=== PATIENT | male | born 1955 | race Caucasian/White ===

== ENCOUNTER 2023-09-28 22:35 | Inpatient (IN) | payer MEDICARE, OTHER, SELFPAY ==
--- NOTE | ~2023-09-28 | CT_ITS ---
EXAMINATION: CT CHEST, ABDOMEN AND PELVIS WITHOUT CONTRAST CLINICAL INFORMATION: Shortness of breath, source of infection, sepsis COMPARISON: None TECHNIQUE: Multidetector volumetric imaging was performed from the thoracic inlet through the pubic symphysis. Sagittal and coronal reformatted images were obtained on the technologist's workstation. Axial MIP volume rendering provided. This CT examination was performed using dose optimization techniques as appropriate, variously including the following: *Automated exposure control *Adjustment of mA and/or kV according to patient size (this includes techniques or standardized protocols for targeted exams where dose is matched to indication/reason for exam; i.e. extremities or head) *Use of iterative reconstruction technique DLP: 1959 mGy-cm FINDINGS: CHEST: Lungs: Limited detailed evaluation in some regions due to respiratory motion artifact. Streaky and subpleural opacities towards the lung bases are favored to represent atelectasis. Mediastinum: Visualized thyroid gland is grossly unremarkable. Borderline enlarged right paratracheal lymph node is nonspecific. Borderline cardiomegaly with small pericardial effusion. Scattered calcification along the aorta. Gaseous distention of much of the esophagus noted. Coronary Artery Calcification: Mild Pleura: There is suggestion of trace pleural effusions. No pneumothorax. Chest Wall/Axilla: Unremarkable. ABDOMEN/PELVIS: Liver, Gallbladder, Biliary Tree: The liver is normal in size, shape, and attenuation. No focal hepatic lesion or biliary ductal dilatation is identified on this noncontrast exam. The gallbladder is unremarkable with no evidence of radiopaque gallstones, gallbladder wall thickening, or pericholecystic inflammatory changes. Pancreas: Mild fatty atrophy. Spleen: Unremarkable. Adrenal Glands: Unremarkable. Kidneys and Ureters: There is mild right hydronephrosis with no obstructing calculus seen. There is asymmetrically prominent right perinephric and retroperitoneal stranding. Bilateral renal cysts noted; no follow-up recommended. No left hydronephrosis. Bladder: Decompressed with Galvan catheter in place. Gastrointestinal Tract: There is prominent, predominantly gaseous distention of the stomach. No evidence of bowel obstruction or significant wall thickening. Colonic diverticulosis is noted. The appendix is unremarkable. Small amount of free fluid in the pelvis. No free air is seen. Abdominal Wall: Fat-containing left inguinal hernia. Lymphovascular Structures: Lymph nodes: Normal. Vascular: Scattered atherosclerotic calcifications. Pelvic Viscera: Unremarkable. OSSEOUS STRUCTURES: Degenerative changes are noted in the spine. CT/CT abdomen pelvis wo IV con IMPRESSION: 1. Mild right hydronephrosis with no obstructing calculus seen. There is asymmetrically prominent right perinephric and retroperitoneal stranding. In the proper clinical setting, this could represent sequelae of a recently passed stone versus pyelonephritis. 2. Small pericardial effusion. 3. Suggestion of trace pleural effusions. 4. Prominent, predominantly gaseous distention of the stomach. No evidence of bowel obstruction. Gaseous distention of the esophagus could be due to reflux or dysmotility. 5. Borderline enlarged right paratracheal lymph node, nonspecific and of uncertain clinical significance. 6. Small amount of free fluid in the pelvis.
--- NOTE | ~2023-09-28 | CT_ITS ---
EXAMINATION: CT ABDOMEN AND PELVIS WITHOUT CONTRAST CLINICAL INFORMATION: Bacteremia and multiple pressures COMPARISON: CT scan earlier today at 12:53 AM TECHNIQUE: Multidetector volumetric imaging was performed from the superior aspect of the liver through the pubic symphysis. Sagittal and coronal reformatted images were obtained on the technologist's workstation. This CT examination was performed using dose optimization techniques as appropriate, variously including the following: *Automated exposure control *Adjustment of mA and/or kV according to patient size (this includes techniques or standardized protocols for targeted exams where dose is matched to indication/reason for exam; i.e. extremities or head) *Use of iterative reconstruction technique DLP: 1683 mGy-cm FINDINGS: LUNG BASES: Bilateral small pleural effusions and lower lobe atelectasis has increased when compared to the study from just under 12 hours ago. There is a persistent small pericardial effusion. Bilateral symmetric gynecomastia. LIVER, GALLBLADDER, AND BILIARY TREE: The liver is normal in size, shape, and attenuation. No focal hepatic lesion or biliary ductal dilatation is present. The gallbladder wall appears slightly more edematous than noted earlier today. No gallstones are seen. Is unremarkable with no evidence of radiopaque gallstones, gallbladder wall thickening, or obvious pericholecystic inflammatory changes. PANCREAS: Unremarkable. SPLEEN: Unremarkable. ADRENAL GLANDS: Unremarkable. KIDNEYS AND URETERS: The kidneys are normal in size, shape, and attenuation. Tiny amount of air is present in the upper pole cortex (4:313-318) on the right. There is right-sided hydronephrosis with dilation of the ureter down to the level of the ureterovesical junction. No obstructing calculus or mass is seen. No left-sided hydronephrosis, hydroureter, or calculi seen. There is bilateral nonspecific perinephric stranding. There are bilateral benign Bosniak class one cysts which need no additional imaging or follow-up. BLADDER: Galvan catheter is present in the bladder which is decompressed. The Galvan balloon may be in the prostatic urethra. GASTROINTESTINAL TRACT: The small and large bowel are unremarkable. The appendix is normal. ABDOMINAL WALL: Left inguinal hernia seen containing only fat. LYMPH NODES: No retroperitoneal lymphadenopathy. VASCULAR: Calcific atherosclerotic changes are present in the aorta and iliofemoral vessels. There is no evidence of an abdominal aortic aneurysm. PELVIC VISCERA: Prostate poorly visualized. OSSEOUS STRUCTURES: Degenerative changes are seen in the spine. CT/CT abdomen pelvis wo IV con IMPRESSION: 1. There is right-sided hydronephrosis with dilation of the ureter down to the level of the ureterovesical junction. No obstructing calculus or mass is seen. 2. Tiny amount of air is present in the upper pole cortex of the right kidney. This could be due to emphysematous pyelonephritis. Please correlate with clinical picture and urinalysis and culture. A small amount of air is also present in the bladder which can be normal with the patient with a Galvan in place. 3. Other incidental findings as described above. Fleischner guidelines were followed.
--- NOTE | ~2023-09-28 | XR_ITS ---
EXAMINATION: XR CHEST CLINICAL INFORMATION: Triple-lumen catheter placement COMPARISON: CT from the same day TECHNIQUE: Frontal view of the chest was obtained. FINDINGS: Right IJ central line tip lies in the region of the lower right atrium, approximately 6 cm below the cavoatrial junction. The lungs are hypoinflated. Streaky bibasilar opacities favor atelectasis. No evidence of pneumothorax or significant pleural effusion. The cardiomediastinal silhouette is stable. No acute osseous findings are seen. XR/XR chest 1V IMPRESSION: Right IJ central line tip in the region of the lower right atrium, approximately 6 cm below the cavoatrial junction. Low lung volumes with streaky bibasilar opacities favoring atelectasis.
--- NOTE | ~2023-09-28 | XR_ITS ---
EXAMINATION: XR CHEST CLINICAL INFORMATION: Dialysis catheter placement COMPARISON: 09/29/2023 TECHNIQUE: Frontal view of the chest was obtained. FINDINGS: Left IJ central line tip overlies the expected region of the left brachiocephalic vein, though arterial placement cannot be excluded, as the aortic arch also overlies this location. Right IJ central line tip lies in the region of the lower right atrium. Enteric tube courses below the diaphragm. Esophageal probe tip overlies the midesophagus. Endotracheal tube tip lies approximately 5.5 cm above the charlene. The lungs are hypoinflated. Overall increasing regions of bibasilar opacity. No appreciable pneumothorax. Small pleural effusions cannot be excluded. The cardiomediastinal silhouette is stable. No acute osseous findings are seen. XR/XR chest 1V IMPRESSION: 1. Left IJ central line tip overlies the expected region of the left brachiocephalic vein, however arterial placement cannot be excluded, as the aortic arch also overlies this location. Correlation with blood gas sampling would be helpful. If clinically warranted, more definitive location could be established with noncontrast CT. 2. Low lung volumes with increasing bibasilar opacities, favored to at least partially be due to atelectasis though superimposed consolidation cannot be excluded.
--- NOTE | ~2023-09-28 | MR_ITS ---
EXAMINATION: MR BRAIN WITHOUT CONTRAST CLINICAL INFORMATION: Persistent encephalopathy COMPARISON: None available. TECHNIQUE: MRI of the brain was obtained using routine sequences without contrast. FINDINGS: Motion artifact is present. No acute intracranial hemorrhage or infarct. Scattered and confluent periventricular and deep white matter T2/FLAIR hyperintensities, nonspecific however commonly seen with small vessel ischemic disease. No midline shift or hydrocephalus. No acute extra-axial fluid collections. The osseous structures are unremarkable. The pituitary gland, pineal gland and remaining midline structures are unremarkable. No orbital pathology. The paranasal sinuses are clear. Small bilateral mastoid effusions. MR/MR head/brain wo con IMPRESSION: Within the limitations of this study, -No acute intracranial abnormalities.
--- NOTE | ~2023-09-28 | US_ITS ---
EXAMINATION: US ABDOMEN LIMITED CLINICAL INFORMATION: Hyperbilirubinemia questionably thickened gallbladder on CT scan, the bulk cholecystitis.. COMPARISON: CT scan from 09/29/2023 TECHNIQUE: Real-time imaging of the right upper quadrant abdominal viscera. FINDINGS: PANCREAS: Unremarkable where seen. The pancreatic tail are obscured by bowel gas. LIVER:The liver is enlarged with the right lobe measured 19 cm. The liver contour is normal. Parenchymal echogenicity is increased due to hepatic steatosis . No focal hepatic lesion. There is no intrahepatic biliary duct dilatation seen. GALLBLADDER: Normal with thickening causes the gallbladder wall in the fundus, measured 0.5 cm. Gallbladder is physiologically distended without calculi seen. There is no pericholecystic fluid collection or cholelithiasis. COMMON BILE DUCT: Normal in caliber measuring 0.4 cm in diameter. RIGHT KIDNEY: Relation of right kidney is limited due to bowel gas distribution.. No hydronephrosis. No renal calculi or focal parenchymal lesions. The kidney measures 12.0 cm in maximum dimension. FREE FLUID: There is pocket of fluid in the right lower quadrant measured 4.5 cm.. US/US abdomen limited IMPRESSION: 1. Hepatic steatosis and hepatomegaly. 2. Thickening of the gallbladder wall in the fundus without calculi or pericholecystic fluid collection. 3. Fluid in the right lower quadrant.
--- NOTE | ~2023-09-28 | FL_ITS ---
EXAMINATION: XR FLUOROSCOPY WITH IMAGES CLINICAL INFORMATION: Right ureteral stone. COMPARISON: CT abdomen and pelvis 09/29/2023. TECHNIQUE: Fluoroscopy Supervised By: Dr. Elena. Fluoroscopy Time: 13.4 sec. Cumulative Dose: 7.51 mGy. DAP: Not documented. Images: 2. FINDINGS: Intraoperative fluoroscopy and spot films were performed during a procedure in the OR. Imaging demonstrates an internal indwelling right-sided double-J stent. Please correlate with Dr. Elena's report for complete details. FL/FL guidance in OR IMPRESSION: Intraoperative fluoroscopy and spot films were obtained. Please see Dr. Elena's report for complete details.
--- NOTE | ~2023-09-28 | XR_ITS ---
EXAMINATION: XR CHEST CLINICAL INFORMATION: ETT/TLC. COMPARISON: None available. TECHNIQUE: Frontal view of the chest was obtained. FINDINGS: The lungs are hypoexpanded but clear acute pneumonic process. Heart size and pulmonary vascularity is normal. Tip of endotracheal tube is 2.8 cm above the charlene. Enteric tube tip is below diaphragm the stomach. There is a right jugular central venous catheter its tip at the atriocaval junction. XR/XR chest 1V IMPRESSION: 1. No acute cardiopulmonary process seen. 2. Support lines and catheters are in satisfactory position.
--- NOTE | ~2023-09-28 | CT_ITS ---
EXAMINATION: NONCONTRAST HEAD CT NONCONTRAST CERVICAL SPINE CT INDICATION INFORMATION: Multiple falls COMPARISON: None TECHNIQUE: Separate noncontrast CT examinations of the head and cervical spine were performed. Coronal head CT images and coronal and sagittal cervical spine images were created at the technologist workstation. DLP: 1415 mGy-cm DOSE LOWERING TECHNIQUES: This CT examination was performed using dose optimization techniques as appropriate, variously including the following: - Automated exposure control - Adjustment of mA and/or kV according to patient size (this includes techniques or standardized protocols for targeted exams were dose is matched to indication/reason for exam; i.e. extremities or head) - Use of iterative reconstruction technique FINDINGS: Head: Suboptimal assessment in some regions due to motion artifact. There is no evidence of acute intracranial hemorrhage or territorial infarction. No abnormal mass-effect or midline shift is seen. Cazares to white matter differentiation is well preserved. No extra-axial fluid collections are identified. The ventricles are normal in size. There is mild periventricular white matter hypoattenuation consistent with chronic small vessel ischemic disease. The osseous structures and soft tissues are normal. Mild mucosal thickening of the maxillary sinuses. The mastoid air cells are well-aerated. Cervical spine: Fusion hardware is present at C5-C6 and C6-C7. There is anatomic alignment of the vertebral bodies and posterior elements. Vertebral body heights are maintained. Mild disc space narrowing at C3-C4. Mild multilevel endplate osteophytes. Mild multilevel facet arthropathy. No evidence of acute fracture. No prevertebral soft tissue swelling. Visualized portions of the lung apices are unremarkable. The thyroid gland is unremarkable. CT/CT cervical spine wo IV con IMPRESSION: HEAD: No acute intracranial findings. CERVICAL SPINE: No acute findings identified. Postoperative and degenerative changes as noted above.
--- NOTE | ~2023-09-28 | XR_ITS ---
EXAMINATION: XR CHEST CLINICAL INFORMATION: Hypoxia COMPARISON: 10/01/2023. . TECHNIQUE: Frontal view of the chest was obtained. Findings: left IJ central line, right IJ central line, enteric tube, esophageal probe, endotracheal tube are in stable position There is low lung volume bilaterally with atelectasis at the right lung base and small pleural effusion. There is patchy airspace disease at the left lung base. Cardiomediastinal silhouette is unremarkable. XR/XR chest 1V IMPRESSION: Lines and tubes are in stable position. Bibasilar atelectasis and small right pleural effusion. Patchy airspace disease at the left lung base
--- NOTE | ~2023-09-28 | XR_ITS ---
EXAMINATION: XR CHEST CLINICAL INFORMATION: Shortness of breath. Fever. COMPARISON: None available. TECHNIQUE: Frontal view of the chest was obtained. FINDINGS: Linear atelectasis is present at the right lung base. Mild elevation of the right hemidiaphragm. Lungs otherwise clear. No consolidation, pneumothorax, or pleural effusion. Cardiac and mediastinal contours are normal. ACDF hardware is evident in the lower cervical spine. Status post left distal clavicular resection. Degenerative disc disease midthoracic spine. XR/XR chest 1V IMPRESSION: Linear atelectasis in the right lung base. No acute pulmonary findings.
[2023-09-28 22:41] VITALS: BMI 33.9
--- NOTE | 2023-09-28 22:41 | ECG_ITS ---
Test Reason : SEPSIS Blood Pressure : / mmHG Vent. Rate : 083 BPM Atrial Rate : 083 BPM P-R Int : 152 ms QRS Dur : 086 ms QT Int : 354 ms P-R-T Axes : 054 024 054 degrees QTc Int : 415 ms Poor data quality Normal sinus rhythm Low voltage QRS Borderline ECG No previous ECGs available Referred By: Madison Salguero Electronically Signed By:Domingo Avitia
--- NOTE | 2023-09-28 22:43 | ED.GENADULT ---
HPI - General Adult General Chief complaint: Fever Stated complaint: sepsis alert Source: patient and EMS Mode of arrival: EMS Limitations: no limitations History of Present Illness ED Provider: Dr. Madison Salguero HPI narrative: Patient comes to the emergency room from home. Patient states that for the last 2 days, he has been having multiple episodes of vomiting, no diarrhea. Patient states that he has been feeling a bit short of breath. Per EMS, the patient called from home, patient seems a bit confused. On arrival, patient's blood pressure in the high 60s systolic. Patient was given 300 mL of fluid EN route to the hospital Related Data Allergies Allergy/AdvReac Type Severity Reaction Status Date / Time rabies vaccine, hero cell Allergy Severe SEVERE Verified 09/28/23 22:56 [RABIES VACCINE, HERO CELL] BLISTERS,RASH cephalexin [From KEFLEX] Allergy Intermediate VOMITING/DI Verified 09/28/23 22:56 ARRHEA Sulfa (Sulfonamide Allergy Unknown SEVERE Verified 09/28/23 22:56 Antibiotics) VOMITING [SULFA (SULFONAMIDE ANTIBIOTICS)] rabies vaccine Allergy Unknown Unknown Uncoded 09/28/23 22:56 sulfa Allergy Unknown Unknown Uncoded 09/28/23 22:56 Review of Systems Review of Systems: Constitutional : No Weight loss, No Fever, No Chills, No Night Sweats, No Fatigue, No Malaise ENT/Mouth : No Hearing loss, No Ear Pain, No Nasal Congestion, No Sinus Pain, No Hoarseness, No sore throat, No Rhinorrhea, No Swallowing Difficulty Eyes: No Eye Pain, No Swelling, No Redness, No Foreign Body, No Discharge, No Vision Changes Cardiovascular : No Chest Pain, complaining of shortness of breath, no edema Respiratory : No Cough, No Sputum, No Wheezing, No Smoke Exposure, complaining of Dyspnea Gastrointestinal : Complaining of nausea and vomiting, No Diarrhea, No Constipation, No abdominal Pain, No Hematochezia, No Melena Genitourinary : no irregular bleeding, No Dysuria, No Urinary Frequency, No Hematuria, No Urinary Incontinence, No Urgency, No Flank Pain, No Urinary Flow Changes, No Hesitancy Musculoskeletal : No joint pain, No Myalgias, No Joint Swelling Skin : No Skin Lesions, No rash Neuro : No Weakness, No Numbness, No Paresthesias, No Loss of Consciousness, No Dizziness, No Headache Psych : No Anxiety/Panic, No Depression, No SI/HI/AH/VH, No Social Issues, Heme/Lymph: No Bruising, No Bleeding,No Lymphadenopathy Endocrine : No Polyuria, No Polydipsia, No Temperature Intolerance [facility] Past Medical History Medical History (Updated 09/29/23 @ 01:06 by Madison Salguero MD) Migraine Prostate cancer Osteomyelitis Skin cancer HLD (hyperlipidemia) Diabetes Hypothyroid Surgical History (Updated 09/28/23 @ 22:59 by Madison Salguero MD) History of umbilical hernia repair Hx of prostatectomy History of spinal fusion Social History Social History Smoked in Last 30 Days: No Use of substances other than those prescribed or required for medical reasons: No Advance Directives: No Advance Directives Information Provided: Yes Do you have a plan to hurt others: No Plan Physical Exam ED Vital Signs: Vital Signs - 24 hr 09/28/23 23:09 09/28/23 23:31 09/29/23 00:06 Temperature 101.7 F H 101.3 F H Pulse Rate 107 H 105 H 90 Respiratory Rate 20 20 Blood Pressure 79/45 L 74/43 L 81/40 L Pulse Oximetry 97 96 Oxygen Delivery Method Nasal Cannula Nasal Cannula Oxygen Flow Rate 2 Fraction of Inspired Oxygen 26 09/29/23 00:08 09/29/23 00:11 09/29/23 00:11 Temperature 100.6 F H Pulse Rate 87 99 99 Respiratory Rate 14 16 Blood Pressure 81/40 L 78/50 L 91/60 Pulse Oximetry 95 95 Oxygen Delivery Method Nasal Cannula Nasal Cannula Oxygen Flow Rate 2 2 Fraction of Inspired Oxygen 25 25 09/29/23 00:16 09/29/23 00:58 09/29/23 01:19 Temperature 99.0 F 99.1 F Pulse Rate 109 H 106 H 113 H Respiratory Rate 20 20 18 Blood Pressure 97/54 L 91/50 L 94/56 L Pulse Oximetry 97 94 90 L Oxygen Delivery Method Nasal Cannula Nasal Cannula Nasal Cannula Oxygen Flow Rate Fraction of Inspired Oxygen 29 24 BMI result Body Mass Index 33.9 Const Other: Appearance: Alert. Oriented X3. But intermittently confused, seems weak Eyes: Pupils equal, round and reactive to light. ENT: Pharynx normal. Neck: Normal inspection. Neck supple. No lymph nodes noted. No crepitus CVS: Normal heart rate and rhythm. Pulses normal. Normal S1 and S2 Respiratory: No respiratory distress. Breath sounds normal. No Wheezing. No rales Abdomen: Soft and nontender. No rigidity. No distention. Skin: Skin warm and dry. Patient is a bit pale color. Normal skin turgor. Extremities: No lower extremity edema. No Lacerations. No Rash Neuro: No motor deficit. No sensory deficit. Moving all extremities. No slurred speech. CN 2 through 12 grossly intact Psych: calm, cooperative, normal affect Course Course Course Narrative: -for the most part, patient answering questions appropriately. Ill-appearing. -patient has fever, tachycardic, hypotensive. -patient was started on IV fluids and antibiotics, sepsis protocol started at 23:00 -all of patient's labs and imaging pending -patient had a vomit in his bland, questionably coffee-ground. Occult stool test pending -on arrival, point of care glucose: 500 -patient receiving IV fluids as mentioned above, and 10 units of insulin. Medications Administered Generic Name Dose Route Start Last Admin Trade Name Freq PRN Reason Stop Dose Admin Norepinephrine Bitartrate 8 mg in 250 mls @ 0 mls/hr 09/29/23 00:15 09/29/23 00:11 Levophed IV 0 mcg/kg/min .Q0M OCTAVIO 0.07 mls/hr Titration Protocol Per Protocol Discontinued Medications Generic Name Dose Route Start Last Admin Trade Name Freq PRN Reason Stop Dose Admin Acetaminophen 975 mg 09/29/23 00:11 09/29/23 00:13 Acetaminophen 325 Mg Tablet PO 09/29/23 00:12 975 mg ONCE ONE Administration Levofloxacin 500 mg in 100 mls @ 100 mls/hr 09/28/23 22:38 09/29/23 00:10 Levaquin IV 09/28/23 23:37 Infused ONCE ONE Infusion Sodium Chloride 3,498 mls @ 3,498 mls/hr 09/28/23 22:42 09/29/23 00:35 Ns 30 ml/kg infuse over 1 hr (3498 ml) 09/28/23 23:41 Infused IV Infusion .Q1H STA Insulin Human Regular 10 unit 09/28/23 22:55 09/28/23 23:02 Insulin Regular, Human 100 Unit/Ml 10 Ml Vial IVPUSH 09/28/23 22:56 10 unit ONCE ONE Administration Ondansetron HCl 4 mg 09/28/23 22:43 09/28/23 22:59 Ondansetron Hcl 4 Mg/2 Ml Vial IVPUSH 09/28/23 22:44 4 mg ONCE ONE Administration Medical Decision Making Medical Decision Making [facility] Narrative: -patient has a rectal temperature of 102.3 degrees. Patient is tachycardic, ill-appearing. Empirically, patient has been started on fluids and antibiotics -my interpretation of labs: Normal white blood cell count. We do not have any previous labs for comparison, patient's creatinine 3.61, unclear what baseline is. Patient has an open anion gap, glucose 560, negative troponin, BNP 245. Patient states that he has never been diagnosed with CHF. TSH greater than 100, T4 pending -my interpretation of chest x-ray, no obvious abnormality. Radiology report, no pulmonary findings -patient's CT scan of head neck chest abdomen and pelvis pending -despite 3.5 L of fluid, patient's blood pressure in the 70s, Levophed has been started. -patient's blood pressure remains in the low 70s, high 80s. However, at this time after the 3.5 L of normal saline, patient is completely awake, alert and oriented x3, patient states that he feels much better. Patient has visitors and interacting with them. Mentation is completely back to normal. 01:10 a.m. focused exam completed. -I spoke with our basket operator nurse practitioner. At this time, we will not insert a central line. Patient is responding rapidly and very well to a low dose of Levophed. Patient may not need pressors within the next 24 hours. Head and cervical spine CT within normal limits - Differential Diagnosis Differential Diagnoses: The differential diagnosis associated with the presentation includes Admission/Observation Consideration of admission/observation: Escalation of care including admission/observation considered Consult Healthcare Provider Management of the patient was discussed with: Calender Supervisor Lab Data [facility] Lab Attestation statement: I reviewed the patient's lab results. 09/28/23 22:47 09/28/23 22:48 Labs: Lab Results 09/28/23 09/28/23 09/28/23 Range/Units 22:39 22:47 22:48 WBC 6.2 (4.8-10.8) X10*3/uL RBC 3.57 L (4.60-5.80) X10*6/uL Hgb 11.1 L (14.0-18.0) g/dl Hct 32.7 L (42.0-52.0) % MCV 91.6 (80.0-98.0) fL MCH 31.1 (27.0-33.0) pg MCHC 33.9 (31.0-36.0) g/dl RDW 14.4 (11.0-16.0) % Plt Count 178 (160-400) X10*3/uL MPV 10.3 (9.4-12.4) fL Absolute Nucleated RBC 0.000 (0.0-0.012) X10*3/uL Nucleated RBC % (auto) 0.0 (0.0-0.2) /100WBC Neutrophils % (Manual) 80 H (45-73) % Band Neutrophils % 5 (3-5) % Lymphocytes % (Manual) 8 L (20-40) % Monocytes % (Manual) 3 (2-11) % Metamyelocytes % 4 % Abs Neuts (Manual) 5.3 (2.0-8.3) X10*3/uL Lymphocytes # (Manual) 0.5 L (1.2-4.9) X10*3/uL Monocytes # (Manual) 0.2 (0.1-1.2) X10*3/uL Metamyelocytes # 0.2 X10*3/uL Toxic Vacuolation PRESENT Dohle Bodies PRESENT Platelet Estimate NORMAL (NORMAL) Large Platelets PRESENT Plt Morphology Comment NOTE RBC Morphology NOTED Mario Cells 1+ (0-2) /OIF PT 13.1 (11.1-13.3) SEC INR 1.1 (0.9-1.1) VBG pH (7.32-7.43) VBG pCO2 mmHg VBG pO2 mmHg VBG HCO3 (22-26) mmol/L VBG O2 Saturation % VBG Base Excess mmol/L Sodium 133 L (135-145) mmol/L Potassium 4.4 (3.3-5.1) mmol/L Chloride 96 (96-108) mmol/L Carbon Dioxide 19 L (22-29) mmol/L Anion Gap 22 H (12-20) BUN 43 H (9-16) mg/dL Creatinine 3.61 H (0.5-1.4) mg/dL Estim Creat Clear Calc 25.8 Estimated GFR 17 POC Glucose 493 H* (60-115) mg/dL Random Glucose 560 H* (60-115) mg/dL Lactic Acid 8.8 H* (0.5-2.0) mmol/L Lactic Acid F/U @ 2Hr (0.5-2.0) mmol/L Calcium 9.0 (8.4-10.2) mg/dL Magnesium 1.6 (1.6-2.6) mg/dL Total Bilirubin 0.6 (0.0-1.0) mg/dL Direct Bilirubin 0.2 (0.0-0.5) mg/dL AST 63 H (5-37) U/L ALT 29 (0-40) U/L Alkaline Phosphatase 94 (39-117) U/L Ammonia (13-55) umol/L Troponin I High Sens 24.3 (<3.5-35.0) ng/L B-Natriuretic Peptide 245 H (<100) pg/mL Total Protein 6.4 L (6.5-8.0) g/dL Albumin 3.4 L (3.5-5.0) g/dL Lipase 13 (8-78) U/L Beta-Hydroxybutyrate 0.19 (0.02-0.27) mmol/L TSH > 100.00 H (0.32-4.0) uIU/mL Free T4 < 0.42 L (0.71-1.85) ng/dL Stool Occult Blood (NEGATIVE) COVID-19 (RENNY) (Negative) COVID-19 Clin Com Influenza Type A (SOSA) (Negative) Influenza Type B (SOSA) (Negative) Influenza A & B Note 09/28/23 09/28/23 09/28/23 Range/Units 23:08 23:09 23:11 WBC (4.8-10.8) X10*3/uL RBC (4.60-5.80) X10*6/uL Hgb (14.0-18.0) g/dl Hct (42.0-52.0) % MCV (80.0-98.0) fL MCH (27.0-33.0) pg MCHC (31.0-36.0) g/dl RDW (11.0-16.0) % Plt Count (160-400) X10*3/uL MPV (9.4-12.4) fL Absolute Nucleated RBC (0.0-0.012) X10*3/uL Nucleated RBC % (auto) (0.0-0.2) /100WBC Neutrophils % (Manual) (45-73) % Band Neutrophils % (3-5) % Lymphocytes % (Manual) (20-40) % Monocytes % (Manual) (2-11) % Metamyelocytes % % Abs Neuts (Manual) (2.0-8.3) X10*3/uL Lymphocytes # (Manual) (1.2-4.9) X10*3/uL Monocytes # (Manual) (0.1-1.2) X10*3/uL Metamyelocytes # X10*3/uL Toxic Vacuolation Dohle Bodies Platelet Estimate (NORMAL) Large Platelets Plt Morphology Comment RBC Morphology [place] Cells /OIF PT (11.1-13.3) SEC INR (0.9-1.1) VBG pH 7.54 H (7.32-7.43) VBG pCO2 16 mmHg VBG pO2 129 mmHg VBG HCO3 14 L (22-26) mmol/L VBG O2 Saturation 99.0 % VBG Base Excess -5.2 mmol/L Sodium (135-145) mmol/L Potassium (3.3-5.1) mmol/L Chloride (96-108) mmol/L Carbon Dioxide (22-29) mmol/L Anion Gap (12-20) BUN (9-16) mg/dL Creatinine (0.5-1.4) mg/dL Estim Creat Clear Calc Estimated GFR POC Glucose (60-115) mg/dL Random Glucose (60-115) mg/dL Lactic Acid (0.5-2.0) mmol/L Lactic Acid F/U @ 2Hr (0.5-2.0) mmol/L Calcium (8.4-10.2) mg/dL Magnesium (1.6-2.6) mg/dL Total Bilirubin (0.0-1.0) mg/dL Direct Bilirubin (0.0-0.5) mg/dL AST (5-37) U/L ALT (0-40) U/L Alkaline Phosphatase (39-117) U/L Ammonia 26 (13-55) umol/L Troponin I High Sens (<3.5-35.0) ng/L B-Natriuretic Peptide (<100) pg/mL Total Protein (6.5-8.0) g/dL Albumin (3.5-5.0) g/dL Lipase (8-78) U/L Beta-Hydroxybutyrate (0.02-0.27) mmol/L TSH (0.32-4.0) uIU/mL Free T4 (0.71-1.85) ng/dL Stool Occult Blood (NEGATIVE) COVID-19 (RENNY) Negative (Negative) COVID-19 Clin Com See Note Influenza Type A (SOSA) Negative (Negative) Influenza Type B (SOSA) Negative (Negative) Influenza A & B Note See Note 09/28/23 09/29/23 09/29/23 Range/Units 23:19 01:01 01:09 WBC (4.8-10.8) X10*3/uL RBC (4.60-5.80) X10*6/uL Hgb (14.0-18.0) g/dl Hct (42.0-52.0) % MCV (80.0-98.0) fL MCH (27.0-33.0) pg MCHC (31.0-36.0) g/dl RDW (11.0-16.0) % Plt Count (160-400) X10*3/uL MPV (9.4-12.4) fL Absolute Nucleated RBC (0.0-0.012) X10*3/uL Nucleated RBC % (auto) (0.0-0.2) /100WBC Neutrophils % (Manual) (45-73) % Band Neutrophils % (3-5) % Lymphocytes % (Manual) (20-40) % Monocytes % (Manual) (2-11) % Metamyelocytes % % Abs Neuts (Manual) (2.0-8.3) X10*3/uL Lymphocytes # (Manual) (1.2-4.9) X10*3/uL Monocytes # (Manual) (0.1-1.2) X10*3/uL Metamyelocytes # X10*3/uL Toxic Vacuolation Dohle Bodies Platelet Estimate (NORMAL) Large Platelets Plt Morphology Comment RBC Morphology [place] Cells /OIF PT (11.1-13.3) SEC INR (0.9-1.1) VBG pH (7.32-7.43) VBG pCO2 mmHg VBG pO2 mmHg VBG HCO3 (22-26) mmol/L VBG O2 Saturation % VBG Base Excess mmol/L Sodium (135-145) mmol/L Potassium (3.3-5.1) mmol/L Chloride (96-108) mmol/L Carbon Dioxide (22-29) mmol/L Anion Gap (12-20) BUN (9-16) mg/dL Creatinine (0.5-1.4) mg/dL Estim Creat Clear Calc Estimated GFR POC Glucose 311 H (60-115) mg/dL Random Glucose (60-115) mg/dL Lactic Acid (0.5-2.0) mmol/L Lactic Acid F/U @ 2Hr 9.0 H* (0.5-2.0) mmol/L Calcium (8.4-10.2) mg/dL Magnesium (1.6-2.6) mg/dL Total Bilirubin (0.0-1.0) mg/dL Direct Bilirubin (0.0-0.5) mg/dL AST (5-37) U/L ALT (0-40) U/L Alkaline Phosphatase (39-117) U/L Ammonia (13-55) umol/L Troponin I High Sens (<3.5-35.0) ng/L B-Natriuretic Peptide (<100) pg/mL Total Protein (6.5-8.0) g/dL Albumin (3.5-5.0) g/dL Lipase (8-78) U/L Beta-Hydroxybutyrate (0.02-0.27) mmol/L TSH (0.32-4.0) uIU/mL Free T4 (0.71-1.85) ng/dL Stool Occult Blood NEGATIVE (NEGATIVE) COVID-19 (RENNY) (Negative) COVID-19 Clin Com Influenza Type A (SOSA) (Negative) Influenza Type B (SOSA) (Negative) Influenza A & B Note Independent Interpretation I performed an independent interpretation of an: CT Scan (My interpretation of CT scan of the head: No intracranial bleed.) Radiology Impression Discussion of test interpretation with radiology: I have reviewed the radiologist's reading. Radiologist Impression: HEAD: No acute intracranial findings. CERVICAL SPINE: No acute findings identified. Postoperative and degenerative changes as noted above Critical Care Time Critical Care Time Critical Care Time: Yes Total Critical Care Time: 90 Attestation: I have personally provided critical care time. Time includes review of lab data, radiology results, discussion with consultants, and monitoring for potential decompensation. Intervention performed as documented. Discharge Plan Discharge Clinical Impression: Sepsis, Acute dehydration, LATASHA (acute kidney injury) Patient Disposition: Admitted As Inpatient Print Language: Albanian
[2023-09-28 22:54] VITALS: BMI 33.9
[2023-09-28 22:57] LABS: Hematocrit 32.7 % (42.0-52.0); Hemoglobin 11.1 g/dl (14.0-18.0); Mean Corpuscular HGB Conc 33.9 g/dl (31.0-36.0); Mean Corpuscular Hemoglobin 31.1 pg (27.0-33.0); Mean Corpuscular Volume 91.6 fL (80.0-98.0); Mean Platelet Volume 10.3 fL (9.4-12.4); Platelet Count 178 X10*3/uL (160-400); Red Blood Count 3.57 X10*6/uL (4.60-5.80); Red Cell Distribution Width 14.4 % (11.0-16.0); WBC ABN SCTR FOR CBC 1
[2023-09-28 22:58] LABS: White Blood Count 6.2 X10*3/uL (4.8-10.8)
[2023-09-28] MEDS: ondansetron HCL 4 MG/2 ML VIAL IVPUSH (22:59)
[2023-09-28] MEDS: Insulin Regular, Human 100 UNIT/ML 10 ML VIAL 10 UNIT IVPUSH (23:02)
[2023-09-28 23:04] LABS: Glucose, Whole Blood 493 mg/dL (60-115)
[2023-09-28 23:09] VITALS: BP 79/45; PULSE 107; RESP 20; TEMP 38.7; O2SAT 97
[2023-09-28 23:09] LABS: Lactic Acid 8.8 mmol/L (0.5-2.0)
[2023-09-28] MEDS: levoFLOXacin/D5W 500 MG/100 ML PIGGYBACK 100 MG IV (23:10)
[2023-09-28 23:14] LABS: INTERNATIONAL NORM RATIO 1.1 (0.9-1.1); Prothrombin Time 13.1 SEC (11.1-13.3)
[2023-09-28 23:17] LABS: Troponin-I High Sensitivity 24.3 ng/L (<3.5-35.0)
[2023-09-28 23:18] LABS: B Type Natriuretic Peptide 245 pg/mL (<100)
[2023-09-28 23:19] LABS: VBG Base Excess -5.2 mmol/L; VBG HCO3 14 mmol/L (22-26); VBG pCO2 16 mmHg; VBG pH 7.54 (7.32-7.43); VBG pO2 129 mmHg
[2023-09-28 23:22] LABS: OBS Int Ctl Valid YES; OBS1 NEGATIVE (NEGATIVE)
[2023-09-28 23:24] LABS: Alanine Aminotransferase 29 U/L (0-40); Albumin Level 3.4 g/dL (3.5-5.0); Alkaline Phosphatase 94 U/L (39-117); Anion Gap 22 (12-20); Aspartate Amino Transferase 63 U/L (5-37); Bilirubin Direct 0.2 mg/dL (0.0-0.5); Bilirubin Total 0.6 mg/dL (0.0-1.0); Blood Urea Nitrogen 43 mg/dL (9-16); Carbon Dioxide 19 mmol/L (22-29); Chloride 96 mmol/L (96-108); Creatinine Clr Calc Pharmacy 25.8; Estimated Glomerular Filt Rate 17; Glucose Random 560 mg/dL (60-115); Lipase 13 U/L (8-78); Magnesium 1.6 mg/dL (1.6-2.6); Potassium 4.4 mmol/L (3.3-5.1); Sodium 133 mmol/L (135-145); Total Protein 6.4 g/dL (6.5-8.0)
[2023-09-28 23:25] LABS: Venous Blood Gas Refer to POC result
[2023-09-28 23:26] LABS: Band Neutrophils Percent 5 % (3-5); Lymphocytes Absolute Manual 0.5 X10*3/uL (1.2-4.9); Lymphocytes Percent Manual 8 % (20-40); Metamyelocytes Absolute 0.2 X10*3/uL; Metamyelocytes Percent 4 %; Monocytes Absolute Manual 0.2 X10*3/uL (0.1-1.2); Monocytes Percent Manual 3 % (2-11); Neutrophils Absolute Manual 5.3 X10*3/uL (2.0-8.3); Neutrophils Percent Manual 80 % (45-73); Platelet Estimate NORMAL (NORMAL)
[2023-09-28 23:27] LABS: Burr Cells 1+ (0-2) /OIF; Large Platelet PRESENT; Platelet Morphology Comment NOTE; RBC Morphology NOTED
[2023-09-28 23:28] LABS: Dohle Bodies PRESENT; Toxic Vacuolation PRESENT
[2023-09-28 23:31] VITALS: BP 74/43; PULSE 105; RESP 20; TEMP 38.5; O2SAT 96
[2023-09-28 23:43] LABS: TSH reflex Free T4 > 100.00 uIU/mL (0.32-4.0)
[2023-09-28 23:47] LABS: COVID-19 Test Negative (Negative); IDNOW Serial# 08D9AD1C
[2023-09-28 23:47] LABS: IDNOW Serial# 152EDE1D; Influenza A Negative (Negative); Influenza B2 Negative (Negative)
[2023-09-29] VITALS (85 sets, daily range): BP systolic 64–178; BP diastolic 38–93; PULSE 82–157; RESP 13–30; TEMP 32.9–38.7; O2SAT 71–100; BMI 34.1
--- NOTE | 2023-09-29 | ECG_ITS ---
Test Reason : Rhythm change Blood Pressure : / mmHG Vent. Rate : 133 BPM Atrial Rate : 133 BPM P-R Int : 128 ms QRS Dur : 090 ms QT Int : 284 ms P-R-T Axes : 037 -01 013 degrees QTc Int : 422 ms Sinus tachycardia Low voltage QRS Borderline ECG When compared with ECG of 28-SEP-2023 22:51, Vent. rate has increased BY 50 BPM Referred By: Lance Montiel Electronically Signed By:Domingo Avitia
[2023-09-29] MEDS: Norepinephrine Bitartrate/D5W 8 MG/250 ML PLAST..BAG 10.93 MG IV (00:06)
--- NOTE | 2023-09-29 00:09 | PC.NURSE ---
Pt SBP not responding well to IVF, started on Levophed per MD orders.
[2023-09-29] MEDS: Acetaminophen 325 MG TABLET 975 MG PO ×2 (00:13→09:42)
[2023-09-29 00:15] LABS: Free T4 (Free Thyroxine) < 0.42 ng/dL (0.71-1.85)
[2023-09-29 00:18] LABS: Ammonia 26 umol/L (13-55)
[2023-09-29 00:28] LABS: Beta-Hydroxybutyrate 0.19 mmol/L (0.02-0.27)
[2023-09-29 00:54] LABS: Reflex Lactate? Lactic Acid Added
--- NOTE | 2023-09-29 00:59 | PC.NURSE ---
Pt brought to and from CT without incident. On reassessment, pt mentating significantly better than on arrival, skin PWD at this time correlating with increase in MAP and perfusion, fish placed per orders with 0 output - MD notified and present during CT with visualization of empty bladder and correct fish placement on scan. pending room availability in ICU.
[2023-09-29 01:15] LABS: Glucose, Whole Blood 311 mg/dL (60-115)
[2023-09-29] MEDS: Hydrocortisone Sod Succ/PF 100 MG VIAL IVPUSH (02:25)
[2023-09-29 02:34] LABS: Appearance Urine Turbid; Color Urine Dark Yellow; Glucose Urine UA 500 mg/dL (Negative); Leukocyte Esterase Urine Small (1+) (Negative); Nitrite Urine Negative (Negative); Specific Gravity - Urine 1.025 (1.005-1.025); UMIC TRIGGER UACC YES; Urine Blood Moderate (2+) (Negative); Urine Ketones Trace mg/dL (Negative); Urine Protein 100 (2+) mg/dL (Neg-Trace)
--- NOTE | 2023-09-29 02:35 | PC.NURSE ---
Rcvd verbal from MD Salguero to titrate Levophed to 0.50 from current rate given no response to last 3 titrations.
[2023-09-29] MEDS: Piperacillin Sodium/Tazobactam 3.375 GM in 0.9 % Sodium Chloride 50 ML IV (02:36)
--- NOTE | 2023-09-29 02:43 | PC.NURSE ---
Titrated Norepi down per verbal from MD Wood to adjust down if MAP > 80 by 0.10.
--- NOTE | 2023-09-29 03:11 | PC.NURSE ---
Report given to ICU via phone by this RN. Pt transported to ICU and transfered to ICU stretcher without incident.
[2023-09-29 03:13] LABS: Reflex Lactate? 2 Y
[2023-09-29 03:18] LABS: Bacteria Urine 3+ (None Seen); Hyaline Casts Urine >20 /LPF (0-2); Squamous Epithelial Cell Urine >20 /HPF (0-2); UACC Culture Trigger YES; WBC Urine >50 /HPF (0-5)
[2023-09-29 03:25] LABS: Glucose, Whole Blood 266 mg/dL (60-115)
--- NOTE | 2023-09-29 03:26 | P.HPCC_ITS ---
History of Present Illness Date of Service: 09/29/23 Attending physician on admission: Terrie Davis Chief Complaint: Distributive Shock Mr. Manning is a a 68-year-old male with history of HLD, DM 2, basal cell carcinoma, prostate cancer, cholelithiasis, osteomyelitis,? hypothyroidism, nephrolithiasis, cervical stenosis, obesity? who presented to the emergency room with complaint of nausea, vomiting and weakness x about 5 days. He was intermittently confused, febrile and hypotensive.? On arrival to the ER, his blood pressure was 79/45, heart rate 105, temp 101.7?. O2 sat 97% on 2LNC.? Laboratory data significant for sodium 133, CO2 19, anion gap 22, BUN 43, creatinine 3.61, glucose 493, lactic acid 8.8, BNP 245, beta-hydroxybutyrate 0.19, TSH > 100.00, T4 <0.42. Imaging Chest x-ray showed atelectasis right lung base, no acute findings. Chest CT: Trace pleural effusions suggested CT/CT abdomen pelvis wo IV con: ???1.? Mild right hydronephrosis with no obstructing calculus seen. There is asymmetrically prominent right perinephric and retroperitoneal stranding. In the proper clinical setting, this could represent sequelae of a recently passed stone versus pyelonephritis. ???2.? Small pericardial effusion. ???3.? Suggestion of trace pleural effusions. ???4.? Prominent, predominantly gaseous distention of the stomach. No evidence of bowel obstruction. Gaseous distention of the esophagus could be due to reflux or dysmotility. ???5.? Borderline enlarged right paratracheal lymph node, nonspecific and of uncertain clinical significance. ???6.? Small amount of free fluid in the pelvis. Head CT: No acute findings. Cervical Spine CT: No acute findings ED course: ? The patient was given 300 mL fluid?by EMS.? While in the ED, he was given Insulin 10 units, Zofran 4 mg, Acetaminophen 975 mg,? Hydrocortisone 100mg, Levaquin 500 mg, 3498 mL crystalloid per sepsis protocol, and was started on a Levophed drip. After receiving IVF, the pt was A&OX3 and reported having had a fall due to weakness a few days ago. He denied hitting his head or any LOC.? Review of Systems 2 Constitutional: Constitutional: Reports fatigue, Reports fever(s) and Reports weakness Cardiovascular: Cardiovascular: Reports no additional cardiovascular complaints and Denies dyspnea Respiratory: Respiratory: Denies dyspnea and Denies wheezing Gastrointestinal: Gastrointestinal: Reports nausea and Reports vomiting Genitourinary: Genitourinary: Denies dysuria Musculoskeletal: Musculoskeletal: Reports muscle weakness Neurologic: Reports weakness Endocrine: Endocrine: Reports fatigue Allergic/Immunologic: Allergic/Immunologic: Denies wheezing [facility] Past Medical History Medical History (Updated 09/29/23 @ 04:06 by Kaya Hamilton NP) Migraine Prostate cancer Osteomyelitis Skin cancer HLD (hyperlipidemia) Diabetes Hypothyroid Surgical History Surgical History (Updated 09/28/23 @ 22:59 by Madison Salguero MD) History of umbilical hernia repair Hx of prostatectomy History of spinal fusion Social History Social History Household Members: Spouse Housing: House Do you presently have visiting nurse or other home services: No Patient Tobacco Use Status: Former Tobacco user Smoked in Last 30 Days: No Use of substances other than those prescribed or required for medical reasons: No Advance Directives: No Advance Directives Information Provided: Yes Do you have a plan to hurt others: No Plan Eating poorly because of decreased appetite: Yes Nutrition Risks: Acute nausea or vomiting x1 week and Poor intake 0-25% >4 days Meds Allergies Allergy/AdvReac Type Severity Reaction Status Date / Time rabies vaccine, hero cell Allergy Severe SEVERE Verified 09/28/23 22:56 [RABIES VACCINE, HERO CELL] BLISTERS,RASH cephalexin [From KEFLEX] Allergy Intermediate VOMITING/DI Verified 09/28/23 22:56 ARRHEA Sulfa (Sulfonamide Allergy Unknown SEVERE Verified 09/28/23 22:56 Antibiotics) VOMITING [SULFA (SULFONAMIDE ANTIBIOTICS)] rabies vaccine Allergy Unknown Unknown Uncoded 09/28/23 22:56 sulfa Allergy Unknown Unknown Uncoded 09/28/23 22:56 Active Medications: Current Medications Enoxaparin Sodium (Enoxaparin Sodium 30 Mg/0.3 Ml Syringe) 30 mg SUBCUT Q24H OCTAVIO Hydrocortisone Sodium Succinate (Hydrocortisone Sod Succ/Pf 100 Mg Vial) 50 mg IVPUSH Q6H OCTAVIO Norepinephrine Bitartrate (Levophed) 8 mg in 250 mls @ 0 mls/hr IV .Q0M OCTAVIO; Protocol Last Titration: 09/29/23 02:42 Dose: 0.4 mcg/kg/min, 87.45 mls/hr Vancomycin HCl (Vancomycin/Ns) 2,000 mg in 500 mls @ 250 mls/hr IV ONCE ONE Stop: 09/29/23 04:25 Insulin Human Regular (Myxredlin) 100 unit in 100 mls @ 0 mls/hr IVCONT .Q0M OCTAVIO; Protocol Dextrose (D10) 250 mls @ 750 mls/hr IV Q30M PRN PRN Reason: BG <70 Lactated Ringer's (Lr) 1,000 mls @ 200 mls/hr IVCONT .Q5H OCTAVIO Lactated Ringer's (Lr) 1,000 mls @ 999 mls/hr IV .Q1H1M OCTAVIO Stop: 09/29/23 04:30 Vasopressin (Vasostrict) 20 unit in 100 mls @ 12 mls/hr IVCONT .Q8H20M OCTAVIO Ondansetron HCl (Ondansetron Hcl 4 Mg/2 Ml Vial) 4 mg IVPUSH Q8H PRN PRN Reason: Nausea and Vomiting Pharmacy Consult (Consult Rx Vancomycin Dosing) 1 each MISCELLANE DAILY PRN PRN Reason: Consult order Sodium Bicarbonate (Sodium Bicarbonate 8.4% 50 Meq/50 Ml Syringe) 50 meq IVPUSH ONCE ONE Stop: 09/29/23 03:19 Sodium Chloride (0.9 % Sodium Chloride Flush 3 Ml Syringe) 3 ml IVFLUSH QSHIFT [facility] Physical Exam 2 Vital Signs: Vital Signs: Last Vital Signs Temp 99.5 F 09/29/23 02:41 Pulse 117 H 09/29/23 02:42 Resp 15 09/29/23 02:41 BP 140/68 H 09/29/23 02:46 Pulse Ox 95 09/29/23 02:41 O2 Del Method Nasal Cannula 09/29/23 02:41 O2 Flow Rate 2 09/29/23 00:11 FiO2 24 09/29/23 00:58 BMI result Body Mass Index 33.9 Const: General: cooperative and comfortable; No acute distress Nutritional Appearance: obese Orientation/consciousness: patient oriented x3 HEENT: Head: Yes normocephalic and Yes atraumatic General nose exam: Normal external nose present (Nares patent, septum midline, sinuses nontender bilaterally.) Mouth: Normal oral and palatal mucosa present (No thrush, tongue in midline, mucosa moist.) Throat: Yes other (No erythema, no exudate.) Neck: Neck: Yes supple (no thyromegaly, trachea midline.) Carotids: normal carotid upstroke Resp: Effort & Inspection: normal respiratory effort and able to speak in complete sentences Auscultation: clear to auscultation bilaterally (normal work of breathing, no accessory muscle use) Cardio: Jugular venous distension: no JVD Rate: regular rate Rhythm: r egular rhythm Heart sounds: no gallops, no murmurs and no rubs Peripheral pulses: Peripheral pulses 2+ throughout GI: Inspection: Yes obesity Palpation (GI): Soft to palpation (nondistended.) and nontender Back/Spine/Pelvis: Back: back tenderness (chronic) Neuro: General: patient oriented x3 Cognition (Neuro): normal cognition Extrem: General: Yes full ROM, Yes capillary refill normal and Yes no clubbing, cyanosis or edema Psych: Mental Status: mental status grossly normal Speech and movement: N ormal speech and movement present Affect: normal affect Attitude: c ooperative Results Labs 09/28/23 22:47 09/28/23 22:48 Labs: Laboratory Results - last 24 hr 09/28/23 09/28/23 09/28/23 22:39 22:47 22:48 MCV 91.6 MCH 31.1 MCHC 33.9 RDW 14.4 Plt Count 178 MPV 10.3 Absolute Nucleated RBC 0.000 Nucleated RBC % (auto) 0.0 Neutrophils % (Manual) 80 H Band Neutrophils % 5 Lymphocytes % (Manual) 8 L Monocytes % (Manual) 3 Metamyelocytes % 4 Abs Neuts (Manual) 5.3 Lymphocytes # (Manual) 0.5 L Monocytes # (Manual) 0.2 Metamyelocytes # 0.2 Toxic Vacuolation PRESENT Dohle Bodies PRESENT Platelet Estimate NORMAL Large Platelets PRESENT Plt Morphology Comment NOTE RBC Morphology NOTED Mario Cells 1+ (0-2) PT 13.1 INR 1.1 VBG pH VBG pCO2 VBG pO2 VBG HCO3 VBG O2 Saturation VBG Base Excess Anion Gap 22 H Estim Creat Clear Calc 25.8 Estimated GFR 17 POC Glucose 493 H* Random Glucose 560 H* Lactic Acid 8.8 H* Lactic Acid F/U @ 2Hr Calcium 9.0 Magnesium 1.6 Total Bilirubin 0.6 Direct Bilirubin 0.2 AST 63 H ALT 29 Alkaline Phosphatase 94 Ammonia Troponin I High Sens 24.3 B-Natriuretic Peptide 245 H Total Protein 6.4 L Albumin 3.4 L Lipase 13 Beta-Hydroxybutyrate 0.19 TSH > 100.00 H Free T4 < 0.42 L Urine Color Urine Appearance Urine pH Ur Specific Dalton Urine Protein Urine Glucose (UA) Urine Ketones Urine Blood Urine Nitrite Ur Leukocyte Esterase Urine RBC Urine WBC Ur Squamous Epith Cells Urine Bacteria Hyaline Casts Stool Occult Blood COVID-19 (RENNY) COVID-19 Clin Com Influenza Type A (SOSA) Influenza Type B (SOSA) Influenza A & B Note 09/28/23 09/28/23 09/28/23 23:08 23:09 23:11 MCV MCH MCHC RDW Plt Count MPV Absolute Nucleated RBC Nucleated RBC % (auto) Neutrophils % (Manual) Band Neutrophils % Lymphocytes % (Manual) Monocytes % (Manual) Metamyelocytes % Abs Neuts (Manual) Lymphocytes # (Manual) Monocytes # (Manual) Metamyelocytes # Toxic Vacuolation Dohle Bodies Platelet Estimate Large Platelets Plt Morphology Comment RBC Morphology Mario Cells PT INR VBG pH 7.54 H VBG pCO2 16 VBG pO2 129 VBG HCO3 14 L VBG O2 Saturation 99.0 VBG Base Excess -5.2 Anion Gap Estim Creat Clear Calc Estimated GFR POC Glucose Random Glucose Lactic Acid Lactic Acid F/U @ 2Hr Calcium Magnesium Total Bilirubin Direct Bilirubin AST ALT Alkaline Phosphatase Ammonia 26 Troponin I High Sens B-Natriuretic Peptide Total Protein Albumin Lipase Beta-Hydroxybutyrate TSH Free T4 Urine Color Urine Appearance Urine pH Ur Specific Dalton Urine Protein Urine Glucose (UA) Urine Ketones Urine Blood Urine Nitrite Ur Leukocyte Esterase Urine RBC Urine WBC Ur Squamous Epith Cells Urine Bacteria Hyaline Casts Stool Occult Blood COVID-19 (RENNY) Negative COVID-19 Clin Com See Note Influenza Type A (SOSA) Negative Influenza Type B (SOSA) Negative Influenza A & B Note See Note 09/28/23 09/29/23 09/29/23 23:19 01:01 01:09 MCV MCH MCHC RDW Plt Count MPV Absolute Nucleated RBC Nucleated RBC % (auto) Neutrophils % (Manual) Band Neutrophils % Lymphocytes % (Manual) Monocytes % (Manual) Metamyelocytes % Abs Neuts (Manual) Lymphocytes # (Manual) Monocytes # (Manual) Metamyelocytes # Toxic Vacuolation Dohle Bodies Platelet Estimate Large Platelets Plt Morphology Comment RBC Morphology [place] Cells PT INR VBG pH VBG pCO2 VBG pO2 VBG HCO3 VBG O2 Saturation VBG Base Excess Anion Gap Estim Creat Clear Calc Estimated GFR POC Glucose 311 H Random Glucose Lactic Acid Lactic Acid F/U @ 2Hr 9.0 H* Calcium Magnesium Total Bilirubin Direct Bilirubin AST ALT Alkaline Phosphatase Ammonia Troponin I High Sens B-Natriuretic Peptide Total Protein Albumin Lipase Beta-Hydroxybutyrate TSH Free T4 Urine Color Urine Appearance Urine pH Ur Specific Dalton Urine Protein Urine Glucose (UA) Urine Ketones Urine Blood Urine Nitrite Ur Leukocyte Esterase Urine RBC Urine WBC Ur Squamous Epith Cells Urine Bacteria Hyaline Casts Stool Occult Blood NEGATIVE COVID-19 (RENNY) COVID-19 Clin Com Influenza Type A (SOSA) Influenza Type B (SOSA) Influenza A & B Note 09/29/23 09/29/23 02:21 03:21 MCV MCH MCHC RDW Plt Count MPV Absolute Nucleated RBC Nucleated RBC % (auto) Neutrophils % (Manual) Band Neutrophils % Lymphocytes % (Manual) Monocytes % (Manual) Metamyelocytes % Abs Neuts (Manual) Lymphocytes # (Manual) Monocytes # (Manual) Metamyelocytes # Toxic Vacuolation Dohle Bodies Platelet Estimate Large Platelets Plt Morphology Comment RBC Morphology [place] Cells PT INR VBG pH VBG pCO2 VBG pO2 VBG HCO3 VBG O2 Saturation VBG Base Excess Anion Gap Estim Creat Clear Calc Estimated GFR POC Glucose 266 H Random Glucose Lactic Acid Lactic Acid F/U @ 2Hr Calcium Magnesium Total Bilirubin Direct Bilirubin AST ALT Alkaline Phosphatase Ammonia Troponin I High Sens B-Natriuretic Peptide Total Protein Albumin Lipase Beta-Hydroxybutyrate TSH Free T4 Urine Color Dark Yellow Urine Appearance Turbid Urine pH 5.0 Ur Specific Dalton 1.025 Urine Protein 100 (2+) H Urine Glucose (UA) 500 H Urine Ketones Trace Urine Blood Moderate (2+) H Urine Nitrite Negative Ur Leukocyte Esterase Small (1+) H Urine RBC 3-5 H Urine WBC >50 H Ur Squamous Epith Cells >20 Urine Bacteria 3+ Hyaline Casts >20 Stool Occult Blood COVID-19 (RENNY) COVID-19 Clin Com Influenza Type A (SOSA) Influenza Type B (SOSA) Influenza A & B Note Imaging Radiologist's Impressions: Impressions Chest X-Ray 09/28/23 23:10 IMPRESSION: Linear atelectasis in the right lung base. No acute pulmonary findings. Cervical Spine CT 09/29/23 00:45 IMPRESSION: HEAD: No acute intracranial findings. CERVICAL SPINE: No acute findings identified. Postoperative and degenerative changes as noted above. Head CT 09/29/23 00:45 IMPRESSION: HEAD: No acute intracranial findings. CERVICAL SPINE: No acute findings identified. Postoperative and degenerative changes as noted above. Abdomen/Pelvis CT 09/29/23 00:50 IMPRESSION: 1. Mild right hydronephrosis with no obstructing calculus seen. There is asymmetrically prominent right perinephric and retroperitoneal stranding. In the proper clinical setting, this could represent sequelae of a recently passed stone versus pyelonephritis. 2. Small pericardial effusion. 3. Suggestion of trace pleural effusions. 4. Prominent, predominantly gaseous distention of the stomach. No evidence of bowel obstruction. Gaseous distention of the esophagus could be due to reflux or dysmotility. 5. Borderline enlarged right paratracheal lymph node, nonspecific and of uncertain clinical significance. 6. Small amount of free fluid in the pelvis. Chest CT 09/29/23 00:50 IMPRESSION: 1. Mild right hydronephrosis with no obstructing calculus seen. There is asymmetrically prominent right perinephric and retroperitoneal stranding. In the proper clinical setting, this could represent sequelae of a recently passed stone versus pyelonephritis. 2. Small pericardial effusion. 3. Suggestion of trace pleural effusions. 4. Prominent, predominantly gaseous distention of the stomach. No evidence of bowel obstruction. Gaseous distention of the esophagus could be due to reflux or dysmotility. 5. Borderline enlarged right paratracheal lymph node, nonspecific and of uncertain clinical significance. 6. Small amount of free fluid in the pelvis. Assessment and Plan (1) Hypothyroidism: Qualifiers: Hypothyroidism type: unspecified Qualified Code(s): E03.9 - Hypothyroidism, unspecified Status: Acute (2) LATASHA (acute kidney injury): Status: Acute (3) Acute dehydration: Status: Acute (4) Sepsis: Qualifiers: Sepsis acute organ dysfunction status: with acute organ dysfunction S epsis type: sepsis due to unspecified organism Severe sepsis acute organ dysfunction type: unspecified Severe sepsis shock status: unspecified Q ualified Code(s): A41.9 - Sepsis, unspecified organism; R65.20 - Severe sepsis without septic shock Status: Acute Plan 68-year-old male with history of HLD, dm 2, basal cell carcinoma, BPH, prostate cancer, cholelithiasis, osteomyelitis,? hypothyroidism, nephrolithiasis, cervical stenosis, obesity admitted for management of distributive shock requiring pressor support. Neuro: ?No acute issues. Cardiac: Distributive shock- patient febrile on admission, hypotensive, has significantly elevated lactic acid, LATASHA, but has a normal WBC.? Small pericardial effusion noted on CT. Volume resuscitated with approx 3.5L in ED. Continue Levophed. Lovenox. Elevated BNP without prior history of heart failure. Echo in AM.? Pulmonary:? no acute issues Renal:? Lactic acidosis. Acute kidney injury most likely related to hypoperfusion, non-oliguric. Mild right hydronephrosis noted on CT. Continue to check renal induces and urine output. Endo: Hyperglycemia. Underlying diabetes mellitus. Beta-hydroxybutyrate negative. Insulin gtt per protocol. Hypothyroidism; TSH >100, T4 <0.42. TSH a year ago was 80 per medical record. Cortisol in AM. GI: ?N/V.? Small amount free fluid in pelvis, gaseous distention of stomach and esophagus noted on CT. Keep NPO Zofran for nausea. ID: Evidence of sepsis/distributive shock. Volume resuscitated with 30 mL/kg crystalloids in ED. No leukocytosis.? No clear source identified on imaging. UA/culture ordered. Empiric antibiotics given: Levaquin 500 mg, Zosyn 3.375mg in ED. Will add vanco. Await cultures and additional test results. Heme/Onc: ? No acute issues Psych:? No acute issues. Miscellaneous: no acute issues Prophylaxis:? Lovenox, Pneumatic boots Diet:? NPO? Case discussed with attending Dr. Davis. Total time managing care of this patient today: 90 minutes.
[2023-09-29] MEDS: Lactated Ringers 1,000 ML 200 ML IVCONT (03:29)
[2023-09-29 03:39] LABS: Ethanol < 10 mg/dL
[2023-09-29 03:43] LABS: Acetaminophen LAB 4 mcg/mL (<30); Salicylate < 5.0 mg/dL (15-30)
[2023-09-29] MEDS: Insulin Regular/NS 100 UNIT/100 ML PLAST..BAG IVCONT (03:44)
[2023-09-29] MEDS: vancomycin/NS 2,000 MG/500 ML PLAST..BAG 250 MG IV (03:46)
[2023-09-29] MEDS: Sodium Bicarbonate 8.4% 50 MEQ/50 ML SYRINGE IVPUSH ×6 (03:49→23:29)
[2023-09-29] MEDS: Vasopressin 20 UNIT/100 ML INFUS..BTL 12 UNIT IVCONT ×3 (03:53→18:42)
[2023-09-29] MEDS: Lactated Ringers 1,000 ML 999 ML IV ×2 (04:00→07:36)
[2023-09-29 04:15] LABS: Glucose, Whole Blood 321 mg/dL (60-115)
[2023-09-29] MEDS: Norepinephrine Bitartrate/D5W 8 MG/250 ML PLAST..BAG 83.08 MG IV (04:48)
[2023-09-29 05:08] LABS: Glucose, Whole Blood 336 mg/dL (60-115)
--- NOTE | 2023-09-29 05:22 | W.PM.CCHP ---
Procedures Date of Service Date of Service: 09/29/23 Central Line Placement Right IJ: Central Line Comments: The right neck was widely prepped and draped in full sterile fashion.? Under US? guidance, the right IJ vein was cannulated on the 1st pass of the 18 g thin wall needle, with return of dark, nonpulsatile blood. ?The wire was threaded without incident.? The 20 cm x 7 [place] triple-lumen CVC was advanced into the vein up to the hub via the Seldinger technique without incident.? There was good blood return x3.? The catheter was sutured x2 and a Biopatch and dry sterile dressing were applied. The patient tolerated the procedure well with no complications. Consent for Procedure: Elective - informed consent obtained Time out performed: Yes Sterile Technique Used: Yes Patient placed on monitor/pulse ox: Yes MD prep: mask, gown and gloves Central line prep: Chlorhexidine scrub and sterile drapes applied Local anesthesia used: lidocaine 1% Amount of anesthesia used (ml): 3 Ultrasound used for placement: Yes Central line lumen inserted: triple Post procedure: sutured in place, good blood return, all ports aspirated, flushed, capped and sterile dressing applied Post procedure x-ray: tip of catheter in good position and no pneumothorax seen Patient tolerated procedure: well and no complications Complications: none
[2023-09-29 05:40] LABS: Cortisol Random 126.1 ug/dL
[2023-09-29 05:44] LABS: Hemoglobin 10.2 g/dl (14.0-18.0); Mean Corpuscular Hemoglobin 31.5 pg (27.0-33.0); Mean Corpuscular Volume 92.6 fL (80.0-98.0); Mean Platelet Volume 10.6 fL (9.4-12.4); Platelet Count 130 X10*3/uL (160-400); Red Blood Count 3.24 X10*6/uL (4.60-5.80); Red Cell Distribution Width 14.5 % (11.0-16.0)
[2023-09-29 05:46] LABS: WBC ABN SCTR FOR CBC 1
[2023-09-29 06:03] LABS: Albumin Level 2.3 g/dL (3.5-5.0); Anion Gap 16 (12-20); Blood Urea Nitrogen 35 mg/dL (9-16); Calcium 6.2 mg/dL (8.4-10.2); Carbon Dioxide 14 mmol/L (22-29); Chloride 112 mmol/L (96-108); Estimated Glomerular Filt Rate 25; Glucose Random 355 mg/dL (60-115); Magnesium 1.1 mg/dL (1.6-2.6); Phosphorus 2.7 mg/dL (2.7-4.5); Potassium 3.6 mmol/L (3.3-5.1); Sodium 138 mmol/L (135-145); ~Lactic Acid-LAB USE ONLY 5.4 mmol/L (0.5-2.0)
[2023-09-29 06:06] LABS: Band Neutrophils Percent 14 % (3-5); Lymphocytes Absolute Manual 0.6 X10*3/uL (1.2-4.9); Lymphocytes Percent Manual 7 % (20-40); Metamyelocytes Absolute 0.3 X10*3/uL; Metamyelocytes Percent 4 %; Monocytes Absolute Manual 0.3 X10*3/uL (0.1-1.2); Monocytes Percent Manual 4 % (2-11); Myelocytes Absolute 0.1 X10*/uL; Myelocytes Percent 1 %; Neutrophils Absolute Manual 6.7 X10*3/uL (2.0-8.3); Neutrophils Percent Manual 70 % (45-73)
[2023-09-29 06:07] LABS: Burr Cells 1+ (0-2) /OIF; Dohle Bodies PRESENT; Large Platelet PRESENT; Platelet Estimate NORMAL (NORMAL); Platelet Morphology Comment NOTED; RBC Morphology NOTED; Toxic Vacuolation PRESENT
[2023-09-29] MEDS: Magnesium Sulfate/H2O 2 GM/50 ML PIGGYBACK IV ×2 (06:13→20:14)
[2023-09-29] MEDS: Albumin Human 25 % 100 ML IV ×2 (06:14→07:45)
[2023-09-29] MEDS: Lidocaine 4 % Patch ADH..PATCH 2 PATCH TRANSDERMA (06:45)
[2023-09-29 07:12] LABS: Glucose, Whole Blood 359 mg/dL (60-115)
--- NOTE | 2023-09-29 07:20 | PC.NURSE ---
Pt admitted to ICU from ED at approx 0330. Upon initial assessment- pt A&Ox4, calm/cooperative, weakly BUENO. Tmax 100.4 via core bladder probe. NSR/ST on tele, HR up to 130-140s, SBP down to 70s, MAP < 65, levophed and vasopressin ordered and titrated per MAY. TLC to R IJ inserted at approx 0515, placement confirmed by pCXR. SEALER DRY CELL Alfonso aware of all critical labs. 1L LR IV bolus, magnesium 2g IV x1, albumin 25% 100mL IV x1, 1 amp bicarb, and insulin gtt ordered and started per MAY. 2L NC applied to maintain SpO2 > 92%, denies SOB/dyspnea. NPO but tolerating small amount of ice chips. Urinary catheter in place, UOP total 65 mL, SEALER DRY CELL aware. Pt c/o chronic neck/back pain, lidocaine patches applied early per request. Skin overall intact, able to reposition self in bed. Pt aware of plan of care. Bed locked in lowest position, bed alarm on, call cabrera in reach.
[2023-09-29 07:35] LABS: Venous Blood Gas Refer to POC result
[2023-09-29 07:35] LABS: VBG Base Excess -9.5 mmol/L; VBG HCO3 16 mmol/L (22-26); VBG pCO2 38 mmHg; VBG pH 7.24 (7.32-7.43); VBG pO2 37 mmHg
[2023-09-29] MEDS: 0.9 % Sodium Chloride Flush 3 ML SYRINGE IVFLUSH ×2 (07:41→15:19)
[2023-09-29] MEDS: Norepinephrine Bitartrate/D5W 8 MG/250 ML PLAST..BAG 91.82 MG IV (07:50)
[2023-09-29 07:56] LABS: Phosphorus 3.6 mg/dL (2.7-4.5)
[2023-09-29] MEDS: Calcium Chloride 1 GM/10 ML SYRINGE IVPUSH (07:56)
[2023-09-29 08:07] LABS: Glucose, Whole Blood 323 mg/dL (60-115)
[2023-09-29] MEDS: Heparin Sodium,Porcine 5,000 UNIT/ML VIAL 5000 UNIT SUBCUT ×2 (08:09→18:13)
[2023-09-29 09:04] LABS: Glucose, Whole Blood 347 mg/dL (60-115)
[2023-09-29] MEDS: ondansetron HCL 4 MG/2 ML VIAL IVPUSH (09:48)
[2023-09-29] MEDS: Piperacillin Sodium/Tazobactam 2.25 GM in 0.9 % Sodium Chloride 50 ML IV ×3 (09:50→21:18)
[2023-09-29] MEDS: Levothyroxine Sodium 100 MCG/5 ML VIAL IVPUSH (09:57)
[2023-09-29] MEDS: Hydrocortisone Sod Succ/PF 100 MG VIAL 50 MG IVPUSH ×3 (09:57→21:25)
[2023-09-29 10:05] LABS: Glucose, Whole Blood 336 mg/dL (60-115)
[2023-09-29] MEDS: Norepinephrine Bitartrate/D5W 8 MG/250 ML PLAST..BAG 109.31 MG IV (10:34)
[2023-09-29 11:05] LABS: Glucose, Whole Blood 301 mg/dL (60-115)
[2023-09-29 12:06] LABS: Glucose, Whole Blood 289 mg/dL (60-115)
[2023-09-29] MEDS: Metoclopramide HCl 10 MG/2 ML VIAL IVPUSH ×2 (12:21→18:40)
--- NOTE | 2023-09-29 12:37 | MHC.CM.PN ---
Pt sleeping upon CM arrival: call placed to spouse Shyann to inquire on pt's function at home: ITA left. CM to reapproach pt on 09/29 or await callback from spouse.
[2023-09-29] MEDS: Norepinephrine Bitartrate/D5W 8 MG/250 ML PLAST..BAG 122.43 MG IV (12:47)
[2023-09-29 13:04] LABS: Glucose, Whole Blood 269 mg/dL (60-115)
[2023-09-29 14:15] LABS: Glucose, Whole Blood 284 mg/dL (60-115)
[2023-09-29] MEDS: Insulin Regular/NS 100 UNIT/100 ML PLAST..BAG 12 UNIT IVCONT (14:39)
[2023-09-29] MEDS: Norepinephrine Bitartrate/NS 32 MG/250 ML PLAST..BAG 30.74 MG IVCONT (14:40)
[2023-09-29 15:06] LABS: Glucose, Whole Blood 218 mg/dL (60-115)
[2023-09-29] MEDS: Gabapentin 300 MG CAPSULE PO (15:14)
--- NOTE | 2023-09-29 15:28 | PHA.PROG ---
Admission Date/Time: September 29, 2023 02:35 Indication: Weight in k.1 kg Serum Creatinine - Last 168 Hours 09/28/23 09/29/23 22:48 05:35 Creatinine 3.61 H 2.59 H Estimated CrCl and GFR - Last 168 Hours 09/28/23 09/29/23 22:48 05:35 Estim Creat Clear Calc 25.8 36.0 Estimated GFR 17 25 Vancomycin Loading Dose: 2000 Current Vancomycin Dosing Regimen: 1000 Q 24H Vancomycin Monitoring using AUC goal of 400 - 600 range with trough as surrogate marker: 486 Date and Time for next Vancomycin Level to be drawn: 09/30/2023 @2100 Pharmacist Comments on Vancomycin Plan: Vancomycin dosing will take advantage of [employer] Than You as a clinical decision support tool that uses Bayesian modeling to calculate individual patient's pharmacokinetic parameters and forecast the patient's drug concentration time course with the target goal AUC 24 range of 400 - 600 mg/L/hr.
[2023-09-29 16:20] LABS: Glucose, Whole Blood 203 mg/dL (60-115)
[2023-09-29 17:09] LABS: Glucose, Whole Blood 180 mg/dL (60-115)
--- NOTE | 2023-09-29 17:18 | PHA.MEDREC ---
Addendum entered by Ayaka Vaca RPh 09/29/23 20:02: Per medical record from [facility], patient is known to be noncompliant with medications. Most recent claim history is for levothyroxine on 05/07/23. Provider made aware. Original Note: Pharmacy Consult ? Medication Reconciliation Pharmacy has completed the medication reconciliation. Went and spoke to patient a little while ago and was able to confirm most of his medications with patient. Patient was just confused on his insulin dosing's and states his should know. I called his and left a voice mail to call us back to confirm.
[2023-09-29 17:32] LABS: VBG Base Excess -7.8 mmol/L; VBG HCO3 19 mmol/L (22-26); VBG pCO2 42 mmHg; VBG pH 7.25 (7.32-7.43); VBG pO2 41 mmHg
[2023-09-29 17:58] LABS: Glucose, Whole Blood 170 mg/dL (60-115)
[2023-09-29 18:08] LABS: Venous Blood Gas Refer to POC result
[2023-09-29] MEDS: Levothyroxine Sodium 100 MCG/5 ML VIAL 200 MCG IVPUSH (18:13)
[2023-09-29 18:21] LABS: Anion Gap 22 (12-20); Blood Urea Nitrogen 47 mg/dL (9-16); Calcium 8.5 mg/dL (8.4-10.2); Carbon Dioxide 17 mmol/L (22-29); Chloride 101 mmol/L (96-108); Creatinine Clr Calc Pharmacy 22.9; Estimated Glomerular Filt Rate 15; Glucose Random 211 mg/dL (60-115); Potassium 4.4 mmol/L (3.3-5.1); Sodium 136 mmol/L (135-145)
[2023-09-29] MEDS: EPINEPHrine 5 MG in Dextrose 5 % 250 ML 71.67 MG IVCONT (19:10)
[2023-09-29 19:11] LABS: Glucose, Whole Blood 140 mg/dL (60-115)
[2023-09-29 19:22] LABS: Albumin Level 3.5 g/dL (3.5-5.0); Magnesium 1.8 mg/dL (1.6-2.6); Phosphorus 4.3 mg/dL (2.7-4.5)
[2023-09-29] MEDS: propofoL 200 MG/20 ML VIAL 100 MG IVPUSH (19:25)
[2023-09-29] MEDS: propofoL 1,000 MG/100 ML VIAL 21.08 MG IVCONT (19:30)
[2023-09-29] MEDS: Calcium Gluconate/NaCl,Iso-Osm 2 GM/100 ML PLAST..BAG IV ×2 (19:43→23:31)
[2023-09-29] MEDS: levoFLOXacin/D5W 750 MG/150 ML PIGGYBACK 100 MG IV (19:58)
--- NOTE | 2023-09-29 19:59 | W.PM.CCHP ---
Procedures Date of Service Date of Service: 09/29/23 Intubation Intubation Comments: Patient with acute respiratory distress, refractory to high flow, requiring emergent intubation for hypoxemia and worsening mental status. Patient intubated with 8 cuffed ET tube with visualization of vocal cords, without immediate complications. ET tube position verified with Chest XRAY. Consent for Procedure: Emergent-no informed consent obtained Time out performed: Yes Sedative: propofol Mg given: 100 Laryngoscope: fiber optic video scope ET tube size: 8 ET tube uncuffed: No Tube secured depth (cm): 26 Tube secured location: lips Tube placement confirmation: visualized tube passing through cords, equal breath sounds bilaterally, no breath sounds over epigastrium and confirmation by capnometry Patient tolerated procedure: well and no complications Intubation complications: none
[2023-09-29 20:02] LABS: Glucose, Whole Blood 160 mg/dL (60-115)
[2023-09-29] MEDS: Insulin Regular/NS 100 UNIT/100 ML PLAST..BAG 11 UNIT IVCONT (20:06)
[2023-09-29 20:12] LABS: VBG Base Excess -7.8 mmol/L; VBG HCO3 16 mmol/L (22-26); VBG pCO2 30 mmHg; VBG pH 7.34 (7.32-7.43); VBG pO2 139 mmHg
[2023-09-29 20:15] LABS: Venous Blood Gas Refer to POC result
[2023-09-29 20:21] LABS: Lactic Acid 6.9 mmol/L (0.5-2.0)
[2023-09-29 20:22] LABS: INTERNATIONAL NORM RATIO 1.5 (0.9-1.1); Prothrombin Time 17.8 SEC (11.1-13.3)
[2023-09-29] MEDS: Pantoprazole Sodium 80 MG in 0.9 % Sodium Chloride 80 ML 10 MG IV (20:22)
[2023-09-29 20:33] LABS: Hematocrit 29.4 % (42.0-52.0); Hemoglobin 10.2 g/dl (14.0-18.0); Mean Corpuscular HGB Conc 34.7 g/dl (31.0-36.0); Mean Corpuscular Hemoglobin 31.5 pg (27.0-33.0); Mean Corpuscular Volume 90.7 fL (80.0-98.0); Red Blood Count 3.24 X10*6/uL (4.60-5.80); Red Cell Distribution Width 14.9 % (11.0-16.0)
--- NOTE | 2023-09-29 20:34 | PM.EVENT ---
Documented by User: Lance Montiel NP 09/29/23 20:39 Event Note Date of Service: 09/29/23 Event Note: Patient with known septic shock, from Gram Negative Rods bacteremia, he is on high concentration levo, vasopressin, require emergent intubation due to worsening mental status and hypoxia. Started on Levophed in antibiotic coverage with Flagyl in addition to vancomycin Zosyn. Lactic continues to be high, no need for more fluid resuscitation. Blood gas is metabolic acidosis, with OG insertion that was about 700 mL of coffee-ground fluids output. We will obtain a repeat abdominal CT scan when patient is more stable. Attempted to update family, per patient request to call sister Lorene instead of his , as is hospitalized at [facility], left voicemail to call back. Time Spent With Patient Time: Total time managing care of this patient today ____ minutes. Documented by User: Blaise Nash MD 09/30/23 14:07 Event Note Date of Service: 09/30/23
[2023-09-29 20:35] LABS: Platelet Count 77 X10*3/uL (160-400); WBC ABN SCTR FOR CBC 1
[2023-09-29] MEDS: Norepinephrine Bitartrate/NS 32 MG/250 ML PLAST..BAG 49.4 MG IVCONT (20:42)
[2023-09-29 20:55] LABS: Band Neutrophils Percent 26 % (3-5); Lymphocytes Percent Manual 8 % (20-40); Metamyelocytes Percent 3 %; Monocytes Percent Manual 5 % (2-11); Neutrophils Percent Manual 58 % (45-73)
[2023-09-29 20:56] LABS: Toxic Vacuolation PRESENT
[2023-09-29 20:57] LABS: Burr Cells 3+ (>5) /OIF; RBC Morphology NOTED
[2023-09-29 20:58] LABS: Platelet Estimate DECREASED (NORMAL)
[2023-09-29 20:59] LABS: Lymphocytes Absolute Manual 1.4 X10*3/uL (1.2-4.9); Metamyelocytes Absolute 0.5 X10*3/uL; Monocytes Absolute Manual 0.9 X10*3/uL (0.1-1.2); Neutrophils Absolute Manual 14.4 X10*3/uL (2.0-8.3); Platelet Morphology Comment NORMAL; White Blood Count 17.1 X10*3/uL (4.8-10.8)
[2023-09-29 21:04] LABS: Glucose, Whole Blood 167 mg/dL (60-115)
[2023-09-29] MEDS: Chlorhexidine Gluc Oral Rinse 15 ML MOUTHWASH BUCCAL (21:25)
[2023-09-29 21:57] LABS: Glucose, Whole Blood 170 mg/dL (60-115)
[2023-09-29 22:01] LABS: Reflex Lactate? Lactic Acid Added
[2023-09-29 22:07] LABS: Venous Blood Gas Refer to POC result
[2023-09-29 22:10] LABS: VBG Base Excess -8.8 mmol/L; VBG HCO3 16 mmol/L (22-26); VBG pCO2 33 mmHg; VBG pO2 45 mmHg
[2023-09-29 22:38] LABS: Anion Gap 24 (12-20); Blood Urea Nitrogen 48 mg/dL (9-16); Calcium 8.4 mg/dL (8.4-10.2); Carbon Dioxide 16 mmol/L (22-29); Chloride 100 mmol/L (96-108); Creatinine Clr Calc Pharmacy 22.2; Estimated Glomerular Filt Rate 14; Glucose Random 227 mg/dL (60-115); Phosphorus 4.6 mg/dL (2.7-4.5); Sodium 136 mmol/L (135-145)
[2023-09-29 23:02] LABS: ~Lactic Acid-LAB USE ONLY 8.2 mmol/L (0.5-2.0)
[2023-09-29 23:06] LABS: Glucose, Whole Blood 172 mg/dL (60-115)
[2023-09-29] MEDS: propofoL 1,000 MG/100 ML VIAL 35.13 MG IVCONT (23:11)
[2023-09-29 23:19] LABS: VBG Base Excess -8.4 mmol/L; VBG HCO3 16 mmol/L (22-26); VBG pCO2 29 mmHg; VBG pH 7.33 (7.32-7.43); VBG pO2 52 mmHg
[2023-09-29 23:20] LABS: Venous Blood Gas Refer to POC result
[2023-09-29 23:36] LABS: B Type Natriuretic Peptide 2936 pg/mL (<100)
[2023-09-29] MEDS: vancomycin HCL 1,000 MG in 0.9 % Sodium Chloride 250 ML 270 MG IV (23:36)
[2023-09-29 23:38] LABS: Troponin-I High Sensitivity 462.8 ng/L (<3.5-35.0)
--- NOTE | 2023-09-29 23:49 | PC.NURSE ---
Assumed care 1900, pt A&Ox4, ST 150's requiring increasing amounts of levo, See EMAR levo maxed per LUMBER TALLIER, on Vaso and requiring to start epi drip per LUMBER TALLIER, HIgh FLow 50L and 60% sats 90, Decision to intubate discussed with by LUMBER TALLIER, pt given prop for sedation, intubated @ 1926 8.0 tube 26at the lip, positive color change, OG tube placed 650ML of coffee ground emesis back immediately. pt brought to Ct with RT, desating to 70's when laying flat on table, pt requiring bagging, able to finish CT and bring back to room. upon arrival pts HR dropped to 80s from 140s, color became pale, new order for EKG, Trop BNP, LUMBER TALLIER to bedside HR returned to 140s. scant amount of urine, LUMBER TALLIER aware, new order for lasix 20mg.
[2023-09-30] VITALS (65 sets, daily range): BP systolic 74–164; BP diastolic 47–92; PULSE 81–129; RESP 14–25; TEMP 32.9–39.3; O2SAT 89–97; BMI 35.8
--- NOTE | 2023-09-30 | ECG_ITS ---
Test Reason : dysnea Blood Pressure : / mmHG Vent. Rate : 081 BPM Atrial Rate : 081 BPM P-R Int : 158 ms QRS Dur : 098 ms QT Int : 358 ms P-R-T Axes : 028 -20 035 degrees QTc Int : 415 ms Normal sinus rhythm Low voltage QRS ST elevations lateral leads with reciprocal changes, ST elevations in precordial leads- suspect ischemia Abnormal ECG When compared with ECG of 30-SEP-2023 05:55, High lateral and anterior ST elevations present. Referred By: Blaise Nash Electronically Signed By:Domingo Avitia
--- NOTE | 2023-09-30 | ECG_ITS ---
Test Reason : elevated trop Blood Pressure : / mmHG Vent. Rate : 108 BPM Atrial Rate : 108 BPM P-R Int : 116 ms QRS Dur : 090 ms QT Int : 306 ms P-R-T Axes : 029 -03 016 degrees QTc Int : 410 ms Sinus tachycardia Low voltage QRS Borderline ECG When compared with ECG of 29-SEP-2023 22:55, No significant change was found Referred By: Lance Montiel Electronically Signed By:Domingo Avitia
[2023-09-30 00:01] LABS: Glucose, Whole Blood 149 mg/dL (60-115)
[2023-09-30] MEDS: Furosemide 20 MG/2 ML VIAL IVPUSH (00:01)
[2023-09-30] MEDS: 0.9 % Sodium Chloride Flush 3 ML SYRINGE IVFLUSH ×3 (00:02→15:22)
[2023-09-30] MEDS: Acetaminophen 1,000 MG/100 ML PIGGYBACK 400 MG IV (00:42)
[2023-09-30 00:44] LABS: Reflex Lactate? 2 Y
[2023-09-30 01:10] LABS: Glucose, Whole Blood 130 mg/dL (60-115)
[2023-09-30 01:11] LABS: Mean Corpuscular Volume 89.6 fL (80.0-98.0); PLT CLUMP 1
[2023-09-30 01:13] LABS: Hematocrit 28.4 % (42.0-52.0); Hemoglobin 10.2 g/dl (14.0-18.0); Mean Corpuscular HGB Conc 35.9 g/dl (31.0-36.0); Mean Corpuscular Hemoglobin 32.2 pg (27.0-33.0); Mean Platelet Volume 11.3 fL (9.4-12.4); NRBC Pct Auto 0.1 /100WBC (0.0-0.2); Red Blood Count 3.17 X10*6/uL (4.60-5.80); Red Cell Distribution Width 15.1 % (11.0-16.0)
[2023-09-30 01:20] LABS: ~Lactic Acid-LAB USE ONLY 6.1 mmol/L (0.5-2.0)
[2023-09-30 01:32] LABS: Platelet Count 51 X10*3/uL (160-400); WBC ABN SCTR FOR CBC 1; White Blood Count 16.7 X10*3/uL (4.8-10.8)
[2023-09-30 01:33] LABS: Troponin-I High Sensitivity 659.8 ng/L (<3.5-35.0)
[2023-09-30] MEDS: propofoL 1,000 MG/100 ML VIAL 35.13 MG IVCONT ×8 (01:34→19:15)
[2023-09-30] MEDS: Norepinephrine Bitartrate/NS 32 MG/250 ML PLAST..BAG 44.46 MG IVCONT (01:35)
[2023-09-30 01:37] LABS: Band Neutrophils Percent 18 % (3-5); Lymphocytes Absolute Manual 1.7 X10*3/uL (1.2-4.9); Lymphocytes Percent Manual 10 % (20-40); Metamyelocytes Absolute 0.3 X10*3/uL; Metamyelocytes Percent 2 %; Monocytes Absolute Manual 0.7 X10*3/uL (0.1-1.2); Monocytes Percent Manual 4 % (2-11); Neutrophils Percent Manual 66 % (45-73); RBC Morphology NOTED
[2023-09-30 01:39] LABS: Ovalocytes 1+ (5-14) /OIF
[2023-09-30] MEDS: Sodium Bicarbonate 8.4% 50 MEQ/50 ML SYRINGE IVPUSH ×2 (01:39→16:39)
[2023-09-30 01:40] LABS: Burr Cells 3+ (>5) /OIF; Dohle Bodies PRESENT; Large Platelet PRESENT; Platelet Estimate DECREASED (NORMAL); Platelet Morphology Comment NOTED; Tear Drop Cells 1+ (0-2) /OIF; Toxic Vacuolation PRESENT
[2023-09-30 01:43] LABS: Target Cells 1+ (5-14) /OIF
[2023-09-30 02:04] LABS: Glucose, Whole Blood 123 mg/dL (60-115)
[2023-09-30] MEDS: Vasopressin 20 UNIT/100 ML INFUS..BTL 12 UNIT IVCONT ×3 (02:49→17:39)
[2023-09-30 03:01] LABS: Glucose, Whole Blood 106 mg/dL (60-115)
[2023-09-30] MEDS: Hydrocortisone Sod Succ/PF 100 MG VIAL 50 MG IVPUSH ×4 (03:28→21:11)
[2023-09-30] MEDS: Piperacillin Sodium/Tazobactam 2.25 GM in 0.9 % Sodium Chloride 50 ML IV ×4 (03:33→21:08)
[2023-09-30 04:11] LABS: Glucose, Whole Blood 92 mg/dL (60-115)
[2023-09-30] MEDS: Pantoprazole Sodium 80 MG in 0.9 % Sodium Chloride 80 ML 10 MG IV (04:23)
[2023-09-30 05:04] LABS: Glucose, Whole Blood 110 mg/dL (60-115)
[2023-09-30] MEDS: Levothyroxine Sodium 100 MCG/5 ML VIAL 200 MCG IVPUSH ×2 (05:20→17:34)
[2023-09-30 05:26] LABS: Venous Blood Gas Refer to POC result
[2023-09-30 05:27] LABS: Mean Corpuscular Volume 89.2 fL (80.0-98.0); PLT CLUMP 1
[2023-09-30 05:29] LABS: Hematocrit 28.8 % (42.0-52.0); Hemoglobin 10.5 g/dl (14.0-18.0); Mean Corpuscular HGB Conc 36.5 g/dl (31.0-36.0); Mean Corpuscular Hemoglobin 32.5 pg (27.0-33.0); Mean Platelet Volume 11.1 fL (9.4-12.4); NRBC Pct Auto 0.3 /100WBC (0.0-0.2); Platelet Count 47 X10*3/uL (160-400); Red Blood Count 3.23 X10*6/uL (4.60-5.80); WBC ABN SCTR FOR CBC 1; White Blood Count 16.2 X10*3/uL (4.8-10.8)
[2023-09-30 05:32] LABS: VBG Base Excess -5.3 mmol/L; VBG HCO3 18 mmol/L (22-26); VBG pCO2 31 mmHg; VBG pH 7.38 (7.32-7.43); VBG pO2 57 mmHg
[2023-09-30 05:33] LABS: INTERNATIONAL NORM RATIO 1.6 (0.9-1.1)
[2023-09-30 05:48] LABS: Alanine Aminotransferase 53 U/L (0-40); Albumin Level 3.1 g/dL (3.5-5.0); Alkaline Phosphatase 100 U/L (39-117); Anion Gap 28 (12-20); Aspartate Amino Transferase 78 U/L (5-37); Bilirubin Total 1.5 mg/dL (0.0-1.0); Blood Urea Nitrogen 50 mg/dL (9-16); Calcium 9.1 mg/dL (8.4-10.2); Carbon Dioxide 16 mmol/L (22-29); Chloride 98 mmol/L (96-108); Creatinine Clr Calc Pharmacy 19.8; Estimated Glomerular Filt Rate 12; Glucose Random 170 mg/dL (60-115); Magnesium 1.8 mg/dL (1.6-2.6); Phosphorus 3.9 mg/dL (2.7-4.5); Potassium 5.5 mmol/L (3.3-5.1); Sodium 136 mmol/L (135-145); Total Protein 6.3 g/dL (6.5-8.0)
[2023-09-30 05:49] LABS: B Type Natriuretic Peptide 2713 pg/mL (<100)
[2023-09-30 05:51] LABS: Band Neutrophils Percent 21 % (3-5); Lactic Acid 7.2 mmol/L (0.5-2.0); Lymphocytes Absolute Manual 1.3 X10*3/uL (1.2-4.9); Lymphocytes Percent Manual 8 % (20-40); Metamyelocytes Absolute 0.6 X10*3/uL; Metamyelocytes Percent 4 %; Monocytes Percent Manual 6 % (2-11); Neutrophils Absolute Manual 13.3 X10*3/uL (2.0-8.3); Neutrophils Percent Manual 61 % (45-73); RBC Morphology NOTED
[2023-09-30 05:52] LABS: Burr Cells 3+ (>5) /OIF; Ovalocytes 1+ (5-14) /OIF; Tear Drop Cells 1+ (0-2) /OIF
[2023-09-30 05:54] LABS: Dohle Bodies PRESENT; Large Platelet PRESENT; Platelet Estimate DECREASED (NORMAL); Platelet Morphology Comment NOTED; Toxic Vacuolation PRESENT
[2023-09-30 06:06] LABS: Glucose, Whole Blood 116 mg/dL (60-115)
[2023-09-30 06:06] LABS: T4 Thyroxine < 3.0 ug/dL (4.5-12.0); Thyroid Stimulating Hormone > 100.00 uIU/mL (0.32-4.0)
--- NOTE | 2023-09-30 07:00 | CA_ITS ---
Transthoracic Echocardiogram Patient (Last, First, Middle): Theron Manning E Gender: Male Date of : 1955 Age: 68 Procedure Date: 09/30/2023 Procedure Type: Transthoracic Echocardiogram Location: ICU Height: 185.42 cm Weight: 117.03 kg BSA: 2.40 m2 Heart Rate: bpm BP: 144 / 76 mmHg Sports Manager: TO Referring MD: Kaya Hamilton NP Symptoms: elevated BNP Study Quality: Fair/Contrast Conclusions: - Normal left ventricular cavity size. There is mildly increased left ventricular wall thickness. The left ventricular systolic function is borderline reduced. The visually estimated ejection fraction is between 45-50%. There is borderline global hypokinesis. Diastolic function is normal for age. - Normal right ventricular cavity size and systolic function. - There is mild calcification of the aortic valve. - PASP = 42 mm Hg + right atrial pressure. - Prominent epicardial adipose tissue noted. There is a trivial pericardial effusion. Findings Procedure Information Contrast agent, definity, is being given per protocol without apparent complications. Left Ventricle Normal left ventricular cavity size. There is mildly increased left ventricular wall thickness. The left ventricular systolic function is borderline reduced. The visually estimated ejection fraction is between 45 50%. There is borderline global hypokinesis. Diastolic function is normal for age. Right Ventricle Normal right ventricular cavity size and systolic function. Atria The left atrium is normal in size. The right atrium is normal in size. Aortic Valve There is a normal trileaflet aortic valve. There is mild calcification of the aortic valve. There is no aortic valve stenosis. There is no aortic valve regurgitation. Mitral Valve The mitral valve appears normal. There is trace mitral valve regurgitation. There is no mitral valve stenosis. Pulmonic Valve Normal pulmonic valve structure and function. There is trace pulmonic valve regurgitation. Tricuspid Valve Normal tricuspid valve structure. There is mild tricuspid valve regurgitation. Indeterminate right atrial pressure. PASP = 42 mm Hg + right atrial pressure. Great Vessels All visible segments of the aorta are normal in size. The visualized portions of the pulmonary artery and branches are normal. Venous The inferior vena cava is dilated and does not collapse with inspiration. Pericardium/Pleural Prominent epicardial adipose tissue noted. There is a trivial pericardial effusion. Prior Study Comparison No prior study available for comparison. Measurements 2D Linear Measurements IVSd: 1.36 0.6-0.9/0.6-1.0 cm LVIDd: 4.24 3.9-5.3/4.2-5.9 cm LVIDd Index: 1.77 2.4-3.2/2.2-3.1 cm/m2 LVIDs: 3.11 2.0-3.6 cm LVPWd: 1.15 0.7-1.1 cm LA Diam: 3.40 2.7-3.8/3.0-4.0 cm LAIDs Index: 1.42 1.5-2.3 cm/m2 LV Mass: 240.57 67-162/88-224 g LV Mass Index: 100.24 43-95/49-115 g/m2 LVOT Diam: 2.40 3.0+(-)1.3 cm 2D Systolic Function EF 4C: 49.40 >55% EF 2C: 35.10 >55% EF BiP: 44.00 >55% Mitral Valve MV Pk E: 0.57 MV PK A: 0.45 MV Decel Time: 173.00 E/A: 1.30 E'Lateral: 6.85 E'Medial: 6.09 E/E' Med: 9.40 E/E' Lat: 8.30 PHT: 51.00 MVA PHT: 4.31 Decel [place]: 3.29 Aortic Valve AoV Pk Elton: 1.19 AoV Mn [place]: 0.80 AoV VTI: 0.20 AoV Pk Grad: 6.00 Aov Mn Grad: 3.00 KRYSTAL Cont.VTI: 3.11 LVOT LVOT Pk [place]: 0.83 LVOT Mn [place]ton: 0.53 LVOT VTI: 0.13 LVOT Pk Grad: 3.00 LVOT Mn Grad: 1.00 LVOT Diam: 2.40 LVOT Area: 4.52 Diastolic Function MV Pk E: 0.57 MV Pk A: 0.45 E/A: 1.30 E'Medial: 6.09 E/E' Med: 9.40 E' Laterial: 6.85 E/E' Lat: 8.30 Right Ventricle TAPSE (mm): 17.50 TVS' Elton: 12.20 Tricuspid Valve TR Pk Elton: 2.59 TR Pk Grad: 27.00 RA Press: 15.00 RVSP: 42.00 Great Vessels Aorta Sinus of Valsalva: 3.56 2.0-3.5 cm Ao Asc: 3.30 2.1-3.4 cm Updated in Other Vendor System with Status of Final Domingo Avitia MD electronically signed on 09/30/2023 1:36:26 PM with status of Final
[2023-09-30 07:28] LABS: Reflex Lactate? Lactic Acid Added
[2023-09-30] MEDS: Norepinephrine Bitartrate/NS 32 MG/250 ML PLAST..BAG 41.17 MG IVCONT (07:46)
[2023-09-30 08:03] LABS: Glucose, Whole Blood 125 mg/dL (60-115)
[2023-09-30] MEDS: Chlorhexidine Gluc Oral Rinse 15 ML MOUTHWASH BUCCAL ×3 (08:16→21:11)
[2023-09-30] MEDS: Gabapentin 300 MG CAPSULE PO ×2 (09:16→14:02)
[2023-09-30 10:09] LABS: Reflex Lactate? 2 Y
--- NOTE | 2023-09-30 10:36 | P.CDIM_ITS ---
PROVIDER RESPONSE TEXT: To clarify, the appropriate diagnosis supported by the clinical indicators: Acute QUERY TEXT: PHYSICIAN'S DOCUMENTATION REQUEST Date of Query: 09/30/2023 08:45 AM EDT Patient Name: Theron Manning Admit Date: 09/29/2023 Dear Blaise Nash MD, A review of the medical record indicates additional documentation may be needed. Please review below and update the documentation accordingly. Clinical Indicators: ICU H&P - Lactic acidosis LA: 2.9 8.8 H Clarify which of the following accurately represents the acuity of the Lactic acidosis: Acute Chronic Other (explain) Clinically unable to determine (explain) Thank you, Genoveva Adkins, CCS, CDIS Use of terms such as suspected, likely, concern for, or probable (associated with a specific diagnosi s that is being evaluated, monitored, or treated as if it exists) are acceptable and can be coded in the inpatient se tting, when documented at the time of discharge. Please use your independent medical judgment in providing your response. THIS QUERY IS PART OF THE PERMANENT MEDICAL RECORD
[2023-09-30 11:55] LABS: Glucose, Whole Blood 157 mg/dL (60-115)
--- NOTE | 2023-09-30 13:14 | MHC.CM.PN ---
Pt presently intubated in ICU: per discussion w/ICU care team, pt's spouse has been admitted at [facility] and cannot be reached. 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 CM to follow for clinical stability and finalization of d/c needs
[2023-09-30 13:25] LABS: Anion Gap 30 (12-20); Blood Urea Nitrogen 54 mg/dL (9-16); Calcium 8.6 mg/dL (8.4-10.2); Carbon Dioxide 14 mmol/L (22-29); Chloride 97 mmol/L (96-108); Creatinine Clr Calc Pharmacy 19.8; Estimated Glomerular Filt Rate 12; Glucose Random 250 mg/dL (60-115); Potassium 6.4 mmol/L (3.3-5.1); Sodium 135 mmol/L (135-145)
--- NOTE | 2023-09-30 13:31 | P.CDIM_ITS ---
PROVIDER RESPONSE TEXT: To clarify, the appropriate diagnosis supported by the clinical indicators: Encephalopathy: septic QUERY TEXT: PHYSICIAN'S DOCUMENTATION REQUEST Date of Query: 09/30/2023 11:48 AM EDT Patient Name: Theron Manning Admit Date: 09/29/2023 Dear Blaise Nash MD, A review of the medical record indicates additional documentation may be needed. Please review below and update the documentation accordingly. Clinical Indicators: ICU - Patient with acute respiratory distress, refractory to high flow, requiring emergent intubation for hypoxemia and worsening mental status. Sepsis with septic shock arrived in ED with nausea, vomiting and weakness. He was intermittently conf used, febrile and hypotensive. Based on the above, could you clarify if any of the following, is the most likely etiology of the con fusion/altered mental status? Encephalopathy Indicate type such as metabolic, toxic, septic, alcoholic, hypertensive, etc. Acute or subacute confusional state due to Specify known or suspected etiology Other (explain) Clinically unable to determine (explain) Thank you, Genoveva Adkins, CCS, CDIS Use of terms such as suspected, likely, concern for, or probable (associated with a specific diagnosi s that is being evaluated, monitored, or treated as if it exists) are acceptable and can be coded in the inpatient se tting, when documented at the time of discharge. Please use your independent medical judgment in providing your response. THIS QUERY IS PART OF THE PERMANENT MEDICAL RECORD
--- NOTE | 2023-09-30 14:08 | P.PNCC_ITS ---
Subjective Subjective Date of Service: 09/30/23 Interval History: 68-year-old gentleman with diabetes mellitus, prostate cancer hypothyroidism history nephrolithiasis admitted on 09/29/2023 with septic shock secondary to Gram-negative bacteremia with source requiring pressor support further complicated by acute kidney failure with anuria and pulmonary edema. Overnight 09/28-09/29 with worsening hypoxia refractory to high-flow nasal cannula support requiring intubation and ventilatory support. CT abdomen/pelvis repeating with no evidence of urinary obstruction, but noted hydronephrosis likely secondary to passing of prior nephrolithiasis. Critical Care Time (minutes): 60 Physical Exam 2 Vital Signs: Vital Signs: Last Vital Signs Temp 98.1 F 09/30/23 14:00 Pulse 84 09/30/23 14:00 Resp 15 09/30/23 14:00 BP 103/61 09/30/23 14:00 Pulse Ox 93 09/30/23 14:00 O2 Del Method Mechanical Ventil ation 09/30/23 14:00 O2 Flow Rate 11 09/29/23 19:20 FiO2 40 09/30/23 14:00 BMI result Body Mass Index 35.8 Const: General: no acute distress and other (Sedated on the vent) Eyes: Sclerae: sclerae normal EOM: EOMs intact bilaterally Neck: Neck: Yes no lymphadenopathy, Yes trachea midline and Yes supple Resp: Auscultation: crackles (Bilateral) Cardio: Rate: regular rate Rhythm: regular rhythm Heart sounds: no gallops, no murmurs and no rubs GI: Palpation (GI): Soft to palpation and Other GI palpation findings present ( Nontender) Auscultation: normal bowel sounds Extrem: General: No clubbing, No cyanosis and Yes edema (2+ bilateral) Objective Data Labs 09/30/23 05:19 09/30/23 12:24 Labs: Laboratory Results - last 24 hr 09/29/23 09/29/23 09/29/23 14:12 15:02 16:13 WBC RBC Hgb Hct MCV MCH MCHC RDW Plt Count MPV Immature Gran % (Auto) Neut % (Auto) Lymph % (Auto) [place] % (Auto) Eos % (Auto) Baso % (Auto) Lymph # (Auto) [place] # (Auto) Eos # (Auto) Baso # (Auto) Abs Immat Gran (auto) Absolute Neuts (auto) Absolute Nucleated RBC Nucleated RBC % (auto) Neutrophils % (Manual) Band Neutrophils % Lymphocytes % (Manual) Monocytes % (Manual) Metamyelocytes % Abs Neuts (Manual) Lymphocytes # (Manual) Monocytes # (Manual) Metamyelocytes # Toxic Vacuolation Dohle Bodies Platelet Estimate Large Platelets Plt Morphology Comment RBC Morphology Target Cells Tear Drop Cells Ovalocytes Cutler Cells PT INR VBG pH VBG pCO2 VBG pO2 VBG HCO3 VBG O2 Saturation VBG Base Excess Sodium Potassium Chloride Carbon Dioxide Anion Gap BUN Creatinine Estim Creat Clear Calc Estimated GFR POC Glucose 284 H 218 H 203 H Random Glucose Lactic Acid Lactic Acid F/U @ 2Hr Lactic Acid F/U @ 4Hr Calcium Phosphorus Magnesium Total Bilirubin AST ALT Alkaline Phosphatase Troponin I High Sens B-Natriuretic Peptide Total Protein Albumin TSH Thyroxine (T4) Blood Type Antibody Screen 09/29/23 09/29/23 09/29/23 17:06 17:18 17:22 WBC RBC Hgb Hct MCV MCH MCHC RDW Plt Count MPV Immature Gran % (Auto) Neut % (Auto) Lymph % (Auto) [place] % (Auto) Eos % (Auto) Baso % (Auto) Lymph # (Auto) [place] # (Auto) Eos # (Auto) Baso # (Auto) Abs Immat Gran (auto) Absolute Neuts (auto) Absolute Nucleated RBC Nucleated RBC % (auto) Neutrophils % (Manual) Band Neutrophils % Lymphocytes % (Manual) Monocytes % (Manual) Metamyelocytes % Abs Neuts (Manual) Lymphocytes # (Manual) Monocytes # (Manual) Metamyelocytes # Toxic Vacuolation Dohle Bodies Platelet Estimate Large Platelets Plt Morphology Comment RBC Morphology Target Cells Tear Drop Cells Ovalocytes Mario Cells PT INR VBG pH 7.25 L VBG pCO2 42 VBG pO2 41 VBG HCO3 19 L VBG O2 Saturation 64.0 VBG Base Excess -7.8 Sodium 136 Potassium 4.4 D Chloride 101 Carbon Dioxide 17 L Anion Gap 22 H BUN 47 H Creatinine 4.08 H* Estim Creat Clear Calc 22.9 Estimated GFR 15 POC Glucose 180 H Random Glucose 211 H Lactic Acid Lactic Acid F/U @ 2Hr Lactic Acid F/U @ 4Hr Calcium 8.5 D Phosphorus 4.3 Magnesium 1.8 Total Bilirubin AST ALT Alkaline Phosphatase Troponin I High Sens B-Natriuretic Peptide Total Protein Albumin 3.5 TSH Thyroxine (T4) Blood Type Antibody Screen 09/29/23 09/29/23 09/29/23 17:55 19:08 19:57 WBC 17.1 H RBC 3.24 L Hgb 10.2 L Hct 29.4 L MCV 90.7 MCH 31.5 MCHC 34.7 RDW 14.9 Plt Count 77 L D MPV 11.0 Immature Gran % (Auto) Cancelled Neut % (Auto) Cancelled Lymph % (Auto) Cancelled [place] % (Auto) Cancelled Eos % (Auto) Cancelled Baso % (Auto) Cancelled Lymph # (Auto) Cancelled [place] # (Auto) Cancelled Eos # (Auto) Cancelled Baso # (Auto) Cancelled Abs Immat Gran (auto) Cancelled Absolute Neuts (auto) Cancelled Absolute Nucleated RBC 0.000 Nucleated RBC % (auto) 0.0 Neutrophils % (Manual) 58 Band Neutrophils % 26 H Lymphocytes % (Manual) 8 L Monocytes % (Manual) 5 Metamyelocytes % 3 Abs Neuts (Manual) 14.4 H Lymphocytes # (Manual) 1.4 Monocytes # (Manual) 0.9 Metamyelocytes # 0.5 Toxic Vacuolation PRESENT Dohle Bodies Platelet Estimate DECREASED Large Platelets Plt Morphology Comment NORMAL RBC Morphology NOTED Target Cells Tear Drop Cells Ovalocytes Mario Cells 3+ (>5) PT 17.8 H D INR 1.5 H VBG pH VBG pCO2 VBG pO2 VBG HCO3 VBG O2 Saturation VBG Base Excess Sodium Potassium Chloride Carbon Dioxide Anion Gap BUN Creatinine Estim Creat Clear Calc Estimated GFR POC Glucose 170 H 140 H Random Glucose Lactic Acid 6.9 H* Lactic Acid F/U @ 2Hr Lactic Acid F/U @ 4Hr Calcium Phosphorus Magnesium Total Bilirubin AST ALT Alkaline Phosphatase Troponin I High Sens B-Natriuretic Peptide Total Protein Albumin TSH Thyroxine (T4) Blood Type A Negative Antibody Screen NEGATIVE 09/29/23 09/29/23 09/29/23 19:59 20:04 21:00 WBC RBC Hgb Hct MCV MCH MCHC RDW Plt Count MPV Immature Gran % (Auto) Neut % (Auto) Lymph % (Auto) [place] % (Auto) Eos % (Auto) Baso % (Auto) Lymph # (Auto) [place] # (Auto) Eos # (Auto) Baso # (Auto) Abs Immat Gran (auto) Absolute Neuts (auto) Absolute Nucleated RBC Nucleated RBC % (auto) Neutrophils % (Manual) Band Neutrophils % Lymphocytes % (Manual) Monocytes % (Manual) Metamyelocytes % Abs Neuts (Manual) Lymphocytes # (Manual) Monocytes # (Manual) Metamyelocytes # Toxic Vacuolation Dohle Bodies Platelet Estimate Large Platelets Plt Morphology Comment RBC Morphology Target Cells Tear Drop Cells Ovalocytes Mario Cells PT INR VBG pH 7.34 VBG pCO2 30 VBG pO2 139 VBG HCO3 16 L VBG O2 Saturation 99.0 VBG Base Excess -7.8 Sodium Potassium Chloride Carbon Dioxide Anion Gap BUN Creatinine Estim Creat Clear Calc Estimated GFR POC Glucose 160 H 167 H Random Glucose Lactic Acid Lactic Acid F/U @ 2Hr Lactic Acid F/U @ 4Hr Calcium Phosphorus Magnesium Total Bilirubin AST ALT Alkaline Phosphatase Troponin I High Sens B-Natriuretic Peptide Total Protein Albumin TSH Thyroxine (T4) Blood Type Antibody Screen 09/29/23 09/29/23 09/29/23 21:54 21:59 22:01 WBC RBC Hgb Hct MCV MCH MCHC RDW Plt Count MPV Immature Gran % (Auto) Neut % (Auto) Lymph % (Auto) [place] % (Auto) Eos % (Auto) Baso % (Auto) Lymph # (Auto) [place] # (Auto) Eos # (Auto) Baso # (Auto) Abs Immat Gran (auto) Absolute Neuts (auto) Absolute Nucleated RBC Nucleated RBC % (auto) Neutrophils % (Manual) Band Neutrophils % Lymphocytes % (Manual) Monocytes % (Manual) Metamyelocytes % Abs Neuts (Manual) Lymphocytes # (Manual) Monocytes # (Manual) Metamyelocytes # Toxic Vacuolation Dohle Bodies Platelet Estimate Large Platelets Plt Morphology Comment RBC Morphology Target Cells Tear Drop Cells Ovalocytes Cutler Cells PT INR VBG pH 7.30 L VBG pCO2 33 VBG pO2 45 VBG HCO3 16 L VBG O2 Saturation 72.0 VBG Base Excess -8.8 Sodium 136 Potassium 4.0 Chloride 100 Carbon Dioxide 16 L Anion Gap 24 H BUN 48 H Creatinine 4.20 H* Estim Creat Clear Calc 22.2 Estimated GFR 14 POC Glucose 170 H Random Glucose 227 H Lactic Acid Lactic Acid F/U @ 2Hr Lactic Acid F/U @ 4Hr Calcium 8.4 Phosphorus 4.6 H Magnesium 2.0 Total Bilirubin AST ALT Alkaline Phosphatase Troponin I High Sens B-Natriuretic Peptide Total Protein Albumin TSH Thyroxine (T4) Blood Type Antibody Screen 09/29/23 09/29/2324 22:41 23:02 23:08 WBC RBC Hgb Hct MCV MCH MCHC RDW Plt Count MPV Immature Gran % (Auto) Neut % (Auto) Lymph % (Auto) [place] % (Auto) Eos % (Auto) Baso % (Auto) Lymph # (Auto) [place] # (Auto) Eos # (Auto) Baso # (Auto) Abs Immat Gran (auto) Absolute Neuts (auto) Absolute Nucleated RBC Nucleated RBC % (auto) Neutrophils % (Manual) Band Neutrophils % Lymphocytes % (Manual) Monocytes % (Manual) Metamyelocytes % Abs Neuts (Manual) Lymphocytes # (Manual) Monocytes # (Manual) Metamyelocytes # Toxic Vacuolation Dohle Bodies Platelet Estimate Large Platelets Plt Morphology Comment RBC Morphology Target Cells Tear Drop Cells Ovalocytes Cutler Cells PT INR VBG pH VBG pCO2 VBG pO2 VBG HCO3 VBG O2 Saturation VBG Base Excess Sodium Potassium Chloride Carbon Dioxide Anion Gap BUN Creatinine Estim Creat Clear Calc Estimated GFR POC Glucose 172 H Random Glucose Lactic Acid Lactic Acid F/U @ 2Hr 8.2 H* Lactic Acid F/U @ 4Hr Calcium Phosphorus Magnesium Total Bilirubin AST ALT Alkaline Phosphatase Troponin I High Sens 462.8 H* D B-Natriuretic Peptide 2936 H Total Protein Albumin TSH Thyroxine (T4) Blood Type Antibody Screen 09/29/23 09/29/23 09/30/23 23:10 23:58 01:02 WBC 16.7 H RBC 3.17 L Hgb 10.2 L Hct 28.4 L MCV 89.6 MCH 32.2 MCHC 35.9 RDW 15.1 Plt Count 51 L D MPV 11.3 Immature Gran % (Auto) Cancelled Neut % (Auto) Cancelled Lymph % (Auto) Cancelled [place] % (Auto) Cancelled Eos % (Auto) Cancelled Baso % (Auto) Cancelled Lymph # (Auto) Cancelled [place] # (Auto) Cancelled Eos # (Auto) Cancelled Baso # (Auto) Cancelled Abs Immat Gran (auto) Cancelled Absolute Neuts (auto) Cancelled Absolute Nucleated RBC 0.020 H Nucleated RBC % (auto) 0.1 Neutrophils % (Manual) 66 Band Neutrophils % 18 H Lymphocytes % (Manual) 10 L Monocytes % (Manual) 4 Metamyelocytes % 2 Abs Neuts (Manual) 14.0 H Lymphocytes # (Manual) 1.7 Monocytes # (Manual) 0.7 Metamyelocytes # 0.3 Toxic Vacuolation PRESENT Dohle Bodies PRESENT Platelet Estimate DECREASED Large Platelets PRESENT Plt Morphology Comment NOTED RBC Morphology NOTED Target Cells 1+ (5-14) Tear Drop Cells 1+ (0-2) Ovalocytes 1+ (5-14) Mario Cells 3+ (>5) PT INR VBG pH 7.33 VBG pCO2 29 VBG pO2 52 VBG HCO3 16 L VBG O2 Saturation 82.0 VBG Base Excess -8.4 Sodium Potassium Chloride Carbon Dioxide Anion Gap BUN Creatinine Estim Creat Clear Calc Estimated GFR POC Glucose 149 H Random Glucose Lactic Acid Lactic Acid F/U @ 2Hr Lactic Acid F/U @ 4Hr 6.1 H* Calcium Phosphorus Magnesium Total Bilirubin AST ALT Alkaline Phosphatase Troponin I High Sens 659.8 H* B-Natriuretic Peptide Total Protein Albumin TSH Thyroxine (T4) Blood Type Antibody Screen 09/30/23 09/30/23 09/30/23 01:06 02:00 02:58 WBC RBC Hgb Hct MCV MCH MCHC RDW Plt Count MPV Immature Gran % (Auto) Neut % (Auto) Lymph % (Auto) [place] % (Auto) Eos % (Auto) Baso % (Auto) Lymph # (Auto) [place] # (Auto) Eos # (Auto) Baso # (Auto) Abs Immat Gran (auto) Absolute Neuts (auto) Absolute Nucleated RBC Nucleated RBC % (auto) Neutrophils % (Manual) Band Neutrophils % Lymphocytes % (Manual) Monocytes % (Manual) Metamyelocytes % Abs Neuts (Manual) Lymphocytes # (Manual) Monocytes # (Manual) Metamyelocytes # Toxic Vacuolation Dohle Bodies Platelet Estimate Large Platelets Plt Morphology Comment RBC Morphology Target Cells Tear Drop Cells Ovalocytes Mario Cells PT INR VBG pH VBG pCO2 VBG pO2 VBG HCO3 VBG O2 Saturation VBG Base Excess Sodium Potassium Chloride Carbon Dioxide Anion Gap BUN Creatinine Estim Creat Clear Calc Estimated GFR POC Glucose 130 H 123 H 106 Random Glucose Lactic Acid Lactic Acid F/U @ 2Hr Lactic Acid F/U @ 4Hr Calcium Phosphorus Magnesium Total Bilirubin AST ALT Alkaline Phosphatase Troponin I High Sens B-Natriuretic Peptide Total Protein Albumin TSH Thyroxine (T4) Blood Type Antibody Screen 09/30/23 09/30/23 09/30/23 04:07 05:01 05:19 WBC 16.2 H RBC 3.23 L Hgb 10.5 L Hct 28.8 L MCV 89.2 MCH 32.5 MCHC 36.5 H RDW 15.0 Plt Count 47 L MPV 11.1 Immature Gran % (Auto) Neut % (Auto) Lymph % (Auto) [place] % (Auto) Eos % (Auto) Baso % (Auto) Lymph # (Auto) [place] # (Auto) Eos # (Auto) Baso # (Auto) Abs Immat Gran (auto) Absolute Neuts (auto) Absolute Nucleated RBC 0.050 H Nucleated RBC % (auto) 0.3 H Neutrophils % (Manual) 61 Band Neutrophils % 21 H Lymphocytes % (Manual) 8 L Monocytes % (Manual) 6 Metamyelocytes % 4 Abs Neuts (Manual) 13.3 H Lymphocytes # (Manual) 1.3 Monocytes # (Manual) 1.0 Metamyelocytes # 0.6 Toxic Vacuolation PRESENT Dohle Bodies PRESENT Platelet Estimate DECREASED Large Platelets PRESENT Plt Morphology Comment NOTED RBC Morphology NOTED Target Cells Tear Drop Cells 1+ (0-2) Ovalocytes 1+ (5-14) Cutler Cells 3+ (>5) PT 19.0 H INR 1.6 H VBG pH VBG pCO2 VBG pO2 VBG HCO3 VBG O2 Saturation VBG Base Excess Sodium 136 Potassium 5.5 H D Chloride 98 Carbon Dioxide 16 L Anion Gap 28 H BUN 50 H Creatinine 4.84 H* Estim Creat Clear Calc 19.8 Estimated GFR 12 POC Glucose 92 110 Random Glucose 170 H Lactic Acid 7.2 H* Lactic Acid F/U @ 2Hr Lactic Acid F/U @ 4Hr Calcium 9.1 D Phosphorus 3.9 Magnesium 1.8 Total Bilirubin 1.5 H AST 78 H ALT 53 H Alkaline Phosphatase 100 Troponin I High Sens 3097.3 H* D B-Natriuretic Peptide 2713 H Total Protein 6.3 L Albumin 3.1 L TSH > 100.00 H Thyroxine (T4) < 3.0 L Blood Type Antibody Screen 09/30/23 09/30/23 09/30/23 05:23 06:03 07:59 WBC RBC Hgb Hct MCV MCH MCHC RDW Plt Count MPV Immature Gran % (Auto) Neut % (Auto) Lymph % (Auto) [place] % (Auto) Eos % (Auto) Baso % (Auto) Lymph # (Auto) [place] # (Auto) Eos # (Auto) Baso # (Auto) Abs Immat Gran (auto) Absolute Neuts (auto) Absolute Nucleated RBC Nucleated RBC % (auto) Neutrophils % (Manual) Band Neutrophils % Lymphocytes % (Manual) Monocytes % (Manual) Metamyelocytes % Abs Neuts (Manual) Lymphocytes # (Manual) Monocytes # (Manual) Metamyelocytes # Toxic Vacuolation Dohle Bodies Platelet Estimate Large Platelets Plt Morphology Comment RBC Morphology Target Cells Tear Drop Cells Ovalocytes Mario Cells PT INR VBG pH 7.38 VBG pCO2 31 VBG pO2 57 VBG HCO3 18 L VBG O2 Saturation 88.0 VBG Base Excess -5.3 Sodium Potassium Chloride Carbon Dioxide Anion Gap BUN Creatinine Estim Creat Clear Calc Estimated GFR POC Glucose 116 H 125 H Random Glucose Lactic Acid Lactic Acid F/U @ 2Hr Lactic Acid F/U @ 4Hr Calcium Phosphorus Magnesium Total Bilirubin AST ALT Alkaline Phosphatase Troponin I High Sens B-Natriuretic Peptide Total Protein Albumin TSH Thyroxine (T4) Blood Type Antibody Screen 09/30/23 09/30/23 09/30/23 08:09 10:16 11:52 WBC RBC Hgb Hct MCV MCH MCHC RDW Plt Count MPV Immature Gran % (Auto) Neut % (Auto) Lymph % (Auto) [place] % (Auto) Eos % (Auto) Baso % (Auto) Lymph # (Auto) [place] # (Auto) Eos # (Auto) Baso # (Auto) Abs Immat Gran (auto) Absolute Neuts (auto) Absolute Nucleated RBC Nucleated RBC % (auto) Neutrophils % (Manual) Band Neutrophils % Lymphocytes % (Manual) Monocytes % (Manual) Metamyelocytes % Abs Neuts (Manual) Lymphocytes # (Manual) Monocytes # (Manual) Metamyelocytes # Toxic Vacuolation Dohle Bodies Platelet Estimate Large Platelets Plt Morphology Comment RBC Morphology Target Cells Tear Drop Cells Ovalocytes Mario Cells PT INR VBG pH VBG pCO2 VBG pO2 VBG HCO3 VBG O2 Saturation VBG Base Excess Sodium Potassium Chloride Carbon Dioxide Anion Gap BUN Creatinine Estim Creat Clear Calc Estimated GFR POC Glucose 157 H Random Glucose Lactic Acid Lactic Acid F/U @ 2Hr 8.0 H* Lactic Acid F/U @ 4Hr 8.0 H* Calcium Phosphorus Magnesium Total Bilirubin AST ALT Alkaline Phosphatase Troponin I High Sens B-Natriuretic Peptide Total Protein Albumin TSH Thyroxine (T4) Blood Type Antibody Screen 09/30/23 12:24 WBC RBC Hgb Hct MCV MCH MCHC RDW Plt Count MPV Immature Gran % (Auto) Neut % (Auto) Lymph % (Auto) [place] % (Auto) Eos % (Auto) Baso % (Auto) Lymph # (Auto) [place] # (Auto) Eos # (Auto) Baso # (Auto) Abs Immat Gran (auto) Absolute Neuts (auto) Absolute Nucleated RBC Nucleated RBC % (auto) Neutrophils % (Manual) Band Neutrophils % Lymphocytes % (Manual) Monocytes % (Manual) Metamyelocytes % Abs Neuts (Manual) Lymphocytes # (Manual) Monocytes # (Manual) Metamyelocytes # Toxic Vacuolation Dohle Bodies Platelet Estimate Large Platelets Plt Morphology Comment RBC Morphology Target Cells Tear Drop Cells Ovalocytes Mario Cells PT INR VBG pH VBG pCO2 VBG pO2 VBG HCO3 VBG O2 Saturation VBG Base Excess Sodium 135 Potassium 6.4 H* Chloride 97 Carbon Dioxide 14 L Anion Gap 30 H BUN 54 H Creatinine 4.82 H* Estim Creat Clear Calc 19.8 Estimated GFR 12 POC Glucose Random Glucose 250 H Lactic Acid Lactic Acid F/U @ 2Hr Lactic Acid F/U @ 4Hr Calcium 8.6 Phosphorus Magnesium Total Bilirubin AST ALT Alkaline Phosphatase Troponin I High Sens B-Natriuretic Peptide Total Protein Albumin TSH Thyroxine (T4) Blood Type Antibody Screen Microbiology Microbiology Results: Microbiology 09/28/23 23:08 Blood - Venous Blood Culture - Preliminary Gram negative deborah 09/28/23 22:51 Blood - Venous Blood Culture - Preliminary Gram negative deborah 09/29/23 Unknown Urine clean catch - Clean Catch Midstream Urine Culture - Preliminary Gram negative deborah Progress Note: A&P Assessment and plan (1) Gram-negative bacteremia: Status: Acute (2) Hydronephrosis: Status: Acute (3) Septic shock: Status: Acute (4) Acute kidney failure: Status: Acute (5) Acute respiratory failure with hypoxia: Status: Acute (6) Diabetes: Status: Acute Plan Assessment: 68-year-old gentleman with underlying diabetes mellitus, nephrolithiasis, and prostate cancer admitted with septic shock secondary to gram-negative bacteremia with source further complicated by acute kidney failure with Anoro and acute hypoxic respiratory failure. Plan: Neuro: No acute issues. Cardiac: Septic shock, continue to titrate off pressor support as tolerated. Pulmonary edema. Pulmonary: Acute hypoxic respiratory failure secondary to pulmonary edema now requiring ventilatory support, continue to titrate off as tolerated. Renal: Acute kidney failure secondary to septic shock/ATN. Oliguric. Right- sided hydronephrosis. Urology service care appreciated. May require stenting. Continue to monitor renal indices and urine output. Hyperkalemia secondary to ATN. Endo: No acute issues. Underlying diabetes mellitus and hypothyroidism. GI: No acute issues. ID: Gram-negative bacteremia with source. Continue on Zosyn. Heme/Onc: Thrombocytopenia secondary to septic shock, continue to monitor. Psych: No acute issues. Miscellaneous: No acute issues. Prophylaxis: Pneumatic compression, ppi Diet: NPO Critical care time spent: 60 minutes Quality Stroke Does the patient have a stroke diagnosis?: No VTE Prior VTE?: No VTE Risk Level:: Medical - moderate - high VTE Device Contraindication: N/A - Device Ordered VTE Drug Contraindication: N/A - Med Ordered
[2023-09-30] MEDS: Pantoprazole Sodium 40 MG/10 ML VIAL IVPUSH (15:38)
[2023-09-30] MEDS: Norepinephrine Bitartrate/NS 32 MG/250 ML PLAST..BAG 26.35 MG IVCONT (15:39)
--- NOTE | 2023-09-30 16:11 | PM.UROCN ---
History of Present Illness Consult details Consult date: 09/30/23 Narrative: Theron is admitted to the ICU in septic shock. CTAP nodes right hydronephrosis with perinephric changes and ureteral inflammatory changes suggestive of pyelonephritis. Abnormal electrolytes with LATASHA. Discussed with ICU attending for intervention with right ureteral stent. Review of Systems Review of Systems: Per HPI Yes unobtainable due to endotracheal tube PMFSH Past Medical History Medical History Migraine Prostate cancer Osteomyelitis Skin cancer HLD (hyperlipidemia) Diabetes Hypothyroid Surgical History Surgical History History of umbilical hernia repair Hx of prostatectomy History of spinal fusion Social History Social History Household Members: Spouse Housing: House Do you presently have visiting nurse or other home services: No Patient Tobacco Use Status: Former Tobacco user Smoked in Last 30 Days: No Use of substances other than those prescribed or required for medical reasons: No Currently Displaying Signs/Symptoms of Drug Intoxication Withdrawal: No Advance Directives: No Advance Directives Information Provided: Yes Do you have a plan to hurt others: No Plan Eating poorly because of decreased appetite: Yes Nutrition Risks: Acute nausea or vomiting x1 week and Poor intake 0-25% >4 days Meds Allergies Allergy/AdvReac Type Severity Reaction Status Date / Time rabies vaccine, hero cell Allergy Severe SEVERE Verified 09/28/23 22:56 [RABIES VACCINE, HERO CELL] BLISTERS,RASH cephalexin [From KEFLEX] Allergy Intermediate VOMITING/DI Verified 09/28/23 22:56 ARRHEA Sulfa (Sulfonamide Allergy Unknown SEVERE Verified 09/28/23 22:56 Antibiotics) VOMITING [SULFA (SULFONAMIDE ANTIBIOTICS)] rabies vaccine Allergy Unknown Unknown Uncoded 09/28/23 22:56 sulfa Allergy Unknown Unknown Uncoded 09/28/23 22:56 Active Medications: Current Medications Acetaminophen (Acetaminophen 325 Mg Tablet) 975 mg PO Q6H PRN PRN Reason: Fever >100.4 Last Admin: 09/29/23 09:42 Dose: 975 mg Chlorhexidine Gluconate (Chlorhexidine Gluc Oral Rinse 15 Ml Mouthwash) 15 ml BUCCAL TID [facility] Last Admin: 09/30/23 14:02 Dose: 15 ml Heparin Sodium (Porcine) (Heparin Sodium,Porcine 5,000 Unit/Ml Vial) 5,000 unit SUBCUT Q12H [facility] Last Admin: 09/29/23 18:13 Dose: 5,000 unit Hydrocortisone Sodium Succinate (Hydrocortisone Sod Succ/Pf 100 Mg Vial) 50 mg IVPUSH Q6H [facility] Last Admin: 09/30/23 14:02 Dose: 50 mg Dextrose (D10) 250 mls @ 750 mls/hr IV Q30M PRN PRN Reason: BG <70 Vasopressin (Vasostrict) 20 unit in 100 mls @ 12 mls/hr IVCONT .Q8H20M [facility] Last Admin: 09/30/23 12:14 Dose: Not Given Insulin Human Regular (Myxredlin) 100 unit in 100 mls @ 0 mls/hr IVCONT .Q0M [facility]; Protocol Last Titration: 09/30/23 10:06 Dose: Infused Dextrose (D10) 250 mls @ 750 mls/hr IV Q15M PRN PRN Reason: per Hypoglycemia Standing Ord. Epinephrine 5 mg/ Dextrose 255 mls @ 0 mls/hr IVCONT .Q0M [facility]; Protocol Last Titration: 09/29/23 21:35 Dose: 0 mcg/kg/min, 0 mls/hr Norepinephrine Bitartrate (Levophed) 32 mg in 250 mls @ 0 mls/hr IVCONT .Q0M [facility]; Protocol Last Admin: 09/30/23 15:39 Dose: 0.48 mcg/kg/min, 26.35 mls/hr Propofol (Diprivan) 1,000 mg in 100 mls @ 0 mls/hr IVCONT .Q0M [facility]; Protocol Last Admin: 09/30/23 14:14 Dose: 50 mcg/kg/min, 35.13 mls/hr Piperacillin Sod/Tazobactam (Sod 2.25 gm/ Sodium Chloride) 50 mls @ 100 mls/hr IV Q6H [facility] Last Infusion: 09/30/23 14:59 Dose: Infused Levothyroxine Sodium (Levothyroxine Sodium 100 Mcg/5 Ml Vial) 200 mcg IVPUSH BID@0600,1800 [facility] Last Admin: 09/30/23 05:20 Dose: 200 mcg Lidocaine (Lidocaine 4 % Patch Adh..Patch) 2 patch TRANSDERMA DAILY [facility]; Protocol Last Admin: 09/30/23 08:45 Dose: Not Given Melatonin (Melatonin 3 Mg Tablet) 6 mg PO BEDTIME PRN PRN Reason: Insomnia Metoclopramide HCl (Metoclopramide Hcl 10 Mg/2 Ml Vial) 10 mg IVPUSH Q6H PRN PRN Reason: Nausea and Vomiting Last Admin: 09/29/23 18:40 Dose: 10 mg Ondansetron HCl (Ondansetron Hcl 4 Mg/2 Ml Vial) 4 mg IVPUSH Q8H PRN PRN Reason: Nausea and Vomiting Last Admin: 09/29/23 09:48 Dose: 4 mg Pantoprazole Sodium (Pantoprazole Sodium 40 Mg/10 Ml Vial) 40 mg IVPUSH BID@0630,1630 [facility] Last Admin: 09/30/23 15:38 Dose: 40 mg Sodium Chloride (0.9 % Sodium Chloride Flush 3 Ml Syringe) 3 ml IVFLUSH QSHIFT [facility] Last Admin: 09/30/23 15:22 Dose: 3 ml Home Medications ?Medication ?Instructions ?Recorded ?Confirmed ?Last Taken ?Type atorvastatin 20 mg tablet 20 mg PO DAILY 09/29/23 09/29/23 Unknown History cetirizine 10 mg tablet (Zyrtec) 10 mg PO DAILY 09/29/23 09/29/23 Unknown History diphenhydramine HCl 25 mg capsule 25 mg PO BEDTIME PRN Sleep 09/29/23 09/29/23 Unknown History (Benadryl) dulaglutide 0.75 mg/0.5 mL 0.75 mg subcut QWEEK 09/29/23 Unknown History subcutaneous pen injector (Trulicity) epinephrine 0.3 mg/0.3 mL 0.3 mg IM Q4H PRN Allergic Reaction 09/29/23 09/29/23 Unknown History injection, auto-injector (EpiPen 2-David) fenofibrate nanocrystallized 145 145 mg PO DAILY 09/29/23 09/29/23 Unknown History mg tablet fluticasone propionate 50 1 spray intranasal DAILY PRN 09/29/23 09/29/23 Unknown History mcg/actuation nasal allergies spray,suspension glimepiride 2 mg tablet 2 mg PO QID 09/29/23 09/29/23 Unknown History insulin detemir U-100 100 unit/mL 34 unit subcut DAILY 09/29/23 Unknown History (3 mL) subcutaneous pen (Levemir FlexTouch U-100 Insulin) levothyroxine 50 mcg tablet 50 mcg PO DAILY@0600 09/29/23 09/29/23 Unknown History metformin 1,000 mg tablet 1,000 mg PO BID 09/29/23 09/29/23 Unknown History wavobkko-ie-[id number] 300 mcg-K 60 1 tab PO DAILY 09/29/23 09/29/23 Unknown History mcg-lycop 600 mcg-lutein 300 mcg tablet (Centrum Silver Men) Physical Exam Vital Signs: Vital Signs: Last Vital Signs Temp 98.2 F 09/30/23 15:59 Pulse 81 09/30/23 15:59 Resp 24 H 09/30/23 15:59 BP 129/69 09/30/23 15:59 Pulse Ox 93 09/30/23 15:59 O2 Del Method Mechanical Ventil ation 09/30/23 15:59 O2 Flow Rate 11 09/29/23 19:20 FiO2 50 09/30/23 15:59 BMI result Body Mass Index 35.8 Const: General: other (Intubated) HEENT: Head: Yes normocephalic and Yes atraumatic Neck: Neck: Yes normal visual inspection Resp: Other: On respirator Cardio: Other: Patient is on IV pressors for hemodynamic control GI: Inspection: Yes normal to inspection Psych: Other: Unable to assess Results Labs 09/30/23 05:19 09/30/23 12:24 Labs: Abnormal lab results 09/29/23 09/29/23 09/29/23 Range/Units 16:13 17:06 17:18 WBC (4.8-10.8) X10*3/uL RBC (4.60-5.80) X10*6/uL Hgb (14.0-18.0) g/dl Hct (42.0-52.0) % MCHC (31.0-36.0) g/dl Plt Count (160-400) X10*3/uL Absolute Nucleated RBC (0.0-0.012) X10*3/uL Nucleated RBC % (auto) (0.0-0.2) /100WBC Band Neutrophils % (3-5) % Lymphocytes % (Manual) (20-40) % Abs Neuts (Manual) (2.0-8.3) X10*3/uL PT (11.1-13.3) SEC INR (0.9-1.1) VBG pH (7.32-7.43) VBG HCO3 (22-26) mmol/L Potassium (3.3-5.1) mmol/L Carbon Dioxide 17 L (22-29) mmol/L Anion Gap 22 H (12-20) BUN 47 H (9-16) mg/dL Creatinine 4.08 H* (0.5-1.4) mg/dL POC Glucose 203 H 180 H (60-115) mg/dL Random Glucose 211 H (60-115) mg/dL Lactic Acid (0.5-2.0) mmol/L Lactic Acid F/U @ 2Hr (0.5-2.0) mmol/L Lactic Acid F/U @ 4Hr (0.5-2.0) mmol/L Phosphorus (2.7-4.5) mg/dL Total Bilirubin (0.0-1.0) mg/dL AST (5-37) U/L ALT (0-40) U/L Troponin I High Sens (<3.5-35.0) ng/L B-Natriuretic Peptide (<100) pg/mL Total Protein (6.5-8.0) g/dL Albumin (3.5-5.0) g/dL TSH (0.32-4.0) uIU/mL Thyroxine (T4) (4.5-12.0) ug/dL 09/29/23 09/29/23 09/29/23 Range/Units 17:22 17:55 19:08 WBC (4.8-10.8) X10*3/uL RBC (4.60-5.80) X10*6/uL Hgb (14.0-18.0) g/dl Hct (42.0-52.0) % MCHC (31.0-36.0) g/dl Plt Count (160-400) X10*3/uL Absolute Nucleated RBC (0.0-0.012) X10*3/uL Nucleated RBC % (auto) (0.0-0.2) /100WBC Band Neutrophils % (3-5) % Lymphocytes % (Manual) (20-40) % Abs Neuts (Manual) (2.0-8.3) X10*3/uL PT (11.1-13.3) SEC INR (0.9-1.1) VBG pH 7.25 L (7.32-7.43) VBG HCO3 19 L (22-26) mmol/L Potassium (3.3-5.1) mmol/L Carbon Dioxide (22-29) mmol/L Anion Gap (12-20) BUN (9-16) mg/dL Creatinine (0.5-1.4) mg/dL POC Glucose 170 H 140 H (60-115) mg/dL Random Glucose (60-115) mg/dL Lactic Acid (0.5-2.0) mmol/L Lactic Acid F/U @ 2Hr (0.5-2.0) mmol/L Lactic Acid F/U @ 4Hr (0.5-2.0) mmol/L Phosphorus (2.7-4.5) mg/dL Total Bilirubin (0.0-1.0) mg/dL AST (5-37) U/L ALT (0-40) U/L Troponin I High Sens (<3.5-35.0) ng/L B-Natriuretic Peptide (<100) pg/mL Total Protein (6.5-8.0) g/dL Albumin (3.5-5.0) g/dL TSH (0.32-4.0) uIU/mL Thyroxine (T4) (4.5-12.0) ug/dL 09/29/23 09/29/23 09/29/23 Range/Units 19:57 19:59 20:04 WBC 17.1 H (4.8-10.8) X10*3/uL RBC 3.24 L (4.60-5.80) X10*6/uL Hgb 10.2 L (14.0-18.0) g/dl Hct 29.4 L (42.0-52.0) % MCHC (31.0-36.0) g/dl Plt Count 77 L D (160-400) X10*3/uL Absolute Nucleated RBC (0.0-0.012) X10*3/uL Nucleated RBC % (auto) (0.0-0.2) /100WBC Band Neutrophils % 26 H (3-5) % Lymphocytes % (Manual) 8 L (20-40) % Abs Neuts (Manual) 14.4 H (2.0-8.3) X10*3/uL PT 17.8 H D (11.1-13.3) SEC INR 1.5 H (0.9-1.1) VBG pH (7.32-7.43) VBG HCO3 16 L (22-26) mmol/L Potassium (3.3-5.1) mmol/L Carbon Dioxide (22-29) mmol/L Anion Gap (12-20) BUN (9-16) mg/dL Creatinine (0.5-1.4) mg/dL POC Glucose 160 H (60-115) mg/dL Random Glucose (60-115) mg/dL Lactic Acid 6.9 H* (0.5-2.0) mmol/L Lactic Acid F/U @ 2Hr (0.5-2.0) mmol/L Lactic Acid F/U @ 4Hr (0.5-2.0) mmol/L Phosphorus (2.7-4.5) mg/dL Total Bilirubin (0.0-1.0) mg/dL AST (5-37) U/L ALT (0-40) U/L Troponin I High Sens (<3.5-35.0) ng/L B-Natriuretic Peptide (<100) pg/mL Total Protein (6.5-8.0) g/dL Albumin (3.5-5.0) g/dL TSH (0.32-4.0) uIU/mL Thyroxine (T4) (4.5-12.0) ug/dL 09/29/23 09/29/23 09/29/23 Range/Units 21:00 21:54 21:59 WBC (4.8-10.8) X10*3/uL RBC (4.60-5.80) X10*6/uL Hgb (14.0-18.0) g/dl Hct (42.0-52.0) % MCHC (31.0-36.0) g/dl Plt Count (160-400) X10*3/uL Absolute Nucleated RBC (0.0-0.012) X10*3/uL Nucleated RBC % (auto) (0.0-0.2) /100WBC Band Neutrophils % (3-5) % Lymphocytes % (Manual) (20-40) % Abs Neuts (Manual) (2.0-8.3) X10*3/uL PT (11.1-13.3) SEC INR (0.9-1.1) VBG pH (7.32-7.43) VBG HCO3 (22-26) mmol/L Potassium (3.3-5.1) mmol/L Carbon Dioxide 16 L (22-29) mmol/L Anion Gap 24 H (12-20) BUN 48 H (9-16) mg/dL Creatinine 4.20 H* (0.5-1.4) mg/dL POC Glucose 167 H 170 H (60-115) mg/dL Random Glucose 227 H (60-115) mg/dL Lactic Acid (0.5-2.0) mmol/L Lactic Acid F/U @ 2Hr (0.5-2.0) mmol/L Lactic Acid F/U @ 4Hr (0.5-2.0) mmol/L Phosphorus 4.6 H (2.7-4.5) mg/dL Total Bilirubin (0.0-1.0) mg/dL AST (5-37) U/L ALT (0-40) U/L Troponin I High Sens (<3.5-35.0) ng/L B-Natriuretic Peptide (<100) pg/mL Total Protein (6.5-8.0) g/dL Albumin (3.5-5.0) g/dL TSH (0.32-4.0) uIU/mL Thyroxine (T4) (4.5-12.0) ug/dL 09/29/23 09/29/23 09/29/23 Range/Units 22:01 22:41 23:02 WBC (4.8-10.8) X10*3/uL RBC (4.60-5.80) X10*6/uL Hgb (14.0-18.0) g/dl Hct (42.0-52.0) % MCHC (31.0-36.0) g/dl Plt Count (160-400) X10*3/uL Absolute Nucleated RBC (0.0-0.012) X10*3/uL Nucleated RBC % (auto) (0.0-0.2) /100WBC Band Neutrophils % (3-5) % Lymphocytes % (Manual) (20-40) % Abs Neuts (Manual) (2.0-8.3) X10*3/uL PT (11.1-13.3) SEC INR (0.9-1.1) VBG pH 7.30 L (7.32-7.43) VBG HCO3 16 L (22-26) mmol/L Potassium (3.3-5.1) mmol/L Carbon Dioxide (22-29) mmol/L Anion Gap (12-20) BUN (9-16) mg/dL Creatinine (0.5-1.4) mg/dL POC Glucose 172 H (60-115) mg/dL Random Glucose (60-115) mg/dL Lactic Acid (0.5-2.0) mmol/L Lactic Acid F/U @ 2Hr 8.2 H* (0.5-2.0) mmol/L Lactic Acid F/U @ 4Hr (0.5-2.0) mmol/L Phosphorus (2.7-4.5) mg/dL Total Bilirubin (0.0-1.0) mg/dL AST (5-37) U/L ALT (0-40) U/L Troponin I High Sens (<3.5-35.0) ng/L B-Natriuretic Peptide (<100) pg/mL Total Protein (6.5-8.0) g/dL Albumin (3.5-5.0) g/dL TSH (0.32-4.0) uIU/mL Thyroxine (T4) (4.5-12.0) ug/dL 09/29/23 09/29/23 09/29/23 Range/Units 23:08 23:10 23:58 WBC (4.8-10.8) X10*3/uL RBC (4.60-5.80) X10*6/uL Hgb (14.0-18.0) g/dl Hct (42.0-52.0) % MCHC (31.0-36.0) g/dl Plt Count (160-400) X10*3/uL Absolute Nucleated RBC (0.0-0.012) X10*3/uL Nucleated RBC % (auto) (0.0-0.2) /100WBC Band Neutrophils % (3-5) % Lymphocytes % (Manual) (20-40) % Abs Neuts (Manual) (2.0-8.3) X10*3/uL PT (11.1-13.3) SEC INR (0.9-1.1) VBG pH (7.32-7.43) VBG HCO3 16 L (22-26) mmol/L Potassium (3.3-5.1) mmol/L Carbon Dioxide (22-29) mmol/L Anion Gap (12-20) BUN (9-16) mg/dL Creatinine (0.5-1.4) mg/dL POC Glucose 149 H (60-115) mg/dL Random Glucose (60-115) mg/dL Lactic Acid (0.5-2.0) mmol/L Lactic Acid F/U @ 2Hr (0.5-2.0) mmol/L Lactic Acid F/U @ 4Hr (0.5-2.0) mmol/L Phosphorus (2.7-4.5) mg/dL Total Bilirubin (0.0-1.0) mg/dL AST (5-37) U/L ALT (0-40) U/L Troponin I High Sens 462.8 H* D (<3.5-35.0) ng/L B-Natriuretic Peptide 2936 H (<100) pg/mL Total Protein (6.5-8.0) g/dL Albumin (3.5-5.0) g/dL TSH (0.32-4.0) uIU/mL Thyroxine (T4) (4.5-12.0) ug/dL 09/30/23 09/30/23 09/30/23 Range/Units 01:02 01:06 02:00 WBC 16.7 H (4.8-10.8) X10*3/uL RBC 3.17 L (4.60-5.80) X10*6/uL Hgb 10.2 L (14.0-18.0) g/dl Hct 28.4 L (42.0-52.0) % MCHC (31.0-36.0) g/dl Plt Count 51 L D (160-400) X10*3/uL Absolute Nucleated RBC 0.020 H (0.0-0.012) X10*3/uL Nucleated RBC % (auto) (0.0-0.2) /100WBC Band Neutrophils % 18 H (3-5) % Lymphocytes % (Manual) 10 L (20-40) % Abs Neuts (Manual) 14.0 H (2.0-8.3) X10*3/uL PT (11.1-13.3) SEC INR (0.9-1.1) VBG pH (7.32-7.43) VBG HCO3 (22-26) mmol/L Potassium (3.3-5.1) mmol/L Carbon Dioxide (22-29) mmol/L Anion Gap (12-20) BUN (9-16) mg/dL Creatinine (0.5-1.4) mg/dL POC Glucose 130 H 123 H (60-115) mg/dL Random Glucose (60-115) mg/dL Lactic Acid (0.5-2.0) mmol/L Lactic Acid F/U @ 2Hr (0.5-2.0) mmol/L Lactic Acid F/U @ 4Hr 6.1 H* (0.5-2.0) mmol/L Phosphorus (2.7-4.5) mg/dL Total Bilirubin (0.0-1.0) mg/dL AST (5-37) U/L ALT (0-40) U/L Troponin I High Sens 659.8 H* (<3.5-35.0) ng/L B-Natriuretic Peptide (<100) pg/mL Total Protein (6.5-8.0) g/dL Albumin (3.5-5.0) g/dL TSH (0.32-4.0) uIU/mL Thyroxine (T4) (4.5-12.0) ug/dL 09/30/23 09/30/23 09/30/23 Range/Units 05:19 05:23 06:03 WBC 16.2 H (4.8-10.8) X10*3/uL RBC 3.23 L (4.60-5.80) X10*6/uL Hgb 10.5 L (14.0-18.0) g/dl Hct 28.8 L (42.0-52.0) % MCHC 36.5 H (31.0-36.0) g/dl Plt Count 47 L (160-400) X10*3/uL Absolute Nucleated RBC 0.050 H (0.0-0.012) X10*3/uL Nucleated RBC % (auto) 0.3 H (0.0-0.2) /100WBC Band Neutrophils % 21 H (3-5) % Lymphocytes % (Manual) 8 L (20-40) % Abs Neuts (Manual) 13.3 H (2.0-8.3) X10*3/uL PT 19.0 H (11.1-13.3) SEC INR 1.6 H (0.9-1.1) VBG pH (7.32-7.43) VBG HCO3 18 L (22-26) mmol/L Potassium 5.5 H D (3.3-5.1) mmol/L Carbon Dioxide 16 L (22-29) mmol/L Anion Gap 28 H (12-20) BUN 50 H (9-16) mg/dL Creatinine 4.84 H* (0.5-1.4) mg/dL POC Glucose 116 H (60-115) mg/dL Random Glucose 170 H (60-115) mg/dL Lactic Acid 7.2 H* (0.5-2.0) mmol/L Lactic Acid F/U @ 2Hr (0.5-2.0) mmol/L Lactic Acid F/U @ 4Hr (0.5-2.0) mmol/L Phosphorus (2.7-4.5) mg/dL Total Bilirubin 1.5 H (0.0-1.0) mg/dL AST 78 H (5-37) U/L ALT 53 H (0-40) U/L Troponin I High Sens 3097.3 H* D (<3.5-35.0) ng/L B-Natriuretic Peptide 2713 H (<100) pg/mL Total Protein 6.3 L (6.5-8.0) g/dL Albumin 3.1 L (3.5-5.0) g/dL TSH > 100.00 H (0.32-4.0) uIU/mL Thyroxine (T4) < 3.0 L (4.5-12.0) ug/dL 09/30/23 09/30/23 09/30/23 Range/Units 07:59 08:09 10:16 WBC (4.8-10.8) X10*3/uL RBC (4.60-5.80) X10*6/uL Hgb (14.0-18.0) g/dl Hct (42.0-52.0) % MCHC (31.0-36.0) g/dl Plt Count (160-400) X10*3/uL Absolute Nucleated RBC (0.0-0.012) X10*3/uL Nucleated RBC % (auto) (0.0-0.2) /100WBC Band Neutrophils % (3-5) % Lymphocytes % (Manual) (20-40) % Abs Neuts (Manual) (2.0-8.3) X10*3/uL PT (11.1-13.3) SEC INR (0.9-1.1) VBG pH (7.32-7.43) VBG HCO3 (22-26) mmol/L Potassium (3.3-5.1) mmol/L Carbon Dioxide (22-29) mmol/L Anion Gap (12-20) BUN (9-16) mg/dL Creatinine (0.5-1.4) mg/dL POC Glucose 125 H (60-115) mg/dL Random Glucose (60-115) mg/dL Lactic Acid (0.5-2.0) mmol/L Lactic Acid F/U @ 2Hr 8.0 H* (0.5-2.0) mmol/L Lactic Acid F/U @ 4Hr 8.0 H* (0.5-2.0) mmol/L Phosphorus (2.7-4.5) mg/dL Total Bilirubin (0.0-1.0) mg/dL AST (5-37) U/L ALT (0-40) U/L Troponin I High Sens (<3.5-35.0) ng/L B-Natriuretic Peptide (<100) pg/mL Total Protein (6.5-8.0) g/dL Albumin (3.5-5.0) g/dL TSH (0.32-4.0) uIU/mL Thyroxine (T4) (4.5-12.0) ug/dL 09/30/23 09/30/23 Range/Units 11:52 12:24 WBC (4.8-10.8) X10*3/uL RBC (4.60-5.80) X10*6/uL Hgb (14.0-18.0) g/dl Hct (42.0-52.0) % MCHC (31.0-36.0) g/dl Plt Count (160-400) X10*3/uL Absolute Nucleated RBC (0.0-0.012) X10*3/uL Nucleated RBC % (auto) (0.0-0.2) /100WBC Band Neutrophils % (3-5) % Lymphocytes % (Manual) (20-40) % Abs Neuts (Manual) (2.0-8.3) X10*3/uL PT (11.1-13.3) SEC INR (0.9-1.1) VBG pH (7.32-7.43) VBG HCO3 (22-26) mmol/L Potassium 6.4 H* (3.3-5.1) mmol/L Carbon Dioxide 14 L (22-29) mmol/L Anion Gap 30 H (12-20) BUN 54 H (9-16) mg/dL Creatinine 4.82 H* (0.5-1.4) mg/dL POC Glucose 157 H (60-115) mg/dL Random Glucose 250 H (60-115) mg/dL Lactic Acid (0.5-2.0) mmol/L Lactic Acid F/U @ 2Hr (0.5-2.0) mmol/L Lactic Acid F/U @ 4Hr (0.5-2.0) mmol/L Phosphorus (2.7-4.5) mg/dL Total Bilirubin (0.0-1.0) mg/dL AST (5-37) U/L ALT (0-40) U/L Troponin I High Sens (<3.5-35.0) ng/L B-Natriuretic Peptide (<100) pg/mL Total Protein (6.5-8.0) g/dL Albumin (3.5-5.0) g/dL TSH (0.32-4.0) uIU/mL Thyroxine (T4) (4.5-12.0) ug/dL Short CBC 09/29/23 09/30/23 09/30/23 Range/Units 19:57 01:02 05:19 WBC 17.1 H 16.7 H 16.2 H (4.8-10.8) X10*3/uL Hgb 10.2 L 10.2 L 10.5 L (14.0-18.0) g/dl Hct 29.4 L 28.4 L 28.8 L (42.0-52.0) % Plt Count 77 L D 51 L D 47 L (160-400) X10*3/uL BMP 09/29/23 09/29/23 09/30/23 17:18 21:59 05:19 Sodium 136 136 136 Potassium 4.4 D 4.0 5.5 H D Chloride 101 100 98 Carbon Dioxide 17 L 16 L 16 L BUN 47 H 48 H 50 H Creatinine 4.08 H* 4.20 H* 4.84 H* Calcium 8.5 D 8.4 9.1 D 09/30/23 12:24 Sodium 135 Potassium 6.4 H* Chloride 97 Carbon Dioxide 14 L BUN 54 H Creatinine 4.82 H* Calcium 8.6 Liver Function 09/29/23 09/30/23 Range/Units 17:18 05:19 Total Bilirubin 1.5 H (0.0-1.0) mg/dL AST 78 H (5-37) U/L ALT 53 H (0-40) U/L Alkaline Phosphatase 100 (39-117) U/L Albumin 3.5 3.1 L (3.5-5.0) g/dL Urine 09/29/23 Range/Units 02:21 Urine Color Dark Yellow Urine Appearance Turbid Urine pH 5.0 (5.0-9.0) Ur Specific [place] 1.025 (1.005-1.025) Urine Protein 100 (2+) H (Neg-Trace) mg/dL Urine Glucose (UA) 500 H (Negative) mg/dL All other labs normal. Assessment and Plan (1) Hydronephrosis: Status: Acute (2) Septic shock: Status: Acute (3) Acute dehydration: Status: Acute Plan Discussed plan with sister Lorene, consent obtained. Cystoscopy retrograde right ureteral stent Procedures Date of Service Date of Service: 09/30/23
[2023-09-30] MEDS: Calcium Gluconate/NaCl,Iso-Osm 2 GM/100 ML PLAST..BAG IV (16:39)
[2023-09-30] MEDS: Insulin Regular, Human 100 UNIT/ML 10 ML VIAL 10 UNIT IVPUSH (16:40)
[2023-09-30] MEDS: Calcium Chloride 1 GM/10 ML SYRINGE IVPUSH (16:51)
[2023-09-30 17:30] LABS: Anion Gap 31 (12-20); Blood Urea Nitrogen 55 mg/dL (9-16); Calcium 9.8 mg/dL (8.4-10.2); Carbon Dioxide 13 mmol/L (22-29); Chloride 94 mmol/L (96-108); Creatinine Clr Calc Pharmacy 18.2; Estimated Glomerular Filt Rate 11; Glucose Random 437 mg/dL (60-115); Potassium 6.1 mmol/L (3.3-5.1); Sodium 132 mmol/L (135-145)
--- NOTE | 2023-09-30 17:33 | HO.ANESPROP2 ---
HPI - Anesthesia Eval Consult details Narrative: Right pyelonephritis PMFSH Active Problems Active Problems: All Active Problems Diabetes (Acute) Acute respiratory failure with hypoxia (Acute) Acute kidney failure (Acute) Septic shock (Acute) Hydronephrosis (Acute) Gram-negative bacteremia (Acute) Sepsis (Acute) Acute dehydration (Acute) LATASHA (acute kidney injury) (Acute) Hypothyroidism (Acute) Past Medical History Medical History Migraine Prostate cancer Osteomyelitis Skin cancer HLD (hyperlipidemia) Diabetes Hypothyroid Family History Family history of problems with anesthesia: No Surgical History Surgical History History of umbilical hernia repair Hx of prostatectomy History of spinal fusion History of Problems with Anesthesia: No Social History Social History Household Members: Spouse Housing: House Do you presently have visiting nurse or other home services: No Patient Tobacco Use Status: Former Tobacco user Smoked in Last 30 Days: No Use of substances other than those prescribed or required for medical reasons: No Currently Displaying Signs/Symptoms of Drug Intoxication Withdrawal: No Advance Directives: No Advance Directives Information Provided: Yes Do you have a plan to hurt others: No Plan Eating poorly because of decreased appetite: Yes Nutrition Risks: Acute nausea or vomiting x1 week and Poor intake 0-25% >4 days Meds Allergies Allergy/AdvReac Type Severity Reaction Status Date / Time rabies vaccine, hero cell Allergy Severe SEVERE Verified 09/28/23 22:56 [RABIES VACCINE, HERO CELL] BLISTERS,RASH cephalexin [From KEFLEX] Allergy Intermediate VOMITING/DI Verified 09/28/23 22:56 ARRHEA Sulfa (Sulfonamide Allergy Unknown SEVERE Verified 09/28/23 22:56 Antibiotics) VOMITING [SULFA (SULFONAMIDE ANTIBIOTICS)] rabies vaccine Allergy Unknown Unknown Uncoded 09/28/23 22:56 sulfa Allergy Unknown Unknown Uncoded 09/28/23 22:56 Active Medications: Current Medications Acetaminophen (Acetaminophen 325 Mg Tablet) 975 mg PO Q6H PRN PRN Reason: Fever >100.4 Last Admin: 09/29/23 09:42 Dose: 975 mg Chlorhexidine Gluconate (Chlorhexidine Gluc Oral Rinse 15 Ml Mouthwash) 15 ml BUCCAL TID OCTAVIO Last Admin: 09/30/23 14:02 Dose: 15 ml Heparin Sodium (Porcine) (Heparin Sodium,Porcine 5,000 Unit/Ml Vial) 5,000 unit SUBCUT Q12H OCTAVIO Last Admin: 09/29/23 18:13 Dose: 5,000 unit Hydrocortisone Sodium Succinate (Hydrocortisone Sod Succ/Pf 100 Mg Vial) 50 mg IVPUSH Q6H OCTAVIO Last Admin: 09/30/23 14:02 Dose: 50 mg Dextrose (D10) 250 mls @ 750 mls/hr IV Q30M PRN PRN Reason: BG <70 Vasopressin (Vasostrict) 20 unit in 100 mls @ 12 mls/hr IVCONT .Q8H20M [facility] Last Admin: 09/30/23 12:14 Dose: Not Given Insulin Human Regular (Myxredlin) 100 unit in 100 mls @ 0 mls/hr IVCONT .Q0M OCTAVIO; Protocol Last Titration: 09/30/23 10:06 Dose: Infused Dextrose (D10) 250 mls @ 750 mls/hr IV Q15M PRN PRN Reason: per Hypoglycemia Standing Ord. Epinephrine 5 mg/ Dextrose 255 mls @ 0 mls/hr IVCONT .Q0M OCTAVIO; Protocol Last Titration: 09/29/23 21:35 Dose: 0 mcg/kg/min, 0 mls/hr Norepinephrine Bitartrate (Levophed) 32 mg in 250 mls @ 0 mls/hr IVCONT .Q0M OCT[facility]IO; Protocol Last Admin: 09/30/23 15:39 Dose: 0.48 mcg/kg/min, 26.35 mls/hr Propofol (Diprivan) 1,000 mg in 100 mls @ 0 mls/hr IVCONT .Q0M [facility]; Protocol Last Admin: 09/30/23 16:22 Dose: 50 mcg/kg/min, 35.13 mls/hr Piperacillin Sod/Tazobactam (Sod 2.25 gm/ Sodium Chloride) 50 mls @ 100 mls/hr IV Q6H [facility] Last Infusion: 09/30/23 14:59 Dose: Infused Levothyroxine Sodium (Levothyroxine Sodium 100 Mcg/5 Ml Vial) 200 mcg IVPUSH BID@0600,1800 [facility] Last Admin: 09/30/23 05:20 Dose: 200 mcg Lidocaine (Lidocaine 4 % Patch Adh..Patch) 2 patch TRANSDERMA DAILY [facility]; Protocol Last Admin: 09/30/23 08:45 Dose: Not Given Melatonin (Melatonin 3 Mg Tablet) 6 mg PO BEDTIME PRN PRN Reason: Insomnia Metoclopramide HCl (Metoclopramide Hcl 10 Mg/2 Ml Vial) 10 mg IVPUSH Q6H PRN PRN Reason: Nausea and Vomiting Last Admin: 09/29/23 18:40 Dose: 10 mg Ondansetron HCl (Ondansetron Hcl 4 Mg/2 Ml Vial) 4 mg IVPUSH Q8H PRN PRN Reason: Nausea and Vomiting Last Admin: 09/29/23 09:48 Dose: 4 mg Pantoprazole Sodium (Pantoprazole Sodium 40 Mg/10 Ml Vial) 40 mg IVPUSH BID@0630,1630 [facility] Last Admin: 09/30/23 15:38 Dose: 40 mg Sodium Chloride (0.9 % Sodium Chloride Flush 3 Ml Syringe) 3 ml IVFLUSH QSHIFT [facility] Last Admin: 09/30/23 15:22 Dose: 3 ml Home Medications ?Medication ?Instructions ?Recorded ?Confirmed ?Last Taken ?Type atorvastatin 20 mg tablet 20 mg PO DAILY 09/29/23 09/29/23 Unknown History cetirizine 10 mg tablet (Zyrtec) 10 mg PO DAILY 09/29/23 09/29/23 Unknown History diphenhydramine HCl 25 mg capsule 25 mg PO BEDTIME PRN Sleep 09/29/23 09/29/23 Unknown History (Benadryl) dulaglutide 0.75 mg/0.5 mL 0.75 mg subcut QWEEK 09/29/23 Unknown History subcutaneous pen injector (Trulicity) epinephrine 0.3 mg/0.3 mL 0.3 mg IM Q4H PRN Allergic Reaction 09/29/23 09/29/23 Unknown History injection, auto-injector (EpiPen 2-David) fenofibrate nanocrystallized 145 145 mg PO DAILY 09/29/23 09/29/23 Unknown History mg tablet fluticasone propionate 50 1 spray intranasal DAILY PRN 09/29/23 09/29/23 Unknown History mcg/actuation nasal allergies spray,suspension glimepiride 2 mg tablet 2 mg PO QID 09/29/23 09/29/23 Unknown History insulin detemir U-100 100 unit/mL 34 unit subcut DAILY 09/29/23 Unknown History (3 mL) subcutaneous pen (Levemir FlexTouch U-100 Insulin) levothyroxine 50 mcg tablet 50 mcg PO DAILY@0600 09/29/23 09/29/23 Unknown History metformin 1,000 mg tablet 1,000 mg PO BID 09/29/23 09/29/23 Unknown History [id number] 300 mcg-K 60 1 tab PO DAILY 09/29/23 09/29/23 Unknown History mcg-lycop 600 mcg-lutein 300 mcg tablet (Centrum Silver Men) Exam Height,Weight and Vital Signs: Height 6 ft 1 in Weight 123.2 kg Last Vital Signs Temp 98.6 F 09/30/23 16:50 Pulse 87 09/30/23 16:50 Resp 24 H 09/30/23 16:50 BP 123/63 09/30/23 16:50 Pulse Ox 92 09/30/23 16:50 O2 Del Method Mechanical Ventilation 09/30/23 16:50 O2 Flow Rate 11 09/29/23 19:20 FiO2 50 09/30/23 16:50 Pertinent Lab Results Pertinent Lab Results: Laboratory Tests 09/28/23 09/28/23 09/28/23 22:39 22:47 22:48 WBC 6.2 RBC 3.57 L Hgb 11.1 L Hct 32.7 L MCV 91.6 MCH 31.1 MCHC 33.9 RDW 14.4 Plt Count 178 MPV 10.3 Immature Gran % (Auto) Neut % (Auto) Lymph % (Auto) [place] % (Auto) Eos % (Auto) Baso % (Auto) Lymph # (Auto) [place] # (Auto) Eos # (Auto) Baso # (Auto) Abs Immat Gran (auto) Absolute Neuts (auto) Absolute Nucleated RBC 0.000 Nucleated RBC % (auto) 0.0 Neutrophils % (Manual) 80 H Band Neutrophils % 5 Lymphocytes % (Manual) 8 L Monocytes % (Manual) 3 Metamyelocytes % 4 Myelocytes % Abs Neuts (Manual) 5.3 Lymphocytes # (Manual) 0.5 L Monocytes # (Manual) 0.2 Metamyelocytes # 0.2 Myelocytes # Toxic Vacuolation PRESENT Dohle Bodies PRESENT Platelet Estimate NORMAL Large Platelets PRESENT Plt Morphology Comment NOTE RBC Morphology NOTED Target Cells Tear Drop Cells Ovalocytes Mario Cells 1+ (0-2) PT 13.1 INR 1.1 VBG pH VBG pCO2 VBG pO2 VBG HCO3 VBG O2 Saturation VBG Base Excess Sodium 133 L Potassium 4.4 Chloride 96 Carbon Dioxide 19 L Anion Gap 22 H BUN 43 H Creatinine 3.61 H Estim Creat Clear Calc 25.8 Estimated GFR 17 POC Glucose 493 H* Random Glucose 560 H* Lactic Acid 8.8 H* Lactic Acid F/U @ 2Hr Lactic Acid F/U @ 4Hr Calcium 9.0 Phosphorus Magnesium 1.6 Total Bilirubin 0.6 Direct Bilirubin 0.2 AST 63 H ALT 29 Alkaline Phosphatase 94 Ammonia Troponin I High Sens 24.3 B-Natriuretic Peptide 245 H Total Protein 6.4 L Albumin 3.4 L Lipase 13 Beta-Hydroxybutyrate 0.19 TSH > 100.00 H Free T4 < 0.42 L Thyroxine (T4) Random Cortisol Urine Color Urine Appearance Urine pH Ur Specific [place] Urine Protein Urine Glucose (UA) Urine Ketones Urine Blood Urine Nitrite Ur Leukocyte Esterase Urine RBC Urine WBC Ur Squamous Epith Cells Urine Bacteria Hyaline Casts Stool Occult Blood Salicylates Acetaminophen Ethyl Alcohol < 10 COVID-19 (RENNY) COVID-19 Clin Com Influenza Type A (SOSA) Influenza Type B (SOSA) Influenza A & B Note Blood Type Antibody Screen 09/28/23 09/28/23 09/28/23 23:08 23:09 23:11 WBC RBC Hgb Hct MCV MCH MCHC RDW Plt Count MPV Immature Gran % (Auto) Neut % (Auto) Lymph % (Auto) [place] % (Auto) Eos % (Auto) Baso % (Auto) Lymph # (Auto) [place] # (Auto) Eos # (Auto) Baso # (Auto) Abs Immat Gran (auto) Absolute Neuts (auto) Absolute Nucleated RBC Nucleated RBC % (auto) Neutrophils % (Manual) Band Neutrophils % Lymphocytes % (Manual) Monocytes % (Manual) Metamyelocytes % Myelocytes % Abs Neuts (Manual) Lymphocytes # (Manual) Monocytes # (Manual) Metamyelocytes # Myelocytes # Toxic Vacuolation Dohle Bodies Platelet Estimate Large Platelets Plt Morphology Comment RBC Morphology Target Cells Tear Drop Cells Ovalocytes Mario Cells PT INR VBG pH 7.54 H VBG pCO2 16 VBG pO2 129 VBG HCO3 14 L VBG O2 Saturation 99.0 VBG Base Excess -5.2 Sodium Potassium Chloride Carbon Dioxide Anion Gap BUN Creatinine Estim Creat Clear Calc Estimated GFR POC Glucose Random Glucose Lactic Acid Lactic Acid F/U @ 2Hr Lactic Acid F/U @ 4Hr Calcium Phosphorus Magnesium Total Bilirubin Direct Bilirubin AST ALT Alkaline Phosphatase Ammonia 26 Troponin I High Sens B-Natriuretic Peptide Total Protein Albumin Lipase Beta-Hydroxybutyrate TSH Free T4 Thyroxine (T4) Random Cortisol Urine Color Urine Appearance Urine pH Ur Specific [place] Urine Protein Urine Glucose (UA) Urine Ketones Urine Blood Urine Nitrite Ur Leukocyte Esterase Urine RBC Urine WBC Ur Squamous Epith Cells Urine Bacteria Hyaline Casts Stool Occult Blood Salicylates Acetaminophen Ethyl Alcohol COVID-19 (RENNY) Negative COVID-19 Clin Com See Note Influenza Type A (SOSA) Negative Influenza Type B (SOSA) Negative Influenza A & B Note See Note Blood Type Antibody Screen 09/28/23 09/29/23 09/29/23 23:19 01:01 01:09 WBC RBC Hgb Hct MCV MCH MCHC RDW Plt Count MPV Immature Gran % (Auto) Neut % (Auto) Lymph % (Auto) [place] % (Auto) Eos % (Auto) Baso % (Auto) Lymph # (Auto) [place] # (Auto) Eos # (Auto) Baso # (Auto) Abs Immat Gran (auto) Absolute Neuts (auto) Absolute Nucleated RBC Nucleated RBC % (auto) Neutrophils % (Manual) Band Neutrophils % Lymphocytes % (Manual) Monocytes % (Manual) Metamyelocytes % Myelocytes % Abs Neuts (Manual) Lymphocytes # (Manual) Monocytes # (Manual) Metamyelocytes # Myelocytes # Toxic Vacuolation Dohle Bodies Platelet Estimate Large Platelets Plt Morphology Comment RBC Morphology Target Cells Tear Drop Cells Ovalocytes [place] Cells PT INR VBG pH VBG pCO2 VBG pO2 VBG HCO3 VBG O2 Saturation VBG Base Excess Sodium Potassium Chloride Carbon Dioxide Anion Gap BUN Creatinine Estim Creat Clear Calc Estimated GFR POC Glucose 311 H Random Glucose Lactic Acid Lactic Acid F/U @ 2Hr 9.0 H* Lactic Acid F/U @ 4Hr Calcium Phosphorus Magnesium Total Bilirubin Direct Bilirubin AST ALT Alkaline Phosphatase Ammonia Troponin I High Sens B-Natriuretic Peptide Total Protein Albumin Lipase Beta-Hydroxybutyrate TSH Free T4 Thyroxine (T4) Random Cortisol Urine Color Urine Appearance Urine pH Ur Specific [place] Urine Protein Urine Glucose (UA) Urine Ketones Urine Blood Urine Nitrite Ur Leukocyte Esterase Urine RBC Urine WBC Ur Squamous Epith Cells Urine Bacteria Hyaline Casts Stool Occult Blood NEGATIVE Salicylates Acetaminophen Ethyl Alcohol COVID-19 (RENNY) COVID-19 Clin Com Influenza Type A (SOSA) Influenza Type B (SOSA) Influenza A & B Note Blood Type Antibody Screen 09/29/23 09/29/23 09/29/23 02:21 03:19 03:21 WBC RBC Hgb Hct MCV MCH MCHC RDW Plt Count MPV Immature Gran % (Auto) Neut % (Auto) Lymph % (Auto) [place] % (Auto) Eos % (Auto) Baso % (Auto) Lymph # (Auto) [place] # (Auto) Eos # (Auto) Baso # (Auto) Abs Immat Gran (auto) Absolute Neuts (auto) Absolute Nucleated RBC Nucleated RBC % (auto) Neutrophils % (Manual) Band Neutrophils % Lymphocytes % (Manual) Monocytes % (Manual) Metamyelocytes % Myelocytes % Abs Neuts (Manual) Lymphocytes # (Manual) Monocytes # (Manual) Metamyelocytes # Myelocytes # Toxic Vacuolation Dohle Bodies Platelet Estimate Large Platelets Plt Morphology Comment RBC Morphology Target Cells Tear Drop Cells Ovalocytes Mario Cells PT INR VBG pH VBG pCO2 VBG pO2 VBG HCO3 VBG O2 Saturation VBG Base Excess Sodium Potassium Chloride Carbon Dioxide Anion Gap BUN Creatinine Estim Creat Clear Calc Estimated GFR POC Glucose 266 H Random Glucose Lactic Acid Lactic Acid F/U @ 2Hr Lactic Acid F/U @ 4Hr Calcium Phosphorus Magnesium Total Bilirubin Direct Bilirubin AST ALT Alkaline Phosphatase Ammonia Troponin I High Sens B-Natriuretic Peptide Total Protein Albumin Lipase Beta-Hydroxybutyrate TSH Free T4 Thyroxine (T4) Random Cortisol 126.1 Urine Color Dark Yellow Urine Appearance Turbid Urine pH 5.0 Ur Specific [place] 1.025 Urine Protein 100 (2+) H Urine Glucose (UA) 500 H Urine Ketones Trace Urine Blood Moderate (2+) H Urine Nitrite Negative Ur Leukocyte Esterase Small (1+) H Urine RBC 3-5 H Urine WBC >50 H Ur Squamous Epith Cells >20 Urine Bacteria 3+ Hyaline Casts >20 Stool Occult Blood Salicylates < 5.0 L Acetaminophen 4 Ethyl Alcohol Cancelled COVID-19 (RENNY) COVID-19 Clin Com Influenza Type A (SOSA) Influenza Type B (SOSA) Influenza A & B Note Blood Type Antibody Screen 09/29/23 09/29/23 09/29/23 04:11 05:04 05:35 WBC 8.0 RBC 3.24 L Hgb 10.2 L Hct 30.0 L MCV 92.6 MCH 31.5 MCHC 34.0 RDW 14.5 Plt Count 130 L D MPV 10.6 Immature Gran % (Auto) Cancelled Neut % (Auto) Cancelled Lymph % (Auto) Cancelled [place] % (Auto) Cancelled Eos % (Auto) Cancelled Baso % (Auto) Cancelled Lymph # (Auto) Cancelled [place] # (Auto) Cancelled Eos # (Auto) Cancelled Baso # (Auto) Cancelled Abs Immat Gran (auto) Cancelled Absolute Neuts (auto) Cancelled Absolute Nucleated RBC 0.000 Nucleated RBC % (auto) 0.0 Neutrophils % (Manual) 70 Band Neutrophils % 14 H Lymphocytes % (Manual) 7 L Monocytes % (Manual) 4 Metamyelocytes % 4 Myelocytes % 1 Abs Neuts (Manual) 6.7 Lymphocytes # (Manual) 0.6 L Monocytes # (Manual) 0.3 Metamyelocytes # 0.3 Myelocytes # 0.1 Toxic Vacuolation PRESENT Dohle Bodies PRESENT Platelet Estimate NORMAL Large Platelets PRESENT Plt Morphology Comment NOTED RBC Morphology NOTED Target Cells Tear Drop Cells Ovalocytes [place] Cells 1+ (0-2) PT INR VBG pH VBG pCO2 VBG pO2 VBG HCO3 VBG O2 Saturation VBG Base Excess Sodium 138 Potassium 3.6 Chloride 112 H Carbon Dioxide 14 L Anion Gap 16 BUN 35 H Creatinine 2.59 H Estim Creat Clear Calc 36.0 Estimated GFR 25 POC Glucose 321 H 336 H Random Glucose 355 H* Lactic Acid Lactic Acid F/U @ 2Hr Lactic Acid F/U @ 4Hr 5.4 H* Calcium 6.2 L D Phosphorus 2.7 Magnesium 1.1 L* Total Bilirubin Direct Bilirubin AST ALT Alkaline Phosphatase Ammonia Troponin I High Sens B-Natriuretic Peptide Total Protein Albumin 2.3 L Lipase Beta-Hydroxybutyrate TSH Free T4 Thyroxine (T4) Random Cortisol Urine Color Urine Appearance Urine pH Ur Specific [place] Urine Protein Urine Glucose (UA) Urine Ketones Urine Blood Urine Nitrite Ur Leukocyte Esterase Urine RBC Urine WBC Ur Squamous Epith Cells Urine Bacteria Hyaline Casts Stool Occult Blood Salicylates Acetaminophen Ethyl Alcohol COVID-19 (RENNY) COVID-19 Clin Com Influenza Type A (SOSA) Influenza Type B (SOSA) Influenza A & B Note Blood Type Antibody Screen 07/29/24 07/29/24 07/29/24 07:09 07:25 07:28 WBC RBC Hgb Hct MCV MCH MCHC RDW Plt Count MPV Immature Gran % (Auto) Neut % (Auto) Lymph % (Auto) [place] % (Auto) Eos % (Auto) Baso % (Auto) Lymph # (Auto) [place] # (Auto) Eos # (Auto) Baso # (Auto) Abs Immat Gran (auto) Absolute Neuts (auto) Absolute Nucleated RBC Nucleated RBC % (auto) Neutrophils % (Manual) Band Neutrophils % Lymphocytes % (Manual) Monocytes % (Manual) Metamyelocytes % Myelocytes % Abs Neuts (Manual) Lymphocytes # (Manual) Monocytes # (Manual) Metamyelocytes # Myelocytes # Toxic Vacuolation Dohle Bodies Platelet Estimate Large Platelets Plt Morphology Comment RBC Morphology Target Cells Tear Drop Cells Ovalocytes [place] Cells PT INR VBG pH 7.24 L VBG pCO2 38 VBG pO2 37 VBG HCO3 16 L VBG O2 Saturation 61.0 VBG Base Excess -9.5 Sodium Potassium Chloride Carbon Dioxide Anion Gap BUN Creatinine Estim Creat Clear Calc Estimated GFR POC Glucose 359 H* Random Glucose Lactic Acid Lactic Acid F/U @ 2Hr Lactic Acid F/U @ 4Hr Calcium Phosphorus 3.6 Magnesium Total Bilirubin Direct Bilirubin AST ALT Alkaline Phosphatase Ammonia Troponin I High Sens B-Natriuretic Peptide Total Protein Albumin Lipase Beta-Hydroxybutyrate TSH Free T4 Thyroxine (T4) Random Cortisol Urine Color Urine Appearance Urine pH Ur Specific [place] Urine Protein Urine Glucose (UA) Urine Ketones Urine Blood Urine Nitrite Ur Leukocyte Esterase Urine RBC Urine WBC Ur Squamous Epith Cells Urine Bacteria Hyaline Casts Stool Occult Blood Salicylates Acetaminophen Ethyl Alcohol COVID-19 (RENNY) COVID-19 Clin Com Influenza Type A (SOSA) Influenza Type B (SSOA) Influenza A & B Note Blood Type Antibody Screen 09/29/23 09/29/23 09/29/23 08:03 09:01 10:02 WBC RBC Hgb Hct MCV MCH MCHC RDW Plt Count MPV Immature Gran % (Auto) Neut % (Auto) Lymph % (Auto) [place] % (Auto) Eos % (Auto) Baso % (Auto) Lymph # (Auto) [place] # (Auto) Eos # (Auto) Baso # (Auto) Abs Immat Gran (auto) Absolute Neuts (auto) Absolute Nucleated RBC Nucleated RBC % (auto) Neutrophils % (Manual) Band Neutrophils % Lymphocytes % (Manual) Monocytes % (Manual) Metamyelocytes % Myelocytes % Abs Neuts (Manual) Lymphocytes # (Manual) Monocytes # (Manual) Metamyelocytes # Myelocytes # Toxic Vacuolation Dohle Bodies Platelet Estimate Large Platelets Plt Morphology Comment RBC Morphology Target Cells Tear Drop Cells Ovalocytes [place] Cells PT INR VBG pH VBG pCO2 VBG pO2 VBG HCO3 VBG O2 Saturation VBG Base Excess Sodium Potassium Chloride Carbon Dioxide Anion Gap BUN Creatinine Estim Creat Clear Calc Estimated GFR POC Glucose 323 H 347 H 336 H Random Glucose Lactic Acid Lactic Acid F/U @ 2Hr Lactic Acid F/U @ 4Hr Calcium Phosphorus Magnesium Total Bilirubin Direct Bilirubin AST ALT Alkaline Phosphatase Ammonia Troponin I High Sens B-Natriuretic Peptide Total Protein Albumin Lipase Beta-Hydroxybutyrate TSH Free T4 Thyroxine (T4) Random Cortisol Urine Color Urine Appearance Urine pH Ur Specific [place] Urine Protein Urine Glucose (UA) Urine Ketones Urine Blood Urine Nitrite Ur Leukocyte Esterase Urine RBC Urine WBC Ur Squamous Epith Cells Urine Bacteria Hyaline Casts Stool Occult Blood Salicylates Acetaminophen Ethyl Alcohol COVID-19 (RENNY) COVID-19 Clin Com Influenza Type A (SOSA) Influenza Type B (SOSA) Influenza A & B Note Blood Type Antibody Screen 09/29/23 09/29/23 09/29/23 11:02 12:02 13:01 WBC RBC Hgb Hct MCV MCH MCHC RDW Plt Count MPV Immature Gran % (Auto) Neut % (Auto) Lymph % (Auto) [place] % (Auto) Eos % (Auto) Baso % (Auto) Lymph # (Auto) [place] # (Auto) Eos # (Auto) Baso # (Auto) Abs Immat Gran (auto) Absolute Neuts (auto) Absolute Nucleated RBC Nucleated RBC % (auto) Neutrophils % (Manual) Band Neutrophils % Lymphocytes % (Manual) Monocytes % (Manual) Metamyelocytes % Myelocytes % Abs Neuts (Manual) Lymphocytes # (Manual) Monocytes # (Manual) Metamyelocytes # Myelocytes # Toxic Vacuolation Dohle Bodies Platelet Estimate Large Platelets Plt Morphology Comment RBC Morphology Target Cells Tear Drop Cells Ovalocytes Mario Cells PT INR VBG pH VBG pCO2 VBG pO2 VBG HCO3 VBG O2 Saturation VBG Base Excess Sodium Potassium Chloride Carbon Dioxide Anion Gap BUN Creatinine Estim Creat Clear Calc Estimated GFR POC Glucose 301 H 289 H 269 H Random Glucose Lactic Acid Lactic Acid F/U @ 2Hr Lactic Acid F/U @ 4Hr Calcium Phosphorus Magnesium Total Bilirubin Direct Bilirubin AST ALT Alkaline Phosphatase Ammonia Troponin I High Sens B-Natriuretic Peptide Total Protein Albumin Lipase Beta-Hydroxybutyrate TSH Free T4 Thyroxine (T4) Random Cortisol Urine Color Urine Appearance Urine pH Ur Specific [place] Urine Protein Urine Glucose (UA) Urine Ketones Urine Blood Urine Nitrite Ur Leukocyte Esterase Urine RBC Urine WBC Ur Squamous Epith Cells Urine Bacteria Hyaline Casts Stool Occult Blood Salicylates Acetaminophen Ethyl Alcohol COVID-19 (RENNY) COVID-19 Clin Com Influenza Type A (SOSA) Influenza Type B (SOSA) Influenza A & B Note Blood Type Antibody Screen 09/29/23 09/29/23 09/29/23 14:12 15:02 16:13 WBC RBC Hgb Hct MCV MCH MCHC RDW Plt Count MPV Immature Gran % (Auto) Neut % (Auto) Lymph % (Auto) [place] % (Auto) Eos % (Auto) Baso % (Auto) Lymph # (Auto) [place] # (Auto) Eos # (Auto) Baso # (Auto) Abs Immat Gran (auto) Absolute Neuts (auto) Absolute Nucleated RBC Nucleated RBC % (auto) Neutrophils % (Manual) Band Neutrophils % Lymphocytes % (Manual) Monocytes % (Manual) Metamyelocytes % Myelocytes % Abs Neuts (Manual) Lymphocytes # (Manual) Monocytes # (Manual) Metamyelocytes # Myelocytes # Toxic Vacuolation Dohle Bodies Platelet Estimate Large Platelets Plt Morphology Comment RBC Morphology Target Cells Tear Drop Cells Ovalocytes Mario Cells PT INR VBG pH VBG pCO2 VBG pO2 VBG HCO3 VBG O2 Saturation VBG Base Excess Sodium Potassium Chloride Carbon Dioxide Anion Gap BUN Creatinine Estim Creat Clear Calc Estimated GFR POC Glucose 284 H 218 H 203 H Random Glucose Lactic Acid Lactic Acid F/U @ 2Hr Lactic Acid F/U @ 4Hr Calcium Phosphorus Magnesium Total Bilirubin Direct Bilirubin AST ALT Alkaline Phosphatase Ammonia Troponin I High Sens B-Natriuretic Peptide Total Protein Albumin Lipase Beta-Hydroxybutyrate TSH Free T4 Thyroxine (T4) Random Cortisol Urine Color Urine Appearance Urine pH Ur Specific [place] Urine Protein Urine Glucose (UA) Urine Ketones Urine Blood Urine Nitrite Ur Leukocyte Esterase Urine RBC Urine WBC Ur Squamous Epith Cells Urine Bacteria Hyaline Casts Stool Occult Blood Salicylates Acetaminophen Ethyl Alcohol COVID-19 (RENNY) COVID-19 Clin Com Influenza Type A (SOSA) Influenza Type B (SOSA) Influenza A & B Note Blood Type Antibody Screen 09/29/23 09/29/23 09/29/23 17:06 17:18 17:22 WBC RBC Hgb Hct MCV MCH MCHC RDW Plt Count MPV Immature Gran % (Auto) Neut % (Auto) Lymph % (Auto) [place] % (Auto) Eos % (Auto) Baso % (Auto) Lymph # (Auto) [place] # (Auto) Eos # (Auto) Baso # (Auto) Abs Immat Gran (auto) Absolute Neuts (auto) Absolute Nucleated RBC Nucleated RBC % (auto) Neutrophils % (Manual) Band Neutrophils % Lymphocytes % (Manual) Monocytes % (Manual) Metamyelocytes % Myelocytes % Abs Neuts (Manual) Lymphocytes # (Manual) Monocytes # (Manual) Metamyelocytes # Myelocytes # Toxic Vacuolation Dohle Bodies Platelet Estimate Large Platelets Plt Morphology Comment RBC Morphology Target Cells Tear Drop Cells Ovalocytes Mario Cells PT INR VBG pH 7.25 L VBG pCO2 42 VBG pO2 41 VBG HCO3 19 L VBG O2 Saturation 64.0 VBG Base Excess -7.8 Sodium 136 Potassium 4.4 D Chloride 101 Carbon Dioxide 17 L Anion Gap 22 H BUN 47 H Creatinine 4.08 H* Estim Creat Clear Calc 22.9 Estimated GFR 15 POC Glucose 180 H Random Glucose 211 H Lactic Acid Lactic Acid F/U @ 2Hr Lactic Acid F/U @ 4Hr Calcium 8.5 D Phosphorus 4.3 Magnesium 1.8 Total Bilirubin Direct Bilirubin AST ALT Alkaline Phosphatase Ammonia Troponin I High Sens B-Natriuretic Peptide Total Protein Albumin 3.5 Lipase Beta-Hydroxybutyrate TSH Free T4 Thyroxine (T4) Random Cortisol Urine Color Urine Appearance Urine pH Ur Specific [place] Urine Protein Urine Glucose (UA) Urine Ketones Urine Blood Urine Nitrite Ur Leukocyte Esterase Urine RBC Urine WBC Ur Squamous Epith Cells Urine Bacteria Hyaline Casts Stool Occult Blood Salicylates Acetaminophen Ethyl Alcohol COVID-19 (RENNY) COVID-19 Clin Com Influenza Type A (SOSA) Influenza Type B (SOSA) Influenza A & B Note Blood Type Antibody Screen 09/29/23 09/29/23 09/29/23 17:55 19:08 19:57 WBC 17.1 H RBC 3.24 L Hgb 10.2 L Hct 29.4 L MCV 90.7 MCH 31.5 MCHC 34.7 RDW 14.9 Plt Count 77 L D MPV 11.0 Immature Gran % (Auto) Cancelled Neut % (Auto) Cancelled Lymph % (Auto) Cancelled [place] % (Auto) Cancelled Eos % (Auto) Cancelled Baso % (Auto) Cancelled Lymph # (Auto) Cancelled [place] # (Auto) Cancelled Eos # (Auto) Cancelled Baso # (Auto) Cancelled Abs Immat Gran (auto) Cancelled Absolute Neuts (auto) Cancelled Absolute Nucleated RBC 0.000 Nucleated RBC % (auto) 0.0 Neutrophils % (Manual) 58 Band Neutrophils % 26 H Lymphocytes % (Manual) 8 L Monocytes % (Manual) 5 Metamyelocytes % 3 Myelocytes % Abs Neuts (Manual) 14.4 H Lymphocytes # (Manual) 1.4 Monocytes # (Manual) 0.9 Metamyelocytes # 0.5 Myelocytes # Toxic Vacuolation PRESENT Dohle Bodies Platelet Estimate DECREASED Large Platelets Plt Morphology Comment NORMAL RBC Morphology NOTED Target Cells Tear Drop Cells Ovalocytes [place] Cells 3+ (>5) PT 17.8 H D INR 1.5 H VBG pH VBG pCO2 VBG pO2 VBG HCO3 VBG O2 Saturation VBG Base Excess Sodium Potassium Chloride Carbon Dioxide Anion Gap BUN Creatinine Estim Creat Clear Calc Estimated GFR POC Glucose 170 H 140 H Random Glucose Lactic Acid 6.9 H* Lactic Acid F/U @ 2Hr Lactic Acid F/U @ 4Hr Calcium Phosphorus Magnesium Total Bilirubin Direct Bilirubin AST ALT Alkaline Phosphatase Ammonia Troponin I High Sens B-Natriuretic Peptide Total Protein Albumin Lipase Beta-Hydroxybutyrate TSH Free T4 Thyroxine (T4) Random Cortisol Urine Color Urine Appearance Urine pH Ur Specific [place] Urine Protein Urine Glucose (UA) Urine Ketones Urine Blood Urine Nitrite Ur Leukocyte Esterase Urine RBC Urine WBC Ur Squamous Epith Cells Urine Bacteria Hyaline Casts Stool Occult Blood Salicylates Acetaminophen Ethyl Alcohol COVID-19 (RENNY) COVID-19 Clin Com Influenza Type A (SOSA) Influenza Type B (SOSA) Influenza A & B Note Blood Type A Negative Antibody Screen NEGATIVE 09/29/23 09/29/23 09/29/23 19:59 20:04 21:00 WBC RBC Hgb Hct MCV MCH MCHC RDW Plt Count MPV Immature Gran % (Auto) Neut % (Auto) Lymph % (Auto) [place] % (Auto) Eos % (Auto) Baso % (Auto) Lymph # (Auto) [place] # (Auto) Eos # (Auto) Baso # (Auto) Abs Immat Gran (auto) Absolute Neuts (auto) Absolute Nucleated RBC Nucleated RBC % (auto) Neutrophils % (Manual) Band Neutrophils % Lymphocytes % (Manual) Monocytes % (Manual) Metamyelocytes % Myelocytes % Abs Neuts (Manual) Lymphocytes # (Manual) Monocytes # (Manual) Metamyelocytes # Myelocytes # Toxic Vacuolation Dohle Bodies Platelet Estimate Large Platelets Plt Morphology Comment RBC Morphology Target Cells Tear Drop Cells Ovalocytes [place] Cells PT INR VBG pH 7.34 VBG pCO2 30 VBG pO2 139 VBG HCO3 16 L VBG O2 Saturation 99.0 VBG Base Excess -7.8 Sodium Potassium Chloride Carbon Dioxide Anion Gap BUN Creatinine Estim Creat Clear Calc Estimated GFR POC Glucose 160 H 167 H Random Glucose Lactic Acid Lactic Acid F/U @ 2Hr Lactic Acid F/U @ 4Hr Calcium Phosphorus Magnesium Total Bilirubin Direct Bilirubin AST ALT Alkaline Phosphatase Ammonia Troponin I High Sens B-Natriuretic Peptide Total Protein Albumin Lipase Beta-Hydroxybutyrate TSH Free T4 Thyroxine (T4) Random Cortisol Urine Color Urine Appearance Urine pH Ur Specific [place] Urine Protein Urine Glucose (UA) Urine Ketones Urine Blood Urine Nitrite Ur Leukocyte Esterase Urine RBC Urine WBC Ur Squamous Epith Cells Urine Bacteria Hyaline Casts Stool Occult Blood Salicylates Acetaminophen Ethyl Alcohol COVID-19 (RENNY) COVID-19 Clin Com Influenza Type A (SOSA) Influenza Type B (SOSA) Influenza A & B Note Blood Type Antibody Screen 09/29/23 09/29/23 09/29/23 21:54 21:59 22:01 WBC RBC Hgb Hct MCV MCH MCHC RDW Plt Count MPV Immature Gran % (Auto) Neut % (Auto) Lymph % (Auto) [place] % (Auto) Eos % (Auto) Baso % (Auto) Lymph # (Auto) [place] # (Auto) Eos # (Auto) Baso # (Auto) Abs Immat Gran (auto) Absolute Neuts (auto) Absolute Nucleated RBC Nucleated RBC % (auto) Neutrophils % (Manual) Band Neutrophils % Lymphocytes % (Manual) Monocytes % (Manual) Metamyelocytes % Myelocytes % Abs Neuts (Manual) Lymphocytes # (Manual) Monocytes # (Manual) Metamyelocytes # Myelocytes # Toxic Vacuolation Dohle Bodies Platelet Estimate Large Platelets Plt Morphology Comment RBC Morphology Target Cells Tear Drop Cells Ovalocytes Mario Cells PT INR VBG pH 7.30 L VBG pCO2 33 VBG pO2 45 VBG HCO3 16 L VBG O2 Saturation 72.0 VBG Base Excess -8.8 Sodium 136 Potassium 4.0 Chloride 100 Carbon Dioxide 16 L Anion Gap 24 H BUN 48 H Creatinine 4.20 H* Estim Creat Clear Calc 22.2 Estimated GFR 14 POC Glucose 170 H Random Glucose 227 H Lactic Acid Lactic Acid F/U @ 2Hr Lactic Acid F/U @ 4Hr Calcium 8.4 Phosphorus 4.6 H Magnesium 2.0 Total Bilirubin Direct Bilirubin AST ALT Alkaline Phosphatase Ammonia Troponin I High Sens B-Natriuretic Peptide Total Protein Albumin Lipase Beta-Hydroxybutyrate TSH Free T4 Thyroxine (T4) Random Cortisol Urine Color Urine Appearance Urine pH Ur Specific [place] Urine Protein Urine Glucose (UA) Urine Ketones Urine Blood Urine Nitrite Ur Leukocyte Esterase Urine RBC Urine WBC Ur Squamous Epith Cells Urine Bacteria Hyaline Casts Stool Occult Blood Salicylates Acetaminophen Ethyl Alcohol COVID-19 (RENNY) COVID-19 Clin Com Influenza Type A (SOSA) Influenza Type B (SOSA) Influenza A & B Note Blood Type Antibody Screen 09/29/23 09/29/23 09/29/23 22:41 23:02 23:08 WBC RBC Hgb Hct MCV MCH MCHC RDW Plt Count MPV Immature Gran % (Auto) Neut % (Auto) Lymph % (Auto) [place] % (Auto) Eos % (Auto) Baso % (Auto) Lymph # (Auto) [place] # (Auto) Eos # (Auto) Baso # (Auto) Abs Immat Gran (auto) Absolute Neuts (auto) Absolute Nucleated RBC Nucleated RBC % (auto) Neutrophils % (Manual) Band Neutrophils % Lymphocytes % (Manual) Monocytes % (Manual) Metamyelocytes % Myelocytes % Abs Neuts (Manual) Lymphocytes # (Manual) Monocytes # (Manual) Metamyelocytes # Myelocytes # Toxic Vacuolation Dohle Bodies Platelet Estimate Large Platelets Plt Morphology Comment RBC Morphology Target Cells Tear Drop Cells Ovalocytes Mario Cells PT INR VBG pH VBG pCO2 VBG pO2 VBG HCO3 VBG O2 Saturation VBG Base Excess Sodium Potassium Chloride Carbon Dioxide Anion Gap BUN Creatinine Estim Creat Clear Calc Estimated GFR POC Glucose 172 H Random Glucose Lactic Acid Lactic Acid F/U @ 2Hr 8.2 H* Lactic Acid F/U @ 4Hr Calcium Phosphorus Magnesium Total Bilirubin Direct Bilirubin AST ALT Alkaline Phosphatase Ammonia Troponin I High Sens 462.8 H* D B-Natriuretic Peptide 2936 H Total Protein Albumin Lipase Beta-Hydroxybutyrate TSH Free T4 Thyroxine (T4) Random Cortisol Urine Color Urine Appearance Urine pH Ur Specific [place] Urine Protein Urine Glucose (UA) Urine Ketones Urine Blood Urine Nitrite Ur Leukocyte Esterase Urine RBC Urine WBC Ur Squamous Epith Cells Urine Bacteria Hyaline Casts Stool Occult Blood Salicylates Acetaminophen Ethyl Alcohol COVID-19 (RENNY) COVID-19 Clin Com Influenza Type A (SOSA) Influenza Type B (SOSA) Influenza A & B Note Blood Type Antibody Screen 09/29/23 09/29/23 09/30/23 23:10 23:58 01:02 WBC 16.7 H RBC 3.17 L Hgb 10.2 L Hct 28.4 L MCV 89.6 MCH 32.2 MCHC 35.9 RDW 15.1 Plt Count 51 L D MPV 11.3 Immature Gran % (Auto) Cancelled Neut % (Auto) Cancelled Lymph % (Auto) Cancelled [place] % (Auto) Cancelled Eos % (Auto) Cancelled Baso % (Auto) Cancelled Lymph # (Auto) Cancelled [place] # (Auto) Cancelled Eos # (Auto) Cancelled Baso # (Auto) Cancelled Abs Immat Gran (auto) Cancelled Absolute Neuts (auto) Cancelled Absolute Nucleated RBC 0.020 H Nucleated RBC % (auto) 0.1 Neutrophils % (Manual) 66 Band Neutrophils % 18 H Lymphocytes % (Manual) 10 L Monocytes % (Manual) 4 Metamyelocytes % 2 Myelocytes % Abs Neuts (Manual) 14.0 H Lymphocytes # (Manual) 1.7 Monocytes # (Manual) 0.7 Metamyelocytes # 0.3 Myelocytes # Toxic Vacuolation PRESENT Dohle Bodies PRESENT Platelet Estimate DECREASED Large Platelets PRESENT Plt Morphology Comment NOTED RBC Morphology NOTED Target Cells 1+ (5-14) Tear Drop Cells 1+ (0-2) Ovalocytes 1+ (5-14) Mario Cells 3+ (>5) PT INR VBG pH 7.33 VBG pCO2 29 VBG pO2 52 VBG HCO3 16 L VBG O2 Saturation 82.0 VBG Base Excess -8.4 Sodium Potassium Chloride Carbon Dioxide Anion Gap BUN Creatinine Estim Creat Clear Calc Estimated GFR POC Glucose 149 H Random Glucose Lactic Acid Lactic Acid F/U @ 2Hr Lactic Acid F/U @ 4Hr 6.1 H* Calcium Phosphorus Magnesium Total Bilirubin Direct Bilirubin AST ALT Alkaline Phosphatase Ammonia Troponin I High Sens 659.8 H* B-Natriuretic Peptide Total Protein Albumin Lipase Beta-Hydroxybutyrate TSH Free T4 Thyroxine (T4) Random Cortisol Urine Color Urine Appearance Urine pH Ur Specific [place] Urine Protein Urine Glucose (UA) Urine Ketones Urine Blood Urine Nitrite Ur Leukocyte Esterase Urine RBC Urine WBC Ur Squamous Epith Cells Urine Bacteria Hyaline Casts Stool Occult Blood Salicylates Acetaminophen Ethyl Alcohol COVID-19 (RENNY) COVID-19 Clin Com Influenza Type A (SOSA) Influenza Type B (SOSA) Influenza A & B Note Blood Type Antibody Screen 09/30/23 09/30/23 09/30/23 01:06 02:00 02:58 WBC RBC Hgb Hct MCV MCH MCHC RDW Plt Count MPV Immature Gran % (Auto) Neut % (Auto) Lymph % (Auto) [place] % (Auto) Eos % (Auto) Baso % (Auto) Lymph # (Auto) [place] # (Auto) Eos # (Auto) Baso # (Auto) Abs Immat Gran (auto) Absolute Neuts (auto) Absolute Nucleated RBC Nucleated RBC % (auto) Neutrophils % (Manual) Band Neutrophils % Lymphocytes % (Manual) Monocytes % (Manual) Metamyelocytes % Myelocytes % Abs Neuts (Manual) Lymphocytes # (Manual) Monocytes # (Manual) Metamyelocytes # Myelocytes # Toxic Vacuolation Dohle Bodies Platelet Estimate Large Platelets Plt Morphology Comment RBC Morphology Target Cells Tear Drop Cells Ovalocytes [place] Cells PT INR VBG pH VBG pCO2 VBG pO2 VBG HCO3 VBG O2 Saturation VBG Base Excess Sodium Potassium Chloride Carbon Dioxide Anion Gap BUN Creatinine Estim Creat Clear Calc Estimated GFR POC Glucose 130 H 123 H 106 Random Glucose Lactic Acid Lactic Acid F/U @ 2Hr Lactic Acid F/U @ 4Hr Calcium Phosphorus Magnesium Total Bilirubin Direct Bilirubin AST ALT Alkaline Phosphatase Ammonia Troponin I High Sens B-Natriuretic Peptide Total Protein Albumin Lipase Beta-Hydroxybutyrate TSH Free T4 Thyroxine (T4) Random Cortisol Urine Color Urine Appearance Urine pH Ur Specific [place] Urine Protein Urine Glucose (UA) Urine Ketones Urine Blood Urine Nitrite Ur Leukocyte Esterase Urine RBC Urine WBC Ur Squamous Epith Cells Urine Bacteria Hyaline Casts Stool Occult Blood Salicylates Acetaminophen Ethyl Alcohol COVID-19 (RENNY) COVID-19 Clin Com Influenza Type A (SOSA) Influenza Type B (SOSA) Influenza A & B Note Blood Type Antibody Screen 09/30/23 09/30/23 09/30/23 04:07 05:01 05:19 WBC 16.2 H RBC 3.23 L Hgb 10.5 L Hct 28.8 L MCV 89.2 MCH 32.5 MCHC 36.5 H RDW 15.0 Plt Count 47 L MPV 11.1 Immature Gran % (Auto) Neut % (Auto) Lymph % (Auto) [place] % (Auto) Eos % (Auto) Baso % (Auto) Lymph # (Auto) [place] # (Auto) Eos # (Auto) Baso # (Auto) Abs Immat Gran (auto) Absolute Neuts (auto) Absolute Nucleated RBC 0.050 H Nucleated RBC % (auto) 0.3 H Neutrophils % (Manual) 61 Band Neutrophils % 21 H Lymphocytes % (Manual) 8 L Monocytes % (Manual) 6 Metamyelocytes % 4 Myelocytes % Abs Neuts (Manual) 13.3 H Lymphocytes # (Manual) 1.3 Monocytes # (Manual) 1.0 Metamyelocytes # 0.6 Myelocytes # Toxic Vacuolation PRESENT Dohle Bodies PRESENT Platelet Estimate DECREASED Large Platelets PRESENT Plt Morphology Comment NOTED RBC Morphology NOTED Target Cells Tear Drop Cells 1+ (0-2) Ovalocytes 1+ (5-14) [place] Cells 3+ (>5) PT 19.0 H INR 1.6 H VBG pH VBG pCO2 VBG pO2 VBG HCO3 VBG O2 Saturation VBG Base Excess Sodium 136 Potassium 5.5 H D Chloride 98 Carbon Dioxide 16 L Anion Gap 28 H BUN 50 H Creatinine 4.84 H* Estim Creat Clear Calc 19.8 Estimated GFR 12 POC Glucose 92 110 Random Glucose 170 H Lactic Acid 7.2 H* Lactic Acid F/U @ 2Hr Lactic Acid F/U @ 4Hr Calcium 9.1 D Phosphorus 3.9 Magnesium 1.8 Total Bilirubin 1.5 H Direct Bilirubin AST 78 H ALT 53 H Alkaline Phosphatase 100 Ammonia Troponin I High Sens 3097.3 H* D B-Natriuretic Peptide 2713 H Total Protein 6.3 L Albumin 3.1 L Lipase Beta-Hydroxybutyrate TSH > 100.00 H Free T4 Thyroxine (T4) < 3.0 L Random Cortisol Urine Color Urine Appearance Urine pH Ur Specific [place] Urine Protein Urine Glucose (UA) Urine Ketones Urine Blood Urine Nitrite Ur Leukocyte Esterase Urine RBC Urine WBC Ur Squamous Epith Cells Urine Bacteria Hyaline Casts Stool Occult Blood Salicylates Acetaminophen Ethyl Alcohol COVID-19 (RENNY) COVID-19 Clin Com Influenza Type A (SOSA) Influenza Type B (SOSA) Influenza A & B Note Blood Type Antibody Screen 09/30/23 09/30/23 09/30/23 05:23 06:03 07:59 WBC RBC Hgb Hct MCV MCH MCHC RDW Plt Count MPV Immature Gran % (Auto) Neut % (Auto) Lymph % (Auto) [place] % (Auto) Eos % (Auto) Baso % (Auto) Lymph # (Auto) [place] # (Auto) Eos # (Auto) Baso # (Auto) Abs Immat Gran (auto) Absolute Neuts (auto) Absolute Nucleated RBC Nucleated RBC % (auto) Neutrophils % (Manual) Band Neutrophils % Lymphocytes % (Manual) Monocytes % (Manual) Metamyelocytes % Myelocytes % Abs Neuts (Manual) Lymphocytes # (Manual) Monocytes # (Manual) Metamyelocytes # Myelocytes # Toxic Vacuolation Dohle Bodies Platelet Estimate Large Platelets Plt Morphology Comment RBC Morphology Target Cells Tear Drop Cells Ovalocytes [place] Cells PT INR VBG pH 7.38 VBG pCO2 31 VBG pO2 57 VBG HCO3 18 L VBG O2 Saturation 88.0 VBG Base Excess -5.3 Sodium Potassium Chloride Carbon Dioxide Anion Gap BUN Creatinine Estim Creat Clear Calc Estimated GFR POC Glucose 116 H 125 H Random Glucose Lactic Acid Lactic Acid F/U @ 2Hr Lactic Acid F/U @ 4Hr Calcium Phosphorus Magnesium Total Bilirubin Direct Bilirubin AST ALT Alkaline Phosphatase Ammonia Troponin I High Sens B-Natriuretic Peptide Total Protein Albumin Lipase Beta-Hydroxybutyrate TSH Free T4 Thyroxine (T4) Random Cortisol Urine Color Urine Appearance Urine pH Ur Specific [place] Urine Protein Urine Glucose (UA) Urine Ketones Urine Blood Urine Nitrite Ur Leukocyte Esterase Urine RBC Urine WBC Ur Squamous Epith Cells Urine Bacteria Hyaline Casts Stool Occult Blood Salicylates Acetaminophen Ethyl Alcohol COVID-19 (RENNY) COVID-19 Clin Com Influenza Type A (SOSA) Influenza Type B (SOSA) Influenza A & B Note Blood Type Antibody Screen 09/30/23 09/30/23 09/30/23 08:09 10:16 11:52 WBC RBC Hgb Hct MCV MCH MCHC RDW Plt Count MPV Immature Gran % (Auto) Neut % (Auto) Lymph % (Auto) [place] % (Auto) Eos % (Auto) Baso % (Auto) Lymph # (Auto) [place] # (Auto) Eos # (Auto) Baso # (Auto) Abs Immat Gran (auto) Absolute Neuts (auto) Absolute Nucleated RBC Nucleated RBC % (auto) Neutrophils % (Manual) Band Neutrophils % Lymphocytes % (Manual) Monocytes % (Manual) Metamyelocytes % Myelocytes % Abs Neuts (Manual) Lymphocytes # (Manual) Monocytes # (Manual) Metamyelocytes # Myelocytes # Toxic Vacuolation Dohle Bodies Platelet Estimate Large Platelets Plt Morphology Comment RBC Morphology Target Cells Tear Drop Cells Ovalocytes Mario Cells PT INR VBG pH VBG pCO2 VBG pO2 VBG HCO3 VBG O2 Saturation VBG Base Excess Sodium Potassium Chloride Carbon Dioxide Anion Gap BUN Creatinine Estim Creat Clear Calc Estimated GFR POC Glucose 157 H Random Glucose Lactic Acid Lactic Acid F/U @ 2Hr 8.0 H* Lactic Acid F/U @ 4Hr 8.0 H* Calcium Phosphorus Magnesium Total Bilirubin Direct Bilirubin AST ALT Alkaline Phosphatase Ammonia Troponin I High Sens B-Natriuretic Peptide Total Protein Albumin Lipase Beta-Hydroxybutyrate TSH Free T4 Thyroxine (T4) Random Cortisol Urine Color Urine Appearance Urine pH Ur Specific [place] Urine Protein Urine Glucose (UA) Urine Ketones Urine Blood Urine Nitrite Ur Leukocyte Esterase Urine RBC Urine WBC Ur Squamous Epith Cells Urine Bacteria Hyaline Casts Stool Occult Blood Salicylates Acetaminophen Ethyl Alcohol COVID-19 (RENNY) COVID-19 Clin Com Influenza Type A (SOSA) Influenza Type B (SOSA) Influenza A & B Note Blood Type Antibody Screen 09/30/23 09/30/23 12:24 16:54 WBC RBC Hgb Hct MCV MCH MCHC RDW Plt Count MPV Immature Gran % (Auto) Neut % (Auto) Lymph % (Auto) [place] % (Auto) Eos % (Auto) Baso % (Auto) Lymph # (Auto) [place] # (Auto) Eos # (Auto) Baso # (Auto) Abs Immat Gran (auto) Absolute Neuts (auto) Absolute Nucleated RBC Nucleated RBC % (auto) Neutrophils % (Manual) Band Neutrophils % Lymphocytes % (Manual) Monocytes % (Manual) Metamyelocytes % Myelocytes % Abs Neuts (Manual) Lymphocytes # (Manual) Monocytes # (Manual) Metamyelocytes # Myelocytes # Toxic Vacuolation Dohle Bodies Platelet Estimate Large Platelets Plt Morphology Comment RBC Morphology Target Cells Tear Drop Cells Ovalocytes Mario Cells PT INR VBG pH VBG pCO2 VBG pO2 VBG HCO3 VBG O2 Saturation VBG Base Excess Sodium 135 132 L Potassium 6.4 H* 6.1 H* Chloride 97 94 L Carbon Dioxide 14 L 13 L Anion Gap 30 H 31 H BUN 54 H 55 H Creatinine 4.82 H* 5.24 H* Estim Creat Clear Calc 19.8 18.2 Estimated GFR 12 11 POC Glucose Random Glucose 250 H 437 H* Lactic Acid Lactic Acid F/U @ 2Hr Lactic Acid F/U @ 4Hr Calcium 8.6 9.8 D Phosphorus Magnesium Total Bilirubin Direct Bilirubin AST ALT Alkaline Phosphatase Ammonia Troponin I High Sens B-Natriuretic Peptide Total Protein Albumin Lipase Beta-Hydroxybutyrate TSH Free T4 Thyroxine (T4) Random Cortisol Urine Color Urine Appearance Urine pH Ur Specific [place] Urine Protein Urine Glucose (UA) Urine Ketones Urine Blood Urine Nitrite Ur Leukocyte Esterase Urine RBC Urine WBC Ur Squamous Epith Cells Urine Bacteria Hyaline Casts Stool Occult Blood Salicylates Acetaminophen Ethyl Alcohol COVID-19 (RENNY) COVID-19 Clin Com Influenza Type A (SOSA) Influenza Type B (SOSA) Influenza A & B Note Blood Type Antibody Screen Airway Mallampati Class: Patient Non-Cooperative (intubated) Heart: RRR Lungs: Ventilated Assessment and Plan Assessment Anesthesia Assessment: Anesthesia Plan Discussed and Chart Reviewed Final Anesthetic Review Family History of Problems with Anesthesia: No History of Problems with Anesthesia: No NPO: Yes ASA Class: IV and Emergency Final Preanesthetic Review: No Changes in Pt Med Stat, Meds/Allgs Chart Reviewed, Consent Obtained/Reviewed and Anes Risks/Benef Reviewed Patient Risk: High Procedure Risk: Low Anesthetic Plan Anesthetic Plan: GA Disposition: Inp. Admit - ICU
[2023-09-30 17:41] LABS: Glucose, Whole Blood 203 mg/dL (60-115)
--- NOTE | 2023-09-30 18:34 | W.PM.OPN ---
Operative Note Operative Note Date of Service: 09/30/23 Narrative: PreOperative Diagnosis:?? Sepsis, LATASHA, right hydronephrosis Post Operative Diagnosis:?? ?Sepsis, LATASHA, right hydronephrosis Procedure: Cystoscopy, right retrograde right stent insertion, size 6 [place] by 22-32 Surgeon:?Dr Alexandra Elena Anesthesia:? General Indications for procedure: Patient in septic shock requiring IV pressors and mechanical ventilation, CTAP bilateral perinephric stranding, right hydronephrosis hydroureter. Procedure: After informed consent was verified the patient was brought to the operating from the ICU placed on the OR table in supine position.? General Anesthesia was administered per protocol.? The patient was placed in lithotomy position, prepped and draped in the usual sterile fashion.? Safety pause time-out and side of surgery confirmed.? Antibiotics confirmed. A 22 [place] cystoscope was inserted transurethrally, the bulbous urethra was within normal limits. Signs of prior prostatectomy, bladder neck open. The bladder was visualized.? Both ureteric orifices were in normal position. The? right ureteric orifice was cannulated? and a Sure-glide hydrophilic guidewire was passed into the renal pelvis under fluoroscopy. The open-ended ureteral catheter was passed up to the renal pelvis. The guidewire was removed and urine was sent for culture. A retrograde examination was performed, to delineate the renal pelvis and calyces. The hydrophilic guidewire again was placed up to the level of the renal pelvis under fluoroscopy. A 6 fr by 22-32 cm ureteral stent was passed over the guide wire under fluoroscopic guidance. The guide wire was removed. Cloudy urine was noted draining from the urinary tract. The bladder was emptied.? The rigid cystoscope was removed. ? 16 fr fish placed. The patient tolerated the procedure well and was brought to the ICU in stable condition. Complications: None Drains: Ureteral stent and fish as dictated above
[2023-09-30] MEDS: propofoL 1,000 MG/100 ML VIAL 28.1 MG IVCONT (21:46)
[2023-09-30 23:30] LABS: Glucose, Whole Blood 225 mg/dL (60-115)
[2023-10-01] VITALS (61 sets, daily range): BP systolic 84–149; BP diastolic 50–96; PULSE 85–144; RESP 15–26; TEMP 34.4–38.5; O2SAT 73–99; BMI 35.8
--- NOTE | 2023-10-01 | ECG_ITS ---
Test Reason : Rhythm change Blood Pressure : / mmHG Vent. Rate : 129 BPM Atrial Rate : 000 BPM P-R Int : 000 ms QRS Dur : 090 ms QT Int : 296 ms P-R-T Axes : 000 -11 029 degrees QTc Int : 433 ms Accelerated junctional rhythm Low voltage QRS Nonspecific ST changes Abnormal ECG When compared with ECG of 30-SEP-2023 16:16, Junctional rhythm has replaced Sinus rhythm Vent. rate has increased BY [address] no longer elevated in Lateral leads Referred By: Lance Montiel Electronically Signed By:Domingo Avitia
[2023-10-01] MEDS: propofoL 1,000 MG/100 ML VIAL 28.1 MG IVCONT ×3 (00:34→06:40)
[2023-10-01] MEDS: Vasopressin 20 UNIT/100 ML INFUS..BTL 12 UNIT IVCONT ×3 (01:06→17:40)
[2023-10-01] MEDS: Norepinephrine Bitartrate/NS 32 MG/250 ML PLAST..BAG 21.96 MG IVCONT ×2 (01:09→11:42)
[2023-10-01] MEDS: 0.9 % Sodium Chloride Flush 3 ML SYRINGE IVFLUSH ×2 (01:44→16:38)
[2023-10-01] MEDS: Piperacillin Sodium/Tazobactam 2.25 GM in 0.9 % Sodium Chloride 50 ML IV ×4 (02:21→21:04)
[2023-10-01] MEDS: Hydrocortisone Sod Succ/PF 100 MG VIAL 50 MG IVPUSH ×4 (02:23→19:48)
[2023-10-01] MEDS: Lidocaine 4 % Patch ADH..PATCH 2 PATCH TRANSDERMA (02:24)
[2023-10-01 03:29] LABS: Hemoglobin 10.9 g/dl (14.0-18.0); Mean Corpuscular Volume 94.7 fL (80.0-98.0); NRBC Pct Auto 0.9 /100WBC (0.0-0.2); Venous Blood Gas Refer to POC result
[2023-10-01 03:31] LABS: Hematocrit 30.5 % (42.0-52.0); Mean Corpuscular HGB Conc 35.7 g/dl (31.0-36.0); Mean Corpuscular Hemoglobin 33.9 pg (27.0-33.0); Mean Platelet Volume 12.2 fL (9.4-12.4); Red Blood Count 3.22 X10*6/uL (4.60-5.80); Red Cell Distribution Width 16.1 % (11.0-16.0)
[2023-10-01 03:34] LABS: VBG Base Excess -11.8 mmol/L; VBG HCO3 15 mmol/L (22-26); VBG pCO2 37 mmHg; VBG pO2 51 mmHg
[2023-10-01 03:47] LABS: Alanine Aminotransferase 298 U/L (0-40); Albumin Level 2.9 g/dL (3.5-5.0); Alkaline Phosphatase 103 U/L (39-117); Anion Gap 34 (12-20); Aspartate Amino Transferase 512 U/L (5-37); Bilirubin Total 2.6 mg/dL (0.0-1.0); Blood Urea Nitrogen 61 mg/dL (9-16); Calcium 9.4 mg/dL (8.4-10.2); Carbon Dioxide 12 mmol/L (22-29); Chloride 94 mmol/L (96-108); Creatinine Clr Calc Pharmacy 17.1; Estimated Glomerular Filt Rate 10; Glucose Random 272 mg/dL (60-115); Magnesium 2.1 mg/dL (1.6-2.6); Phosphorus 7.7 mg/dL (2.7-4.5); Potassium 7.3 mmol/L (3.3-5.1); Sodium 133 mmol/L (135-145); Total Protein 7.2 g/dL (6.5-8.0)
[2023-10-01 03:48] LABS: PLT ABN DIST 1; Platelet Count 23 X10*3/uL (160-400); WBC ABN SCTR FOR CBC 1; White Blood Count 15.9 X10*3/uL (4.8-10.8)
[2023-10-01 03:56] LABS: Band Neutrophils Percent 19 % (3-5); Lymphocytes Absolute Manual 0.3 X10*3/uL (1.2-4.9); Lymphocytes Percent Manual 2 % (20-40); Metamyelocytes Absolute 0.3 X10*3/uL; Metamyelocytes Percent 2 %; Monocytes Absolute Manual 0.5 X10*3/uL (0.1-1.2); Monocytes Percent Manual 3 % (2-11); Neutrophils Absolute Manual 14.8 X10*3/uL (2.0-8.3); Neutrophils Percent Manual 74 % (45-73)
[2023-10-01 03:57] LABS: RBC Morphology NOTED
[2023-10-01] MEDS: Sodium Bicarbonate 8.4% 50 MEQ/50 ML SYRINGE IVPUSH ×2 (03:58→04:09)
[2023-10-01 04:01] LABS: Burr Cells 3+ (>5) /OIF; Dohle Bodies PRESENT; Large Platelet PRESENT; Ovalocytes 1+ (5-14) /OIF; Platelet Estimate DECREASED (NORMAL); Platelet Morphology Comment NOTED; Polychromasia 1+ (0-2) /OIF; Smudge Cells PRESENT; Tear Drop Cells 1+ (0-2) /OIF; Toxic Vacuolation PRESENT
--- NOTE | 2023-10-01 04:51 | W.PM.CCHP ---
Procedures Date of Service Date of Service: 10/01/23 <Lance Montiel NP - Last Filed: 10/01/23 04:53> 10/01/23 <Blaise Nash MD - Last Filed: 10/01/23 09:22> Central Line Placement Left IJ: Central Line Comments: Patient require emergent dialysis, left internal jugular dialysis catheter placed in the usual sterile conditions on the ultrasound guidance for appropriate vascular access without immediate complications. Lying position verified with chest x-ray <Lance Montiel NP - Last Filed: 10/01/23 04:53> Consent for Procedure: Elective - informed consent obtained (Consent obtained from sister Lorene) <Lance Montiel NP - Last Filed: 10/01/23 04:53> Time out performed: Yes <Lance Montiel NP - Last Filed: 10/01/23 04:53> Sterile Technique Used: Yes <Lance Montiel NP - Last Filed: 10/01/23 04:53> Patient placed on monitor/pulse ox: Yes <Lance Montiel NP - Last Filed: 10/01/23 04:53> prep: mask, gown and gloves <Lance Montiel NP - Last Filed: 10/01/23 04:53> Central line prep: Chlorhexidine scrub <Lance Montiel NP - Last Filed: 10/01/23 04:53> Local anesthesia used: other anesthetic (Patient on propofol for ventilator) <Lance Montiel NP - Last Filed: 10/01/23 04:53> Ultrasound used for placement: Yes <Lance Montiel NP - Last Filed: 10/01/23 04:53> Post procedure: sutured in place, good blood return and all ports aspirated, flushed, capped <Lance Montiel NP - Last Filed: 10/01/23 04:53> Post procedure x-ray: tip of catheter in good position and no pneumothorax seen <Lance Montiel NP - Last Filed: 10/01/23 04:53> Patient tolerated procedure: well and no complications <Lance Montiel NP - Last Filed: 10/01/23 04:53> Complications: none <Lance Montiel NP - Last Filed: 10/01/23 04:53>
[2023-10-01 05:49] LABS: Glucose, Whole Blood 201 mg/dL (60-115)
[2023-10-01] MEDS: Pantoprazole Sodium 40 MG/10 ML VIAL IVPUSH ×2 (05:49→16:38)
[2023-10-01] MEDS: Levothyroxine Sodium 100 MCG/5 ML VIAL 200 MCG IVPUSH ×2 (05:52→17:47)
--- NOTE | 2023-10-01 06:17 | PC.NURSE ---
At approx 0300: increased vasopressor requirements (see MAR), T waves peaked/elevated on tele, HR 130s. DINING ROOM CAPTAIN notified, EKG ordered and AM labs drawn early. EKG showed junctional tachycardia. Critical lab values of pH 7.20 and K+ 7.3 reported. DINING ROOM CAPTAIN consulted nephrology, temp hemodialysis catheter placed and confirmed placement via x-ray. Emergent dialysis started approx 0500. Patient family notified and updated by DINING ROOM CAPTAIN regarding dialysis, patient status, and plan of care.
[2023-10-01 06:41] LABS: VBG HCO3 28 mmol/L (22-26); VBG pCO2 37 mmHg; VBG pH 7.49 (7.32-7.43); VBG pO2 34 mmHg
[2023-10-01 06:44] LABS: Venous Blood Gas Refer to POC result
[2023-10-01 06:45] LABS: VBG Base Excess -0.6 mmol/L; VBG HCO3 23 mmol/L (22-26); VBG pCO2 37 mmHg; VBG pO2 28 mmHg
[2023-10-01 08:23] LABS: Hemoglobin 10.8 g/dl (14.0-18.0); Mean Corpuscular HGB Conc 37.2 g/dl (31.0-36.0); Mean Corpuscular Hemoglobin 33.8 pg (27.0-33.0); Mean Corpuscular Volume 90.6 fL (80.0-98.0); Mean Platelet Volume 11.8 fL (9.4-12.4); Red Cell Distribution Width 15.9 % (11.0-16.0)
[2023-10-01 08:24] LABS: Platelet Count 24 X10*3/uL (160-400)
[2023-10-01 08:25] LABS: WBC ABN SCTR FOR CBC 1
[2023-10-01] MEDS: Chlorhexidine Gluc Oral Rinse 15 ML MOUTHWASH BUCCAL ×3 (08:27→21:02)
--- NOTE | 2023-10-01 09:22 | PM.CCPN ---
Subjective Subjective Date of Service: 10/01/23 Interval History: 68-year-old gentleman with diabetes mellitus, prostate cancer hypothyroidism history nephrolithiasis admitted on 09/29/2023 with septic shock secondary to Gram-negative bacteremia with source requiring pressor support further complicated by acute kidney failure with anuria and pulmonary edema. Overnight 09/28-09/29 with worsening hypoxia refractory to high-flow nasal cannula support requiring intubation and ventilatory support. CT abdomen/pelvis repeating with no evidence of urinary obstruction, but noted hydronephrosis likely secondary to passing of prior nephrolithiasis. Now status post right urethral stenting. Overnight with worsening hyperkalemia and metabolic acidosis requiring initiation of hemodialysis support. Critical Care Time (minutes): 60 Physical Exam Vital Signs: Vital Signs: Last Vital Signs Temp 99.9 F 10/01/23 09:00 Pulse 120 H 10/01/23 09:18 Resp 20 10/01/23 09:00 BP 117/69 10/01/23 09:18 Pulse Ox 96 10/01/23 09:00 O2 Del Method Mechanical Ventil ation 10/01/23 09:00 O2 Flow Rate 11 09/29/23 19:20 FiO2 30 10/01/23 09:00 BMI result Body Mass Index 35.8 Const: General: no acute distress and other (Sedated on the vent) Nutritional Appearance: Edematous Eyes: Sclerae: sclerae normal EOM: EOMs intact bilaterally Neck: Neck: Yes no lymphadenopathy, Yes trachea midline and Yes supple Resp: Auscultation: crackles (Bilateral) Cardio: Rate: tachycardic Rhythm: regular rhythm Heart sounds: no gallops, no murmurs and no rubs GI: Palpation (GI): Soft to palpation and Other GI palpation findings present ( Nontender) Auscultation: normal bowel sounds Extrem: General: Yes no pedal edema, No clubbing and No cyanosis Objective Data Labs 10/01/23 07:59 10/01/23 03:22 Labs: Laboratory Results - last 24 hr 09/30/23 09/30/23 09/30/23 10:16 11:52 12:24 WBC RBC Hgb Hct MCV MCH MCHC RDW Plt Count MPV Immature Gran % (Auto) Neut % (Auto) Lymph % (Auto) [place] % (Auto) Eos % (Auto) Baso % (Auto) Lymph # (Auto) [place] # (Auto) Eos # (Auto) Baso # (Auto) Abs Immat Gran (auto) Absolute Neuts (auto) Absolute Nucleated RBC Nucleated RBC % (auto) Neutrophils % (Manual) Band Neutrophils % Lymphocytes % (Manual) Monocytes % (Manual) Metamyelocytes % Abs Neuts (Manual) Lymphocytes # (Manual) Monocytes # (Manual) Metamyelocytes # Smudge Cells Toxic Vacuolation Dohle Bodies Platelet Estimate Large Platelets Plt Morphology Comment RBC Morphology Polychromasia Tear Drop Cells Ovalocytes [place] Cells VBG pH VBG pCO2 VBG pO2 VBG HCO3 VBG O2 Saturation VBG Base Excess Sodium 135 Potassium 6.4 H* Chloride 97 Carbon Dioxide 14 L Anion Gap 30 H BUN 54 H Creatinine 4.82 H* Estim Creat Clear Calc 19.8 Estimated GFR 12 POC Glucose 157 H Random Glucose 250 H Lactic Acid F/U @ 4Hr 8.0 H* Calcium 8.6 Phosphorus Magnesium Total Bilirubin AST ALT Alkaline Phosphatase Total Protein Albumin 09/30/23 09/30/23 09/30/23 16:54 17:37 23:26 WBC RBC Hgb Hct MCV MCH MCHC RDW Plt Count MPV Immature Gran % (Auto) Neut % (Auto) Lymph % (Auto) [place] % (Auto) Eos % (Auto) Baso % (Auto) Lymph # (Auto) [place] # (Auto) Eos # (Auto) Baso # (Auto) Abs Immat Gran (auto) Absolute Neuts (auto) Absolute Nucleated RBC Nucleated RBC % (auto) Neutrophils % (Manual) Band Neutrophils % Lymphocytes % (Manual) Monocytes % (Manual) Metamyelocytes % Abs Neuts (Manual) Lymphocytes # (Manual) Monocytes # (Manual) Metamyelocytes # Smudge Cells Toxic Vacuolation Dohle Bodies Platelet Estimate Large Platelets Plt Morphology Comment RBC Morphology Polychromasia Tear Drop Cells Ovalocytes [place] Cells VBG pH VBG pCO2 VBG pO2 VBG HCO3 VBG O2 Saturation VBG Base Excess Sodium 132 L Potassium 6.1 H* Chloride 94 L Carbon Dioxide 13 L Anion Gap 31 H BUN 55 H Creatinine 5.24 H* Estim Creat Clear Calc 18.2 Estimated GFR 11 POC Glucose 203 H 225 H Random Glucose 437 H* Lactic Acid F/U @ 4Hr Calcium 9.8 D Phosphorus Magnesium Total Bilirubin AST ALT Alkaline Phosphatase Total Protein Albumin 10/01/23 10/01/23 10/01/23 03:22 03:23 05:45 WBC 15.9 H RBC 3.22 L Hgb 10.9 L Hct 30.5 L MCV 94.7 D MCH 33.9 H MCHC 35.7 RDW 16.1 H Plt Count 23 L D MPV 12.2 Immature Gran % (Auto) Cancelled Neut % (Auto) Cancelled Lymph % (Auto) Cancelled [place] % (Auto) Cancelled Eos % (Auto) Cancelled Baso % (Auto) Cancelled Lymph # (Auto) Cancelled [place] # (Auto) Cancelled Eos # (Auto) Cancelled Baso # (Auto) Cancelled Abs Immat Gran (auto) Cancelled Absolute Neuts (auto) Cancelled Absolute Nucleated RBC 0.140 H Nucleated RBC % (auto) 0.9 H Neutrophils % (Manual) 74 H Band Neutrophils % 19 H Lymphocytes % (Manual) 2 L Monocytes % (Manual) 3 Metamyelocytes % 2 Abs Neuts (Manual) 14.8 H Lymphocytes # (Manual) 0.3 L Monocytes # (Manual) 0.5 Metamyelocytes # 0.3 Smudge Cells PRESENT Toxic Vacuolation PRESENT Dohle Bodies PRESENT Platelet Estimate DECREASED Large Platelets PRESENT Plt Morphology Comment NOTED RBC Morphology NOTED Polychromasia 1+ (0-2) Tear Drop Cells 1+ (0-2) Ovalocytes 1+ (5-14) [place] Cells 3+ (>5) VBG pH 7.20 L* VBG pCO2 37 VBG pO2 51 VBG HCO3 15 L VBG O2 Saturation 70.0 VBG Base Excess -11.8 Sodium 133 L Potassium 7.3 H* Chloride 94 L Carbon Dioxide 12 L Anion Gap 34 H BUN 61 H Creatinine 5.60 H* Estim Creat Clear Calc 17.1 Estimated GFR 10 POC Glucose 201 H Random Glucose 272 H Lactic Acid F/U @ 4Hr Calcium 9.4 Phosphorus 7.7 H Magnesium 2.1 Total Bilirubin 2.6 H AST 512 H ALT 298 H Alkaline Phosphatase 103 Total Protein 7.2 Albumin 2.9 L 10/01/23 10/01/23 10/01/23 06:32 06:36 07:59 WBC RBC 3.20 L Hgb 10.8 L Hct 29.0 L MCV 90.6 MCH 33.8 H MCHC 37.2 H RDW 15.9 Plt Count 24 L MPV 11.8 Immature Gran % (Auto) Cancelled Neut % (Auto) Cancelled Lymph % (Auto) Cancelled [place] % (Auto) Cancelled Eos % (Auto) Cancelled Baso % (Auto) Cancelled Lymph # (Auto) Cancelled [place] # (Auto) Cancelled Eos # (Auto) Cancelled Baso # (Auto) Cancelled Abs Immat Gran (auto) Cancelled Absolute Neuts (auto) Cancelled Absolute Nucleated RBC 0.160 H Nucleated RBC % (auto) 1.0 H Neutrophils % (Manual) Band Neutrophils % Lymphocytes % (Manual) Monocytes % (Manual) Metamyelocytes % Abs Neuts (Manual) Lymphocytes # (Manual) Monocytes # (Manual) Metamyelocytes # Smudge Cells Toxic Vacuolation Dohle Bodies Platelet Estimate Large Platelets Plt Morphology Comment RBC Morphology Polychromasia Tear Drop Cells Ovalocytes [place] Cells VBG pH 7.49 H 7.40 VBG pCO2 37 37 VBG pO2 34 28 VBG HCO3 28 H 23 VBG O2 Saturation 58.0 40.0 VBG Base Excess 5.0 -0.6 Sodium Potassium Chloride Carbon Dioxide Anion Gap BUN Creatinine Estim Creat Clear Calc Estimated GFR POC Glucose Random Glucose Lactic Acid F/U @ 4Hr Calcium Phosphorus Magnesium Total Bilirubin AST ALT Alkaline Phosphatase Total Protein Albumin Microbiology Microbiology Results: Microbiology 09/28/23 23:08 Blood - Venous Blood Culture - Final Klebsiella pneumoniae 09/28/23 22:51 Blood - Venous Blood Culture - Final Klebsiella pneumoniae 09/29/23 Unknown Urine clean catch - Clean Catch Midstream Urine Culture - Final Enterobacter cloacae complex Progress Note: A&P Assessment and plan (1) Acute kidney failure: Status: Acute (2) Acute respiratory failure with hypoxia: Status: Acute (3) Septic shock: Status: Acute (4) Gram-negative bacteremia: Status: Acute (5) Diabetes: Status: Acute Plan Assessment: 68-year-old gentleman with underlying diabetes mellitus, nephrolithiasis, and prostate cancer admitted with septic shock secondary to gram-negative bacteremia with source further complicated by acute kidney failure with Anoro and acute hypoxic respiratory failure. Plan: Neuro: No acute issues. Cardiac: Septic shock, continue to titrate off pressor support as tolerated. Pulmonary edema. Pulmonary: Acute hypoxic respiratory failure secondary to pulmonary edema now requiring ventilatory support, continue to titrate off as tolerated. Renal: Acute kidney failure secondary to septic shock/ATN. Oliguric. Right-sided hydronephrosis. Urology service care appreciated. Now status post right urethral stenting. Continue to monitor renal indices and urine output. Hyperkalemia secondary to ATN requiring initiation of hemodialysis. Nephrology service care appreciated. Endo: No acute issues. Underlying diabetes mellitus and hypothyroidism. GI: No acute issues. ID: Klebsiella bacteremia with source. Continue on Zosyn. Heme/Onc: Thrombocytopenia secondary to septic shock, continue to monitor. Psych: No acute issues. Miscellaneous: No acute issues. Prophylaxis: Pneumatic compression, ppi Diet: NPO Critical care time spent: 60 minutes Quality Stroke Does the patient have a stroke diagnosis?: No VTE Prior VTE?: No VTE Risk Level:: Medical - moderate - high VTE Device Contraindication: N/A - Device Ordered VTE Drug Contraindication: N/A - Med Ordered
[2023-10-01 09:32] LABS: Band Neutrophils Percent 19 % (3-5); Lymphocytes Percent Manual 4 % (20-40); Metamyelocytes Percent 1 %; Monocytes Percent Manual 2 % (2-11); Myelocytes Percent 1 %; Neutrophils Percent Manual 73 % (45-73); Nucleated Red Blood Cells 3 /100WBC (0-0)
[2023-10-01 09:36] LABS: Burr Cells 3+ (>5) /OIF; Macrocytosis 1+ (5-14) /OIF; RBC Morphology NOTED; Tear Drop Cells 1+ (0-2) /OIF
[2023-10-01 09:37] LABS: Dohle Bodies PRESENT; Toxic Granulation PRESENT; Toxic Vacuolation PRESENT
[2023-10-01 09:38] LABS: Platelet Estimate DECREASED (NORMAL); WBC Morphology Comment DYSMORPHIC
[2023-10-01 09:39] LABS: Platelet Morphology Comment AGRANULAR
[2023-10-01 09:41] LABS: Lymphocytes Absolute Manual 0.6 X10*3/uL (1.2-4.9); Metamyelocytes Absolute 0.2 X10*3/uL; Monocytes Absolute Manual 0.3 X10*3/uL (0.1-1.2); Myelocytes Absolute 0.2 X10*/uL; Neutrophils Absolute Manual 14.5 X10*3/uL (2.0-8.3); White Blood Count 15.8 X10*3/uL (4.8-10.8)
--- NOTE | 2023-10-01 09:55 | P.CDIM_ITS ---
PROVIDER RESPONSE TEXT: To clarify, the appropriate diagnosis supported by the clinical indicators: Acute Pulmonary edema QUERY TEXT: PHYSICIAN'S DOCUMENTATION REQUEST Date of Query: 10/01/2023 09:36 AM EDT Patient Name: Therno Manning Admit Date: 09/29/2023 Dear Blaise Nash MD, A review of the medical record indicates additional documentation may be needed. Please review below and update the documentation accordingly. Clinical Indicators: Critical care ICU note dated 09/29 - Septic shock secondary to Gram-negative bacteremia with source requiring pressor support further complicated by acute kidney failure and pulmonary edema. Plan: Acute hypoxic respiratory failure secondary to pulmonary edema now requiring ventilatory suppor t. Continue to titrate off as tolerated. No history of CHF Clarify which of the following accurately represents the acuity of the noted Pulmonary edema: Acute Pulmonary edema Chronic Pulmonary edema Other (explain) Clinically unable to determine (explain) Thank you, Genoveva Adkins, CCS, CDIS Use of terms such as suspected, likely, concern for, or probable (associated with a specific diagnosi s that is being evaluated, monitored, or treated as if it exists) are acceptable and can be coded in the inpatient se tting, when documented at the time of discharge. Please use your independent medical judgment in providing your response. THIS QUERY IS PART OF THE PERMANENT MEDICAL RECORD
--- NOTE | 2023-10-01 09:55 | MHC.CLN ---
PT IS INTUBATED AND SEDATED DISCUSSED AT ROUNDS WITH MD CURRENTLY NPO AND TO REMAIN TODAY PER MD IF TF NEEDED; RECOMMEND NEPRO AT MAX GOAL RATE 45ML/HR TO PROVIDE 1944KCALS (23KCALS/KG), 87G PROTEIN (1.04G/KG), 785ML FREE WATER FROM FORMULA MONITOR TOLERANCE AND LYTES FOLLOWING WITH TEAM FOR DIET ADVANCEMENT SEE ALSO FULL CLINICAL NUTRITION ASSESSMENT
--- NOTE | 2023-10-01 10:05 | HO.POSTANES ---
Post Anesthesia Evaluation Post Anesthesia Evaluation Date of Service: 09/30/23 Vital Signs: Vital Signs Temp Pulse Resp BP Pulse Ox O2 Del Method FiO2 10/01/23 09:47 140 H 113/72 10/01/23 09:18 120 H 117/69 10/01/23 09:18 120 H 117/69 10/01/23 09:00 119 H 137/83 10/01/23 09:00 99.9 F 134 H 20 116/76 96 Mechanical Ventilation 10/01/23 08:46 136 H 138/92 H 10/01/23 08:41 130 H 144/95 H 10/01/23 08:36 131 H 135/90 H 10/01/23 08:09 133 H 149/96 H 10/01/23 08:00 10/01/23 08:00 99.5 F 125 H 18 149/96 H 98 Mechanical Ventilation 10/01/23 07:45 110 H 142/90 H 10/01/23 07:36 30 10/01/23 07:30 126 H 138/82 10/01/23 07:00 100.0 F 108 H 15 138/82 95 Mechanical Ventilation 10/01/23 06:43 144 H 85/58 L 10/01/23 06:28 144 H 84/55 L 10/01/23 06:15 141 H 88/50 L 10/01/23 06:00 100.6 F H 137 H 16 101/63 93 Mechanical Ventilation 10/01/23 05:58 100.6 F H 135 H 10/01/23 05:51 100.8 F H 130 H 16 117/70 92 Mechanical Ventilation 10/01/23 05:00 101.3 F H 128 H 16 120/68 93 Mechanical Ventilation 10/01/23 04:58 101.3 F H 10/01/23 04:53 10/01/23 04:33 125 H 103/63 10/01/23 04:24 127 H 91/56 L 10/01/23 04:10 128 H 96/60 10/01/23 04:02 126 H 96/60 10/01/23 03:55 99.5 F 127 H 16 109/61 96 Mechanical Ventilation 10/01/23 03:55 99.5 F 127 H 16 109/61 96 Mechanical Ventilation 10/01/23 03:52 10/01/23 02:54 99.5 F 127 H 16 91/56 L 99 Mechanical Ventilation 10/01/23 02:15 125 H 88/53 L 10/01/23 01:57 99.9 F 126 H 16 91/56 L 97 Mechanical Ventilation 10/01/23 01:09 125 H 94/56 L 10/01/23 01:09 125 H 94/56 L 10/01/23 01:06 126 H 94/56 L 10/01/23 01:06 126 H 94/56 L 10/01/23 00:53 99.9 F 127 H 15 94/57 L 95 Mechanical Ventilation 10/01/23 00:26 40 09/30/23 23:55 99.3 F 126 H 16 94/56 L 97 Mechanical Ventilation 09/30/23 23:27 40 09/30/23 23:00 99 F 126 H 17 90/59 L 97 Mechanical Ventilation 40 Anesthesia: General Mental Status: Awake Pain Control: Satisfactory Nausea/Vomiting: None Hydration: Adequate Anesthesia-Related Issues: No Anes. Related Issues
--- NOTE | 2023-10-01 10:08 | PM.EVENT ---
Event Note Date of Service: 10/01/23 Event Note: Called to provide emergency dialysis for hyperkalemia around 4 AM CAtheter inserted by ICU team Ordered HD with low K bath Time Spent With Patient Time: Total time managing care of this patient today ____ minutes.
[2023-10-01 12:01] LABS: Glucose, Whole Blood 190 mg/dL (60-115)
--- NOTE | 2023-10-01 13:36 | P.CONNP_ITS ---
History of Present Illness Reason for Consult Consult date: 10/01/23 Reason for consult: LATASHA, Hyperkalemia Chief Complaint Chief complaint: Distributive Shock History of Present Illness Narrative: Mr. Manning is a a 68-year-old male with history of HLD, DM 2, prostate cancer, nephrolithiasis, obesity? who presented to the emergency room with complaint of nausea, vomiting and weakness x about 5 days. He was intermittently confused, febrile and hypotensive.?In the ER, his blood pressure was 79/45, heart rate 105, temp 101.7?. O2 sat 97% on 2LNC.?Laboratory data significant for sodium 133, CO2 19, anion gap 22, BUN 43, creatinine 3.61, glucose 493, lactic acid 8.8, BNP 245, beta-hydroxybutyrate 0.19, TSH > 100.00, T4 <0.42. CT scan showed mild right hydronephrosis with no obstructing calculus seen. In the ER he was given Insulin 10 units, Zofran 4 mg, Acetaminophen 975 mg,? Hydrocortisone 100mg, Levaquin 500 mg, 3498 mL crystalloid per sepsis protocol, and was started on a Levophed drip. After receiving IVF, the pt was A&OX3 and reported having had a fall due to weakness a few days ago. He denied hitting his head or any LOC. During the course of hospitalization, he developed hyperkalemia and worsening renal function. Nephrology has been consulted to assist in his clinical care during his current hospital stay Review of Systems Review of Systems Yes Unobtainable due to mental condition PMFSH Past Medical History Medical History Migraine Prostate cancer Osteomyelitis Skin cancer HLD (hyperlipidemia) Diabetes Hypothyroid Surgical History Surgical History History of umbilical hernia repair Hx of prostatectomy History of spinal fusion Social History Social History Household Members: Spouse Housing: House Do you presently have visiting nurse or other home services: No Patient Tobacco Use Status: Former Tobacco user Smoked in Last 30 Days: No Use of substances other than those prescribed or required for medical reasons: No Currently Displaying Signs/Symptoms of Drug Intoxication Withdrawal: No Advance Directives: No Advance Directives Information Provided: Yes Do you have a plan to hurt others: No Plan Eating poorly because of decreased appetite: Yes Nutrition Risks: Acute nausea or vomiting x1 week and Poor intake 0-25% >4 days Meds Allergies Allergy/AdvReac Type Severity Reaction Status Date / Time rabies vaccine, hero cell Allergy Severe SEVERE Verified 09/28/23 22:56 [RABIES VACCINE, HERO CELL] BLISTERS,RASH cephalexin [From KEFLEX] Allergy Intermediate VOMITING/DI Verified 09/28/23 22:56 ARRHEA Sulfa (Sulfonamide Allergy Unknown SEVERE Verified 09/28/23 22:56 Antibiotics) VOMITING [SULFA (SULFONAMIDE ANTIBIOTICS)] rabies vaccine Allergy Unknown Unknown Uncoded 09/28/23 22:56 sulfa Allergy Unknown Unknown Uncoded 09/28/23 22:56 Active Medications: Current Medications Acetaminophen (Acetaminophen 325 Mg Tablet) 975 mg PO Q6H PRN PRN Reason: Fever >100.4 Last Admin: 09/29/23 09:42 Dose: 975 mg Chlorhexidine Gluconate (Chlorhexidine Gluc Oral Rinse 15 Ml Mouthwash) 15 ml BUCCAL TID [facility] Last Admin: 10/01/23 08:27 Dose: 15 ml Heparin Sodium (Porcine) (Heparin Sodium,Porcine 5,000 Unit/Ml Vial) 5,000 unit SUBCUT Q12H [facility] Last Admin: 09/29/23 18:13 Dose: 5,000 unit Hydrocortisone Sodium Succinate (Hydrocortisone Sod Succ/Pf 100 Mg Vial) 50 mg IVPUSH Q6H [facility] Last Admin: 10/01/23 08:28 Dose: 50 mg Dextrose (D10) 250 mls @ 750 mls/hr IV Q30M PRN PRN Reason: BG <70 Vasopressin (Vasostrict) 20 unit in 100 mls @ 12 mls/hr IVCONT .Q8H20M [facility] Last Admin: 10/01/23 09:18 Dose: 0.04 unit/min, 12 mls/hr Insulin Human Regular (Myxredlin) 100 unit in 100 mls @ 0 mls/hr IVCONT .Q0M [facility]; Protocol Last Titration: 09/30/23 10:06 Dose: Infused Dextrose (D10) 250 mls @ 750 mls/hr IV Q15M PRN PRN Reason: per Hypoglycemia Standing Ord. Epinephrine 5 mg/ Dextrose 255 mls @ 0 mls/hr IVCONT .Q0M [facility]; Protocol Last Titration: 09/30/23 19:30 Dose: Infused Norepinephrine Bitartrate (Levophed) 32 mg in 250 mls @ 0 mls/hr IVCONT .Q0M [facility]; Protocol Last Admin: 10/01/23 11:42 Dose: 0.4 mcg/kg/min, 21.96 mls/hr Propofol (Diprivan) 1,000 mg in 100 mls @ 0 mls/hr IVCONT .Q0M [facility]; Protocol Last Titration: 10/01/23 09:17 Dose: 0 mcg/kg/min, 0 mls/hr Piperacillin Sod/Tazobactam (Sod 2.25 gm/ Sodium Chloride) 50 mls @ 100 mls/hr IV Q6H [facility] Last Infusion: 10/01/23 09:06 Dose: Infused Levothyroxine Sodium (Levothyroxine Sodium 100 Mcg/5 Ml Vial) 200 mcg IVPUSH BID@0600,1800 [facility] Last Admin: 10/01/23 05:52 Dose: 200 mcg Lidocaine (Lidocaine 4 % Patch Adh..Patch) 2 patch TRANSDERMA DAILY [facility]; Protocol Last Admin: 10/01/23 02:24 Dose: 2 patch Melatonin (Melatonin 3 Mg Tablet) 6 mg PO BEDTIME PRN PRN Reason: Insomnia Metoclopramide HCl (Metoclopramide Hcl 10 Mg/2 Ml Vial) 10 mg IVPUSH Q6H PRN PRN Reason: Nausea and Vomiting Last Admin: 09/29/23 18:40 Dose: 10 mg Ondansetron HCl (Ondansetron Hcl 4 Mg/2 Ml Vial) 4 mg IVPUSH Q8H PRN PRN Reason: Nausea and Vomiting Last Admin: 09/29/23 09:48 Dose: 4 mg Pantoprazole Sodium (Pantoprazole Sodium 40 Mg/10 Ml Vial) 40 mg IVPUSH BID@0630,1630 [facility] Last Admin: 10/01/23 05:49 Dose: 40 mg Sodium Chloride (0.9 % Sodium Chloride Flush 3 Ml Syringe) 3 ml IVFLUSH QSHIFT [facility] Last Admin: 10/01/23 07:19 Dose: Not Given Home Medications ?Medication ?Instructions ?Recorded ?Confirmed ?Last Taken ?Type atorvastatin 20 mg tablet 20 mg PO DAILY 09/29/23 10/01/23 Unknown History cetirizine 10 mg tablet (Zyrtec) 10 mg PO DAILY 09/29/23 10/01/23 Unknown History diphenhydramine HCl 25 mg capsule 25 mg PO BEDTIME PRN Sleep 09/29/23 10/01/23 Unknown History (Benadryl) dulaglutide 0.75 mg/0.5 mL 0.75 mg subcut QWEEK 09/29/23 10/01/23 Unknown History subcutaneous pen injector (Trulicity) epinephrine 0.3 mg/0.3 mL 0.3 mg IM Q4H PRN Allergic Reaction 09/29/23 10/01/23 Unknown History injection, auto-injector (EpiPen 2-David) fenofibrate nanocrystallized 145 145 mg PO DAILY 09/29/23 10/01/23 Unknown History mg tablet fluticasone propionate 50 1 spray intranasal DAILY PRN 09/29/23 10/01/23 Unknown History mcg/actuation nasal allergies spray,suspension glimepiride 2 mg tablet 2 mg PO QID 09/29/23 10/01/23 Unknown History insulin detemir U-100 100 unit/mL 34 unit subcut DAILY 09/29/23 10/01/23 Unknown History (3 mL) subcutaneous pen (Levemir FlexTouch U-100 Insulin) levothyroxine 50 mcg tablet 50 mcg PO DAILY@0600 09/29/23 10/01/23 Unknown History metformin 1,000 mg tablet 1,000 mg PO BID 09/29/23 10/01/23 Unknown History lyukjacf-ta-ybgho 300 mcg-K 60 1 tab PO DAILY 09/29/23 10/01/23 Unknown History mcg-lycop 600 mcg-lutein 300 mcg tablet (Centrum Silver Men) Physical Exam Vital Signs: Last Vital Signs Temp 100.0 F 10/01/23 13:00 Pulse 137 H 10/01/23 13:00 Resp 20 10/01/23 13:00 BP 115/73 10/01/23 13:00 Pulse Ox 94 10/01/23 13:00 O2 Del Method Mechanical Ventilation 10/01/23 13:00 O2 Flow Rate 11 09/29/23 19:20 FiO2 30 10/01/23 13:00 BMI result Body Mass Index 35.8 Const General: no acute distress Neck Neck: Yes normal visual inspection Resp Auscultation: diminished lung sounds Cardio Rate: regular rate GI Palpation (GI): Soft to palpation Neuro Other: Intubated Results Lab Results 10/01/23 07:59 10/01/23 03:22 Lab results: Chemistry 09/28/23 09/29/23 09/29/23 22:48 05:35 07:25 Sodium 133 L 138 Potassium 4.4 3.6 Carbon Dioxide 19 L 14 L BUN 43 H 35 H Creatinine 3.61 H 2.59 H Calcium 9.0 6.2 L D Phosphorus 2.7 3.6 09/29/23 09/29/23 09/30/23 17:18 21:59 05:19 Sodium 136 136 136 Potassium 4.4 D 4.0 5.5 H D Carbon Dioxide 17 L 16 L 16 L BUN 47 H 48 H 50 H Creatinine 4.08 H* 4.20 H* 4.84 H* Calcium 8.5 D 8.4 9.1 D Phosphorus 4.3 4.6 H 3.9 09/30/23 09/30/23 10/01/23 12:24 16:54 03:22 Sodium 135 132 L 133 L Potassium 6.4 H* 6.1 H* 7.3 H* Carbon Dioxide 14 L 13 L 12 L BUN 54 H 55 H 61 H Creatinine 4.82 H* 5.24 H* 5.60 H* Calcium 8.6 9.8 D 9.4 Phosphorus 7.7 H Hematology 09/28/23 09/29/23 09/29/23 22:47 05:35 19:57 WBC 6.2 8.0 17.1 H Hgb 11.1 L 10.2 L 10.2 L Plt Count 178 130 L D 77 L D 09/30/23 09/30/23 10/01/23 01:02 05:19 03:22 WBC 16.7 H 16.2 H 15.9 H Hgb 10.2 L 10.5 L 10.9 L Plt Count 51 L D 47 L 23 L D 10/01/23 07:59 WBC 15.8 H Hgb 10.8 L Plt Count 24 L Urinalysis 09/29/23 02:21 Urine Color Dark Yellow Urine Appearance Turbid Urine pH 5.0 Ur Specific [place] 1.025 Urine Protein 100 (2+) H Urine Glucose (UA) 500 H Urine Ketones Trace Urine Blood Moderate (2+) H Urine Nitrite Negative Ur Leukocyte Esterase Small (1+) H Urine RBC 3-5 H Urine WBC >50 H Ur Squamous Epith Cells >20 Hyaline Casts >20 Assessment and Plan (1) Acute kidney failure: Qualifiers: Acute renal failure type: with acute tubular necrosis Qualified Code(s): N17.0 - Acute kidney failure with tubular necrosis Status: Acute Plan LATASHA due to tubular injury Developed life-threatening hyperkalemia with metabolic acidosis and worsening renal function Urgently dialyzed this morning. Shall repeat blood work later this afternoon She will continue current supportive care for now; shall closely follow-up Procedures Date of Service Date of Service: 10/01/23
--- NOTE | 2023-10-01 16:20 | MHC.CM.PN ---
PT REMAINS INTUBATED AND SEDATED IN ICU. PT CONTINUES TO REQUIRE PRESSOR SUPPORT. CM CONT. TO FOLLOW FOR PLAN.
[2023-10-01 18:06] LABS: Glucose, Whole Blood 228 mg/dL (60-115)
[2023-10-01 18:37] LABS: Anion Gap 34 (12-20); Blood Urea Nitrogen 56 mg/dL (9-16); Calcium 8.4 mg/dL (8.4-10.2); Carbon Dioxide 15 mmol/L (22-29); Chloride 94 mmol/L (96-108); Creatinine Clr Calc Pharmacy 20.8; Estimated Glomerular Filt Rate 13; Glucose Random 293 mg/dL (60-115); Potassium 5.7 mmol/L (3.3-5.1); Sodium 137 mmol/L (135-145)
[2023-10-01 19:22] LABS: Albumin Level 2.8 g/dL (3.5-5.0); Magnesium 2.2 mg/dL (1.6-2.6)
[2023-10-01] MEDS: Albumin Human 25 % 100 ML IV (19:48)
[2023-10-01] MEDS: fentaNYL citrate/PF 100 MCG/2 ML VIAL 50 MCG IVPUSH ×2 (20:58→22:59)
[2023-10-01] MEDS: Norepinephrine Bitartrate/NS 32 MG/250 ML PLAST..BAG 18.66 MG IVCONT (21:12)
[2023-10-01 23:44] LABS: Glucose, Whole Blood 269 mg/dL (60-115)
[2023-10-02] VITALS (48 sets, daily range): BP systolic 84–136; BP diastolic 39–87; PULSE 78–134; RESP 12–27; TEMP 34.8–38.4; O2SAT 91–97; BMI 34.6
[2023-10-02] MEDS: Vasopressin 20 UNIT/100 ML INFUS..BTL 12 UNIT IVCONT ×3 (00:02→16:05)
[2023-10-02] MEDS: Insulin Lispro 100 UNIT/ML 3 ML VIAL SUBCUT ×4 (00:06→17:18)
[2023-10-02] MEDS: 0.9 % Sodium Chloride Flush 3 ML SYRINGE IVFLUSH ×3 (00:07→16:02)
[2023-10-02] MEDS: Albumin Human 25 % 100 ML IV ×3 (01:09→13:35)
[2023-10-02] MEDS: fentaNYL citrate/PF 100 MCG/2 ML VIAL 50 MCG IVPUSH ×4 (01:09→06:30)
[2023-10-02] MEDS: Sodium Bicarbonate 8.4% 50 MEQ/50 ML SYRINGE IVPUSH (01:56)
[2023-10-02] MEDS: Piperacillin Sodium/Tazobactam 2.25 GM in 0.9 % Sodium Chloride 50 ML IV ×4 (01:59→21:15)
[2023-10-02] MEDS: Hydrocortisone Sod Succ/PF 100 MG VIAL 50 MG IVPUSH ×4 (01:59→21:05)
[2023-10-02 05:12] LABS: Venous Blood Gas Refer to POC result
[2023-10-02 05:15] LABS: VBG Base Excess -8.2 mmol/L; VBG HCO3 15 mmol/L (22-26); VBG pCO2 26 mmHg; VBG pH 7.37 (7.32-7.43); VBG pO2 53 mmHg
[2023-10-02 05:31] LABS: Hematocrit 25.1 % (42.0-52.0); Hemoglobin 8.6 g/dl (14.0-18.0); Mean Corpuscular HGB Conc 34.3 g/dl (31.0-36.0); Mean Corpuscular Hemoglobin 31.3 pg (27.0-33.0); Mean Corpuscular Volume 91.3 fL (80.0-98.0); Mean Platelet Volume 13.6 fL (9.4-12.4); NRBC Pct Auto 0.9 /100WBC (0.0-0.2); Red Blood Count 2.75 X10*6/uL (4.60-5.80); Red Cell Distribution Width 16.3 % (11.0-16.0)
[2023-10-02 05:42] LABS: Alanine Aminotransferase 988 U/L (0-40); Albumin Level 3.1 g/dL (3.5-5.0); Alkaline Phosphatase 134 U/L (39-117); Anion Gap 34 (12-20); Aspartate Amino Transferase 936 U/L (5-37); Bilirubin Total 3.5 mg/dL (0.0-1.0); Blood Urea Nitrogen 78 mg/dL (9-16); Calcium 8.1 mg/dL (8.4-10.2); Carbon Dioxide 16 mmol/L (22-29); Chloride 94 mmol/L (96-108); Creatinine Clr Calc Pharmacy 17.3; Estimated Glomerular Filt Rate 10; Glucose Random 313 mg/dL (60-115); Magnesium 2.3 mg/dL (1.6-2.6); Phosphorus 7.7 mg/dL (2.7-4.5); Potassium 5.5 mmol/L (3.3-5.1); Sodium 138 mmol/L (135-145); Total Protein 5.9 g/dL (6.5-8.0)
[2023-10-02 05:55] LABS: PLT ABN DIST 1; WBC ABN SCTR FOR CBC 1
[2023-10-02 05:56] LABS: Platelet Count 16 X10*3/uL (160-400); White Blood Count 20.8 X10*3/uL (4.8-10.8)
[2023-10-02 06:00] LABS: Atypical Lymph Absolute Manual 0.8 x10*3/uL; Monocytes Percent Manual 5 % (2-11)
[2023-10-02 06:01] LABS: Band Neutrophils Percent 30 % (3-5); Metamyelocytes Absolute 0.8 X10*3/uL; Metamyelocytes Percent 4 %
[2023-10-02 06:02] LABS: Lymphocytes Absolute Manual 1.5 X10*3/uL (1.2-4.9); Lymphocytes Percent Manual 7 % (20-40); Neutrophils Absolute Manual 17.5 X10*3/uL (2.0-8.3); Neutrophils Percent Manual 54 % (45-73); RBC Morphology NOTED
[2023-10-02 06:03] LABS: Nucleated Red Blood Cells 1 /100WBC (0-0)
[2023-10-02 06:04] LABS: Burr Cells 3+ (>5) /OIF; Macrocytosis 1+ (5-14) /OIF; Ovalocytes 1+ (5-14) /OIF; Tear Drop Cells 1+ (0-2) /OIF
[2023-10-02 06:06] LABS: Dohle Bodies PRESENT; Large Platelet PRESENT; Platelet Estimate DECREASED (NORMAL); Platelet Morphology Comment NOTED; Toxic Vacuolation PRESENT
[2023-10-02 06:07] LABS: Smudge Cells PRESENT
[2023-10-02 06:14] LABS: Glucose, Whole Blood 281 mg/dL (60-115)
[2023-10-02] MEDS: Calcium Gluconate/NaCl,Iso-Osm 2 GM/100 ML PLAST..BAG IV (06:26)
[2023-10-02 06:32] LABS: INTERNATIONAL NORM RATIO 1.8 (0.9-1.1); Prothrombin Time 22.2 SEC (11.1-13.3)
[2023-10-02 06:34] LABS: D Dimer High Sensitivity 3238 NG/ML
[2023-10-02] MEDS: Levothyroxine Sodium 100 MCG/5 ML VIAL 200 MCG IVPUSH ×2 (06:34→17:18)
[2023-10-02] MEDS: Pantoprazole Sodium 40 MG/10 ML VIAL IVPUSH ×2 (06:34→16:02)
[2023-10-02 06:36] LABS: Fibrinogen > 700 MG/DL (259-690)
[2023-10-02] MEDS: Chlorhexidine Gluc Oral Rinse 15 ML MOUTHWASH BUCCAL ×3 (08:18→21:06)
[2023-10-02] MEDS: propofoL 1,000 MG/100 ML VIAL 21.08 MG IVCONT ×4 (08:32→21:08)
[2023-10-02] MEDS: levoFLOXacin/D5W 750 MG/150 ML PIGGYBACK 100 MG IV (08:33)
--- NOTE | 2023-10-02 10:04 | MHC.CLN ---
F/U PT REMAINS INTUBATED AND SEDATED DISCUSSED AT ROUNDS WITH MD CURRENTLY DAY 4 NPO AND POSSIBLE PLAN TO START TRICKLE FEED TODAY IF TF NEEDED; RECOMMEND NEPRO AT RATE 10ML/HR TO PROVIDE 432KCALS, 19G PROTEIN, 174ML FREE WATER FROM FORMULA MONITOR TOLERANCE AND LYTES FOLLOWING WITH TEAM FOR DIET ADVANCEMENT
--- NOTE | 2023-10-02 11:47 | P.PNCC_ITS ---
Subjective Subjective Date of Service: 10/02/23 Interval History: 68-year-old gentleman with diabetes mellitus, prostate cancer hypothyroidism history nephrolithiasis admitted on 09/29/2023 with septic shock secondary to Gram-negative bacteremia with source requiring pressor support further complicated by acute kidney failure with anuria and pulmonary edema. Overnight 09/28-09/29 with worsening hypoxia refractory to high-flow nasal cannula support requiring intubation and ventilatory support. CT abdomen/pelvis repeating with no evidence of urinary obstruction, but noted hydronephrosis likely secondary to passing of prior nephrolithiasis. Now status post right urethral stenting. Requiring initiation of hemodialysis support on 10/01/2023. Overnight with improving pressor requirements, but now with development of disseminated intravascular coagulation worsening thrombocytopenia and GI bleed. Critical Care Time (minutes): 60 Physical Exam 2 Vital Signs: Vital Signs: Last Vital Signs Temp 100.8 F H 10/02/23 11:30 Pulse 121 H 10/02/23 11:30 Resp 19 10/02/23 11:30 BP 104/69 10/02/23 11:30 Pulse Ox 95 10/02/23 11:00 O2 Del Method Mechanical Ventil ation 10/02/23 11:00 O2 Flow Rate 11 09/29/23 19:20 FiO2 30 10/02/23 11:16 BMI result Body Mass Index 34.6 Const: General: no acute distress and other (Sedated on the vent) N utritional Appearance: Edematous Eyes: Sclerae: sclerae normal EOM: EOMs intact bilaterally Neck: Neck: Yes no lymphadenopathy, Yes trachea midline and Yes supple Resp: Auscultation: crackles (Bilateral) Cardio: Rate: tachycardic Rhythm: regular rhythm Heart sounds: no gallops, no murmurs and no rubs GI: Palpation (GI): Soft to palpation and Other GI palpation findings present ( Nontender) Auscultation: normal bowel sounds Extrem: General: No clubbing, No cyanosis and Yes pedal edema Objective Data Labs 10/02/23 04:58 10/02/23 04:58 Labs: Laboratory Results - last 24 hr 09/29/23 10/01/23 10/01/23 19:57 11:58 18:00 WBC RBC Hgb Hct MCV MCH MCHC RDW Plt Count MPV Immature Gran % (Auto) Neut % (Auto) Lymph % (Auto) [place] % (Auto) Eos % (Auto) Baso % (Auto) Lymph # (Auto) [place] # (Auto) Eos # (Auto) Baso # (Auto) Abs Immat Gran (auto) Absolute Neuts (auto) Absolute Nucleated RBC Nucleated RBC % (auto) Neutrophils % (Manual) Band Neutrophils % Lymphocytes % (Manual) Monocytes % (Manual) Metamyelocytes % Abs Neuts (Manual) Lymphocytes # (Manual) Atyp Lymphs # (Manual) Monocytes # (Manual) Metamyelocytes # Nucleated RBCs Smudge Cells Toxic Vacuolation Dohle Bodies Platelet Estimate Large Platelets Plt Morphology Comment RBC Morphology Macrocytosis Tear Drop Cells Ovalocytes Mario Cells PT INR Fibrinogen D-Dimer High Sensitivty VBG pH VBG pCO2 VBG pO2 VBG HCO3 VBG O2 Saturation VBG Base Excess Sodium Potassium Chloride Carbon Dioxide Anion Gap BUN Creatinine Estim Creat Clear Calc Estimated GFR POC Glucose 190 H 228 H Random Glucose Calcium Phosphorus Magnesium Total Bilirubin AST ALT Alkaline Phosphatase Total Protein Albumin Blood Type A Negative Antibody Screen NEGATIVE 10/01/23 10/01/23 10/02/23 18:09 23:35 04:58 WBC 20.8 H RBC 2.75 L Hgb 8.6 L D Hct 25.1 L MCV 91.3 MCH 31.3 MCHC 34.3 RDW 16.3 H Plt Count 16 L* MPV 13.6 H Immature Gran % (Auto) Cancelled Neut % (Auto) Cancelled Lymph % (Auto) Cancelled [place] % (Auto) Cancelled Eos % (Auto) Cancelled Baso % (Auto) Cancelled Lymph # (Auto) Cancelled [place] # (Auto) Cancelled Eos # (Auto) Cancelled Baso # (Auto) Cancelled Abs Immat Gran (auto) Cancelled Absolute Neuts (auto) Cancelled Absolute Nucleated RBC 0.180 H Nucleated RBC % (auto) 0.9 H Neutrophils % (Manual) 54 Band Neutrophils % 30 H Lymphocytes % (Manual) 7 L Monocytes % (Manual) 5 Metamyelocytes % 4 Abs Neuts (Manual) 17.5 H Lymphocytes # (Manual) 1.5 Atyp Lymphs # (Manual) 0.8 Monocytes # (Manual) 1.0 Metamyelocytes # 0.8 Nucleated RBCs 1 H Smudge Cells PRESENT Toxic Vacuolation PRESENT Dohle Bodies PRESENT Platelet Estimate DECREASED Large Platelets PRESENT Plt Morphology Comment NOTED RBC Morphology NOTED Macrocytosis 1+ (5-14) Tear Drop Cells 1+ (0-2) Ovalocytes 1+ (5-14) [place] Cells 3+ (>5) PT INR Fibrinogen D-Dimer High Sensitivty VBG pH VBG pCO2 VBG pO2 VBG HCO3 VBG O2 Saturation VBG Base Excess Sodium 137 138 Potassium 5.7 H D 5.5 H Chloride 94 L 94 L Carbon Dioxide 15 L 16 L Anion Gap 34 H 34 H BUN 56 H 78 H Creatinine 4.59 H* 5.51 H* Estim Creat Clear Calc 20.8 17.3 Estimated GFR 13 10 POC Glucose 269 H Random Glucose 293 H 313 H Calcium 8.4 D 8.1 L Phosphorus 7.0 H 7.7 H Magnesium 2.2 2.3 Total Bilirubin 3.5 H AST 936 H ALT 988 H Alkaline Phosphatase 134 H Total Protein 5.9 L Albumin 2.8 L 3.1 L Blood Type Antibody Screen 10/02/23 10/02/23 10/02/23 05:07 06:02 06:18 WBC RBC Hgb Hct MCV MCH MCHC RDW Plt Count MPV Immature Gran % (Auto) Neut % (Auto) Lymph % (Auto) [place] % (Auto) Eos % (Auto) Baso % (Auto) Lymph # (Auto) [place] # (Auto) Eos # (Auto) Baso # (Auto) Abs Immat Gran (auto) Absolute Neuts (auto) Absolute Nucleated RBC Nucleated RBC % (auto) Neutrophils % (Manual) Band Neutrophils % Lymphocytes % (Manual) Monocytes % (Manual) Metamyelocytes % Abs Neuts (Manual) Lymphocytes # (Manual) Atyp Lymphs # (Manual) Monocytes # (Manual) Metamyelocytes # Nucleated RBCs Smudge Cells Toxic Vacuolation Dohle Bodies Platelet Estimate Large Platelets Plt Morphology Comment RBC Morphology Macrocytosis Tear Drop Cells Ovalocytes [place] Cells PT 22.2 H INR 1.8 H Fibrinogen > 700 H D-Dimer High Sensitivty 3238 VBG pH 7.37 VBG pCO2 26 VBG pO2 53 VBG HCO3 15 L VBG O2 Saturation 78.0 VBG Base Excess -8.2 Sodium Potassium Chloride Carbon Dioxide Anion Gap BUN Creatinine Estim Creat Clear Calc Estimated GFR POC Glucose 281 H Random Glucose Calcium Phosphorus Magnesium Total Bilirubin AST ALT Alkaline Phosphatase Total Protein Albumin Blood Type Antibody Screen Microbiology Microbiology Results: Microbiology 09/30/23 Unknown Urine Catheterized - Straight Catheter Urine Culture - Preliminary Culture in progress. 09/28/23 23:08 Blood - Venous Blood Culture - Final Klebsiella pneumoniae 09/28/23 22:51 Blood - Venous Blood Culture - Final Klebsiella pneumoniae 09/29/23 Unknown Urine clean catch - Clean Catch Midstream Urine Culture - Final Enterobacter cloacae complex Progress Note: A&P Assessment and plan (1) Diabetes: Status: Acute (2) Acute respiratory failure with hypoxia: Status: Acute (3) Acute kidney failure: Status: Acute (4) Septic shock: Status: Acute (5) Bacteremia due to Klebsiella pneumoniae: Status: Acute (6) Disseminated intravascular coagulation: Status: Acute (7) Thrombocytopenia: Status: Acute Plan Assessment: 68-year-old gentleman with underlying diabetes mellitus, nephrolithiasis, and prostate cancer admitted with septic shock secondary to gram-negative bacteremia with source further complicated by acute kidney failure with Anoro and acute hypoxic respiratory failure. Plan: Neuro: No acute issues. Cardiac: Septic shock, continue to titrate off pressor support as tolerated. Pulmonary edema. Pulmonary: Acute hypoxic respiratory failure secondary to pulmonary edema now requiring ventilatory support, continue to titrate off as tolerated. Renal: Acute kidney failure secondary to septic shock/ATN. Oliguric. Right- sided hydronephrosis. Urology service care appreciated. Now status post right urethral stenting. Continue to monitor renal indices and urine output. Hyperkalemia secondary to ATN requiring initiation of hemodialysis, improved. Nephrology service care appreciated. Endo: No acute issues. Underlying diabetes mellitus and hypothyroidism. GI: No acute issues. ID: Klebsiella bacteremia with source. Continue on Zosyn/Levaquin. Heme/Onc: Disseminated intravascular coagulation with thrombocytopenia secondary to septic shock, continue to monitor. Psych: No acute issues. Miscellaneous: No acute issues. Prophylaxis: Pneumatic compression, ppi Diet: NPO Critical care time spent: 60 minutes Quality Stroke Does the patient have a stroke diagnosis?: No VTE Prior VTE?: No VTE Risk Level:: Medical - moderate - high VTE Device Contraindication: N/A - Device Ordered VTE Drug Contraindication: N/A - Med Ordered
[2023-10-02 12:03] LABS: Glucose, Whole Blood 267 mg/dL (60-115)
[2023-10-02] MEDS: Norepinephrine Bitartrate/NS 32 MG/250 ML PLAST..BAG 15.37 MG IVCONT (12:03)
[2023-10-02 12:35] LABS: Hematocrit 22.6 % (42.0-52.0); Hemoglobin 7.8 g/dl (14.0-18.0); Mean Corpuscular HGB Conc 34.5 g/dl (31.0-36.0); Mean Corpuscular Hemoglobin 31.7 pg (27.0-33.0); Mean Corpuscular Volume 91.9 fL (80.0-98.0); Mean Platelet Volume 12.2 fL (9.4-12.4); NRBC Pct Auto 0.8 /100WBC (0.0-0.2); Red Blood Count 2.46 X10*6/uL (4.60-5.80); Red Cell Distribution Width 16.3 % (11.0-16.0)
[2023-10-02 12:36] LABS: Platelet Count 29 X10*3/uL (160-400); WBC ABN SCTR FOR CBC 1
[2023-10-02 13:11] LABS: Band Neutrophils Percent 9 % (3-5); Lymphocytes Percent Manual 4 % (20-40); Monocytes Percent Manual 4 % (2-11); Neutrophils Percent Manual 83 % (45-73); Nucleated Red Blood Cells 1 /100WBC (0-0)
[2023-10-02 13:14] LABS: Burr Cells 3+ (>5) /OIF; RBC Morphology NOTED
--- NOTE | 2023-10-02 13:14 | P.PNNP_ITS ---
Subjective Subjective Date of Service: 10/02/23 Interval history: . Remains intubated. On pressors. Urine output is negligible. Family at bedside Physical Exam 2 Vital Signs: Vital Signs: Last Vital Signs Temp 100.9 F H 10/02/23 12:00 Pulse 121 H 10/02/23 12:03 Resp 18 10/02/23 12:00 BP 113/73 10/02/23 12:03 Pulse Ox 94 10/02/23 12:00 O2 Del Method Mechanical Ventil ation 10/02/23 12:00 O2 Flow Rate 11 09/29/23 19:20 FiO2 30 10/02/23 12:00 BMI result Body Mass Index 34.6 Const: General: ill appearing Neck: Neck: Yes supple Resp: Auscultation: rhonchi Cardio: Palpation: no palpable S3 Heart sounds: no rubs GI: Palpation (GI): Soft to palpation Auscultation: normal bowel sounds Neuro: Motor exam (neuro): no asterixis Objective Data Labs 10/02/23 12:24 10/02/23 04:58 Labs: Laboratory Results - last 24 hr 09/29/23 10/01/23 10/01/23 19:57 18:00 18:09 WBC RBC Hgb Hct MCV MCH MCHC RDW Plt Count MPV Immature Gran % (Auto) Neut % (Auto) Lymph % (Auto) [place] % (Auto) Eos % (Auto) Baso % (Auto) Lymph # (Auto) [place] # (Auto) Eos # (Auto) Baso # (Auto) Abs Immat Gran (auto) Absolute Neuts (auto) Absolute Nucleated RBC Nucleated RBC % (auto) Neutrophils % (Manual) Band Neutrophils % Lymphocytes % (Manual) Monocytes % (Manual) Metamyelocytes % Abs Neuts (Manual) Lymphocytes # (Manual) Atyp Lymphs # (Manual) Monocytes # (Manual) Metamyelocytes # Nucleated RBCs Smudge Cells Toxic Vacuolation Dohle Bodies Platelet Estimate Large Platelets Plt Morphology Comment RBC Morphology Macrocytosis Tear Drop Cells Ovalocytes [place] Cells PT INR Fibrinogen D-Dimer High Sensitivty VBG pH VBG pCO2 VBG pO2 VBG HCO3 VBG O2 Saturation VBG Base Excess Sodium 137 Potassium 5.7 H D Chloride 94 L Carbon Dioxide 15 L Anion Gap 34 H BUN 56 H Creatinine 4.59 H* Estim Creat Clear Calc 20.8 Estimated GFR 13 POC Glucose 228 H Random Glucose 293 H Calcium 8.4 D Phosphorus 7.0 H Magnesium 2.2 Total Bilirubin AST ALT Alkaline Phosphatase Total Protein Albumin 2.8 L Blood Type A Negative Antibody Screen NEGATIVE 10/01/23 10/02/23 10/02/23 23:35 04:58 05:07 WBC 20.8 H RBC 2.75 L Hgb 8.6 L D Hct 25.1 L MCV 91.3 MCH 31.3 MCHC 34.3 RDW 16.3 H Plt Count 16 L* MPV 13.6 H Immature Gran % (Auto) Cancelled Neut % (Auto) Cancelled Lymph % (Auto) Cancelled [place] % (Auto) Cancelled Eos % (Auto) Cancelled Baso % (Auto) Cancelled Lymph # (Auto) Cancelled [place] # (Auto) Cancelled Eos # (Auto) Cancelled Baso # (Auto) Cancelled Abs Immat Gran (auto) Cancelled Absolute Neuts (auto) Cancelled Absolute Nucleated RBC 0.180 H Nucleated RBC % (auto) 0.9 H Neutrophils % (Manual) 54 Band Neutrophils % 30 H Lymphocytes % (Manual) 7 L Monocytes % (Manual) 5 Metamyelocytes % 4 Abs Neuts (Manual) 17.5 H Lymphocytes # (Manual) 1.5 Atyp Lymphs # (Manual) 0.8 Monocytes # (Manual) 1.0 Metamyelocytes # 0.8 Nucleated RBCs 1 H Smudge Cells PRESENT Toxic Vacuolation PRESENT Dohle Bodies PRESENT Platelet Estimate DECREASED Large Platelets PRESENT Plt Morphology Comment NOTED RBC Morphology NOTED Macrocytosis 1+ (5-14) Tear Drop Cells 1+ (0-2) Ovalocytes 1+ (5-14) [place] Cells 3+ (>5) PT INR Fibrinogen D-Dimer High Sensitivty VBG pH 7.37 VBG pCO2 26 VBG pO2 53 VBG HCO3 15 L VBG O2 Saturation 78.0 VBG Base Excess -8.2 Sodium 138 Potassium 5.5 H Chloride 94 L Carbon Dioxide 16 L Anion Gap 34 H BUN 78 H Creatinine 5.51 H* Estim Creat Clear Calc 17.3 Estimated GFR 10 POC Glucose 269 H Random Glucose 313 H Calcium 8.1 L Phosphorus 7.7 H Magnesium 2.3 Total Bilirubin 3.5 H AST 936 H ALT 988 H Alkaline Phosphatase 134 H Total Protein 5.9 L Albumin 3.1 L Blood Type Antibody Screen 10/02/23 10/02/23 10/02/23 06:02 06:18 12:00 WBC RBC Hgb Hct MCV MCH MCHC RDW Plt Count MPV Immature Gran % (Auto) Neut % (Auto) Lymph % (Auto) [place] % (Auto) Eos % (Auto) Baso % (Auto) Lymph # (Auto) [place] # (Auto) Eos # (Auto) Baso # (Auto) Abs Immat Gran (auto) Absolute Neuts (auto) Absolute Nucleated RBC Nucleated RBC % (auto) Neutrophils % (Manual) Band Neutrophils % Lymphocytes % (Manual) Monocytes % (Manual) Metamyelocytes % Abs Neuts (Manual) Lymphocytes # (Manual) Atyp Lymphs # (Manual) Monocytes # (Manual) Metamyelocytes # Nucleated RBCs Smudge Cells Toxic Vacuolation Dohle Bodies Platelet Estimate Large Platelets Plt Morphology Comment RBC Morphology Macrocytosis Tear Drop Cells Ovalocytes Mario Cells PT 22.2 H INR 1.8 H Fibrinogen > 700 H D-Dimer High Sensitivty 3238 VBG pH VBG pCO2 VBG pO2 VBG HCO3 VBG O2 Saturation VBG Base Excess Sodium Potassium Chloride Carbon Dioxide Anion Gap BUN Creatinine Estim Creat Clear Calc Estimated GFR POC Glucose 281 H 267 H Random Glucose Calcium Phosphorus Magnesium Total Bilirubin AST ALT Alkaline Phosphatase Total Protein Albumin Blood Type Antibody Screen 10/02/23 12:24 WBC RBC 2.46 L Hgb 7.8 L Hct 22.6 L MCV 91.9 MCH 31.7 MCHC 34.5 RDW 16.3 H Plt Count 29 L D MPV 12.2 Immature Gran % (Auto) Cancelled Neut % (Auto) Cancelled Lymph % (Auto) Cancelled [place] % (Auto) Cancelled Eos % (Auto) Cancelled Baso % (Auto) Cancelled Lymph # (Auto) Cancelled [place] # (Auto) Cancelled Eos # (Auto) Cancelled Baso # (Auto) Cancelled Abs Immat Gran (auto) Cancelled Absolute Neuts (auto) Cancelled Absolute Nucleated RBC 0.170 H Nucleated RBC % (auto) 0.8 H Neutrophils % (Manual) Band Neutrophils % Lymphocytes % (Manual) Monocytes % (Manual) Metamyelocytes % Abs Neuts (Manual) Lymphocytes # (Manual) Atyp Lymphs # (Manual) Monocytes # (Manual) Metamyelocytes # Nucleated RBCs Smudge Cells Toxic Vacuolation Dohle Bodies Platelet Estimate Large Platelets Plt Morphology Comment RBC Morphology Macrocytosis Tear Drop Cells Ovalocytes [place] Cells PT INR Fibrinogen D-Dimer High Sensitivty VBG pH VBG pCO2 VBG pO2 VBG HCO3 VBG O2 Saturation VBG Base Excess Sodium Potassium Chloride Carbon Dioxide Anion Gap BUN Creatinine Estim Creat Clear Calc Estimated GFR POC Glucose Random Glucose Calcium Phosphorus Magnesium Total Bilirubin AST ALT Alkaline Phosphatase Total Protein Albumin Blood Type Antibody Screen Microbiology Microbiology Results: Microbiology 09/30/23 Unknown Urine Catheterized - Straight Catheter Urine Culture - Preliminary Culture in progress. 09/28/23 23:08 Blood - Venous Blood Culture - Final Klebsiella pneumoniae 09/28/23 22:51 Blood - Venous Blood Culture - Final Klebsiella pneumoniae 09/29/23 Unknown Urine clean catch - Clean Catch Midstream Urine Culture - Final Enterobacter cloacae complex Procedures Date of Service Date of Service: 10/02/23 Assessment & Plan Assessment and plan (1) Thrombocytopenia: Status: Acute (2) Disseminated intravascular coagulation: Status: Acute (3) Acute kidney failure: Status: Acute (4) LATASHA (acute kidney injury): Status: Acute Plan LATASHA with hyperkalemia and metabolic acidosis in the setting of DIC and obstructive uropathy. No renal recovery yet. In view of the hyperkalemia and anuria I will dialyze him again today. Watch platelets Check LDH haptoglobin and peripheral smear for schistocytes. Time Spent With Patient Time: Total time managing care of this patient today ____ minutes. Progress Note: Quality Stroke Does the patient have a stroke diagnosis?: No
[2023-10-02 13:15] LABS: Tear Drop Cells 1+ (0-2) /OIF
[2023-10-02 13:16] LABS: Acanthocytes 1+ (0-2) /OIF
[2023-10-02 13:17] LABS: Platelet Estimate DECREASED (NORMAL); Platelet Morphology Comment NORMAL
[2023-10-02 13:18] LABS: Dohle Bodies PRESENT; Toxic Vacuolation PRESENT; WBC Morphology Comment DYSMORPHIC
[2023-10-02 13:21] LABS: Lymphocytes Absolute Manual 0.8 X10*3/uL (1.2-4.9); Monocytes Absolute Manual 0.8 X10*3/uL (0.1-1.2); Neutrophils Absolute Manual 19.3 X10*3/uL (2.0-8.3)
--- NOTE | 2023-10-02 15:35 | MHC.CM.PN ---
Pt continues care in ICU: vented and has begun HD d/t oliguria. Possible weaning attempts on 10/02. D/C plan remains ongoing and is subject to pt's clinical recovery.
[2023-10-02 17:07] LABS: Glucose, Whole Blood 244 mg/dL (60-115)
[2023-10-02 18:49] LABS: PLT CLUMP 1; Red Blood Count 2.58 X10*6/uL (4.60-5.80)
[2023-10-02 18:51] LABS: Hematocrit 23.3 % (42.0-52.0); Hemoglobin 8.2 g/dl (14.0-18.0); Mean Corpuscular HGB Conc 35.2 g/dl (31.0-36.0); Mean Corpuscular Hemoglobin 31.8 pg (27.0-33.0); Mean Corpuscular Volume 90.3 fL (80.0-98.0); Mean Platelet Volume 12.2 fL (9.4-12.4); NRBC Pct Auto 0.7 /100WBC (0.0-0.2); Red Cell Distribution Width 16.3 % (11.0-16.0)
[2023-10-02 19:06] LABS: WBC ABN SCTR FOR CBC 1
[2023-10-02 19:47] LABS: Band Neutrophils Percent 1 % (3-5); Lymphocytes Percent Manual 3 % (20-40); Monocytes Percent Manual 8 % (2-11); Myelocytes Percent 1 %; Neutrophils Percent Manual 87 % (45-73); RBC Morphology NOTED
[2023-10-02 19:49] LABS: Tear Drop Cells 2+ (3-5) /OIF
[2023-10-02 19:50] LABS: Dohle Bodies PRESENT; Nucleated Red Blood Cells 1 /100WBC (0-0); Smudge Cells PRESENT
[2023-10-02 19:53] LABS: Burr Cells 3+ (>5) /OIF; Platelet Estimate DECREASED (NORMAL)
[2023-10-02 19:54] LABS: Platelet Morphology Comment NOTED
[2023-10-02 19:56] LABS: Lymphocytes Absolute Manual 0.8 X10*3/uL (1.2-4.9); Monocytes Absolute Manual 2.1 X10*3/uL (0.1-1.2); Myelocytes Absolute 0.3 X10*/uL; Neutrophils Absolute Manual 22.7 X10*3/uL (2.0-8.3); Platelet Count 25 X10*3/uL (160-400); White Blood Count 25.8 X10*3/uL (4.8-10.8)
[2023-10-03] VITALS (60 sets, daily range): BP systolic 80–166; BP diastolic 43–74; PULSE 65–80; RESP 12–24; TEMP 34.6–37.7; O2SAT 92–98; BMI 36.2
[2023-10-03] MEDS: Vasopressin 20 UNIT/100 ML INFUS..BTL 9 UNIT IVCONT (00:08)
[2023-10-03] MEDS: 0.9 % Sodium Chloride Flush 3 ML SYRINGE IVFLUSH ×3 (00:09→15:09)
[2023-10-03] MEDS: propofoL 1,000 MG/100 ML VIAL 21.08 MG IVCONT ×2 (00:11→04:17)
[2023-10-03 00:13] LABS: Glucose, Whole Blood 167 mg/dL (60-115)
[2023-10-03] MEDS: Insulin Lispro 100 UNIT/ML 3 ML VIAL SUBCUT ×3 (00:17→12:20)
[2023-10-03] MEDS: Hydrocortisone Sod Succ/PF 100 MG VIAL 50 MG IVPUSH ×4 (02:02→20:43)
[2023-10-03] MEDS: Piperacillin Sodium/Tazobactam 2.25 GM in 0.9 % Sodium Chloride 50 ML IV ×4 (02:02→20:53)
[2023-10-03] MEDS: Norepinephrine Bitartrate/NS 32 MG/250 ML PLAST..BAG 16.47 MG IVCONT (02:46)
[2023-10-03 04:44] LABS: VBG Base Excess -9.8 mmol/L; VBG HCO3 14 mmol/L (22-26); VBG pCO2 26 mmHg; VBG pH 7.34 (7.32-7.43); VBG pO2 35 mmHg
[2023-10-03 04:52] LABS: Venous Blood Gas Refer to POC result
[2023-10-03 04:58] LABS: Hematocrit 22.7 % (42.0-52.0); Hemoglobin 7.8 g/dl (14.0-18.0); Mean Corpuscular HGB Conc 34.4 g/dl (31.0-36.0); Mean Corpuscular Hemoglobin 31.2 pg (27.0-33.0); Mean Corpuscular Volume 90.8 fL (80.0-98.0); Mean Platelet Volume 13.1 fL (9.4-12.4); NRBC Pct Auto 0.6 /100WBC (0.0-0.2); Red Cell Distribution Width 16.4 % (11.0-16.0)
[2023-10-03 04:59] LABS: Platelet Count 24 X10*3/uL (160-400); WBC ABN SCTR FOR CBC 1; White Blood Count 25.9 X10*3/uL (4.8-10.8)
[2023-10-03 05:24] LABS: Band Neutrophils Percent 14 % (3-5); Eosinophils Absolute Manual 0.3 X10*3/uL (0.0-0.4); Eosinophils Percent Manual 1 % (0-4); Lymphocytes Absolute Manual 0.3 X10*3/uL (1.2-4.9); Lymphocytes Percent Manual 1 % (20-40); Monocytes Absolute Manual 0.8 X10*3/uL (0.1-1.2); Monocytes Percent Manual 3 % (2-11); Neutrophils Absolute Manual 24.6 X10*3/uL (2.0-8.3); Neutrophils Percent Manual 81 % (45-73); Nucleated Red Blood Cells 1 /100WBC (0-0)
[2023-10-03 05:25] LABS: Platelet Estimate DECREASED (NORMAL); RBC Morphology NOTED
[2023-10-03 05:26] LABS: Burr Cells 2+ (3-5) /OIF; Dohle Bodies PRESENT; Platelet Morphology Comment NORMAL; Smudge Cells PRESENT; Tear Drop Cells 2+ (3-5) /OIF; Toxic Granulation PRESENT
[2023-10-03 05:27] LABS: Alanine Aminotransferase 1124 U/L (0-40); Albumin Level 3.5 g/dL (3.5-5.0); Alkaline Phosphatase 170 U/L (39-117); Anion Gap 31 (12-20); Aspartate Amino Transferase 865 U/L (5-37); Bilirubin Total 4.4 mg/dL (0.0-1.0); Blood Urea Nitrogen 84 mg/dL (9-16); Carbon Dioxide 15 mmol/L (22-29); Chloride 95 mmol/L (96-108); Creatinine Clr Calc Pharmacy 18.9; Estimated Glomerular Filt Rate 11; Glucose Random 227 mg/dL (60-115); Magnesium 2.2 mg/dL (1.6-2.6); Phosphorus 7.9 mg/dL (2.7-4.5); Potassium 5.1 mmol/L (3.3-5.1); Sodium 136 mmol/L (135-145); Total Protein 6.1 g/dL (6.5-8.0)
[2023-10-03 05:36] LABS: Free T4 (Free Thyroxine) 1.13 ng/dL (0.71-1.85); Thyroid Stimulating Hormone 8.93 uIU/mL (0.32-4.0)
[2023-10-03 05:39] LABS: Glucose, Whole Blood 199 mg/dL (60-115)
[2023-10-03] MEDS: Pantoprazole Sodium 40 MG/10 ML VIAL IVPUSH ×2 (05:40→15:37)
[2023-10-03] MEDS: Levothyroxine Sodium 100 MCG/5 ML VIAL 200 MCG IVPUSH ×2 (05:49→17:09)
[2023-10-03] MEDS: Calcium Gluconate/NaCl,Iso-Osm 2 GM/100 ML PLAST..BAG IV ×3 (06:19→23:59)
[2023-10-03] MEDS: Chlorhexidine Gluc Oral Rinse 15 ML MOUTHWASH BUCCAL ×3 (08:00→20:47)
--- NOTE | 2023-10-03 10:04 | P.CDIM_ITS ---
PROVIDER RESPONSE TEXT: To clarify, the appropriate diagnosis supported by the clinical indicators: Hypocalcemia: Resolved QUERY TEXT: PHYSICIAN'S DOCUMENTATION REQUEST Date of Query: 10/03/2023 09:46 AM EDT Patient Name: Theron Manning Admit Date: 09/29/2023 Dear Blaise Nash MD, A review of the medical record indicates additional documentation may be needed. Please review below and update the documentation accordingly. Clinical Indicators: LABS: calcium 8.1 7.0 L Calcium gluconate Based on the above, is there a diagnosis that correlates with these lab findings: Hypocalcemia resolved, possible, probable etc. Labs indicate a diagnosis of (please specify) Other (explain) Clinically unable to determine (explain) Thank you, Genoveva Adkins, CCS, CDIS Use of terms such as suspected, likely, concern for, or probable (associated with a specific diagnosi s that is being evaluated, monitored, or treated as if it exists) are acceptable and can be coded in the inpatient se tting, when documented at the time of discharge. Please use your independent medical judgment in providing your response. THIS QUERY IS PART OF THE PERMANENT MEDICAL RECORD
--- NOTE | 2023-10-03 10:37 | ECG_ITS ---
Test Reason : st elevation Blood Pressure : / mmHG Vent. Rate : 079 BPM Atrial Rate : 079 BPM P-R Int : 130 ms QRS Dur : 096 ms QT Int : 378 ms P-R-T Axes : 043 018 058 degrees QTc Int : 433 ms Normal sinus rhythm Low voltage QRS ST elevation consider anterolateral injury or acute infarct ACUTE TN / STEMI Abnormal ECG When compared with ECG of 01-OCT-2023 03:45, ST elevation now present in Anterolateral leads Referred By: Blaise Nash Electronically Signed By:Domingo Avitia
--- NOTE | 2023-10-03 10:41 | MHC.CLN ---
F/U PT REMAINS INTUBATED AND SEDATED DISCUSSED AT ROUNDS WITH MD CURRENTLY DAY 5 NPO AND POSSIBLE PLAN TO EXTUBATE IF TF NEEDED; RECOMMEND NEPRO AT MAX GOAL RATE 45ML/HR TO PROVIDE 1944KCALS (23KCALS/KG), 87G PROTEIN (1.04G/KG), 785ML FREE WATER FROM FORMULA MONITOR TOLERANCE AND LYTES FOLLOWING WITH TEAM FOR DIET ADVANCEMENT
[2023-10-03 11:09] LABS: Glucose, Whole Blood 154 mg/dL (60-115)
[2023-10-03 11:38] LABS: Troponin-I High Sensitivity 865.7 ng/L (<3.5-35.0)
--- NOTE | 2023-10-03 13:09 | P.PNNP_ITS ---
Subjective Subjective Date of Service: 10/03/23 Interval history: Seen and examined this morning. All recent data reviewed. Urine output poor. Remains intubated and ventilated Physical Exam 2 Vital Signs: Vital Signs: Last Vital Signs Temp 98.2 F 10/03/23 12:00 Pulse 76 10/03/23 13:07 Resp 17 10/03/23 12:00 BP 124/73 10/03/23 13:07 Pulse Ox 94 10/03/23 12:00 O2 Del Method Mechanical Ventil ation 10/03/23 12:00 O2 Flow Rate 11 09/29/23 19:20 FiO2 30 10/03/23 12:00 BMI result Body Mass Index 36.2 Const: General: no acute distress HEENT: Head: Yes normocephalic Resp: Auscultation: diminished lung sounds Cardio: Rate: regular rate GI: Palpation (GI): Soft to palpation Neuro: Other: Sedated and intubated Extrem: General: Yes edema Objective Data Labs 10/03/23 04:34 10/03/23 04:34 Labs: Laboratory Results - last 24 hr 10/01/23 10/02/23 10/02/23 07:59 12:24 17:03 WBC 21.0 H RBC Hgb Hct MCV MCH MCHC RDW Plt Count MPV Immature Gran % (Auto) Neut % (Auto) Lymph % (Auto) [place] % (Auto) Eos % (Auto) Baso % (Auto) Lymph # (Auto) [place] # (Auto) Eos # (Auto) Baso # (Auto) Abs Immat Gran (auto) Absolute Neuts (auto) Absolute Nucleated RBC Nucleated RBC % (auto) Neutrophils % (Manual) 83 H Band Neutrophils % 9 H Lymphocytes % (Manual) 4 L Monocytes % (Manual) 4 Eosinophils % (Manual) Myelocytes % Abs Neuts (Manual) 19.3 H Lymphocytes # (Manual) 0.8 L Monocytes # (Manual) 0.8 Eosinophils # (Manual) Myelocytes # Nucleated RBCs 1 H Smudge Cells Toxic Granulation Toxic Vacuolation PRESENT Dohle Bodies PRESENT WBC Morphology Comment DYSMORPHIC Platelet Estimate DECREASED Plt Morphology Comment NORMAL RBC Morphology NOTED Tear Drop Cells 1+ (0-2) Flat Top Cells 3+ (>5) Acanthocytes (Spur) 1+ (0-2) Smear Path Review Cancelled SEE NOTE VBG pH VBG pCO2 VBG pO2 VBG HCO3 VBG O2 Saturation VBG Base Excess Sodium Potassium Chloride Carbon Dioxide Anion Gap BUN Creatinine Estim Creat Clear Calc Estimated GFR POC Glucose 244 H Random Glucose Calcium Phosphorus Magnesium Total Bilirubin AST ALT Alkaline Phosphatase Troponin I High Sens Total Protein Albumin TSH Free T4 Thyroxine (T4) 10/02/23 10/03/23 10/03/23 18:23 00:09 04:34 WBC 25.8 H Cancelled RBC 2.58 L Hgb 8.2 L Hct 23.3 L MCV 90.3 MCH 31.8 MCHC 35.2 RDW 16.3 H Plt Count 25 L MPV 12.2 Immature Gran % (Auto) Cancelled Neut % (Auto) Cancelled Lymph % (Auto) Cancelled [place] % (Auto) Cancelled Eos % (Auto) Cancelled Baso % (Auto) Cancelled Lymph # (Auto) Cancelled [place] # (Auto) Cancelled Eos # (Auto) Cancelled Baso # (Auto) Cancelled Abs Immat Gran (auto) Cancelled Absolute Neuts (auto) Cancelled Absolute Nucleated RBC 0.180 H Nucleated RBC % (auto) 0.7 H Neutrophils % (Manual) 87 H Band Neutrophils % 1 L Lymphocytes % (Manual) 3 L Monocytes % (Manual) 8 Eosinophils % (Manual) Myelocytes % 1 Abs Neuts (Manual) 22.7 H Lymphocytes # (Manual) 0.8 L Monocytes # (Manual) 2.1 H Eosinophils # (Manual) Myelocytes # 0.3 Nucleated RBCs 1 H Smudge Cells PRESENT Toxic Granulation Toxic Vacuolation Dohle Bodies PRESENT WBC Morphology Comment Platelet Estimate DECREASED Plt Morphology Comment NOTED RBC Morphology NOTED Tear Drop Cells 2+ (3-5) Flat Top Cells 3+ (>5) Acanthocytes (Spur) Smear Path Review VBG pH VBG pCO2 VBG pO2 VBG HCO3 VBG O2 Saturation VBG Base Excess Sodium Potassium Chloride Carbon Dioxide Anion Gap BUN Creatinine Estim Creat Clear Calc Estimated GFR POC Glucose 167 H Random Glucose Calcium Phosphorus Magnesium Total Bilirubin AST ALT Alkaline Phosphatase Troponin I High Sens Total Protein Albumin TSH Free T4 Thyroxine (T4) 10/03/23 10/03/23 10/03/23 04:34 04:34 04:34 WBC 25.9 H RBC Cancelled 2.50 L Hgb Cancelled 7.8 L Hct Cancelled MCV MCH MCHC RDW Plt Count MPV Immature Gran % (Auto) Neut % (Auto) Lymph % (Auto) [place] % (Auto) Eos % (Auto) Baso % (Auto) Lymph # (Auto) [place] # (Auto) Eos # (Auto) Baso # (Auto) Abs Immat Gran (auto) Absolute Neuts (auto) Absolute Nucleated RBC Nucleated RBC % (auto) Neutrophils % (Manual) Band Neutrophils % Lymphocytes % (Manual) Monocytes % (Manual) Eosinophils % (Manual) Myelocytes % Abs Neuts (Manual) Lymphocytes # (Manual) Monocytes # (Manual) Eosinophils # (Manual) Myelocytes # Nucleated RBCs Smudge Cells Toxic Granulation Toxic Vacuolation Dohle Bodies WBC Morphology Comment Platelet Estimate Plt Morphology Comment RBC Morphology Tear Drop Cells Flat Top Cells Acanthocytes (Spur) Smear Path Review VBG pH VBG pCO2 VBG pO2 VBG HCO3 VBG O2 Saturation VBG Base Excess Sodium Potassium Chloride Carbon Dioxide Anion Gap BUN Creatinine Estim Creat Clear Calc Estimated GFR POC Glucose Random Glucose Calcium Phosphorus Magnesium Total Bilirubin AST ALT Alkaline Phosphatase Troponin I High Sens Total Protein Albumin TSH Free T4 Thyroxine (T4) 10/03/23 10/03/23 10/03/23 04:34 04:34 04:34 WBC RBC Hgb Hct 22.7 L MCV Cancelled 90.8 MCH Cancelled 31.2 MCHC Cancelled RDW Plt Count MPV Immature Gran % (Auto) Neut % (Auto) Lymph % (Auto) [place] % (Auto) Eos % (Auto) Baso % (Auto) Lymph # (Auto) [place] # (Auto) Eos # (Auto) Baso # (Auto) Abs Immat Gran (auto) Absolute Neuts (auto) Absolute Nucleated RBC Nucleated RBC % (auto) Neutrophils % (Manual) Band Neutrophils % Lymphocytes % (Manual) Monocytes % (Manual) Eosinophils % (Manual) Myelocytes % Abs Neuts (Manual) Lymphocytes # (Manual) Monocytes # (Manual) Eosinophils # (Manual) Myelocytes # Nucleated RBCs Smudge Cells Toxic Granulation Toxic Vacuolation Dohle Bodies WBC Morphology Comment Platelet Estimate Plt Morphology Comment RBC Morphology Tear Drop Cells Mario Cells Acanthocytes (Spur) Smear Path Review VBG pH VBG pCO2 VBG pO2 VBG HCO3 VBG O2 Saturation VBG Base Excess Sodium Potassium Chloride Carbon Dioxide Anion Gap BUN Creatinine Estim Creat Clear Calc Estimated GFR POC Glucose Random Glucose Calcium Phosphorus Magnesium Total Bilirubin AST ALT Alkaline Phosphatase Troponin I High Sens Total Protein Albumin TSH Free T4 Thyroxine (T4) 10/03/23 10/03/23 10/03/23 04:34 04:34 04:34 WBC RBC Hgb Hct MCV MCH MCHC 34.4 RDW Cancelled 16.4 H Plt Count Cancelled 24 L MPV Cancelled Immature Gran % (Auto) Neut % (Auto) Lymph % (Auto) [place] % (Auto) Eos % (Auto) Baso % (Auto) Lymph # (Auto) [place] # (Auto) Eos # (Auto) Baso # (Auto) Abs Immat Gran (auto) Absolute Neuts (auto) Absolute Nucleated RBC Nucleated RBC % (auto) Neutrophils % (Manual) Band Neutrophils % Lymphocytes % (Manual) Monocytes % (Manual) Eosinophils % (Manual) Myelocytes % Abs Neuts (Manual) Lymphocytes # (Manual) Monocytes # (Manual) Eosinophils # (Manual) Myelocytes # Nucleated RBCs Smudge Cells Toxic Granulation Toxic Vacuolation Dohle Bodies WBC Morphology Comment Platelet Estimate Plt Morphology Comment RBC Morphology Tear Drop Cells Flat Top Cells Acanthocytes (Spur) Smear Path Review VBG pH VBG pCO2 VBG pO2 VBG HCO3 VBG O2 Saturation VBG Base Excess Sodium Potassium Chloride Carbon Dioxide Anion Gap BUN Creatinine Estim Creat Clear Calc Estimated GFR POC Glucose Random Glucose Calcium Phosphorus Magnesium Total Bilirubin AST ALT Alkaline Phosphatase Troponin I High Sens Total Protein Albumin TSH Free T4 Thyroxine (T4) 10/03/23 10/03/23 10/03/23 04:34 04:34 04:34 WBC RBC Hgb Hct MCV MCH MCHC RDW Plt Count MPV 13.1 H Immature Gran % (Auto) Cancelled Cancelled Neut % (Auto) Cancelled Cancelled Lymph % (Auto) Cancelled [place] % (Auto) Eos % (Auto) Baso % (Auto) Lymph # (Auto) [place] # (Auto) Eos # (Auto) Baso # (Auto) Abs Immat Gran (auto) Absolute Neuts (auto) Absolute Nucleated RBC Nucleated RBC % (auto) Neutrophils % (Manual) Band Neutrophils % Lymphocytes % (Manual) Monocytes % (Manual) Eosinophils % (Manual) Myelocytes % Abs Neuts (Manual) Lymphocytes # (Manual) Monocytes # (Manual) Eosinophils # (Manual) Myelocytes # Nucleated RBCs Smudge Cells Toxic Granulation Toxic Vacuolation Dohle Bodies WBC Morphology Comment Platelet Estimate Plt Morphology Comment RBC Morphology Tear Drop Cells Flat Top Cells Acanthocytes (Spur) Smear Path Review VBG pH VBG pCO2 VBG pO2 VBG HCO3 VBG O2 Saturation VBG Base Excess Sodium Potassium Chloride Carbon Dioxide Anion Gap BUN Creatinine Estim Creat Clear Calc Estimated GFR POC Glucose Random Glucose Calcium Phosphorus Magnesium Total Bilirubin AST ALT Alkaline Phosphatase Troponin I High Sens Total Protein Albumin TSH Free T4 Thyroxine (T4) 10/03/23 10/03/23 10/03/23 04:34 04:34 04:34 WBC RBC Hgb Hct MCV MCH MCHC RDW Plt Count MPV Immature Gran % (Auto) Neut % (Auto) Lymph % (Auto) Cancelled [place] % (Auto) Cancelled Cancelled Eos % (Auto) Cancelled Cancelled Baso % (Auto) Cancelled Lymph # (Auto) [place] # (Auto) Eos # (Auto) Baso # (Auto) Abs Immat Gran (auto) Absolute Neuts (auto) Absolute Nucleated RBC Nucleated RBC % (auto) Neutrophils % (Manual) Band Neutrophils % Lymphocytes % (Manual) Monocytes % (Manual) Eosinophils % (Manual) Myelocytes % Abs Neuts (Manual) Lymphocytes # (Manual) Monocytes # (Manual) Eosinophils # (Manual) Myelocytes # Nucleated RBCs Smudge Cells Toxic Granulation Toxic Vacuolation Dohle Bodies WBC Morphology Comment Platelet Estimate Plt Morphology Comment RBC Morphology Tear Drop Cells Flat Top Cells Acanthocytes (Spur) Smear Path Review VBG pH VBG pCO2 VBG pO2 VBG HCO3 VBG O2 Saturation VBG Base Excess Sodium Potassium Chloride Carbon Dioxide Anion Gap BUN Creatinine Estim Creat Clear Calc Estimated GFR POC Glucose Random Glucose Calcium Phosphorus Magnesium Total Bilirubin AST ALT Alkaline Phosphatase Troponin I High Sens Total Protein Albumin TSH Free T4 Thyroxine (T4) 10/03/23 10/03/23 10/03/23 04:34 04:34 04:34 WBC RBC Hgb Hct MCV MCH MCHC RDW Plt Count MPV Immature Gran % (Auto) Neut % (Auto) Lymph % (Auto) [place] % (Auto) Eos % (Auto) Baso % (Auto) Cancelled Lymph # (Auto) Cancelled Cancelled [place] # (Auto) Cancelled Cancelled Eos # (Auto) Cancelled Baso # (Auto) Abs Immat Gran (auto) Absolute Neuts (auto) Absolute Nucleated RBC Nucleated RBC % (auto) Neutrophils % (Manual) Band Neutrophils % Lymphocytes % (Manual) Monocytes % (Manual) Eosinophils % (Manual) Myelocytes % Abs Neuts (Manual) Lymphocytes # (Manual) Monocytes # (Manual) Eosinophils # (Manual) Myelocytes # Nucleated RBCs Smudge Cells Toxic Granulation Toxic Vacuolation Dohle Bodies WBC Morphology Comment Platelet Estimate Plt Morphology Comment RBC Morphology Tear Drop Cells Mario Cells Acanthocytes (Spur) Smear Path Review VBG pH VBG pCO2 VBG pO2 VBG HCO3 VBG O2 Saturation VBG Base Excess Sodium Potassium Chloride Carbon Dioxide Anion Gap BUN Creatinine Estim Creat Clear Calc Estimated GFR POC Glucose Random Glucose Calcium Phosphorus Magnesium Total Bilirubin AST ALT Alkaline Phosphatase Troponin I High Sens Total Protein Albumin TSH Free T4 Thyroxine (T4) 10/03/23 10/03/23 10/03/23 04:34 04:34 04:34 WBC RBC Hgb Hct MCV MCH MCHC RDW Plt Count MPV Immature Gran % (Auto) Neut % (Auto) Lymph % (Auto) [place] % (Auto) Eos % (Auto) Baso % (Auto) Lymph # (Auto) [place] # (Auto) Eos # (Auto) Cancelled Baso # (Auto) Cancelled Cancelled Abs Immat Gran (auto) Cancelled Cancelled Absolute Neuts (auto) Cancelled Absolute Nucleated RBC Nucleated RBC % (auto) Neutrophils % (Manual) Band Neutrophils % Lymphocytes % (Manual) Monocytes % (Manual) Eosinophils % (Manual) Myelocytes % Abs Neuts (Manual) Lymphocytes # (Manual) Monocytes # (Manual) Eosinophils # (Manual) Myelocytes # Nucleated RBCs Smudge Cells Toxic Granulation Toxic Vacuolation Dohle Bodies WBC Morphology Comment Platelet Estimate Plt Morphology Comment RBC Morphology Tear Drop Cells Flat Top Cells Acanthocytes (Spur) Smear Path Review VBG pH VBG pCO2 VBG pO2 VBG HCO3 VBG O2 Saturation VBG Base Excess Sodium Potassium Chloride Carbon Dioxide Anion Gap BUN Creatinine Estim Creat Clear Calc Estimated GFR POC Glucose Random Glucose Calcium Phosphorus Magnesium Total Bilirubin AST ALT Alkaline Phosphatase Troponin I High Sens Total Protein Albumin TSH Free T4 Thyroxine (T4) 10/03/23 10/03/23 10/03/23 04:34 04:34 04:34 WBC RBC Hgb Hct MCV MCH MCHC RDW Plt Count MPV Immature Gran % (Auto) Neut % (Auto) Lymph % (Auto) [place] % (Auto) Eos % (Auto) Baso % (Auto) Lymph # (Auto) [place] # (Auto) Eos # (Auto) Baso # (Auto) Abs Immat Gran (auto) Absolute Neuts (auto) Cancelled Absolute Nucleated RBC Cancelled 0.160 H Nucleated RBC % (auto) Cancelled 0.6 H Neutrophils % (Manual) 81 H Band Neutrophils % 14 H Lymphocytes % (Manual) 1 L Monocytes % (Manual) 3 Eosinophils % (Manual) 1 Myelocytes % Abs Neuts (Manual) 24.6 H Lymphocytes # (Manual) 0.3 L Monocytes # (Manual) 0.8 Eosinophils # (Manual) 0.3 Myelocytes # Nucleated RBCs 1 H Smudge Cells PRESENT Toxic Granulation PRESENT Toxic Vacuolation Dohle Bodies PRESENT WBC Morphology Comment Platelet Estimate DECREASED Plt Morphology Comment NORMAL RBC Morphology NOTED Tear Drop Cells 2+ (3-5) Flat Top Cells 2+ (3-5) Acanthocytes (Spur) Smear Path Review VBG pH 7.34 VBG pCO2 26 VBG pO2 35 VBG HCO3 14 L VBG O2 Saturation 48.0 VBG Base Excess -9.8 Sodium 136 Potassium 5.1 Chloride 95 L Carbon Dioxide 15 L Anion Gap 31 H BUN 84 H Creatinine 5.10 H* Estim Creat Clear Calc 18.9 Estimated GFR 11 POC Glucose Random Glucose 227 H Calcium 7.0 L D Phosphorus 7.9 H Magnesium 2.2 Total Bilirubin 4.4 H AST 865 H ALT 1124 H Alkaline Phosphatase 170 H Troponin I High Sens Total Protein 6.1 L Albumin 3.5 TSH 8.93 H Free T4 Thyroxine (T4) 10/03/23 10/03/23 10/03/23 04:34 05:35 11:01 WBC RBC Hgb Hct MCV MCH MCHC RDW Plt Count MPV Immature Gran % (Auto) Neut % (Auto) Lymph % (Auto) [place] % (Auto) Eos % (Auto) Baso % (Auto) Lymph # (Auto) [place] # (Auto) Eos # (Auto) Baso # (Auto) Abs Immat Gran (auto) Absolute Neuts (auto) Absolute Nucleated RBC Nucleated RBC % (auto) Neutrophils % (Manual) Band Neutrophils % Lymphocytes % (Manual) Monocytes % (Manual) Eosinophils % (Manual) Myelocytes % Abs Neuts (Manual) Lymphocytes # (Manual) Monocytes # (Manual) Eosinophils # (Manual) Myelocytes # Nucleated RBCs Smudge Cells Toxic Granulation Toxic Vacuolation Dohle Bodies WBC Morphology Comment Platelet Estimate Plt Morphology Comment RBC Morphology Tear Drop Cells Mario Cells Acanthocytes (Spur) Smear Path Review VBG pH VBG pCO2 VBG pO2 VBG HCO3 VBG O2 Saturation VBG Base Excess Sodium Potassium Chloride Carbon Dioxide Anion Gap BUN Creatinine Estim Creat Clear Calc Estimated GFR POC Glucose 199 H Random Glucose Calcium Phosphorus Magnesium Total Bilirubin AST ALT Alkaline Phosphatase Troponin I High Sens 865.7 H* D Total Protein Albumin TSH Cancelled Free T4 1.13 Thyroxine (T4) Cancelled 10/03/23 11:06 WBC RBC Hgb Hct MCV MCH MCHC RDW Plt Count MPV Immature Gran % (Auto) Neut % (Auto) Lymph % (Auto) [place] % (Auto) Eos % (Auto) Baso % (Auto) Lymph # (Auto) [place] # (Auto) Eos # (Auto) Baso # (Auto) Abs Immat Gran (auto) Absolute Neuts (auto) Absolute Nucleated RBC Nucleated RBC % (auto) Neutrophils % (Manual) Band Neutrophils % Lymphocytes % (Manual) Monocytes % (Manual) Eosinophils % (Manual) Myelocytes % Abs Neuts (Manual) Lymphocytes # (Manual) Monocytes # (Manual) Eosinophils # (Manual) Myelocytes # Nucleated RBCs Smudge Cells Toxic Granulation Toxic Vacuolation Dohle Bodies WBC Morphology Comment Platelet Estimate Plt Morphology Comment RBC Morphology Tear Drop Cells Flat Top Cells Acanthocytes (Spur) Smear Path Review VBG pH VBG pCO2 VBG pO2 VBG HCO3 VBG O2 Saturation VBG Base Excess Sodium Potassium Chloride Carbon Dioxide Anion Gap BUN Creatinine Estim Creat Clear Calc Estimated GFR POC Glucose 154 H Random Glucose Calcium Phosphorus Magnesium Total Bilirubin AST ALT Alkaline Phosphatase Troponin I High Sens Total Protein Albumin TSH Free T4 Thyroxine (T4) Microbiology Microbiology Results: Microbiology 09/30/23 Unknown Urine Catheterized - Straight Catheter Urine Culture - Preliminary Gram negative deborah 09/28/23 23:08 Blood - Venous Blood Culture - Final Klebsiella pneumoniae 09/28/23 22:51 Blood - Venous Blood Culture - Final Klebsiella pneumoniae 09/29/23 Unknown Urine clean catch - Clean Catch Midstream Urine Culture - Final Enterobacter cloacae complex Procedures Date of Service Date of Service: 10/03/23 Assessment & Plan Assessment and plan (1) Acute kidney failure: Status: Acute Plan LATASHA due to tubular injury Had life-threatening hyperkalemia with metabolic acidosis and worsening renal function Was Urgently dialyzed at that time. Urine output poor; metabolically acidotic Shall dialyze today for 4 hours. Shall increase bicarbonate in the dialysate to 40 She will continue current supportive care for now; shall closely follow-up Progress Note: Quality Stroke Does the patient have a stroke diagnosis?: No
--- NOTE | 2023-10-03 13:25 | PM.CCPN ---
Subjective Subjective Date of Service: 10/03/23 Interval History: 68-year-old gentleman with diabetes mellitus, prostate cancer hypothyroidism history nephrolithiasis admitted on 09/29/2023 with septic shock secondary to Gram-negative bacteremia with source requiring pressor support further complicated by acute kidney failure with anuria and pulmonary edema. Overnight 09/28-09/29 with worsening hypoxia refractory to high-flow nasal cannula support requiring intubation and ventilatory support. CT abdomen/pelvis repeating with no evidence of urinary obstruction, but noted hydronephrosis likely secondary to passing of prior nephrolithiasis. Now status post right urethral stenting. Requiring initiation of hemodialysis support on 10/01/2023. Hospital course further complicated by development of shock liver and disseminated intravascular coagulation. No events overnight. Critical Care Time (minutes): 60 Physical Exam Vital Signs: Vital Signs: Last Vital Signs Temp 98.2 F 10/03/23 12:00 Pulse 76 10/03/23 13:07 Resp 17 10/03/23 12:00 BP 124/73 10/03/23 13:07 Pulse Ox 94 10/03/23 12:00 O2 Del Method Mechanical Ventil ation 10/03/23 12:00 O2 Flow Rate 11 09/29/23 19:20 FiO2 30 10/03/23 12:00 BMI result Body Mass Index 36.2 Const: General: no acute distress and other (Sedated on the vent) Nutritional Appearance: Edematous Eyes: Sclerae: sclerae normal EOM: EOMs intact bilaterally Neck: Neck: Yes no lymphadenopathy, Yes trachea midline and Yes supple Resp: Auscultation: crackles (Bilateral) Cardio: Rate: regular rate Rhythm: regular rhythm Heart sounds: no gallops, no murmurs and no rubs GI: Palpation (GI): Soft to palpation and Other GI palpation findings present ( Nontender) Auscultation: normal bowel sounds Extrem: General: No clubbing, No cyanosis and Yes edema (2+ bilateral) Objective Data Labs 10/03/23 04:34 10/03/23 04:34 Labs: Laboratory Results - last 24 hr 10/02/23 10/02/23 10/02/23 12:24 17:03 18:23 WBC 25.8 H RBC 2.58 L Hgb 8.2 L Hct 23.3 L MCV 90.3 MCH 31.8 MCHC 35.2 RDW 16.3 H Plt Count 25 L MPV 12.2 Immature Gran % (Auto) Cancelled Neut % (Auto) Cancelled Lymph % (Auto) Cancelled [place] % (Auto) Cancelled Eos % (Auto) Cancelled Baso % (Auto) Cancelled Lymph # (Auto) Cancelled [place] # (Auto) Cancelled Eos # (Auto) Cancelled Baso # (Auto) Cancelled Abs Immat Gran (auto) Cancelled Absolute Neuts (auto) Cancelled Absolute Nucleated RBC 0.180 H Nucleated RBC % (auto) 0.7 H Neutrophils % (Manual) 87 H Band Neutrophils % 1 L Lymphocytes % (Manual) 3 L Monocytes % (Manual) 8 Eosinophils % (Manual) Myelocytes % 1 Abs Neuts (Manual) 22.7 H Lymphocytes # (Manual) 0.8 L Monocytes # (Manual) 2.1 H Eosinophils # (Manual) Myelocytes # 0.3 Nucleated RBCs 1 H Smudge Cells PRESENT Toxic Granulation Dohle Bodies PRESENT Platelet Estimate DECREASED Plt Morphology Comment NOTED RBC Morphology NOTED Tear Drop Cells 2+ (3-5) [place] Cells 3+ (>5) Smear Path Review SEE NOTE VBG pH VBG pCO2 VBG pO2 VBG HCO3 VBG O2 Saturation VBG Base Excess Sodium Potassium Chloride Carbon Dioxide Anion Gap BUN Creatinine Estim Creat Clear Calc Estimated GFR POC Glucose 244 H Random Glucose Calcium Phosphorus Magnesium Total Bilirubin AST ALT Alkaline Phosphatase Troponin I High Sens Total Protein Albumin TSH Free T4 Thyroxine (T4) 10/03/23 10/03/23 10/03/23 00:09 04:34 04:34 WBC Cancelled 25.9 H RBC Cancelled Hgb Hct MCV MCH MCHC RDW Plt Count MPV Immature Gran % (Auto) Neut % (Auto) Lymph % (Auto) [place] % (Auto) Eos % (Auto) Baso % (Auto) Lymph # (Auto) [place] # (Auto) Eos # (Auto) Baso # (Auto) Abs Immat Gran (auto) Absolute Neuts (auto) Absolute Nucleated RBC Nucleated RBC % (auto) Neutrophils % (Manual) Band Neutrophils % Lymphocytes % (Manual) Monocytes % (Manual) Eosinophils % (Manual) Myelocytes % Abs Neuts (Manual) Lymphocytes # (Manual) Monocytes # (Manual) Eosinophils # (Manual) Myelocytes # Nucleated RBCs Smudge Cells Toxic Granulation Dohle Bodies Platelet Estimate Plt Morphology Comment RBC Morphology Tear Drop Cells [place] Cells Smear Path Review VBG pH VBG pCO2 VBG pO2 VBG HCO3 VBG O2 Saturation VBG Base Excess Sodium Potassium Chloride Carbon Dioxide Anion Gap BUN Creatinine Estim Creat Clear Calc Estimated GFR POC Glucose 167 H Random Glucose Calcium Phosphorus Magnesium Total Bilirubin AST ALT Alkaline Phosphatase Troponin I High Sens Total Protein Albumin TSH Free T4 Thyroxine (T4) 10/03/23 10/03/23 10/03/23 04:34 04:34 04:34 WBC RBC 2.50 L Hgb Cancelled 7.8 L Hct Cancelled 22.7 L MCV Cancelled MCH MCHC RDW Plt Count MPV Immature Gran % (Auto) Neut % (Auto) Lymph % (Auto) [place] % (Auto) Eos % (Auto) Baso % (Auto) Lymph # (Auto) [place] # (Auto) Eos # (Auto) Baso # (Auto) Abs Immat Gran (auto) Absolute Neuts (auto) Absolute Nucleated RBC Nucleated RBC % (auto) Neutrophils % (Manual) Band Neutrophils % Lymphocytes % (Manual) Monocytes % (Manual) Eosinophils % (Manual) Myelocytes % Abs Neuts (Manual) Lymphocytes # (Manual) Monocytes # (Manual) Eosinophils # (Manual) Myelocytes # Nucleated RBCs Smudge Cells Toxic Granulation Dohle Bodies Platelet Estimate Plt Morphology Comment RBC Morphology Tear Drop Cells [place] Cells Smear Path Review VBG pH VBG pCO2 VBG pO2 VBG HCO3 VBG O2 Saturation VBG Base Excess Sodium Potassium Chloride Carbon Dioxide Anion Gap BUN Creatinine Estim Creat Clear Calc Estimated GFR POC Glucose Random Glucose Calcium Phosphorus Magnesium Total Bilirubin AST ALT Alkaline Phosphatase Troponin I High Sens Total Protein Albumin TSH Free T4 Thyroxine (T4) 10/03/23 10/03/23 10/03/23 04:34 04:34 04:34 WBC RBC Hgb Hct MCV 90.8 MCH Cancelled 31.2 MCHC Cancelled 34.4 RDW Cancelled Plt Count MPV Immature Gran % (Auto) Neut % (Auto) Lymph % (Auto) [place] % (Auto) Eos % (Auto) Baso % (Auto) Lymph # (Auto) [place] # (Auto) Eos # (Auto) Baso # (Auto) Abs Immat Gran (auto) Absolute Neuts (auto) Absolute Nucleated RBC Nucleated RBC % (auto) Neutrophils % (Manual) Band Neutrophils % Lymphocytes % (Manual) Monocytes % (Manual) Eosinophils % (Manual) Myelocytes % Abs Neuts (Manual) Lymphocytes # (Manual) Monocytes # (Manual) Eosinophils # (Manual) Myelocytes # Nucleated RBCs Smudge Cells Toxic Granulation Dohle Bodies Platelet Estimate Plt Morphology Comment RBC Morphology Tear Drop Cells [place] Cells Smear Path Review VBG pH VBG pCO2 VBG pO2 VBG HCO3 VBG O2 Saturation VBG Base Excess Sodium Potassium Chloride Carbon Dioxide Anion Gap BUN Creatinine Estim Creat Clear Calc Estimated GFR POC Glucose Random Glucose Calcium Phosphorus Magnesium Total Bilirubin AST ALT Alkaline Phosphatase Troponin I High Sens Total Protein Albumin TSH Free T4 Thyroxine (T4) 10/03/23 10/03/23 10/03/23 04:34 04:34 04:34 WBC RBC Hgb Hct MCV MCH MCHC RDW 16.4 H Plt Count Cancelled 24 L MPV Cancelled 13.1 H Immature Gran % (Auto) Cancelled Neut % (Auto) Lymph % (Auto) [place] % (Auto) Eos % (Auto) Baso % (Auto) Lymph # (Auto) [place] # (Auto) Eos # (Auto) Baso # (Auto) Abs Immat Gran (auto) Absolute Neuts (auto) Absolute Nucleated RBC Nucleated RBC % (auto) Neutrophils % (Manual) Band Neutrophils % Lymphocytes % (Manual) Monocytes % (Manual) Eosinophils % (Manual) Myelocytes % Abs Neuts (Manual) Lymphocytes # (Manual) Monocytes # (Manual) Eosinophils # (Manual) Myelocytes # Nucleated RBCs Smudge Cells Toxic Granulation Dohle Bodies Platelet Estimate Plt Morphology Comment RBC Morphology Tear Drop Cells [place] Cells Smear Path Review VBG pH VBG pCO2 VBG pO2 VBG HCO3 VBG O2 Saturation VBG Base Excess Sodium Potassium Chloride Carbon Dioxide Anion Gap BUN Creatinine Estim Creat Clear Calc Estimated GFR POC Glucose Random Glucose Calcium Phosphorus Magnesium Total Bilirubin AST ALT Alkaline Phosphatase Troponin I High Sens Total Protein Albumin TSH Free T4 Thyroxine (T4) 10/03/23 10/03/23 10/03/23 04:34 04:34 04:34 WBC RBC Hgb Hct MCV MCH MCHC RDW Plt Count MPV Immature Gran % (Auto) Cancelled Neut % (Auto) Cancelled Cancelled Lymph % (Auto) Cancelled Cancelled [place] % (Auto) Cancelled Eos % (Auto) Baso % (Auto) Lymph # (Auto) [place] # (Auto) Eos # (Auto) Baso # (Auto) Abs Immat Gran (auto) Absolute Neuts (auto) Absolute Nucleated RBC Nucleated RBC % (auto) Neutrophils % (Manual) Band Neutrophils % Lymphocytes % (Manual) Monocytes % (Manual) Eosinophils % (Manual) Myelocytes % Abs Neuts (Manual) Lymphocytes # (Manual) Monocytes # (Manual) Eosinophils # (Manual) Myelocytes # Nucleated RBCs Smudge Cells Toxic Granulation Dohle Bodies Platelet Estimate Plt Morphology Comment RBC Morphology Tear Drop Cells [place] Cells Smear Path Review VBG pH VBG pCO2 VBG pO2 VBG HCO3 VBG O2 Saturation VBG Base Excess Sodium Potassium Chloride Carbon Dioxide Anion Gap BUN Creatinine Estim Creat Clear Calc Estimated GFR POC Glucose Random Glucose Calcium Phosphorus Magnesium Total Bilirubin AST ALT Alkaline Phosphatase Troponin I High Sens Total Protein Albumin TSH Free T4 Thyroxine (T4) 10/03/23 10/03/23 10/03/23 04:34 04:34 04:34 WBC RBC Hgb Hct MCV MCH MCHC RDW Plt Count MPV Immature Gran % (Auto) Neut % (Auto) Lymph % (Auto) [place] % (Auto) Cancelled Eos % (Auto) Cancelled Cancelled Baso % (Auto) Cancelled Cancelled Lymph # (Auto) Cancelled [place] # (Auto) Eos # (Auto) Baso # (Auto) Abs Immat Gran (auto) Absolute Neuts (auto) Absolute Nucleated RBC Nucleated RBC % (auto) Neutrophils % (Manual) Band Neutrophils % Lymphocytes % (Manual) Monocytes % (Manual) Eosinophils % (Manual) Myelocytes % Abs Neuts (Manual) Lymphocytes # (Manual) Monocytes # (Manual) Eosinophils # (Manual) Myelocytes # Nucleated RBCs Smudge Cells Toxic Granulation Dohle Bodies Platelet Estimate Plt Morphology Comment RBC Morphology Tear Drop Cells [place] Cells Smear Path Review VBG pH VBG pCO2 VBG pO2 VBG HCO3 VBG O2 Saturation VBG Base Excess Sodium Potassium Chloride Carbon Dioxide Anion Gap BUN Creatinine Estim Creat Clear Calc Estimated GFR POC Glucose Random Glucose Calcium Phosphorus Magnesium Total Bilirubin AST ALT Alkaline Phosphatase Troponin I High Sens Total Protein Albumin TSH Free T4 Thyroxine (T4) 10/03/23 10/03/23 10/03/23 04:34 04:34 04:34 WBC RBC Hgb Hct MCV MCH MCHC RDW Plt Count MPV Immature Gran % (Auto) Neut % (Auto) Lymph % (Auto) [place] % (Auto) Eos % (Auto) Baso % (Auto) Lymph # (Auto) Cancelled [place] # (Auto) Cancelled Cancelled Eos # (Auto) Cancelled Cancelled Baso # (Auto) Cancelled Abs Immat Gran (auto) Absolute Neuts (auto) Absolute Nucleated RBC Nucleated RBC % (auto) Neutrophils % (Manual) Band Neutrophils % Lymphocytes % (Manual) Monocytes % (Manual) Eosinophils % (Manual) Myelocytes % Abs Neuts (Manual) Lymphocytes # (Manual) Monocytes # (Manual) Eosinophils # (Manual) Myelocytes # Nucleated RBCs Smudge Cells Toxic Granulation Dohle Bodies Platelet Estimate Plt Morphology Comment RBC Morphology Tear Drop Cells [place] Cells Smear Path Review VBG pH VBG pCO2 VBG pO2 VBG HCO3 VBG O2 Saturation VBG Base Excess Sodium Potassium Chloride Carbon Dioxide Anion Gap BUN Creatinine Estim Creat Clear Calc Estimated GFR POC Glucose Random Glucose Calcium Phosphorus Magnesium Total Bilirubin AST ALT Alkaline Phosphatase Troponin I High Sens Total Protein Albumin TSH Free T4 Thyroxine (T4) 10/03/23 10/03/23 10/03/23 04:34 04:34 04:34 WBC RBC Hgb Hct MCV MCH MCHC RDW Plt Count MPV Immature Gran % (Auto) Neut % (Auto) Lymph % (Auto) [place] % (Auto) Eos % (Auto) Baso % (Auto) Lymph # (Auto) [place] # (Auto) Eos # (Auto) Baso # (Auto) Cancelled Abs Immat Gran (auto) Cancelled Cancelled Absolute Neuts (auto) Cancelled Cancelled Absolute Nucleated RBC Cancelled Nucleated RBC % (auto) Neutrophils % (Manual) Band Neutrophils % Lymphocytes % (Manual) Monocytes % (Manual) Eosinophils % (Manual) Myelocytes % Abs Neuts (Manual) Lymphocytes # (Manual) Monocytes # (Manual) Eosinophils # (Manual) Myelocytes # Nucleated RBCs Smudge Cells Toxic Granulation Dohle Bodies Platelet Estimate Plt Morphology Comment RBC Morphology Tear Drop Cells [place] Cells Smear Path Review VBG pH VBG pCO2 VBG pO2 VBG HCO3 VBG O2 Saturation VBG Base Excess Sodium Potassium Chloride Carbon Dioxide Anion Gap BUN Creatinine Estim Creat Clear Calc Estimated GFR POC Glucose Random Glucose Calcium Phosphorus Magnesium Total Bilirubin AST ALT Alkaline Phosphatase Troponin I High Sens Total Protein Albumin TSH Free T4 Thyroxine (T4) 10/03/23 10/03/23 10/03/23 04:34 04:34 04:34 WBC RBC Hgb Hct MCV MCH MCHC RDW Plt Count MPV Immature Gran % (Auto) Neut % (Auto) Lymph % (Auto) [place] % (Auto) Eos % (Auto) Baso % (Auto) Lymph # (Auto) [place] # (Auto) Eos # (Auto) Baso # (Auto) Abs Immat Gran (auto) Absolute Neuts (auto) Absolute Nucleated RBC 0.160 H Nucleated RBC % (auto) Cancelled 0.6 H Neutrophils % (Manual) 81 H Band Neutrophils % 14 H Lymphocytes % (Manual) 1 L Monocytes % (Manual) 3 Eosinophils % (Manual) 1 Myelocytes % Abs Neuts (Manual) 24.6 H Lymphocytes # (Manual) 0.3 L Monocytes # (Manual) 0.8 Eosinophils # (Manual) 0.3 Myelocytes # Nucleated RBCs 1 H Smudge Cells PRESENT Toxic Granulation PRESENT Dohle Bodies PRESENT Platelet Estimate DECREASED Plt Morphology Comment NORMAL RBC Morphology NOTED Tear Drop Cells 2+ (3-5) [place] Cells 2+ (3-5) Smear Path Review VBG pH 7.34 VBG pCO2 26 VBG pO2 35 VBG HCO3 14 L VBG O2 Saturation 48.0 VBG Base Excess -9.8 Sodium 136 Potassium 5.1 Chloride 95 L Carbon Dioxide 15 L Anion Gap 31 H BUN 84 H Creatinine 5.10 H* Estim Creat Clear Calc 18.9 Estimated GFR 11 POC Glucose Random Glucose 227 H Calcium 7.0 L D Phosphorus 7.9 H Magnesium 2.2 Total Bilirubin 4.4 H AST 865 H ALT 1124 H Alkaline Phosphatase 170 H Troponin I High Sens Total Protein 6.1 L Albumin 3.5 TSH 8.93 H Cancelled Free T4 1.13 Thyroxine (T4) Cancelled 10/03/23 10/03/23 10/03/23 05:35 11:01 11:06 WBC RBC Hgb Hct MCV MCH MCHC RDW Plt Count MPV Immature Gran % (Auto) Neut % (Auto) Lymph % (Auto) [place] % (Auto) Eos % (Auto) Baso % (Auto) Lymph # (Auto) [place] # (Auto) Eos # (Auto) Baso # (Auto) Abs Immat Gran (auto) Absolute Neuts (auto) Absolute Nucleated RBC Nucleated RBC % (auto) Neutrophils % (Manual) Band Neutrophils % Lymphocytes % (Manual) Monocytes % (Manual) Eosinophils % (Manual) Myelocytes % Abs Neuts (Manual) Lymphocytes # (Manual) Monocytes # (Manual) Eosinophils # (Manual) Myelocytes # Nucleated RBCs Smudge Cells Toxic Granulation Dohle Bodies Platelet Estimate Plt Morphology Comment RBC Morphology Tear Drop Cells [place] Cells Smear Path Review VBG pH VBG pCO2 VBG pO2 VBG HCO3 VBG O2 Saturation VBG Base Excess Sodium Potassium Chloride Carbon Dioxide Anion Gap BUN Creatinine Estim Creat Clear Calc Estimated GFR POC Glucose 199 H 154 H Random Glucose Calcium Phosphorus Magnesium Total Bilirubin AST ALT Alkaline Phosphatase Troponin I High Sens 865.7 H* D Total Protein Albumin TSH Free T4 Thyroxine (T4) Microbiology Microbiology Results: Microbiology 09/30/23 Unknown Urine Catheterized - Straight Catheter Urine Culture - Preliminary Gram negative deborah 09/28/23 23:08 Blood - Venous Blood Culture - Final Klebsiella pneumoniae 09/28/23 22:51 Blood - Venous Blood Culture - Final Klebsiella pneumoniae 09/29/23 Unknown Urine clean catch - Clean Catch Midstream Urine Culture - Final Enterobacter cloacae complex Progress Note: A&P Assessment and plan (1) Shock liver: Status: Acute (2) Thrombocytopenia: Status: Acute (3) Disseminated intravascular coagulation: Status: Acute (4) Bacteremia due to Klebsiella pneumoniae: Status: Acute (5) Diabetes: Status: Acute (6) Acute respiratory failure with hypoxia: Status: Acute (7) Acute kidney failure: Status: Acute Plan Assessment: 68-year-old gentleman with underlying diabetes mellitus, nephrolithiasis, and prostate cancer admitted with septic shock secondary to gram-negative bacteremia with source further complicated by acute kidney failure with [place] and acute hypoxic respiratory failure. Plan: Neuro: No acute issues. Cardiac: Septic shock, continue to titrate off pressor support as tolerated. Pulmonary edema. Pulmonary: Acute hypoxic respiratory failure secondary to pulmonary edema now requiring ventilatory support, continue to titrate off as tolerated. Renal: Acute kidney failure secondary to septic shock/ATN. Oliguric. Right-sided hydronephrosis. Urology service care appreciated. Now status post right urethral stenting. Continue to monitor renal indices and urine output. Hyperkalemia secondary to ATN requiring initiation of hemodialysis, improved. Nephrology service care appreciated. Endo: No acute issues. Underlying diabetes mellitus and hypothyroidism. GI: Shock liver secondary to septic shock, continue to monitor transaminitis/bilirubin level. ID: Klebsiella bacteremia with source. Continue on Zosyn/Levaquin. Heme/Onc: Disseminated intravascular coagulation with thrombocytopenia secondary to septic shock, continue to monitor. Psych: No acute issues. Miscellaneous: No acute issues. Prophylaxis: Pneumatic compression, ppi Diet: Tube feeds Critical care time spent: 60 minutes Quality Stroke Does the patient have a stroke diagnosis?: No VTE Prior VTE?: No VTE Risk Level:: Medical - moderate - high VTE Device Contraindication: N/A - Device Ordered VTE Drug Contraindication: N/A - Med Ordered
--- NOTE | 2023-10-03 14:29 | MHC.CM.PN ---
Pt continues on ventilatory support in ICU: sedation vacation in progress with plans to extubate today if possible. Pt originally from home w/out services. It is highly likely he will need STR following a lengthly ICU stay. CM to await clinical improvement before making referrals.
[2023-10-03 17:09] LABS: Glucose, Whole Blood 104 mg/dL (60-115)
[2023-10-03] MEDS: propofoL 1,000 MG/100 ML VIAL 14.05 MG IVCONT (19:37)
[2023-10-03 19:48] LABS: NRBC Pct Auto 0.8 /100WBC (0.0-0.2)
[2023-10-03 19:50] LABS: Hemoglobin 8.1 g/dl (14.0-18.0); Mean Corpuscular HGB Conc 35.2 g/dl (31.0-36.0); Mean Corpuscular Volume 88.1 fL (80.0-98.0); Red Blood Count 2.61 X10*6/uL (4.60-5.80); Red Cell Distribution Width 16.3 % (11.0-16.0)
[2023-10-03] MEDS: fentaNYL citrate/PF 100 MCG/2 ML VIAL 50 MCG IVPUSH (19:51)
[2023-10-03 19:56] LABS: PLT ABN DIST 1; Platelet Count 32 X10*3/uL (160-400); WBC ABN SCTR FOR CBC 1
[2023-10-03 20:15] LABS: Band Neutrophils Percent 14 % (3-5); Lymphocytes Absolute Manual 0.3 X10*3/uL (1.2-4.9); Lymphocytes Percent Manual 1 % (20-40); Monocytes Absolute Manual 0.9 X10*3/uL (0.1-1.2); Monocytes Percent Manual 3 % (2-11); Neutrophils Absolute Manual 28.8 X10*3/uL (2.0-8.3); Neutrophils Percent Manual 82 % (45-73); Nucleated Red Blood Cells 2 /100WBC (0-0)
[2023-10-03 20:17] LABS: Acanthocytes 1+ (0-2) /OIF; Burr Cells 2+ (3-5) /OIF; Dohle Bodies PRESENT; Large Platelet PRESENT; Macrocytosis 1+ (5-14) /OIF; Platelet Estimate DECREASED (NORMAL); Platelet Morphology Comment NOTED; RBC Morphology NOTED; Smudge Cells PRESENT; Tear Drop Cells 1+ (0-2) /OIF; Toxic Granulation PRESENT; Toxic Vacuolation PRESENT
[2023-10-03 20:23] LABS: Albumin Level 3.3 g/dL (3.5-5.0); Anion Gap 29 (12-20); Blood Urea Nitrogen 61 mg/dL (9-16); Calcium 7.1 mg/dL (8.4-10.2); Carbon Dioxide 14 mmol/L (22-29); Chloride 96 mmol/L (96-108); Creatinine Clr Calc Pharmacy 26.4; Estimated Glomerular Filt Rate 17; Glucose Random 175 mg/dL (60-115); Magnesium 2.1 mg/dL (1.6-2.6); Phosphorus 6.2 mg/dL (2.7-4.5); Potassium 4.4 mmol/L (3.3-5.1); Sodium 135 mmol/L (135-145)
[2023-10-03] MEDS: Sodium Bicarbonate 8.4% 50 MEQ/50 ML SYRINGE IVPUSH ×2 (20:29→23:59)
[2023-10-03] MEDS: Norepinephrine Bitartrate/NS 32 MG/250 ML PLAST..BAG 13.17 MG IVCONT (21:52)
[2023-10-04] VITALS (41 sets, daily range): BP systolic 90–146; BP diastolic 40–92; PULSE 69–140; RESP 12–25; TEMP 34.9–37.3; O2SAT 90–96; BMI 36.4
--- NOTE | 2023-10-04 | ECG_ITS ---
Test Reason : ST changes Blood Pressure : / mmHG Vent. Rate : 082 BPM Atrial Rate : 000 BPM P-R Int : 000 ms QRS Dur : 132 ms QT Int : 440 ms P-R-T Axes : 000 103 003 degrees QTc Int : 514 ms Normal sinus rhythm Non-specific intra-ventricular conduction block [place] Lateral infarct , possibly acute ACUTE [place] / STEMI Abnormal ECG When compared with ECG of 04-OCT-2023 03:56, No significant changes seen Referred By: Blaise Nash Electronically Signed By:Domingo Avitia
[2023-10-04 00:11] LABS: Glucose, Whole Blood < 10 mg/dL (60-115)
[2023-10-04] MEDS: Dextrose 10 % 250 ML 750 ML IV (00:12)
[2023-10-04 00:57] LABS: Glucose, Whole Blood 60 mg/dL (60-115)
[2023-10-04] MEDS: propofoL 1,000 MG/100 ML VIAL 14.05 MG IVCONT ×2 (01:21→20:36)
[2023-10-04 01:27] LABS: Anion Gap 32 (12-20); Blood Urea Nitrogen 70 mg/dL (9-16); Calcium 7.6 mg/dL (8.4-10.2); Carbon Dioxide 14 mmol/L (22-29); Chloride 94 mmol/L (96-108); Creatinine Clr Calc Pharmacy 22.1; Estimated Glomerular Filt Rate 14; Glucose Random 273 mg/dL (60-115); Sodium 135 mmol/L (135-145)
[2023-10-04] MEDS: Piperacillin Sodium/Tazobactam 2.25 GM in 0.9 % Sodium Chloride 50 ML IV ×4 (02:51→22:15)
[2023-10-04] MEDS: Sodium Bicarbonate 8.4% 50 MEQ/50 ML SYRINGE IVPUSH ×2 (02:51→16:10)
[2023-10-04] MEDS: Hydrocortisone Sod Succ/PF 100 MG VIAL 50 MG IVPUSH ×2 (02:52→07:37)
--- NOTE | 2023-10-04 03:18 | PC.NURSE ---
0000 POC read LOW on glucometer, MEDICAL DOCTOR MD made aware, 250ml of D10 at 750ml/hr hung, glucometer QC completed now order for BMP, lab results showed random glucose read 400's Pricing Manager made aware, Lab drawn from dialysis pigtail, d10 running in TLC, line was flushed and waste was drawn prior to drawing lab, New stat order for BMP, POC recheck reads 60 , fingers are noted to be dusky and cool to touch since start of shift, new lab draw shows random glucose 273, Pricing Manager aware, lab held previous random glucose as contaminated, MEDICAL DOCTOR MD states will go by lab draw at this time.
--- NOTE | 2023-10-04 03:54 | ECG_ITS ---
Test Reason : Rhythm change Blood Pressure : / mmHG Vent. Rate : 073 BPM Atrial Rate : 073 BPM P-R Int : 154 ms QRS Dur : 096 ms QT Int : 410 ms P-R-T Axes : 060 022 067 degrees QTc Int : 451 ms Normal sinus rhythm Low voltage QRS ST elevation consider anterolateral injury or acute infarct ACUTE [place] / STEMI Abnormal ECG When compared with ECG of 03-OCT-2023 10:38, No significant change was found Referred By: Lance Montiel Electronically Signed By:Domingo Avitia
[2023-10-04 04:10] LABS: VBG Base Excess -9.1 mmol/L; VBG HCO3 14 mmol/L (22-26); VBG pCO2 23 mmHg; VBG pH 7.38 (7.32-7.43); VBG pO2 47 mmHg
[2023-10-04 04:14] LABS: Hematocrit 22.8 % (42.0-52.0); Hemoglobin 8.2 g/dl (14.0-18.0); Mean Corpuscular Hemoglobin 31.5 pg (27.0-33.0); Mean Corpuscular Volume 87.7 fL (80.0-98.0); NRBC Pct Auto 0.9 /100WBC (0.0-0.2); Red Cell Distribution Width 16.5 % (11.0-16.0)
[2023-10-04 04:16] LABS: Platelet Count 46 X10*3/uL (160-400); WBC ABN SCTR FOR CBC 1
[2023-10-04 04:17] LABS: White Blood Count 31.5 X10*3/uL (4.8-10.8)
[2023-10-04 04:34] LABS: Alanine Aminotransferase 1007 U/L (0-40); Albumin Level 3.1 g/dL (3.5-5.0); Alkaline Phosphatase 199 U/L (39-117); Anion Gap 32 (12-20); Aspartate Amino Transferase 449 U/L (5-37); Bilirubin Total 4.7 mg/dL (0.0-1.0); Blood Urea Nitrogen 75 mg/dL (9-16); Calcium 7.4 mg/dL (8.4-10.2); Carbon Dioxide 15 mmol/L (22-29); Chloride 94 mmol/L (96-108); Creatinine Clr Calc Pharmacy 20.9; Estimated Glomerular Filt Rate 13; Glucose Random 276 mg/dL (60-115); Magnesium 2.3 mg/dL (1.6-2.6); Phosphorus 8.1 mg/dL (2.7-4.5); Potassium 5.2 mmol/L (3.3-5.1); Sodium 136 mmol/L (135-145); Total Protein 5.8 g/dL (6.5-8.0)
[2023-10-04 04:40] LABS: Troponin-I High Sensitivity 544.7 ng/L (<3.5-35.0)
[2023-10-04 04:46] LABS: Band Neutrophils Percent 17 % (3-5); Eosinophils Absolute Manual 0.3 X10*3/uL (0.0-0.4); Eosinophils Percent Manual 1 % (0-4); Lymphocytes Absolute Manual 0.3 X10*3/uL (1.2-4.9); Lymphocytes Percent Manual 1 % (20-40); Metamyelocytes Absolute 0.3 X10*3/uL; Metamyelocytes Percent 1 %; Monocytes Absolute Manual 0.9 X10*3/uL (0.1-1.2); Monocytes Percent Manual 3 % (2-11); Neutrophils Absolute Manual 29.6 X10*3/uL (2.0-8.3); Neutrophils Percent Manual 77 % (45-73); Nucleated Red Blood Cells 2 /100WBC (0-0)
[2023-10-04 04:47] LABS: Acanthocytes 1+ (0-2) /OIF; Burr Cells 1+ (0-2) /OIF; Dohle Bodies PRESENT; Large Platelet PRESENT; Platelet Estimate DECREASED (NORMAL); Platelet Morphology Comment NOTED; RBC Morphology NOTED; Smudge Cells PRESENT; Tear Drop Cells 1+ (0-2) /OIF; Toxic Granulation PRESENT; Toxic Vacuolation PRESENT
[2023-10-04 05:09] LABS: B Type Natriuretic Peptide 12088 pg/mL (<100)
[2023-10-04] MEDS: Pantoprazole Sodium 40 MG/10 ML VIAL IVPUSH ×2 (05:23→16:22)
[2023-10-04] MEDS: Levothyroxine Sodium 100 MCG/5 ML VIAL 200 MCG IVPUSH ×2 (05:23→22:14)
[2023-10-04 05:24] LABS: Glucose, Whole Blood 216 mg/dL (60-115)
[2023-10-04] MEDS: Calcium Gluconate/NaCl,Iso-Osm 2 GM/100 ML PLAST..BAG IV ×3 (05:24→23:21)
[2023-10-04 06:09] LABS: Venous Blood Gas Refer to POC result
[2023-10-04] MEDS: Albumin Human 25 % 100 ML IV ×2 (07:36→13:49)
[2023-10-04] MEDS: Lidocaine 4 % Patch ADH..PATCH 2 PATCH TRANSDERMA (07:37)
[2023-10-04] MEDS: Chlorhexidine Gluc Oral Rinse 15 ML MOUTHWASH BUCCAL ×3 (07:37→22:14)
[2023-10-04] MEDS: 0.9 % Sodium Chloride Flush 3 ML SYRINGE IVFLUSH ×2 (07:37→15:15)
--- NOTE | 2023-10-04 09:39 | P.PNCC_ITS ---
Subjective Subjective Date of Service: 10/04/23 Interval History: 68-year-old gentleman with diabetes mellitus, prostate cancer hypothyroidism history nephrolithiasis admitted on 09/29/2023 with septic shock secondary to Gram-negative bacteremia with source requiring pressor support further complicated by acute kidney failure with anuria and pulmonary edema. Overnight 09/28-09/29 with worsening hypoxia refractory to high-flow nasal cannula support requiring intubation and ventilatory support. CT abdomen/pelvis repeating with no evidence of urinary obstruction, but noted hydronephrosis likely secondary to passing of prior nephrolithiasis. Now status post right urethral stenting. Requiring initiation of hemodialysis support on 10/01/2023. Hospital course further complicated by shock liver and disseminated intravascular coagulation. No events overnight. Critical Care Time (minutes): 60 Physical Exam 2 Vital Signs: Vital Signs: Last Vital Signs Temp 98.4 F 10/04/23 09:00 Pulse 69 10/04/23 09:04 Resp 20 10/04/23 09:00 BP 122/68 10/04/23 09:04 Pulse Ox 91 L 10/04/23 09:00 O2 Del Method Mechanical Ventil ation 10/04/23 09:00 O2 Flow Rate 11 09/29/23 19:20 FiO2 30 10/04/23 09:09 BMI result Body Mass Index 36.4 Const: General: no acute distress and other (Sedated on the vent) N utritional Appearance: Edematous Eyes: Sclerae: sclerae normal EOM: EOMs intact bilaterally Neck: Neck: Yes no lymphadenopathy, Yes trachea midline and Yes supple Resp: Effort & Inspection: no respiratory distress Auscultation: crackles (Bilateral) Cardio: Rate: regular rate Rhythm: regular rhythm Heart sounds: no gallops, no murmurs and no rubs GI: Palpation (GI): Soft to palpation and Other GI palpation findings present ( Nontender) Auscultation: normal bowel sounds Extrem: General: No clubbing, No cyanosis and Yes edema (2+ bilateral) Objective Data Labs 10/04/23 04:04 10/04/23 04:04 Labs: Laboratory Results - last 24 hr 10/03/23 10/03/23 10/03/23 11:01 11:06 17:06 WBC RBC Hgb Hct MCV MCH MCHC RDW Plt Count MPV Immature Gran % (Auto) Neut % (Auto) Lymph % (Auto) [place] % (Auto) Eos % (Auto) Baso % (Auto) Lymph # (Auto) [place] # (Auto) Eos # (Auto) Baso # (Auto) Abs Immat Gran (auto) Absolute Neuts (auto) Absolute Nucleated RBC Nucleated RBC % (auto) Neutrophils % (Manual) Band Neutrophils % Lymphocytes % (Manual) Monocytes % (Manual) Eosinophils % (Manual) Metamyelocytes % Abs Neuts (Manual) Lymphocytes # (Manual) Monocytes # (Manual) Eosinophils # (Manual) Metamyelocytes # Nucleated RBCs Smudge Cells Toxic Granulation Toxic Vacuolation Dohle Bodies Platelet Estimate Large Platelets Plt Morphology Comment RBC Morphology Macrocytosis Tear Drop Cells [place] Cells Acanthocytes (Spur) VBG pH VBG pCO2 VBG pO2 VBG HCO3 VBG O2 Saturation VBG Base Excess Sodium Potassium Chloride Carbon Dioxide Anion Gap BUN Creatinine Estim Creat Clear Calc Estimated GFR POC Glucose 154 H 104 Random Glucose Calcium Phosphorus Magnesium Total Bilirubin AST ALT Alkaline Phosphatase Troponin I High Sens 865.7 H* D B-Natriuretic Peptide Total Protein Albumin 10/03/23 10/04/23 10/04/23 19:24 00:07 00:14 WBC 30.0 H* RBC 2.61 L Hgb 8.1 L Hct 23.0 L MCV 88.1 MCH 31.0 MCHC 35.2 RDW 16.3 H Plt Count 32 L D MPV TNP Immature Gran % (Auto) Cancelled Neut % (Auto) Cancelled Lymph % (Auto) Cancelled [place] % (Auto) Cancelled Eos % (Auto) Cancelled Baso % (Auto) Cancelled Lymph # (Auto) Cancelled [place] # (Auto) Cancelled Eos # (Auto) Cancelled Baso # (Auto) Cancelled Abs Immat Gran (auto) Cancelled Absolute Neuts (auto) Cancelled Absolute Nucleated RBC 0.230 H Nucleated RBC % (auto) 0.8 H Neutrophils % (Manual) 82 H Band Neutrophils % 14 H Lymphocytes % (Manual) 1 L Monocytes % (Manual) 3 Eosinophils % (Manual) Metamyelocytes % Abs Neuts (Manual) 28.8 H Lymphocytes # (Manual) 0.3 L Monocytes # (Manual) 0.9 Eosinophils # (Manual) Metamyelocytes # Nucleated RBCs 2 H Smudge Cells PRESENT Toxic Granulation PRESENT Toxic Vacuolation PRESENT Dohle Bodies PRESENT Platelet Estimate DECREASED Large Platelets PRESENT Plt Morphology Comment NOTED RBC Morphology NOTED Macrocytosis 1+ (5-14) Tear Drop Cells 1+ (0-2) Mario Cells 2+ (3-5) Acanthocytes (Spur) 1+ (0-2) VBG pH VBG pCO2 VBG pO2 VBG HCO3 VBG O2 Saturation VBG Base Excess Sodium 135 Cancelled Potassium 4.4 Cancelled Chloride 96 Cancelled Carbon Dioxide 14 L Cancelled Anion Gap 29 H Cancelled BUN 61 H Cancelled Creatinine 3.65 H Cancelled Estim Creat Clear Calc 26.4 Cancelled Estimated GFR 17 Cancelled POC Glucose < 10 L* Random Glucose 175 H Cancelled Calcium 7.1 L Cancelled Phosphorus 6.2 H Magnesium 2.1 Total Bilirubin AST ALT Alkaline Phosphatase Troponin I High Sens B-Natriuretic Peptide Total Protein Albumin 3.3 L 10/04/23 10/04/23 10/04/23 00:53 01:05 04:00 WBC RBC Hgb Hct MCV MCH MCHC RDW Plt Count MPV Immature Gran % (Auto) Neut % (Auto) Lymph % (Auto) [place] % (Auto) Eos % (Auto) Baso % (Auto) Lymph # (Auto) [place] # (Auto) Eos # (Auto) Baso # (Auto) Abs Immat Gran (auto) Absolute Neuts (auto) Absolute Nucleated RBC Nucleated RBC % (auto) Neutrophils % (Manual) Band Neutrophils % Lymphocytes % (Manual) Monocytes % (Manual) Eosinophils % (Manual) Metamyelocytes % Abs Neuts (Manual) Lymphocytes # (Manual) Monocytes # (Manual) Eosinophils # (Manual) Metamyelocytes # Nucleated RBCs Smudge Cells Toxic Granulation Toxic Vacuolation Dohle Bodies Platelet Estimate Large Platelets Plt Morphology Comment RBC Morphology Macrocytosis Tear Drop Cells Mario Cells Acanthocytes (Spur) VBG pH 7.38 VBG pCO2 23 VBG pO2 47 VBG HCO3 14 L VBG O2 Saturation 67.0 VBG Base Excess -9.1 Sodium 135 Potassium 5.0 Chloride 94 L Carbon Dioxide 14 L Anion Gap 32 H BUN 70 H Creatinine 4.36 H* Estim Creat Clear Calc 22.1 Estimated GFR 14 POC Glucose 60 Random Glucose 273 H Calcium 7.6 L D Phosphorus Magnesium Total Bilirubin AST ALT Alkaline Phosphatase Troponin I High Sens B-Natriuretic Peptide Total Protein Albumin 10/04/23 10/04/23 10/04/23 04:04 04:04 04:04 WBC Cancelled 31.5 H* RBC Cancelled 2.60 L Hgb Cancelled Hct MCV MCH MCHC RDW Plt Count MPV Immature Gran % (Auto) Neut % (Auto) Lymph % (Auto) [place] % (Auto) Eos % (Auto) Baso % (Auto) Lymph # (Auto) [place] # (Auto) Eos # (Auto) Baso # (Auto) Abs Immat Gran (auto) Absolute Neuts (auto) Absolute Nucleated RBC Nucleated RBC % (auto) Neutrophils % (Manual) Band Neutrophils % Lymphocytes % (Manual) Monocytes % (Manual) Eosinophils % (Manual) Metamyelocytes % Abs Neuts (Manual) Lymphocytes # (Manual) Monocytes # (Manual) Eosinophils # (Manual) Metamyelocytes # Nucleated RBCs Smudge Cells Toxic Granulation Toxic Vacuolation Dohle Bodies Platelet Estimate Large Platelets Plt Morphology Comment RBC Morphology Macrocytosis Tear Drop Cells Mario Cells Acanthocytes (Spur) VBG pH VBG pCO2 VBG pO2 VBG HCO3 VBG O2 Saturation VBG Base Excess Sodium Potassium Chloride Carbon Dioxide Anion Gap BUN Creatinine Estim Creat Clear Calc Estimated GFR POC Glucose Random Glucose Calcium Phosphorus Magnesium Total Bilirubin AST ALT Alkaline Phosphatase Troponin I High Sens B-Natriuretic Peptide Total Protein Albumin 10/04/23 10/04/23 10/04/23 04:04 04:04 04:04 WBC RBC Hgb 8.2 L Hct Cancelled 22.8 L MCV Cancelled 87.7 MCH Cancelled MCHC RDW Plt Count MPV Immature Gran % (Auto) Neut % (Auto) Lymph % (Auto) [place] % (Auto) Eos % (Auto) Baso % (Auto) Lymph # (Auto) [place] # (Auto) Eos # (Auto) Baso # (Auto) Abs Immat Gran (auto) Absolute Neuts (auto) Absolute Nucleated RBC Nucleated RBC % (auto) Neutrophils % (Manual) Band Neutrophils % Lymphocytes % (Manual) Monocytes % (Manual) Eosinophils % (Manual) Metamyelocytes % Abs Neuts (Manual) Lymphocytes # (Manual) Monocytes # (Manual) Eosinophils # (Manual) Metamyelocytes # Nucleated RBCs Smudge Cells Toxic Granulation Toxic Vacuolation Dohle Bodies Platelet Estimate Large Platelets Plt Morphology Comment RBC Morphology Macrocytosis Tear Drop Cells Mario Cells Acanthocytes (Spur) VBG pH VBG pCO2 VBG pO2 VBG HCO3 VBG O2 Saturation VBG Base Excess Sodium Potassium Chloride Carbon Dioxide Anion Gap BUN Creatinine Estim Creat Clear Calc Estimated GFR POC Glucose Random Glucose Calcium Phosphorus Magnesium Total Bilirubin AST ALT Alkaline Phosphatase Troponin I High Sens B-Natriuretic Peptide Total Protein Albumin 10/04/23 10/04/23 10/04/23 04:04 04:04 04:04 WBC RBC Hgb Hct MCV MCH 31.5 MCHC Cancelled 36.0 RDW Cancelled 16.5 H Plt Count Cancelled MPV Immature Gran % (Auto) Neut % (Auto) Lymph % (Auto) [place] % (Auto) Eos % (Auto) Baso % (Auto) Lymph # (Auto) [place] # (Auto) Eos # (Auto) Baso # (Auto) Abs Immat Gran (auto) Absolute Neuts (auto) Absolute Nucleated RBC Nucleated RBC % (auto) Neutrophils % (Manual) Band Neutrophils % Lymphocytes % (Manual) Monocytes % (Manual) Eosinophils % (Manual) Metamyelocytes % Abs Neuts (Manual) Lymphocytes # (Manual) Monocytes # (Manual) Eosinophils # (Manual) Metamyelocytes # Nucleated RBCs Smudge Cells Toxic Granulation Toxic Vacuolation Dohle Bodies Platelet Estimate Large Platelets Plt Morphology Comment RBC Morphology Macrocytosis Tear Drop Cells [place] Cells Acanthocytes (Spur) VBG pH VBG pCO2 VBG pO2 VBG HCO3 VBG O2 Saturation VBG Base Excess Sodium Potassium Chloride Carbon Dioxide Anion Gap BUN Creatinine Estim Creat Clear Calc Estimated GFR POC Glucose Random Glucose Calcium Phosphorus Magnesium Total Bilirubin AST ALT Alkaline Phosphatase Troponin I High Sens B-Natriuretic Peptide Total Protein Albumin 10/04/23 10/04/23 10/04/23 04:04 04:04 04:04 WBC RBC Hgb Hct MCV MCH MCHC RDW Plt Count 46 L D MPV Cancelled TNP Immature Gran % (Auto) Cancelled Cancelled Neut % (Auto) Cancelled Lymph % (Auto) [place] % (Auto) Eos % (Auto) Baso % (Auto) Lymph # (Auto) [place] # (Auto) Eos # (Auto) Baso # (Auto) Abs Immat Gran (auto) Absolute Neuts (auto) Absolute Nucleated RBC Nucleated RBC % (auto) Neutrophils % (Manual) Band Neutrophils % Lymphocytes % (Manual) Monocytes % (Manual) Eosinophils % (Manual) Metamyelocytes % Abs Neuts (Manual) Lymphocytes # (Manual) Monocytes # (Manual) Eosinophils # (Manual) Metamyelocytes # Nucleated RBCs Smudge Cells Toxic Granulation Toxic Vacuolation Dohle Bodies Platelet Estimate Large Platelets Plt Morphology Comment RBC Morphology Macrocytosis Tear Drop Cells [place] Cells Acanthocytes (Spur) VBG pH VBG pCO2 VBG pO2 VBG HCO3 VBG O2 Saturation VBG Base Excess Sodium Potassium Chloride Carbon Dioxide Anion Gap BUN Creatinine Estim Creat Clear Calc Estimated GFR POC Glucose Random Glucose Calcium Phosphorus Magnesium Total Bilirubin AST ALT Alkaline Phosphatase Troponin I High Sens B-Natriuretic Peptide Total Protein Albumin 10/04/23 10/04/23 10/04/23 04:04 04:04 04:04 WBC RBC Hgb Hct MCV MCH MCHC RDW Plt Count MPV Immature Gran % (Auto) Neut % (Auto) Cancelled Lymph % (Auto) Cancelled Cancelled [place] % (Auto) Cancelled Cancelled Eos % (Auto) Cancelled Baso % (Auto) Lymph # (Auto) [place] # (Auto) Eos # (Auto) Baso # (Auto) Abs Immat Gran (auto) Absolute Neuts (auto) Absolute Nucleated RBC Nucleated RBC % (auto) Neutrophils % (Manual) Band Neutrophils % Lymphocytes % (Manual) Monocytes % (Manual) Eosinophils % (Manual) Metamyelocytes % Abs Neuts (Manual) Lymphocytes # (Manual) Monocytes # (Manual) Eosinophils # (Manual) Metamyelocytes # Nucleated RBCs Smudge Cells Toxic Granulation Toxic Vacuolation Dohle Bodies Platelet Estimate Large Platelets Plt Morphology Comment RBC Morphology Macrocytosis Tear Drop Cells Mario Cells Acanthocytes (Spur) VBG pH VBG pCO2 VBG pO2 VBG HCO3 VBG O2 Saturation VBG Base Excess Sodium Potassium Chloride Carbon Dioxide Anion Gap BUN Creatinine Estim Creat Clear Calc Estimated GFR POC Glucose Random Glucose Calcium Phosphorus Magnesium Total Bilirubin AST ALT Alkaline Phosphatase Troponin I High Sens B-Natriuretic Peptide Total Protein Albumin 10/04/23 10/04/23 10/04/23 04:04 04:04 04:04 WBC RBC Hgb Hct MCV MCH MCHC RDW Plt Count MPV Immature Gran % (Auto) Neut % (Auto) Lymph % (Auto) [place] % (Auto) Eos % (Auto) Cancelled Baso % (Auto) Cancelled Cancelled Lymph # (Auto) Cancelled Cancelled [place] # (Auto) Cancelled Eos # (Auto) Baso # (Auto) Abs Immat Gran (auto) Absolute Neuts (auto) Absolute Nucleated RBC Nucleated RBC % (auto) Neutrophils % (Manual) Band Neutrophils % Lymphocytes % (Manual) Monocytes % (Manual) Eosinophils % (Manual) Metamyelocytes % Abs Neuts (Manual) Lymphocytes # (Manual) Monocytes # (Manual) Eosinophils # (Manual) Metamyelocytes # Nucleated RBCs Smudge Cells Toxic Granulation Toxic Vacuolation Dohle Bodies Platelet Estimate Large Platelets Plt Morphology Comment RBC Morphology Macrocytosis Tear Drop Cells [place] Cells Acanthocytes (Spur) VBG pH VBG pCO2 VBG pO2 VBG HCO3 VBG O2 Saturation VBG Base Excess Sodium Potassium Chloride Carbon Dioxide Anion Gap BUN Creatinine Estim Creat Clear Calc Estimated GFR POC Glucose Random Glucose Calcium Phosphorus Magnesium Total Bilirubin AST ALT Alkaline Phosphatase Troponin I High Sens B-Natriuretic Peptide Total Protein Albumin 10/04/23 10/04/23 10/04/23 04:04 04:04 04:04 WBC RBC Hgb Hct MCV MCH MCHC RDW Plt Count MPV Immature Gran % (Auto) Neut % (Auto) Lymph % (Auto) [place] % (Auto) Eos % (Auto) Baso % (Auto) Lymph # (Auto) [place] # (Auto) Cancelled Eos # (Auto) Cancelled Cancelled Baso # (Auto) Cancelled Cancelled Abs Immat Gran (auto) Cancelled Absolute Neuts (auto) Absolute Nucleated RBC Nucleated RBC % (auto) Neutrophils % (Manual) Band Neutrophils % Lymphocytes % (Manual) Monocytes % (Manual) Eosinophils % (Manual) Metamyelocytes % Abs Neuts (Manual) Lymphocytes # (Manual) Monocytes # (Manual) Eosinophils # (Manual) Metamyelocytes # Nucleated RBCs Smudge Cells Toxic Granulation Toxic Vacuolation Dohle Bodies Platelet Estimate Large Platelets Plt Morphology Comment RBC Morphology Macrocytosis Tear Drop Cells Mario Cells Acanthocytes (Spur) VBG pH VBG pCO2 VBG pO2 VBG HCO3 VBG O2 Saturation VBG Base Excess Sodium Potassium Chloride Carbon Dioxide Anion Gap BUN Creatinine Estim Creat Clear Calc Estimated GFR POC Glucose Random Glucose Calcium Phosphorus Magnesium Total Bilirubin AST ALT Alkaline Phosphatase Troponin I High Sens B-Natriuretic Peptide Total Protein Albumin 10/04/23 10/04/23 10/04/23 04:04 04:04 04:04 WBC RBC Hgb Hct MCV MCH MCHC RDW Plt Count MPV Immature Gran % (Auto) Neut % (Auto) Lymph % (Auto) [place] % (Auto) Eos % (Auto) Baso % (Auto) Lymph # (Auto) [place] # (Auto) Eos # (Auto) Baso # (Auto) Abs Immat Gran (auto) Cancelled Absolute Neuts (auto) Cancelled Cancelled Absolute Nucleated RBC Cancelled 0.280 H Nucleated RBC % (auto) Cancelled Neutrophils % (Manual) Band Neutrophils % Lymphocytes % (Manual) Monocytes % (Manual) Eosinophils % (Manual) Metamyelocytes % Abs Neuts (Manual) Lymphocytes # (Manual) Monocytes # (Manual) Eosinophils # (Manual) Metamyelocytes # Nucleated RBCs Smudge Cells Toxic Granulation Toxic Vacuolation Dohle Bodies Platelet Estimate Large Platelets Plt Morphology Comment RBC Morphology Macrocytosis Tear Drop Cells Mario Cells Acanthocytes (Spur) VBG pH VBG pCO2 VBG pO2 VBG HCO3 VBG O2 Saturation VBG Base Excess Sodium Potassium Chloride Carbon Dioxide Anion Gap BUN Creatinine Estim Creat Clear Calc Estimated GFR POC Glucose Random Glucose Calcium Phosphorus Magnesium Total Bilirubin AST ALT Alkaline Phosphatase Troponin I High Sens B-Natriuretic Peptide Total Protein Albumin 10/04/23 10/04/23 04:04 05:19 WBC RBC Hgb Hct MCV MCH MCHC RDW Plt Count MPV Immature Gran % (Auto) Neut % (Auto) Lymph % (Auto) [place] % (Auto) Eos % (Auto) Baso % (Auto) Lymph # (Auto) [place] # (Auto) Eos # (Auto) Baso # (Auto) Abs Immat Gran (auto) Absolute Neuts (auto) Absolute Nucleated RBC Nucleated RBC % (auto) 0.9 H Neutrophils % (Manual) 77 H Band Neutrophils % 17 H Lymphocytes % (Manual) 1 L Monocytes % (Manual) 3 Eosinophils % (Manual) 1 Metamyelocytes % 1 Abs Neuts (Manual) 29.6 H Lymphocytes # (Manual) 0.3 L Monocytes # (Manual) 0.9 Eosinophils # (Manual) 0.3 Metamyelocytes # 0.3 Nucleated RBCs 2 H Smudge Cells PRESENT Toxic Granulation PRESENT Toxic Vacuolation PRESENT Dohle Bodies PRESENT Platelet Estimate DECREASED Large Platelets PRESENT Plt Morphology Comment NOTED RBC Morphology NOTED Macrocytosis Tear Drop Cells 1+ (0-2) [place] Cells 1+ (0-2) Acanthocytes (Spur) 1+ (0-2) VBG pH VBG pCO2 VBG pO2 VBG HCO3 VBG O2 Saturation VBG Base Excess Sodium 136 Potassium 5.2 H Chloride 94 L Carbon Dioxide 15 L Anion Gap 32 H BUN 75 H Creatinine 4.60 H* Estim Creat Clear Calc 20.9 Estimated GFR 13 POC Glucose 216 H Random Glucose 276 H Calcium 7.4 L Phosphorus 8.1 H Magnesium 2.3 Total Bilirubin 4.7 H AST 449 H ALT 1007 H Alkaline Phosphatase 199 H Troponin I High Sens 544.7 H* B-Natriuretic Peptide 04471 H Total Protein 5.8 L Albumin 3.1 L Microbiology Microbiology Results: Microbiology 09/30/23 Unknown Urine Catheterized - Straight Catheter Urine Culture - Final Klebsiella pneumoniae 09/28/23 23:08 Blood - Venous Blood Culture - Final Klebsiella pneumoniae 09/28/23 22:51 Blood - Venous Blood Culture - Final Klebsiella pneumoniae 09/29/23 Unknown Urine clean catch - Clean Catch Midstream Urine Culture - Final Enterobacter cloacae complex Progress Note: A&P Assessment and plan (1) Shock liver: Status: Acute (2) Thrombocytopenia: Status: Acute (3) Disseminated intravascular coagulation: Status: Acute (4) Bacteremia due to Klebsiella pneumoniae: Status: Acute (5) Diabetes: Status: Acute (6) Acute respiratory failure with hypoxia: Status: Acute (7) Acute kidney failure: Status: Acute Plan Assessment: 68-year-old gentleman with underlying diabetes mellitus, nephrolithiasis, and prostate cancer admitted with septic shock secondary to gram-negative bacteremia with source further complicated by acute kidney failure with An[place] and acute hypoxic respiratory failure. Plan: Neuro: No acute issues. Cardiac: Septic shock, continue to titrate off pressor support as tolerated. Pulmonary edema. Pulmonary: Acute hypoxic respiratory failure secondary to pulmonary edema now requiring ventilatory support, continue to titrate off as tolerated. Renal: Acute kidney failure secondary to septic shock/ATN. Oliguric. Right- sided hydronephrosis. Urology service care appreciated. Now status post right urethral stenting. Continue to monitor renal indices and urine output. Hyperkalemia secondary to ATN requiring initiation of hemodialysis, improved. Nephrology service care appreciated. Endo: No acute issues. Underlying diabetes mellitus and hypothyroidism. GI: Shock liver secondary to septic shock, continue to monitor transaminitis/bilirubin level. Will obtain right upper quadrant ultrasound. ID: Klebsiella bacteremia with source. Continue on Zosyn/Levaquin. Heme/Onc: Disseminated intravascular coagulation with thrombocytopenia secondary to septic shock, continue to monitor. Psych: No acute issues. Miscellaneous: No acute issues. Prophylaxis: Pneumatic compression, ppi Diet: Tube feeds Critical care time spent: 60 minutes Quality Stroke Does the patient have a stroke diagnosis?: No VTE Prior VTE?: No VTE Risk Level:: Medical - moderate - high VTE Device Contraindication: N/A - Device Ordered VTE Drug Contraindication: N/A - Med Ordered
[2023-10-04] MEDS: levoFLOXacin/D5W 750 MG/150 ML PIGGYBACK 100 MG IV (10:34)
[2023-10-04 12:44] LABS: Glucose, Whole Blood 69 mg/dL (60-115)
[2023-10-04 12:44] LABS: Glucose, Whole Blood 40 mg/dL (60-115)
[2023-10-04 12:51] LABS: Glucose, Whole Blood 355 mg/dL (60-115)
[2023-10-04 13:19] LABS: Glucose Random 363 mg/dL (60-115)
[2023-10-04] MEDS: Insulin Lispro 100 UNIT/ML 3 ML VIAL SUBCUT ×2 (13:29→17:42)
[2023-10-04 16:17] LABS: Venous Blood Gas Refer to POC result
[2023-10-04 16:26] LABS: VBG Base Excess -14.2 mmol/L; VBG HCO3 11 mmol/L (22-26); VBG pCO2 27 mmHg; VBG pH 7.23 (7.32-7.43); VBG pO2 69 mmHg
[2023-10-04 16:33] LABS: Anion Gap 37 (12-20); Blood Urea Nitrogen 99 mg/dL (9-16); Calcium 7.1 mg/dL (8.4-10.2); Carbon Dioxide 10 mmol/L (22-29); Chloride 94 mmol/L (96-108); Creatinine Clr Calc Pharmacy 17.9; Estimated Glomerular Filt Rate 11; Glucose Random 352 mg/dL (60-115); Potassium 5.6 mmol/L (3.3-5.1); Sodium 135 mmol/L (135-145)
[2023-10-04] MEDS: Sodium Bicarbonate 8.4% 150 MEQ in Dextrose 5 % 850 ML 100 MEQ IV (16:59)
[2023-10-04] MEDS: Norepinephrine Bitartrate/NS 32 MG/250 ML PLAST..BAG 13.17 MG IVCONT (17:26)
[2023-10-04 17:39] LABS: Glucose, Whole Blood 357 mg/dL (60-115)
[2023-10-04] MEDS: Insulin Glargine,Hum.rec.anlog 100 UNIT/ML 10 ML VIAL 20 UNIT SUBCUT (17:42)
--- NOTE | 2023-10-04 18:00 | HO.SKINPHOTO ---
Location: Category: Stage: Length: Width: Depth: cm Location: Category: Stage: Length: Width: Depth: cm Location: Category: Stage: Length: Width: Depth: cm Location: Category: Stage: Length: Width: Depth: cm Location: Category: Stage: Length: Width: Depth: cm Location: Category: Stage: Length: Width: Depth: cm
--- NOTE | 2023-10-04 18:02 | HO.SKINPHOTO ---
Location: Right hand Multiple Vasopressor related and frequent POC glucose checks Location: Left hand Multiple Vasopressor related Location: Right forehead Category: MDPI
--- NOTE | 2023-10-04 18:32 | PC.NURSE ---
Assumed care of patient 0700 Pt provided full bed bath with bath and CHG wipes, assessed skin. Blanchable redness to left buttock fingers of left and right hand noted to be purple in color, see skin photo MD to bedside to update patient's 2 sisters. abd US obtained at bedside, tube feeds started at 12:00 Glucerna @20 ml/hr 15:50 MD notified of sudden changes in patient status: (1) increase in ST segment elevation and peak T waves, (2) increased FiO2 needs from 30% to 60% to maintain SaO2, (3) increased levophed gtt needs from 0.2 to 0.24 to maintain MAP >65. (4) new fine crackles to RLL in lung fernandez. New labs orders for BMP, VBG. new CXR obtained, new EKG completed 1 amp Bicarb IVP given, Bicarb gtt 150 mEq in D5W started, dialysis session ordered for pt. Pt sister Lorene Higgins updated via phone by generating plant superintendent session started at bedside
[2023-10-04] MEDS: fentaNYL citrate/PF 100 MCG/2 ML VIAL 50 MCG IVPUSH (20:16)
[2023-10-04 22:44] LABS: Hematocrit 23.3 % (42.0-52.0); Hemoglobin 8.6 g/dl (14.0-18.0); Mean Corpuscular HGB Conc 36.9 g/dl (31.0-36.0); Mean Corpuscular Hemoglobin 31.2 pg (27.0-33.0); Mean Corpuscular Volume 84.4 fL (80.0-98.0); Mean Platelet Volume 13.4 fL (9.4-12.4); Red Blood Count 2.76 X10*6/uL (4.60-5.80)
[2023-10-04 22:49] LABS: VBG Base Excess 2.8 mmol/L; VBG HCO3 24 mmol/L (22-26); VBG pCO2 28 mmHg; VBG pH 7.54 (7.32-7.43); VBG pO2 59 mmHg
[2023-10-04 22:53] LABS: NRBC Pct Auto 3.9 /100WBC (0.0-0.2); PLT ABN DIST 1; Platelet Count 83 X10*3/uL (160-400); WBC ABN SCTR FOR CBC 1
[2023-10-04 22:55] LABS: Venous Blood Gas Refer to POC result
[2023-10-04 22:56] LABS: White Blood Count 33.4 X10*3/uL (4.8-10.8)
[2023-10-04 23:00] LABS: Albumin Level 3.8 g/dL (3.5-5.0); Anion Gap 27 (12-20); Blood Urea Nitrogen 60 mg/dL (9-16); Calcium 7.4 mg/dL (8.4-10.2); Carbon Dioxide 22 mmol/L (22-29); Chloride 94 mmol/L (96-108); Creatinine Clr Calc Pharmacy 29.5; Estimated Glomerular Filt Rate 19; Glucose Random 240 mg/dL (60-115); Magnesium 2.2 mg/dL (1.6-2.6); Phosphorus 5.4 mg/dL (2.7-4.5); Potassium 4.1 mmol/L (3.3-5.1); Sodium 139 mmol/L (135-145)
[2023-10-04 23:14] LABS: Band Neutrophils Percent 10 % (3-5); Basophils Abs Manual 0.3 X10*3/uL (0.0-0.2); Basophils Percent Manual 1 % (0-2); Lymphocytes Absolute Manual 0.7 X10*3/uL (1.2-4.9); Lymphocytes Percent Manual 2 % (20-40); Monocytes Percent Manual 3 % (2-11); Neutrophils Absolute Manual 31.4 X10*3/uL (2.0-8.3); Neutrophils Percent Manual 84 % (45-73); Nucleated Red Blood Cells 3 /100WBC (0-0)
[2023-10-04 23:15] LABS: Platelet Estimate DECREASED (NORMAL); Platelet Morphology Comment NORMAL; Polychromasia 1+ (0-2) /OIF; RBC Morphology NOTED; Toxic Granulation PRESENT
[2023-10-04 23:16] LABS: Burr Cells 1+ (0-2) /OIF; Target Cells 1+ (5-14) /OIF
[2023-10-05] VITALS (32 sets, daily range): BP systolic 105–131; BP diastolic 59–81; PULSE 133–140; RESP 16–24; TEMP 35–37.9; O2SAT 91–99; BMI 35.4
[2023-10-05] MEDS: Insulin Lispro 100 UNIT/ML 3 ML VIAL SUBCUT ×3 (00:05→23:44)
[2023-10-05 00:07] LABS: Glucose, Whole Blood 230 mg/dL (60-115)
[2023-10-05] MEDS: fentaNYL citrate/PF 100 MCG/2 ML VIAL 50 MCG IVPUSH (00:12)
[2023-10-05] MEDS: Calcium Gluconate/NaCl,Iso-Osm 2 GM/100 ML PLAST..BAG IV ×3 (02:05→09:55)
[2023-10-05] MEDS: Piperacillin Sodium/Tazobactam 2.25 GM in 0.9 % Sodium Chloride 50 ML IV ×4 (02:08→20:41)
[2023-10-05 04:31] LABS: VBG Base Excess 2.4 mmol/L; VBG HCO3 24 mmol/L (22-26); VBG pCO2 26 mmHg; VBG pH 7.55 (7.32-7.43); VBG pO2 44 mmHg
[2023-10-05 05:03] LABS: Hematocrit 23.2 % (42.0-52.0); Hemoglobin 8.3 g/dl (14.0-18.0); Mean Corpuscular HGB Conc 35.8 g/dl (31.0-36.0); Mean Corpuscular Hemoglobin 30.3 pg (27.0-33.0); Mean Corpuscular Volume 84.7 fL (80.0-98.0); Mean Platelet Volume 12.6 fL (9.4-12.4); Red Blood Count 2.74 X10*6/uL (4.60-5.80)
[2023-10-05 05:08] LABS: NRBC Pct Auto 6.2 /100WBC (0.0-0.2); Platelet Count 87 X10*3/uL (160-400); WBC ABN SCTR FOR CBC 1
[2023-10-05 05:10] LABS: White Blood Count 31.7 X10*3/uL (4.8-10.8)
[2023-10-05 05:18] LABS: Venous Blood Gas Refer to POC result
[2023-10-05 05:21] LABS: Alanine Aminotransferase 730 U/L (0-40); Albumin Level 3.5 g/dL (3.5-5.0); Alkaline Phosphatase 365 U/L (39-117); Anion Gap 27 (12-20); Aspartate Amino Transferase 213 U/L (5-37); Bilirubin Total 5.3 mg/dL (0.0-1.0); Blood Urea Nitrogen 78 mg/dL (9-16); Calcium 7.5 mg/dL (8.4-10.2); Carbon Dioxide 21 mmol/L (22-29); Chloride 94 mmol/L (96-108); Creatinine Clr Calc Pharmacy 25.8; Estimated Glomerular Filt Rate 16; Glucose Random 262 mg/dL (60-115); Magnesium 2.2 mg/dL (1.6-2.6); Phosphorus 6.1 mg/dL (2.7-4.5); Potassium 4.3 mmol/L (3.3-5.1); Sodium 138 mmol/L (135-145); Total Protein 5.9 g/dL (6.5-8.0)
[2023-10-05] MEDS: Levothyroxine Sodium 100 MCG/5 ML VIAL 200 MCG IVPUSH ×2 (05:30→17:45)
[2023-10-05] MEDS: Pantoprazole Sodium 40 MG/10 ML VIAL IVPUSH ×2 (05:31→15:42)
[2023-10-05 05:36] LABS: Band Neutrophils Percent 11 % (3-5); Lymphocytes Absolute Manual 2.5 X10*3/uL (1.2-4.9); Lymphocytes Percent Manual 8 % (20-40); Metamyelocytes Absolute 0.3 X10*3/uL; Metamyelocytes Percent 1 %; Monocytes Absolute Manual 0.3 X10*3/uL (0.1-1.2); Monocytes Percent Manual 1 % (2-11); Neutrophils Absolute Manual 28.5 X10*3/uL (2.0-8.3); Neutrophils Percent Manual 79 % (45-73); Nucleated Red Blood Cells 5 /100WBC (0-0)
[2023-10-05 05:38] LABS: Acanthocytes 1+ (0-2) /OIF; RBC Morphology NOTED; Schistocytes 1+ (0-2) /OIF; Target Cells 1+ (5-14) /OIF
[2023-10-05 05:39] LABS: Dohle Bodies PRESENT; Large Platelet PRESENT; Platelet Estimate DECREASED (NORMAL); Platelet Morphology Comment NOTED; Smudge Cells PRESENT; Toxic Granulation PRESENT; Toxic Vacuolation PRESENT
[2023-10-05 05:40] LABS: Burr Cells 2+ (3-5) /OIF
[2023-10-05 05:44] LABS: Thyroid Stimulating Hormone 2.48 uIU/mL (0.32-4.0)
[2023-10-05 05:51] LABS: T4 Thyroxine 5.7 ug/dL (4.5-12.0)
[2023-10-05 06:00] LABS: B Type Natriuretic Peptide 7534 pg/mL (<100)
[2023-10-05] MEDS: Insulin Glargine,Hum.rec.anlog 100 UNIT/ML 10 ML VIAL 20 UNIT SUBCUT (07:27)
[2023-10-05] MEDS: Chlorhexidine Gluc Oral Rinse 15 ML MOUTHWASH BUCCAL ×3 (07:27→20:41)
[2023-10-05] MEDS: 0.9 % Sodium Chloride Flush 3 ML SYRINGE IVFLUSH ×3 (07:27→20:41)
[2023-10-05] MEDS: Lidocaine 4 % Patch ADH..PATCH 2 PATCH TRANSDERMA (09:54)
--- NOTE | 2023-10-05 10:16 | PM.CCPN ---
Subjective Subjective Date of Service: 10/05/23 Interval History: 68-year-old gentleman with diabetes mellitus, prostate cancer hypothyroidism history nephrolithiasis admitted on 09/29/2023 with septic shock secondary to Gram-negative bacteremia with source requiring pressor support further complicated by acute kidney failure with anuria and pulmonary edema. Overnight 09/28-09/29 with worsening hypoxia refractory to high-flow nasal cannula support requiring intubation and ventilatory support. CT abdomen/pelvis repeating with no evidence of urinary obstruction, but noted hydronephrosis likely secondary to passing of prior nephrolithiasis. Now status post right urethral stenting. Requiring initiation of hemodialysis support on 10/01/2023. Hospital course further complicated by shock liver and disseminated intravascular coagulation. No events overnight. Poor arousal with sedation vacation. Critical Care Time (minutes): 60 Physical Exam Vital Signs: Vital Signs: Last Vital Signs Temp 99.9 F 10/05/23 10:00 Pulse 136 H 10/05/23 10:00 Resp 22 H 10/05/23 10:00 BP 118/71 10/05/23 10:00 Pulse Ox 94 10/05/23 10:00 O2 Del Method Mechanical Ventil ation 10/05/23 10:00 O2 Flow Rate 11 09/29/23 19:20 FiO2 30 10/05/23 10:00 BMI result Body Mass Index 35.4 Const: General: no acute distress and other (Poor arousal with sedation vacation) Eyes: Sclerae: sclerae normal EOM: EOMs intact bilaterally Neck: Neck: Yes no lymphadenopathy, Yes trachea midline and Yes supple Resp: Auscultation: crackles (Bilateral) Cardio: Rate: tachycardic Rhythm: regular rhythm Heart sounds: no gallops, no murmurs and no rubs GI: Palpation (GI): Soft to palpation and Other GI palpation findings present ( Nontender) Auscultation: normal bowel sounds Extrem: General: No clubbing, No cyanosis and Yes edema (2+ edema) Objective Data Labs 10/05/23 04:20 10/05/23 04:20 Labs: Laboratory Results - last 24 hr 10/04/23 10/04/23 10/04/23 12:39 12:41 12:47 WBC RBC Hgb Hct MCV MCH MCHC RDW Plt Count MPV Immature Gran % (Auto) Neut % (Auto) Lymph % (Auto) [place] % (Auto) Eos % (Auto) Baso % (Auto) Lymph # (Auto) [place] # (Auto) Eos # (Auto) Baso # (Auto) Abs Immat Gran (auto) Absolute Neuts (auto) Absolute Nucleated RBC Nucleated RBC % (auto) Neutrophils % (Manual) Band Neutrophils % Lymphocytes % (Manual) Monocytes % (Manual) Basophils % (Manual) Metamyelocytes % Abs Neuts (Manual) Lymphocytes # (Manual) Monocytes # (Manual) Basophils # (Manual) Metamyelocytes # Nucleated RBCs Smudge Cells Toxic Granulation Toxic Vacuolation Dohle Bodies Platelet Estimate Large Platelets Plt Morphology Comment RBC Morphology Polychromasia Target Cells [place] Cells Acanthocytes (Spur) Schistocytes VBG pH VBG pCO2 VBG pO2 VBG HCO3 VBG O2 Saturation VBG Base Excess Sodium Potassium Chloride Carbon Dioxide Anion Gap BUN Creatinine Estim Creat Clear Calc Estimated GFR POC Glucose 69 40 L* 355 H* Random Glucose Calcium Phosphorus Magnesium Total Bilirubin AST ALT Alkaline Phosphatase B-Natriuretic Peptide Total Protein Albumin TSH Thyroxine (T4) 10/04/23 10/04/23 10/04/23 12:50 16:09 16:11 WBC RBC Hgb Hct MCV MCH MCHC RDW Plt Count MPV Immature Gran % (Auto) Neut % (Auto) Lymph % (Auto) [place] % (Auto) Eos % (Auto) Baso % (Auto) Lymph # (Auto) [place] # (Auto) Eos # (Auto) Baso # (Auto) Abs Immat Gran (auto) Absolute Neuts (auto) Absolute Nucleated RBC Nucleated RBC % (auto) Neutrophils % (Manual) Band Neutrophils % Lymphocytes % (Manual) Monocytes % (Manual) Basophils % (Manual) Metamyelocytes % Abs Neuts (Manual) Lymphocytes # (Manual) Monocytes # (Manual) Basophils # (Manual) Metamyelocytes # Nucleated RBCs Smudge Cells Toxic Granulation Toxic Vacuolation Dohle Bodies Platelet Estimate Large Platelets Plt Morphology Comment RBC Morphology Polychromasia Target Cells [place] Cells Acanthocytes (Spur) Schistocytes VBG pH 7.23 L VBG pCO2 27 VBG pO2 69 VBG HCO3 11 L VBG O2 Saturation Not Reportable VBG Base Excess -14.2 Sodium 135 Potassium 5.6 H Chloride 94 L Carbon Dioxide 10 L* D Anion Gap 37 H BUN 99 H Creatinine 5.39 H* Estim Creat Clear Calc 17.9 Estimated GFR 11 POC Glucose Random Glucose 363 H* 352 H* Calcium 7.1 L Phosphorus Magnesium Total Bilirubin AST ALT Alkaline Phosphatase B-Natriuretic Peptide Total Protein Albumin TSH Thyroxine (T4) 10/04/23 10/04/23 10/04/23 17:37 22:38 22:40 WBC 33.4 H* RBC 2.76 L Hgb 8.6 L Hct 23.3 L MCV 84.4 MCH 31.2 MCHC 36.9 H RDW 16.0 Plt Count 83 L D MPV 13.4 H Immature Gran % (Auto) Cancelled Neut % (Auto) Cancelled Lymph % (Auto) Cancelled [place] % (Auto) Cancelled Eos % (Auto) Cancelled Baso % (Auto) Cancelled Lymph # (Auto) Cancelled [place] # (Auto) Cancelled Eos # (Auto) Cancelled Baso # (Auto) Cancelled Abs Immat Gran (auto) Cancelled Absolute Neuts (auto) Cancelled Absolute Nucleated RBC 1.290 H Nucleated RBC % (auto) 3.9 H Neutrophils % (Manual) 84 H Band Neutrophils % 10 H Lymphocytes % (Manual) 2 L Monocytes % (Manual) 3 Basophils % (Manual) 1 Metamyelocytes % Abs Neuts (Manual) 31.4 H Lymphocytes # (Manual) 0.7 L Monocytes # (Manual) 1.0 Basophils # (Manual) 0.3 H Metamyelocytes # Nucleated RBCs 3 H Smudge Cells Toxic Granulation PRESENT Toxic Vacuolation Dohle Bodies Platelet Estimate DECREASED Large Platelets Plt Morphology Comment NORMAL RBC Morphology NOTED Polychromasia 1+ (0-2) Target Cells 1+ (5-14) [place] Cells 1+ (0-2) Acanthocytes (Spur) Schistocytes VBG pH 7.54 H VBG pCO2 28 VBG pO2 59 VBG HCO3 24 VBG O2 Saturation 86.0 VBG Base Excess 2.8 Sodium 139 Potassium 4.1 D Chloride 94 L Carbon Dioxide 22 Anion Gap 27 H BUN 60 H Creatinine 3.27 H Estim Creat Clear Calc 29.5 Estimated GFR 19 POC Glucose 357 H* Random Glucose 240 H Calcium 7.4 L Phosphorus 5.4 H Magnesium 2.2 Total Bilirubin AST ALT Alkaline Phosphatase B-Natriuretic Peptide Total Protein Albumin 3.8 TSH Thyroxine (T4) 10/05/23 10/05/23 10/05/23 00:01 04:18 04:20 WBC 31.7 H* RBC Hgb Hct MCV MCH MCHC RDW Plt Count MPV Immature Gran % (Auto) Neut % (Auto) Lymph % (Auto) [place] % (Auto) Eos % (Auto) Baso % (Auto) Lymph # (Auto) [place] # (Auto) Eos # (Auto) Baso # (Auto) Abs Immat Gran (auto) Absolute Neuts (auto) Absolute Nucleated RBC Nucleated RBC % (auto) Neutrophils % (Manual) Band Neutrophils % Lymphocytes % (Manual) Monocytes % (Manual) Basophils % (Manual) Metamyelocytes % Abs Neuts (Manual) Lymphocytes # (Manual) Monocytes # (Manual) Basophils # (Manual) Metamyelocytes # Nucleated RBCs Smudge Cells Toxic Granulation Toxic Vacuolation Dohle Bodies Platelet Estimate Large Platelets Plt Morphology Comment RBC Morphology Polychromasia Target Cells [place] Cells Acanthocytes (Spur) Schistocytes VBG pH 7.55 H VBG pCO2 26 VBG pO2 44 VBG HCO3 24 VBG O2 Saturation 70.0 VBG Base Excess 2.4 Sodium Potassium Chloride Carbon Dioxide Anion Gap BUN Creatinine Estim Creat Clear Calc Estimated GFR POC Glucose 230 H Random Glucose Calcium Phosphorus Magnesium Total Bilirubin AST ALT Alkaline Phosphatase B-Natriuretic Peptide Total Protein Albumin TSH Thyroxine (T4) 10/05/23 10/05/23 10/05/23 04:20 04:20 04:20 WBC Cancelled RBC 2.74 L Cancelled Hgb 8.3 L Cancelled Hct 23.2 L MCV MCH MCHC RDW Plt Count MPV Immature Gran % (Auto) Neut % (Auto) Lymph % (Auto) [place] % (Auto) Eos % (Auto) Baso % (Auto) Lymph # (Auto) [place] # (Auto) Eos # (Auto) Baso # (Auto) Abs Immat Gran (auto) Absolute Neuts (auto) Absolute Nucleated RBC Nucleated RBC % (auto) Neutrophils % (Manual) Band Neutrophils % Lymphocytes % (Manual) Monocytes % (Manual) Basophils % (Manual) Metamyelocytes % Abs Neuts (Manual) Lymphocytes # (Manual) Monocytes # (Manual) Basophils # (Manual) Metamyelocytes # Nucleated RBCs Smudge Cells Toxic Granulation Toxic Vacuolation Dohle Bodies Platelet Estimate Large Platelets Plt Morphology Comment RBC Morphology Polychromasia Target Cells [place] Cells Acanthocytes (Spur) Schistocytes VBG pH VBG pCO2 VBG pO2 VBG HCO3 VBG O2 Saturation VBG Base Excess Sodium Potassium Chloride Carbon Dioxide Anion Gap BUN Creatinine Estim Creat Clear Calc Estimated GFR POC Glucose Random Glucose Calcium Phosphorus Magnesium Total Bilirubin AST ALT Alkaline Phosphatase B-Natriuretic Peptide Total Protein Albumin TSH Thyroxine (T4) 10/05/23 10/05/23 10/05/23 04:20 04:20 04:20 WBC RBC Hgb Hct Cancelled MCV 84.7 Cancelled MCH 30.3 Cancelled MCHC 35.8 RDW Plt Count MPV Immature Gran % (Auto) Neut % (Auto) Lymph % (Auto) [place] % (Auto) Eos % (Auto) Baso % (Auto) Lymph # (Auto) [place] # (Auto) Eos # (Auto) Baso # (Auto) Abs Immat Gran (auto) Absolute Neuts (auto) Absolute Nucleated RBC Nucleated RBC % (auto) Neutrophils % (Manual) Band Neutrophils % Lymphocytes % (Manual) Monocytes % (Manual) Basophils % (Manual) Metamyelocytes % Abs Neuts (Manual) Lymphocytes # (Manual) Monocytes # (Manual) Basophils # (Manual) Metamyelocytes # Nucleated RBCs Smudge Cells Toxic Granulation Toxic Vacuolation Dohle Bodies Platelet Estimate Large Platelets Plt Morphology Comment RBC Morphology Polychromasia Target Cells [place] Cells Acanthocytes (Spur) Schistocytes VBG pH VBG pCO2 VBG pO2 VBG HCO3 VBG O2 Saturation VBG Base Excess Sodium Potassium Chloride Carbon Dioxide Anion Gap BUN Creatinine Estim Creat Clear Calc Estimated GFR POC Glucose Random Glucose Calcium Phosphorus Magnesium Total Bilirubin AST ALT Alkaline Phosphatase B-Natriuretic Peptide Total Protein Albumin TSH Thyroxine (T4) 10/05/23 10/05/23 10/05/23 04:20 04:20 04:20 WBC RBC Hgb Hct MCV MCH MCHC Cancelled RDW 16.0 Cancelled Plt Count 87 L Cancelled MPV 12.6 H Immature Gran % (Auto) Neut % (Auto) Lymph % (Auto) [place] % (Auto) Eos % (Auto) Baso % (Auto) Lymph # (Auto) [place] # (Auto) Eos # (Auto) Baso # (Auto) Abs Immat Gran (auto) Absolute Neuts (auto) Absolute Nucleated RBC Nucleated RBC % (auto) Neutrophils % (Manual) Band Neutrophils % Lymphocytes % (Manual) Monocytes % (Manual) Basophils % (Manual) Metamyelocytes % Abs Neuts (Manual) Lymphocytes # (Manual) Monocytes # (Manual) Basophils # (Manual) Metamyelocytes # Nucleated RBCs Smudge Cells Toxic Granulation Toxic Vacuolation Dohle Bodies Platelet Estimate Large Platelets Plt Morphology Comment RBC Morphology Polychromasia Target Cells [place] Cells Acanthocytes (Spur) Schistocytes VBG pH VBG pCO2 VBG pO2 VBG HCO3 VBG O2 Saturation VBG Base Excess Sodium Potassium Chloride Carbon Dioxide Anion Gap BUN Creatinine Estim Creat Clear Calc Estimated GFR POC Glucose Random Glucose Calcium Phosphorus Magnesium Total Bilirubin AST ALT Alkaline Phosphatase B-Natriuretic Peptide Total Protein Albumin TSH Thyroxine (T4) 10/05/23 10/05/23 10/05/23 04:20 04:20 04:20 WBC RBC Hgb Hct MCV MCH MCHC RDW Plt Count MPV Cancelled Immature Gran % (Auto) Cancelled Cancelled Neut % (Auto) Cancelled Cancelled Lymph % (Auto) Cancelled [place] % (Auto) Eos % (Auto) Baso % (Auto) Lymph # (Auto) [place] # (Auto) Eos # (Auto) Baso # (Auto) Abs Immat Gran (auto) Absolute Neuts (auto) Absolute Nucleated RBC Nucleated RBC % (auto) Neutrophils % (Manual) Band Neutrophils % Lymphocytes % (Manual) Monocytes % (Manual) Basophils % (Manual) Metamyelocytes % Abs Neuts (Manual) Lymphocytes # (Manual) Monocytes # (Manual) Basophils # (Manual) Metamyelocytes # Nucleated RBCs Smudge Cells Toxic Granulation Toxic Vacuolation Dohle Bodies Platelet Estimate Large Platelets Plt Morphology Comment RBC Morphology Polychromasia Target Cells [place] Cells Acanthocytes (Spur) Schistocytes VBG pH VBG pCO2 VBG pO2 VBG HCO3 VBG O2 Saturation VBG Base Excess Sodium Potassium Chloride Carbon Dioxide Anion Gap BUN Creatinine Estim Creat Clear Calc Estimated GFR POC Glucose Random Glucose Calcium Phosphorus Magnesium Total Bilirubin AST ALT Alkaline Phosphatase B-Natriuretic Peptide Total Protein Albumin TSH Thyroxine (T4) 10/05/23 10/05/23 10/05/23 04:20 04:20 04:20 WBC RBC Hgb Hct MCV MCH MCHC RDW Plt Count MPV Immature Gran % (Auto) Neut % (Auto) Lymph % (Auto) Cancelled [place] % (Auto) Cancelled Cancelled Eos % (Auto) Cancelled Cancelled Baso % (Auto) Cancelled Lymph # (Auto) [place] # (Auto) Eos # (Auto) Baso # (Auto) Abs Immat Gran (auto) Absolute Neuts (auto) Absolute Nucleated RBC Nucleated RBC % (auto) Neutrophils % (Manual) Band Neutrophils % Lymphocytes % (Manual) Monocytes % (Manual) Basophils % (Manual) Metamyelocytes % Abs Neuts (Manual) Lymphocytes # (Manual) Monocytes # (Manual) Basophils # (Manual) Metamyelocytes # Nucleated RBCs Smudge Cells Toxic Granulation Toxic Vacuolation Dohle Bodies Platelet Estimate Large Platelets Plt Morphology Comment RBC Morphology Polychromasia Target Cells [place] Cells Acanthocytes (Spur) Schistocytes VBG pH VBG pCO2 VBG pO2 VBG HCO3 VBG O2 Saturation VBG Base Excess Sodium Potassium Chloride Carbon Dioxide Anion Gap BUN Creatinine Estim Creat Clear Calc Estimated GFR POC Glucose Random Glucose Calcium Phosphorus Magnesium Total Bilirubin AST ALT Alkaline Phosphatase B-Natriuretic Peptide Total Protein Albumin TSH Thyroxine (T4) 10/05/23 10/05/23 10/05/23 04:20 04:20 04:20 WBC RBC Hgb Hct MCV MCH MCHC RDW Plt Count MPV Immature Gran % (Auto) Neut % (Auto) Lymph % (Auto) [place] % (Auto) Eos % (Auto) Baso % (Auto) Cancelled Lymph # (Auto) Cancelled Cancelled [place] # (Auto) Cancelled Cancelled Eos # (Auto) Cancelled Baso # (Auto) Abs Immat Gran (auto) Absolute Neuts (auto) Absolute Nucleated RBC Nucleated RBC % (auto) Neutrophils % (Manual) Band Neutrophils % Lymphocytes % (Manual) Monocytes % (Manual) Basophils % (Manual) Metamyelocytes % Abs Neuts (Manual) Lymphocytes # (Manual) Monocytes # (Manual) Basophils # (Manual) Metamyelocytes # Nucleated RBCs Smudge Cells Toxic Granulation Toxic Vacuolation Dohle Bodies Platelet Estimate Large Platelets Plt Morphology Comment RBC Morphology Polychromasia Target Cells [place] Cells Acanthocytes (Spur) Schistocytes VBG pH VBG pCO2 VBG pO2 VBG HCO3 VBG O2 Saturation VBG Base Excess Sodium Potassium Chloride Carbon Dioxide Anion Gap BUN Creatinine Estim Creat Clear Calc Estimated GFR POC Glucose Random Glucose Calcium Phosphorus Magnesium Total Bilirubin AST ALT Alkaline Phosphatase B-Natriuretic Peptide Total Protein Albumin TSH Thyroxine (T4) 10/05/23 10/05/23 10/05/23 04:20 04:20 04:20 WBC RBC Hgb Hct MCV MCH MCHC RDW Plt Count MPV Immature Gran % (Auto) Neut % (Auto) Lymph % (Auto) [place] % (Auto) Eos % (Auto) Baso % (Auto) Lymph # (Auto) [place] # (Auto) Eos # (Auto) Cancelled Baso # (Auto) Cancelled Cancelled Abs Immat Gran (auto) Cancelled Cancelled Absolute Neuts (auto) Cancelled Absolute Nucleated RBC Nucleated RBC % (auto) Neutrophils % (Manual) Band Neutrophils % Lymphocytes % (Manual) Monocytes % (Manual) Basophils % (Manual) Metamyelocytes % Abs Neuts (Manual) Lymphocytes # (Manual) Monocytes # (Manual) Basophils # (Manual) Metamyelocytes # Nucleated RBCs Smudge Cells Toxic Granulation Toxic Vacuolation Dohle Bodies Platelet Estimate Large Platelets Plt Morphology Comment RBC Morphology Polychromasia Target Cells [place] Cells Acanthocytes (Spur) Schistocytes VBG pH VBG pCO2 VBG pO2 VBG HCO3 VBG O2 Saturation VBG Base Excess Sodium Potassium Chloride Carbon Dioxide Anion Gap BUN Creatinine Estim Creat Clear Calc Estimated GFR POC Glucose Random Glucose Calcium Phosphorus Magnesium Total Bilirubin AST ALT Alkaline Phosphatase B-Natriuretic Peptide Total Protein Albumin TSH Thyroxine (T4) 10/05/23 10/05/23 10/05/23 04:20 04:20 04:20 WBC RBC Hgb Hct MCV MCH MCHC RDW Plt Count MPV Immature Gran % (Auto) Neut % (Auto) Lymph % (Auto) [place] % (Auto) Eos % (Auto) Baso % (Auto) Lymph # (Auto) [place] # (Auto) Eos # (Auto) Baso # (Auto) Abs Immat Gran (auto) Absolute Neuts (auto) Cancelled Absolute Nucleated RBC 1.950 H Cancelled Nucleated RBC % (auto) 6.2 H Cancelled Neutrophils % (Manual) 79 H Band Neutrophils % 11 H Lymphocytes % (Manual) 8 L Monocytes % (Manual) 1 L Basophils % (Manual) Metamyelocytes % 1 Abs Neuts (Manual) 28.5 H Lymphocytes # (Manual) 2.5 Monocytes # (Manual) 0.3 Basophils # (Manual) Metamyelocytes # 0.3 Nucleated RBCs 5 H Smudge Cells PRESENT Toxic Granulation PRESENT Toxic Vacuolation PRESENT Dohle Bodies PRESENT Platelet Estimate DECREASED Large Platelets PRESENT Plt Morphology Comment NOTED RBC Morphology NOTED Polychromasia Target Cells 1+ (5-14) [place] Cells 2+ (3-5) Acanthocytes (Spur) 1+ (0-2) Schistocytes 1+ (0-2) VBG pH VBG pCO2 VBG pO2 VBG HCO3 VBG O2 Saturation VBG Base Excess Sodium 138 Potassium 4.3 Chloride 94 L Carbon Dioxide 21 L Anion Gap 27 H BUN 78 H Creatinine 3.74 H Estim Creat Clear Calc 25.8 Estimated GFR 16 POC Glucose Random Glucose 262 H Calcium 7.5 L Phosphorus 6.1 H Magnesium 2.2 Total Bilirubin 5.3 H AST 213 H ALT 730 H Alkaline Phosphatase 365 H B-Natriuretic Peptide 7534 H Total Protein 5.9 L Albumin 3.5 TSH 2.48 Thyroxine (T4) 5.7 Microbiology Microbiology Results: Microbiology 09/30/23 Unknown Urine Catheterized - Straight Catheter Urine Culture - Final Klebsiella pneumoniae 09/28/23 23:08 Blood - Venous Blood Culture - Final Klebsiella pneumoniae 09/28/23 22:51 Blood - Venous Blood Culture - Final Klebsiella pneumoniae 09/29/23 Unknown Urine clean catch - Clean Catch Midstream Urine Culture - Final Enterobacter cloacae complex Progress Note: A&P Assessment and plan (1) Shock liver: Status: Acute (2) Thrombocytopenia: Status: Acute (3) Disseminated intravascular coagulation: Status: Acute (4) Bacteremia due to Klebsiella pneumoniae: Status: Acute (5) Diabetes: Status: Acute (6) Acute respiratory failure with hypoxia: Status: Acute (7) Acute kidney failure: Status: Acute Plan Assessment: 68-year-old gentleman with underlying diabetes mellitus, nephrolithiasis, and prostate cancer admitted with septic shock secondary to gram-negative bacteremia with source further complicated by acute kidney failure with [place] and acute hypoxic respiratory failure. Plan: Neuro: Poor arousal with sedation vacation, obtain brain MRI. Cardiac: Septic shock, continue to titrate off pressor support as tolerated. Pulmonary edema. Pulmonary: Acute hypoxic respiratory failure secondary to pulmonary edema now requiring ventilatory support, continue to titrate off as tolerated. Renal: Acute kidney failure secondary to septic shock/ATN. Oliguric. Right-sided hydronephrosis. Urology service care appreciated. Now status post right urethral stenting. Continue to monitor renal indices and urine output. Hyperkalemia secondary to ATN requiring initiation of hemodialysis, improved. Nephrology service care appreciated. Endo: No acute issues. Underlying diabetes mellitus and hypothyroidism. GI: Shock liver secondary to septic shock, continue to monitor transaminitis/bilirubin level, improving. ID: Klebsiella bacteremia with source. Continue on Zosyn/Levaquin. Heme/Onc: Disseminated intravascular coagulation with thrombocytopenia secondary to septic shock, improving. Psych: No acute issues. Miscellaneous: No acute issues. Prophylaxis: Pneumatic compression, ppi Diet: Tube feeds Critical care time spent: 60 minutes Quality Stroke Does the patient have a stroke diagnosis?: No VTE Prior VTE?: No VTE Risk Level:: Medical - moderate - high VTE Device Contraindication: N/A - Device Ordered VTE Drug Contraindication: N/A - Med Ordered
[2023-10-05] MEDS: Norepinephrine Bitartrate/NS 32 MG/250 ML PLAST..BAG 8.78 MG IVCONT (11:46)
[2023-10-05 13:21] LABS: Glucose, Whole Blood 133 mg/dL (60-115)
[2023-10-05 18:06] LABS: Glucose, Whole Blood 148 mg/dL (60-115)
[2023-10-05 23:37] LABS: Glucose, Whole Blood 271 mg/dL (60-115)
[2023-10-06] VITALS (37 sets, daily range): BP systolic 92–134; BP diastolic 56–79; PULSE 123–142; RESP 14–27; TEMP 35–38.2; O2SAT 93–97; BMI 35.3
[2023-10-06] MEDS: Acetaminophen 325 MG TABLET 975 MG PO (00:06)
[2023-10-06] MEDS: Piperacillin Sodium/Tazobactam 2.25 GM in 0.9 % Sodium Chloride 50 ML IV ×4 (02:31→20:40)
[2023-10-06 05:23] LABS: VBG Base Excess -0.2 mmol/L; VBG HCO3 19 mmol/L (22-26); VBG pCO2 20 mmHg; VBG pH 7.59 (7.32-7.43); VBG pO2 35 mmHg
[2023-10-06 05:24] LABS: Glucose, Whole Blood 304 mg/dL (60-115)
[2023-10-06 05:30] LABS: Venous Blood Gas Refer to POC result
[2023-10-06] MEDS: Insulin Lispro 100 UNIT/ML 3 ML VIAL SUBCUT (05:33)
[2023-10-06] MEDS: Levothyroxine Sodium 100 MCG/5 ML VIAL 200 MCG IVPUSH (05:33)
[2023-10-06] MEDS: Pantoprazole Sodium 40 MG/10 ML VIAL IVPUSH ×2 (05:33→15:49)
[2023-10-06 05:36] LABS: Hematocrit 23.7 % (42.0-52.0); Hemoglobin 8.6 g/dl (14.0-18.0); Mean Corpuscular HGB Conc 36.3 g/dl (31.0-36.0); Mean Corpuscular Hemoglobin 30.8 pg (27.0-33.0); Mean Corpuscular Volume 84.9 fL (80.0-98.0); Mean Platelet Volume 12.6 fL (9.4-12.4); NRBC Pct Auto 5.8 /100WBC (0.0-0.2); Red Blood Count 2.79 X10*6/uL (4.60-5.80); Red Cell Distribution Width 16.4 % (11.0-16.0); WBC ABN SCTR FOR CBC 1
[2023-10-06 05:39] LABS: Platelet Count 94 X10*3/uL (160-400)
[2023-10-06 05:40] LABS: White Blood Count 30.8 X10*3/uL (4.8-10.8)
[2023-10-06 05:56] LABS: Band Neutrophils Percent 7 % (3-5); Lymphocytes Absolute Manual 0.6 X10*3/uL (1.2-4.9); Lymphocytes Percent Manual 2 % (20-40); Metamyelocytes Absolute 0.3 X10*3/uL; Metamyelocytes Percent 1 %; Monocytes Absolute Manual 0.6 X10*3/uL (0.1-1.2); Monocytes Percent Manual 2 % (2-11); Neutrophils Absolute Manual 29.3 X10*3/uL (2.0-8.3); Neutrophils Percent Manual 88 % (45-73); Nucleated Red Blood Cells 11 /100WBC (0-0)
[2023-10-06 05:59] LABS: Burr Cells 3+ (>5) /OIF; Large Platelet PRESENT; Pappenheimer Bodies PRESENT; Platelet Estimate SLIGHTLY DECREASED (NORMAL); Platelet Morphology Comment NOTED; Polychromasia 1+ (0-2) /OIF; RBC Morphology NOTED; Schistocytes 1+ (0-2) /OIF; Spherocytes 1+ (0-2) /OIF; Target Cells 1+ (5-14) /OIF
[2023-10-06 06:00] LABS: Hypochromasia 1+ (5-14) /OIF; Toxic Granulation PRESENT; Toxic Vacuolation PRESENT
[2023-10-06 06:14] LABS: B Type Natriuretic Peptide 8180 pg/mL (<100)
[2023-10-06 06:16] LABS: Alanine Aminotransferase 511 U/L (0-40); Albumin Level 2.8 g/dL (3.5-5.0); Alkaline Phosphatase 224 U/L (39-117); Anion Gap 31 (12-20); Aspartate Amino Transferase 186 U/L (5-37); Bilirubin Total 4.1 mg/dL (0.0-1.0); Blood Urea Nitrogen 123 mg/dL (9-16); Calcium 6.1 mg/dL (8.4-10.2); Carbon Dioxide 16 mmol/L (22-29); Chloride 95 mmol/L (96-108); Estimated Glomerular Filt Rate 11; Glucose Random 323 mg/dL (60-115); Magnesium 2.4 mg/dL (1.6-2.6); Phosphorus 6.7 mg/dL (2.7-4.5); Potassium 5.1 mmol/L (3.3-5.1); Sodium 137 mmol/L (135-145); Total Protein 5.4 g/dL (6.5-8.0)
[2023-10-06 06:26] LABS: Thyroid Stimulating Hormone 1.49 uIU/mL (0.32-4.0)
[2023-10-06] MEDS: Albumin Human 25 % 100 ML IV ×3 (07:41→20:34)
[2023-10-06] MEDS: 0.9 % Sodium Chloride Flush 3 ML SYRINGE IVFLUSH ×3 (07:41→23:54)
--- NOTE | 2023-10-06 07:51 | PM.CCPN ---
Subjective Subjective Date of Service: 10/06/23 Critical Care Time (minutes): 60 Physical Exam Vital Signs: Vital Signs: Last Vital Signs Temp 100.8 F H 10/06/23 07:00 Pulse 138 H 10/06/23 07:00 Resp 20 10/06/23 07:00 BP 108/63 10/06/23 07:00 Pulse Ox 95 10/06/23 07:00 O2 Del Method Mechanical Ventil ation 10/06/23 07:00 O2 Flow Rate 11 09/29/23 19:20 FiO2 35 10/06/23 07:21 BMI result Body Mass Index 35.3 Const: Other: intubated, not sedated; no appreciable spontaneous movements HEENT: Head: Yes normal to inspection, Yes normocephalic and Yes atraumatic Eyes: General: appearance normal, both eyes and all related structures Neck: Neck: Yes normal visual inspection, Yes full ROM, Yes trachea midline and Yes supple Chest: Chest palpation & inspection: normal inspection of the chest Resp: Other: no appreciable rales, rhonchi, wheezing Cardio: Rate: tachycardic Rhythm: regular rhythm GI: Inspection: Yes normal to inspection, No Abdominal wall edema and No distended Palpation (GI): Soft to palpation, not firm, nontender, no guarding and not rigid : Male General Exam: Yes normal external exam Skin: Other: appreciable dark discoloration fingers and toes bilaterally Neuro: Other: no appreciable spontaneous movements; no appreciable withdrawal to noxious stimulus General: tone normal Extrem: Other: 1+ pitting edema to bilateral shins General: Yes normal to inspection and Yes full ROM Psych: Other: unable to assess Objective Data Labs 10/06/23 05:10 10/06/23 05:10 Labs: Laboratory Results - last 24 hr 10/05/23 10/05/23 10/05/23 13:18 18:02 23:32 WBC RBC Hgb Hct MCV MCH MCHC RDW Plt Count MPV Immature Gran % (Auto) Neut % (Auto) Lymph % (Auto) [place] % (Auto) Eos % (Auto) Baso % (Auto) Lymph # (Auto) [place] # (Auto) Eos # (Auto) Baso # (Auto) Abs Immat Gran (auto) Absolute Neuts (auto) Absolute Nucleated RBC Nucleated RBC % (auto) Neutrophils % (Manual) Band Neutrophils % Lymphocytes % (Manual) Monocytes % (Manual) Metamyelocytes % Abs Neuts (Manual) Lymphocytes # (Manual) Monocytes # (Manual) Metamyelocytes # Nucleated RBCs Toxic Granulation Toxic Vacuolation Platelet Estimate Large Platelets Plt Morphology Comment RBC Morphology Polychromasia Hypochromasia Spherocytes Pappenheimer Bodies Target Cells [place] Cells Schistocytes VBG pH VBG pCO2 VBG pO2 VBG HCO3 VBG O2 Saturation VBG Base Excess Sodium Potassium Chloride Carbon Dioxide Anion Gap BUN Creatinine Estim Creat Clear Calc Estimated GFR POC Glucose 133 H 148 H 271 H Random Glucose Calcium Phosphorus Magnesium Total Bilirubin AST ALT Alkaline Phosphatase B-Natriuretic Peptide Total Protein Albumin TSH Free T4 10/06/23 10/06/23 10/06/23 05:10 05:13 05:22 WBC 30.8 H* RBC 2.79 L Hgb 8.6 L Hct 23.7 L MCV 84.9 MCH 30.8 MCHC 36.3 H RDW 16.4 H Plt Count 94 L MPV 12.6 H Immature Gran % (Auto) Cancelled Neut % (Auto) Cancelled Lymph % (Auto) Cancelled [place] % (Auto) Cancelled Eos % (Auto) Cancelled Baso % (Auto) Cancelled Lymph # (Auto) Cancelled [place] # (Auto) Cancelled Eos # (Auto) Cancelled Baso # (Auto) Cancelled Abs Immat Gran (auto) Cancelled Absolute Neuts (auto) Cancelled Absolute Nucleated RBC 1.790 H Nucleated RBC % (auto) 5.8 H Neutrophils % (Manual) 88 H Band Neutrophils % 7 H Lymphocytes % (Manual) 2 L Monocytes % (Manual) 2 Metamyelocytes % 1 Abs Neuts (Manual) 29.3 H Lymphocytes # (Manual) 0.6 L Monocytes # (Manual) 0.6 Metamyelocytes # 0.3 Nucleated RBCs 11 H Toxic Granulation PRESENT Toxic Vacuolation PRESENT Platelet Estimate SLIGHTLY DECREASED Large Platelets PRESENT Plt Morphology Comment NOTED RBC Morphology NOTED Polychromasia 1+ (0-2) Hypochromasia 1+ (5-14) Spherocytes 1+ (0-2) Pappenheimer Bodies PRESENT Target Cells 1+ (5-14) [place] Cells 3+ (>5) Schistocytes 1+ (0-2) VBG pH 7.59 H VBG pCO2 20 VBG pO2 35 VBG HCO3 19 L VBG O2 Saturation 59.0 VBG Base Excess -0.2 Sodium 137 Potassium 5.1 Chloride 95 L Carbon Dioxide 16 L Anion Gap 31 H BUN 123 H Creatinine 5.26 H* Estim Creat Clear Calc 18.0 Estimated GFR 11 POC Glucose 304 H Random Glucose 323 H Calcium 6.1 L D Phosphorus 6.7 H Magnesium 2.4 Total Bilirubin 4.1 H AST 186 H ALT 511 H Alkaline Phosphatase 224 H B-Natriuretic Peptide 8180 H Total Protein 5.4 L Albumin 2.8 L TSH 1.49 Free T4 1.40 Microbiology Microbiology Results: Microbiology 09/30/23 Unknown Urine Catheterized - Straight Catheter Urine Culture - Final Klebsiella pneumoniae 09/28/23 23:08 Blood - Venous Blood Culture - Final Klebsiella pneumoniae 09/28/23 22:51 Blood - Venous Blood Culture - Final Klebsiella pneumoniae 09/29/23 Unknown Urine clean catch - Clean Catch Midstream Urine Culture - Final Enterobacter cloacae complex Progress Note: A&P Assessment and plan (1) Bacteremia due to Klebsiella pneumoniae: Status: Acute (2) Septic shock: Status: Acute (3) Acute respiratory failure with hypoxia: Status: Acute (4) Acute kidney failure: Status: Acute (5) Acute liver failure: Status: Acute (6) Disseminated intravascular coagulation: Status: Acute Plan Patient is a 68 Y M with diabetes mellitus, hypothyroidism, prior nephrolithiasis, and prostate cancer, presenting initially on 09/28 in septic shock, found to have gram negative bacteremia, thought to be d/t urinary source, c/b multi-system organ failure including renal and respiratory failure, initiated on hemodialysis on 09/30 and intubated on 09/29, and DIC; N: poor arousal despite sedation vacation; MRI brain unrevealing CV: shock, likely septic; norepinephrine gtt; to follow-up echocardiogram R: acute hypoxic respiratory failure d/t pulmonary edema; wean ventilator as tolerated GI: shock liver; to monitor; tube feeds : acute renal failure, initiated on hemodialysis on 09/30; appreciate nephrology recommendations; c/f prior R nephrolithiasis, s/p urethral stent H: c/f DIC; to monitor ID: UCx and BCx w/ klebsiella; empiric zosyn E: diabetes mellitus; to monitor hypo-/hyper-glycemia; hypothyroidism P: no acute issues Quality Stroke Does the patient have a stroke diagnosis?: No VTE Prior VTE?: No VTE Risk Level:: Medical - moderate - high VTE Device Contraindication: N/A - Device Ordered VTE Drug Contraindication: N/A - Med Ordered
[2023-10-06] MEDS: Insulin Glargine,Hum.rec.anlog 100 UNIT/ML 10 ML VIAL 20 UNIT SUBCUT (08:07)
[2023-10-06] MEDS: Chlorhexidine Gluc Oral Rinse 15 ML MOUTHWASH BUCCAL ×3 (08:07→20:42)
--- NOTE | 2023-10-06 08:11 | CA_ITS ---
Transthoracic Echocardiogram Patient (Last, First, Middle): Theron Manning E Gender: Male Date of : 1955 Age: 68 Procedure Date: 10/06/2023 Procedure Type: Transthoracic Echocardiogram Location: ICU Height: 185.42 cm Weight: 121.11 kg BSA: 2.43 m2 Heart Rate: 129 bpm BP: 107 / 63 mmHg Nurse Midwife/Clinical Instructor: SHIRLEY Hooper MD: Terrie Davis MD Ux Specialist: Chad Calhoun MD Symptoms: Assess Function Study Quality: Adequate w/Contrast, Limited by order ECG Rhythm: Possible sinus tachycardia Conclusions: - 1. Low normal LV ejection fraction 50-55% 2. Cardiac valvular Dopplers within normal limits Findings Procedure Information Contrast agent, definity, is being given per protocol without apparent complications. Left Ventricle Normal left ventricular cavity size. There is normal left ventricular wall thickness. The left ventricular systolic function is low normal. The visually estimated ejection fraction is between 50-55%. Diastolic function is indeterminate on the basis of available data. Right Ventricle Normal right ventricular cavity size. Atria The left atrium is normal in size. Interatrial shunt cannot be excluded. The right atrium was not well visualized. Aortic Valve Normal aortic valve structure and function. There is no aortic valve stenosis. There is no aortic valve regurgitation. Mitral Valve Likely normal mitral valve structure and function. There is trace mitral valve regurgitation. There is no mitral valve stenosis. Pulmonic Valve The pulmonic valve was not well visualized. Tricuspid Valve The tricuspid valve was not well visualized. Tricuspid regurgitation envelope is inadequate for calculation of right ventricular systolic pressure. Indeterminate right atrial pressure. Great Vessels The aorta was not well visualized. The pulmonary artery was not well visualized. Venous The inferior vena cava was not well visualized. The inferior vena cava is mildly dilated. Pericardium/Pleural The pericardium was not well visualized. Prior Study Comparison Changes noted compared to prior study dated: 09/30/2023. Measurements 2D Linear Measurements IVSd: 1.17 0.6-0.9/0.6-1.0 cm LVIDd: 4.52 3.9-5.3/4.2-5.9 cm LVIDd Index: 1.86 2.4-3.2/2.2-3.1 cm/m2 LVIDs: 3.40 2.0-3.6 cm LVPWd: 0.95 0.7-1.1 cm LV Mass: 208.15 67-162/88-224 g LV Mass Index: 85.66 43-95/49-115 g/m2 LVOT Diam: 2.40 3.0+(-)1.3 cm 2D Systolic Function EF 4C: 53.50 >55% EF 2C: 51.90 >55% EF BiP: 53.40 >55% LVOT LVOT Pk Elton: 0.63 LVOT Mn [place]ton: 0.45 LVOT VTI: 0.10 LVOT Pk Grad: 2.00 LVOT Mn Grad: 1.00 LVOT Diam: 2.40 LVOT Area: 4.52 Tricuspid Valve TR Pk [place]: 3.20 TR Pk Grad: 41.00 Updated in Other Vendor System with Status of Final Chad Calhoun MD electronically signed on 10/06/2023 2:42:31 PM with status of Final
[2023-10-06] MEDS: Norepinephrine Bitartrate/NS 32 MG/250 ML PLAST..BAG 6.59 MG IVCONT (08:12)
[2023-10-06] MEDS: Calcium Chloride 1 GM/10 ML SYRINGE IVPUSH (08:18)
[2023-10-06 09:04] LABS: Lactic Acid 1.8 mmol/L (0.5-2.0)
--- NOTE | 2023-10-06 09:52 | MHC.CLN ---
F/U PT REMAINS INTUBATED DISCUSSED AT ROUNDS WITH RECOMMEND NEPRO AT MAX GOAL RATE 45ML/HR TO PROVIDE 1944KCALS (23KCALS/KG), 87G PROTEIN (1.04G/KG), 785ML FREE WATER FROM FORMULA MONITOR TOLERANCE AND LYTES
[2023-10-06 11:13] LABS: Glucose, Whole Blood 143 mg/dL (60-115)
--- NOTE | 2023-10-06 11:51 | P.PNNP_ITS ---
Subjective Subjective Date of Service: 10/06/23 Interval history: No events overnight. Poor arousal with sedation vacation. All recent data reviewed Physical Exam 2 Vital Signs: Vital Signs: Last Vital Signs Temp 99.4 F 10/06/23 11:00 Pulse 130 H 10/06/23 11:00 Resp 19 10/06/23 11:00 BP 114/69 10/06/23 11:00 Pulse Ox 96 10/06/23 11:00 O2 Del Method Mechanical Ventil ation 10/06/23 11:00 O2 Flow Rate 11 09/29/23 19:20 FiO2 35 10/06/23 11:29 BMI result Body Mass Index 35.3 Const: General: no acute distress Neck: Neck: Yes supple Resp: Auscultation: diminished lung sounds Cardio: Rate: regular rate GI: Palpation (GI): Soft to palpation Neuro: Other: Intubated and ventilated Extrem: General: Yes edema Objective Data Labs 10/06/23 05:10 10/06/23 05:10 Labs: Laboratory Results - last 24 hr 10/05/23 10/05/23 10/05/23 13:18 18:02 23:32 WBC RBC Hgb Hct MCV MCH MCHC RDW Plt Count MPV Immature Gran % (Auto) Neut % (Auto) Lymph % (Auto) [place] % (Auto) Eos % (Auto) Baso % (Auto) Lymph # (Auto) [place] # (Auto) Eos # (Auto) Baso # (Auto) Abs Immat Gran (auto) Absolute Neuts (auto) Absolute Nucleated RBC Nucleated RBC % (auto) Neutrophils % (Manual) Band Neutrophils % Lymphocytes % (Manual) Monocytes % (Manual) Metamyelocytes % Abs Neuts (Manual) Lymphocytes # (Manual) Monocytes # (Manual) Metamyelocytes # Nucleated RBCs Toxic Granulation Toxic Vacuolation Platelet Estimate Large Platelets Plt Morphology Comment RBC Morphology Polychromasia Hypochromasia Spherocytes Pappenheimer Bodies Target Cells [place] Cells Schistocytes VBG pH VBG pCO2 VBG pO2 VBG HCO3 VBG O2 Saturation VBG Base Excess Sodium Potassium Chloride Carbon Dioxide Anion Gap BUN Creatinine Estim Creat Clear Calc Estimated GFR POC Glucose 133 H 148 H 271 H Random Glucose Lactic Acid Calcium Phosphorus Magnesium Total Bilirubin AST ALT Alkaline Phosphatase B-Natriuretic Peptide Total Protein Albumin TSH Free T4 Blood Type Antibody Screen 10/06/23 10/06/23 10/06/23 05:10 05:13 05:22 WBC 30.8 H* RBC 2.79 L Hgb 8.6 L Hct 23.7 L MCV 84.9 MCH 30.8 MCHC 36.3 H RDW 16.4 H Plt Count 94 L MPV 12.6 H Immature Gran % (Auto) Cancelled Neut % (Auto) Cancelled Lymph % (Auto) Cancelled [place] % (Auto) Cancelled Eos % (Auto) Cancelled Baso % (Auto) Cancelled Lymph # (Auto) Cancelled [place] # (Auto) Cancelled Eos # (Auto) Cancelled Baso # (Auto) Cancelled Abs Immat Gran (auto) Cancelled Absolute Neuts (auto) Cancelled Absolute Nucleated RBC 1.790 H Nucleated RBC % (auto) 5.8 H Neutrophils % (Manual) 88 H Band Neutrophils % 7 H Lymphocytes % (Manual) 2 L Monocytes % (Manual) 2 Metamyelocytes % 1 Abs Neuts (Manual) 29.3 H Lymphocytes # (Manual) 0.6 L Monocytes # (Manual) 0.6 Metamyelocytes # 0.3 Nucleated RBCs 11 H Toxic Granulation PRESENT Toxic Vacuolation PRESENT Platelet Estimate SLIGHTLY DECREASED Large Platelets PRESENT Plt Morphology Comment NOTED RBC Morphology NOTED Polychromasia 1+ (0-2) Hypochromasia 1+ (5-14) Spherocytes 1+ (0-2) Pappenheimer Bodies PRESENT Target Cells 1+ (5-14) [place] Cells 3+ (>5) Schistocytes 1+ (0-2) VBG pH 7.59 H VBG pCO2 20 VBG pO2 35 VBG HCO3 19 L VBG O2 Saturation 59.0 VBG Base Excess -0.2 Sodium 137 Potassium 5.1 Chloride 95 L Carbon Dioxide 16 L Anion Gap 31 H BUN 123 H Creatinine 5.26 H* Estim Creat Clear Calc 18.0 Estimated GFR 11 POC Glucose 304 H Random Glucose 323 H Lactic Acid Calcium 6.1 L D Phosphorus 6.7 H Magnesium 2.4 Total Bilirubin 4.1 H AST 186 H ALT 511 H Alkaline Phosphatase 224 H B-Natriuretic Peptide 8180 H Total Protein 5.4 L Albumin 2.8 L TSH 1.49 Free T4 1.40 Blood Type Antibody Screen 10/06/23 10/06/23 08:36 11:05 WBC RBC Hgb Hct MCV MCH MCHC RDW Plt Count MPV Immature Gran % (Auto) Neut % (Auto) Lymph % (Auto) [place] % (Auto) Eos % (Auto) Baso % (Auto) Lymph # (Auto) [place] # (Auto) Eos # (Auto) Baso # (Auto) Abs Immat Gran (auto) Absolute Neuts (auto) Absolute Nucleated RBC Nucleated RBC % (auto) Neutrophils % (Manual) Band Neutrophils % Lymphocytes % (Manual) Monocytes % (Manual) Metamyelocytes % Abs Neuts (Manual) Lymphocytes # (Manual) Monocytes # (Manual) Metamyelocytes # Nucleated RBCs Toxic Granulation Toxic Vacuolation Platelet Estimate Large Platelets Plt Morphology Comment RBC Morphology Polychromasia Hypochromasia Spherocytes Pappenheimer Bodies Target Cells [place] Cells Schistocytes VBG pH VBG pCO2 VBG pO2 VBG HCO3 VBG O2 Saturation VBG Base Excess Sodium Potassium Chloride Carbon Dioxide Anion Gap BUN Creatinine Estim Creat Clear Calc Estimated GFR POC Glucose 143 H Random Glucose Lactic Acid 1.8 Calcium Phosphorus Magnesium Total Bilirubin AST ALT Alkaline Phosphatase B-Natriuretic Peptide Total Protein Albumin TSH Free T4 Blood Type A Negative Antibody Screen NEGATIVE Microbiology Microbiology Results: Microbiology 09/30/23 Unknown Urine Catheterized - Straight Catheter Urine Culture - Final Klebsiella pneumoniae 09/28/23 23:08 Blood - Venous Blood Culture - Final Klebsiella pneumoniae 09/28/23 22:51 Blood - Venous Blood Culture - Final Klebsiella pneumoniae 09/29/23 Unknown Urine clean catch - Clean Catch Midstream Urine Culture - Final Enterobacter cloacae complex Procedures Date of Service Date of Service: 10/06/23 Assessment & Plan Assessment and plan (1) LATASHA (acute kidney injury): Status: Acute Plan LATASHA due to tubular injury Had life-threatening hyperkalemia with metabolic acidosis and worsening renal function Was Urgently dialyzed at that time. Urine output poor; metabolically acidotic Shall dialyze today for 4 hours. Shall increase bicarbonate in the dialysate to 40 She will continue current supportive care for now; shall closely follow-up Progress Note: Quality Stroke Does the patient have a stroke diagnosis?: No
--- NOTE | 2023-10-06 12:56 | P.ACPN_ITS ---
Advanced Care Planning Note Advanced Care Planning Note Discussed with: family member(s) Time spent (in minutes): 30 Narrative: I introduced myself to Mr. Manning's sisters, including Lorene. I offered clarifications regarding Mr. Manning's hospital course. We discussed Mr. Manning's critical, though stable clinical status. Lorene reports that Mr. Manning expressed that he would like Lorene to be his healthcare proxy, and that his should not make healthcare decisions as she appears to have chronic mental illness. 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 I encouraged Lorene to be transparent with Mr. Manning's . Mr. Manning's sisters report that they are updating Mr. Manning's in small increments as to not overwhelm her. We discussed that we will continue our current medical management, in hopes that Mr. Manning's encephalopathy and otherwise critical illness improves.
[2023-10-06 17:07] LABS: Glucose, Whole Blood 134 mg/dL (60-115)
[2023-10-06] MEDS: Vasopressin 20 UNIT/100 ML INFUS..BTL 12 UNIT IVCONT (18:14)
[2023-10-06] MEDS: Metoprolol Tartrate 5 MG/5 ML VIAL 2.5 MG IVPUSH (19:46)
[2023-10-07] VITALS (46 sets, daily range): BP systolic 80–137; BP diastolic 38–85; PULSE 61–134; RESP 14–95; TEMP 34.9–38.2; O2SAT 91–99; BMI 34.8
[2023-10-07] MEDS: Vasopressin 20 UNIT/100 ML INFUS..BTL 12 UNIT IVCONT ×4 (00:07→23:21)
[2023-10-07 00:16] LABS: Glucose, Whole Blood 417 mg/dL (60-115)
[2023-10-07 00:16] LABS: Glucose, Whole Blood 384 mg/dL (60-115)
[2023-10-07] MEDS: Insulin Regular, Human 100 UNIT/ML 10 ML VIAL 12 UNIT IVPUSH (00:32)
[2023-10-07 01:01] LABS: Glucose, Whole Blood 259 mg/dL (60-115)
[2023-10-07] MEDS: Albumin Human 25 % 100 ML IV ×3 (01:22→09:59)
[2023-10-07] MEDS: Piperacillin Sodium/Tazobactam 2.25 GM in 0.9 % Sodium Chloride 50 ML IV ×4 (02:49→21:26)
[2023-10-07] MEDS: Pantoprazole Sodium 40 MG/10 ML VIAL IVPUSH ×2 (05:38→17:25)
[2023-10-07] MEDS: Levothyroxine Sodium 100 MCG/5 ML VIAL 200 MCG IVPUSH (05:40)
[2023-10-07 05:56] LABS: Glucose, Whole Blood 465 mg/dL (60-115)
[2023-10-07] MEDS: Insulin Lispro 100 UNIT/ML 3 ML VIAL SUBCUT ×3 (05:59→17:25)
[2023-10-07 06:15] LABS: Mean Corpuscular HGB Conc 35.2 g/dl (31.0-36.0); Mean Corpuscular Hemoglobin 30.4 pg (27.0-33.0); Mean Corpuscular Volume 86.5 fL (80.0-98.0); Mean Platelet Volume 13.2 fL (9.4-12.4); Red Cell Distribution Width 16.9 % (11.0-16.0); White Blood Count 24.2 X10*3/uL (4.8-10.8)
[2023-10-07 06:17] LABS: Ammonia 50 umol/L (13-55)
[2023-10-07 06:18] LABS: NRBC Pct Auto 1.1 /100WBC (0.0-0.2); PLT ABN DIST 1; Platelet Count 67 X10*3/uL (160-400)
[2023-10-07 06:19] LABS: Hematocrit 19.9 % (42.0-52.0)
[2023-10-07 06:40] LABS: Anion Gap 30 (12-20); Blood Urea Nitrogen 117 mg/dL (9-16); Calcium 6.8 mg/dL (8.4-10.2); Carbon Dioxide 18 mmol/L (22-29); Chloride 93 mmol/L (96-108); Creatinine Clr Calc Pharmacy 17.5; Estimated Glomerular Filt Rate 11; Magnesium 2.6 mg/dL (1.6-2.6); Phosphorus 7.8 mg/dL (2.7-4.5); Sodium 136 mmol/L (135-145); Uric Acid 8.7 mg/dL (3.4-7.0)
[2023-10-07 07:22] LABS: Band Neutrophils Percent 4 % (3-5); Lymphocytes Absolute Manual 0.5 X10*3/uL (1.2-4.9); Lymphocytes Percent Manual 2 % (20-40); Monocytes Absolute Manual 0.7 X10*3/uL (0.1-1.2); Monocytes Percent Manual 3 % (2-11); Neutrophils Percent Manual 91 % (45-73)
[2023-10-07 07:23] LABS: Polychromasia 1+ (0-2) /OIF; RBC Morphology NOTED; Toxic Granulation PRESENT
[2023-10-07 07:24] LABS: Burr Cells 2+ (3-5) /OIF
[2023-10-07 07:26] LABS: Pappenheimer Bodies PRESENT
[2023-10-07 07:29] LABS: Schistocytes 1+ (0-2) /OIF
[2023-10-07 07:30] LABS: Platelet Estimate DECREASED (NORMAL); Platelet Morphology Comment NORMAL
--- NOTE | 2023-10-07 07:46 | P.PNCC_ITS ---
Subjective Subjective Date of Service: 10/07/23 Interval History: no significant overnight events Critical Care Time (minutes): 60 Physical Exam 2 Vital Signs: Vital Signs: Last Vital Signs Temp 100.8 F H 10/07/23 06:57 Pulse 121 H 10/07/23 06:57 Resp 20 10/07/23 06:57 BP 105/62 10/07/23 06:57 Pulse Ox 95 10/07/23 06:57 O2 Del Method Mechanical Ventil ation 10/07/23 06:57 O2 Flow Rate 35 10/06/23 23:00 FiO2 30 10/07/23 06:57 BMI result Body Mass Index 34.8 Const: Other: intubated, not sedated; eyes open, though not tracking; no appreciable withdrawal to pain; some intermittent flickering of hands General: no acute distress and well developed HEENT: Head: Yes normal to inspection, Yes normocephalic and Yes atraumatic Eyes: General: appearance normal, both eyes and all related structures Neck: Neck: Yes normal visual inspection, Yes full ROM, Yes trachea midline and Yes supple Chest: Chest palpation & inspection: normal inspection of the chest Resp: Other: no appreciable rales, rhonchi, wheezing Effort & Inspection: normal respiratory effort Cardio: Rate: regular rate Rhythm: regular rhythm GI: Inspection: Yes normal to inspection, No Abdominal wall edema and No distended Palpation (GI): Soft to palpation, not firm, nontender, no guarding and not rigid Skin: Other: appreciable bluish discoloration bilateral distal digits and phalanges Neuro: Other: as described above General: tone normal Extrem: Other: appreciable 1+ pitting edema throughout General: Yes normal to inspection, Yes full ROM and Yes capillary refill normal Psych: Other: unable to assess Objective Data Labs 10/07/23 05:36 10/07/23 05:36 Labs: Laboratory Results - last 24 hr 10/06/23 10/06/23 10/06/23 08:36 11:05 17:01 WBC RBC Hgb Hct MCV MCH MCHC RDW Plt Count MPV Immature Gran % (Auto) Neut % (Auto) Lymph % (Auto) [place] % (Auto) Eos % (Auto) Baso % (Auto) Lymph # (Auto) [place] # (Auto) Eos # (Auto) Baso # (Auto) Abs Immat Gran (auto) Absolute Neuts (auto) Absolute Nucleated RBC Nucleated RBC % (auto) Neutrophils % (Manual) Band Neutrophils % Lymphocytes % (Manual) Monocytes % (Manual) Abs Neuts (Manual) Lymphocytes # (Manual) Monocytes # (Manual) Toxic Granulation Platelet Estimate Plt Morphology Comment RBC Morphology Polychromasia Pappenheimer Bodies [place] Cells Schistocytes Sodium Potassium Chloride Carbon Dioxide Anion Gap BUN Creatinine Estim Creat Clear Calc Estimated GFR POC Glucose 143 H 134 H Random Glucose Lactic Acid 1.8 Uric Acid Calcium Phosphorus Magnesium Ammonia Blood Type A Negative Antibody Screen NEGATIVE Crossmatch See Detail 10/07/23 10/07/23 10/07/23 00:10 00:12 00:59 WBC RBC Hgb Hct MCV MCH MCHC RDW Plt Count MPV Immature Gran % (Auto) Neut % (Auto) Lymph % (Auto) [place] % (Auto) Eos % (Auto) Baso % (Auto) Lymph # (Auto) [place] # (Auto) Eos # (Auto) Baso # (Auto) Abs Immat Gran (auto) Absolute Neuts (auto) Absolute Nucleated RBC Nucleated RBC % (auto) Neutrophils % (Manual) Band Neutrophils % Lymphocytes % (Manual) Monocytes % (Manual) Abs Neuts (Manual) Lymphocytes # (Manual) Monocytes # (Manual) Toxic Granulation Platelet Estimate Plt Morphology Comment RBC Morphology Polychromasia Pappenheimer Bodies [place] Cells Schistocytes Sodium Potassium Chloride Carbon Dioxide Anion Gap BUN Creatinine Estim Creat Clear Calc Estimated GFR POC Glucose 417 H* 384 H* 259 H Random Glucose Lactic Acid Uric Acid Calcium Phosphorus Magnesium Ammonia Blood Type Antibody Screen Crossmatch 10/07/23 10/07/23 10/07/23 05:36 05:37 05:51 WBC 24.2 H RBC 2.30 L Hgb 7.0 L* Hct 19.9 L* MCV 86.5 MCH 30.4 MCHC 35.2 RDW 16.9 H Plt Count 67 L D MPV 13.2 H Immature Gran % (Auto) Cancelled Neut % (Auto) Cancelled Lymph % (Auto) Cancelled [place] % (Auto) Cancelled Eos % (Auto) Cancelled Baso % (Auto) Cancelled Lymph # (Auto) Cancelled [place] # (Auto) Cancelled Eos # (Auto) Cancelled Baso # (Auto) Cancelled Abs Immat Gran (auto) Cancelled Absolute Neuts (auto) Cancelled Absolute Nucleated RBC 0.260 H Nucleated RBC % (auto) 1.1 H Neutrophils % (Manual) 91 H Band Neutrophils % 4 Lymphocytes % (Manual) 2 L Monocytes % (Manual) 3 Abs Neuts (Manual) 23.0 H Lymphocytes # (Manual) 0.5 L Monocytes # (Manual) 0.7 Toxic Granulation PRESENT Platelet Estimate DECREASED Plt Morphology Comment NORMAL RBC Morphology NOTED Polychromasia 1+ (0-2) Pappenheimer Bodies PRESENT [place] Cells 2+ (3-5) Schistocytes 1+ (0-2) Sodium 136 Potassium 5.0 Chloride 93 L Carbon Dioxide 18 L Anion Gap 30 H BUN 117 H Creatinine 5.39 H* Estim Creat Clear Calc 17.5 Estimated GFR 11 POC Glucose 465 H* Random Glucose 504 H* Lactic Acid Uric Acid 8.7 H Calcium 6.8 L D Phosphorus 7.8 H Magnesium 2.6 Ammonia 50 Blood Type Antibody Screen Crossmatch Microbiology Microbiology Results: Microbiology 09/30/23 Unknown Urine Catheterized - Straight Catheter Urine Culture - Final Klebsiella pneumoniae 09/28/23 23:08 Blood - Venous Blood Culture - Final Klebsiella pneumoniae 09/28/23 22:51 Blood - Venous Blood Culture - Final Klebsiella pneumoniae 09/29/23 Unknown Urine clean catch - Clean Catch Midstream Urine Culture - Final Enterobacter cloacae complex Progress Note: A&P Assessment and plan (1) Bacteremia due to Klebsiella pneumoniae: Status: Acute (2) Septic shock: Status: Acute (3) Acute respiratory failure with hypoxia: Status: Acute (4) Acute liver failure: Status: Acute (5) Acute kidney failure: Status: Acute (6) Disseminated intravascular coagulation: Status: Acute Plan Patient is a 68 Y M with diabetes mellitus, hypothyroidism, prior nephrolithiasis, and prostate cancer, presenting initially on 09/28 in septic shock, found to have gram negative bacteremia, thought to be d/t urinary source, c/b multi-system organ failure including renal and respiratory failure, initiated on hemodialysis on 09/30 and intubated on 09/29, and DIC; N: poor arousal despite sedation vacation; MRI brain unrevealing CV: shock, likely septic; norepinephrine, vasopressin gtt R: acute hypoxic respiratory failure d/t pulmonary edema; wean ventilator as tolerated GI: shock liver; to monitor; tube feeds : acute renal failure, initiated on hemodialysis on 09/30, last hemodialysis session 10/05; appreciate nephrology recommendations; c/f prior R nephrolithiasis, s/p urethral stent H: c/f DIC; to monitor, transfuse as needed; to avoid chemical DVT prophylaxis until improvement ID: UCx and BCx w/ klebsiella; empiric zosyn E: diabetes mellitus; to monitor hypo-/hyper-glycemia; hypothyroidism, on home levothyroxine P: no acute issues Quality Stroke Does the patient have a stroke diagnosis?: No VTE Prior VTE?: No VTE Risk Level:: Medical - moderate - high VTE Device Contraindication: N/A - Device Ordered VTE Drug Contraindication: Treatment Not Tolerated
[2023-10-07] MEDS: Calcium Chloride 1 GM/10 ML SYRINGE IVPUSH ×2 (07:48→16:41)
[2023-10-07] MEDS: Insulin Glargine,Hum.rec.anlog 100 UNIT/ML 10 ML VIAL 20 UNIT SUBCUT (07:50)
[2023-10-07 08:06] LABS: VBG Base Excess -4.2 mmol/L; VBG HCO3 20 mmol/L (22-26); VBG pCO2 32 mmHg; VBG pH 7.39 (7.32-7.43); VBG pO2 42 mmHg
[2023-10-07] MEDS: Chlorhexidine Gluc Oral Rinse 15 ML MOUTHWASH BUCCAL ×3 (08:10→21:26)
[2023-10-07] MEDS: Insulin Regular, Human 100 UNIT/ML 10 ML VIAL 10 UNIT IVPUSH (08:11)
[2023-10-07 08:18] LABS: Fibrinogen 297 MG/DL (259-690); INTERNATIONAL NORM RATIO 1.8 (0.9-1.1); Prothrombin Time 22.2 SEC (11.1-13.3)
[2023-10-07 08:19] LABS: Glucose Random 504 mg/dL (60-115)
[2023-10-07 08:45] LABS: TSH reflex Free T4 1.03 uIU/mL (0.32-4.0)
[2023-10-07 09:10] LABS: Venous Blood Gas Refer to POC result
[2023-10-07 09:23] LABS: Glucose, Whole Blood 120 mg/dL (60-115)
--- NOTE | 2023-10-07 09:40 | MHC.CLN ---
F/U PT REMAINS INTUBATED DISCUSSED AT ROUNDS WITH PT RECEIVING NEPRO AT MAX GOAL RATE 45ML/HR PROVIDES 1944KCALS (23KCALS/KG), 87G PROTEIN (1.04G/KG), 785ML FREE WATER FROM FORMULA NSG NOTED LOOSE STOOLS-WILL MONITOR MONITOR TOLERANCE AND LYTES
[2023-10-07] MEDS: 0.9 % Sodium Chloride Flush 3 ML SYRINGE IVFLUSH ×3 (09:58→23:22)
--- NOTE | 2023-10-07 10:01 | EEG_ITS ---
FINDINGS: The waking background activity consists of a low voltage fast frequencies seen diffusely intermixed with low-voltage intermittent theta of 5 yo 6 hertz. Photic stimulation and hyperventilation were omitted. No sleep stages are identified. IMPRESSION: This EEG is considered abnormal due to mild diffuse background slowing consistent with a diffuse encephalopathic process. No epileptiform discharges are seen. MD FARHAT Cifuentes/ALEXANDRU / [id number]
--- NOTE | 2023-10-07 10:16 | MHC.CM.PN ---
Call placed to pt's sister Lorene who is serving as decision maker in absence of a HCP and in place of pt's spouse Shyann who is presently hospitalized at [facility] (3 weeks in duration) with sepsis. She is supposed to transition to [facility] once medically stable. Shyann has a son, Raul from a previous marriage who assists as needed. Shyann Paulson does not have any barriers to making decisions on behalf of her spouse ie: no dementia, activated HCP or guardianship - family has been trying to keep information limited in light of Shyann's own medical condition/illness. Discussed pt's serious condition and multi organ failure and the likely need for decision making in the next coming days. Informed Lorene that Shyann would need to make decisions for continuation of care or transition to [facility]. This could be accomplished by a phone conference / Facetime if Shyann is unable to be present at [facility]. ICU MD updated on above. CM to follow
[2023-10-07 12:02] LABS: Glucose, Whole Blood 309 mg/dL (60-115)
[2023-10-07] MEDS: Heparin Sodium,Porcine 5,000 UNIT/ML VIAL 5000 UNIT INTRACATH (12:30)
--- NOTE | 2023-10-07 12:40 | P.PNNP_ITS ---
Subjective Subjective Date of Service: 10/07/23 Interval history: no significant overnight events; seen on dialysis this morning. All recent data reviewed. Discussed with dialysis nurse. Urine output poor Physical Exam 2 Vital Signs: Vital Signs: Last Vital Signs Temp 99.3 F 10/07/23 12:00 Pulse 131 H 10/07/23 12:00 Resp 16 10/07/23 12:00 BP 128/82 10/07/23 12:00 Pulse Ox 95 10/07/23 12:00 O2 Del Method Mechanical Ventil ation 10/07/23 12:00 O2 Flow Rate 35 10/06/23 23:00 FiO2 30 10/07/23 12:00 BMI result Body Mass Index 34.8 Const: General: no acute distress Neck: Neck: Yes supple Resp: Auscultation: diminished lung sounds Cardio: Rate: regular rate GI: Palpation (GI): Soft to palpation Neuro: Other: Intubated and ventilated Extrem: General: Yes edema Objective Data Labs 10/07/23 05:36 10/07/23 05:36 Labs: Laboratory Results - last 24 hr 10/06/23 10/06/23 10/07/23 08:36 17:01 00:10 WBC RBC Hgb Hct MCV MCH MCHC RDW Plt Count MPV Immature Gran % (Auto) Neut % (Auto) Lymph % (Auto) [place] % (Auto) Eos % (Auto) Baso % (Auto) Lymph # (Auto) [place] # (Auto) Eos # (Auto) Baso # (Auto) Abs Immat Gran (auto) Absolute Neuts (auto) Absolute Nucleated RBC Nucleated RBC % (auto) Neutrophils % (Manual) Band Neutrophils % Lymphocytes % (Manual) Monocytes % (Manual) Abs Neuts (Manual) Lymphocytes # (Manual) Monocytes # (Manual) Toxic Granulation Platelet Estimate Plt Morphology Comment RBC Morphology Polychromasia Pappenheimer Bodies Mario Cells Schistocytes PT INR Fibrinogen VBG pH VBG pCO2 VBG pO2 VBG HCO3 VBG O2 Saturation VBG Base Excess Sodium Potassium Chloride Carbon Dioxide Anion Gap BUN Creatinine Estim Creat Clear Calc Estimated GFR POC Glucose 134 H 417 H* Random Glucose Uric Acid Calcium Phosphorus Magnesium Ammonia TSH Blood Type A Negative Antibody Screen NEGATIVE Crossmatch See Detail 10/07/23 10/07/23 10/07/23 00:12 00:59 05:36 WBC 24.2 H RBC 2.30 L Hgb 7.0 L* Hct 19.9 L* MCV 86.5 MCH 30.4 MCHC 35.2 RDW 16.9 H Plt Count 67 L D MPV 13.2 H Immature Gran % (Auto) Cancelled Neut % (Auto) Cancelled Lymph % (Auto) Cancelled [place] % (Auto) Cancelled Eos % (Auto) Cancelled Baso % (Auto) Cancelled Lymph # (Auto) Cancelled [place] # (Auto) Cancelled Eos # (Auto) Cancelled Baso # (Auto) Cancelled Abs Immat Gran (auto) Cancelled Absolute Neuts (auto) Cancelled Absolute Nucleated RBC 0.260 H Nucleated RBC % (auto) 1.1 H Neutrophils % (Manual) 91 H Band Neutrophils % 4 Lymphocytes % (Manual) 2 L Monocytes % (Manual) 3 Abs Neuts (Manual) 23.0 H Lymphocytes # (Manual) 0.5 L Monocytes # (Manual) 0.7 Toxic Granulation PRESENT Platelet Estimate DECREASED Plt Morphology Comment NORMAL RBC Morphology NOTED Polychromasia 1+ (0-2) Pappenheimer Bodies PRESENT Mario Cells 2+ (3-5) Schistocytes 1+ (0-2) PT INR Fibrinogen VBG pH VBG pCO2 VBG pO2 VBG HCO3 VBG O2 Saturation VBG Base Excess Sodium 136 Potassium 5.0 Chloride 93 L Carbon Dioxide 18 L Anion Gap 30 H BUN 117 H Creatinine 5.39 H* Estim Creat Clear Calc 17.5 Estimated GFR 11 POC Glucose 384 H* 259 H Random Glucose 504 H* Uric Acid 8.7 H Calcium 6.8 L D Phosphorus 7.8 H Magnesium 2.6 Ammonia TSH Blood Type Antibody Screen Crossmatch 10/07/23 10/07/23 10/07/23 05:37 05:51 07:57 WBC RBC Hgb Hct MCV MCH MCHC RDW Plt Count MPV Immature Gran % (Auto) Neut % (Auto) Lymph % (Auto) [place] % (Auto) Eos % (Auto) Baso % (Auto) Lymph # (Auto) [place] # (Auto) Eos # (Auto) Baso # (Auto) Abs Immat Gran (auto) Absolute Neuts (auto) Absolute Nucleated RBC Nucleated RBC % (auto) Neutrophils % (Manual) Band Neutrophils % Lymphocytes % (Manual) Monocytes % (Manual) Abs Neuts (Manual) Lymphocytes # (Manual) Monocytes # (Manual) Toxic Granulation Platelet Estimate Plt Morphology Comment RBC Morphology Polychromasia Pappenheimer Bodies Mario Cells Schistocytes PT INR Fibrinogen VBG pH 7.39 VBG pCO2 32 VBG pO2 42 VBG HCO3 20 L VBG O2 Saturation 61.0 VBG Base Excess -4.2 Sodium Potassium Chloride Carbon Dioxide Anion Gap BUN Creatinine Estim Creat Clear Calc Estimated GFR POC Glucose 465 H* Random Glucose Uric Acid Calcium Phosphorus Magnesium Ammonia 50 TSH Blood Type Antibody Screen Crossmatch 10/07/23 10/07/23 10/07/23 08:01 09:16 11:54 WBC RBC Hgb Hct MCV MCH MCHC RDW Plt Count MPV Immature Gran % (Auto) Neut % (Auto) Lymph % (Auto) [place] % (Auto) Eos % (Auto) Baso % (Auto) Lymph # (Auto) [place] # (Auto) Eos # (Auto) Baso # (Auto) Abs Immat Gran (auto) Absolute Neuts (auto) Absolute Nucleated RBC Nucleated RBC % (auto) Neutrophils % (Manual) Band Neutrophils % Lymphocytes % (Manual) Monocytes % (Manual) Abs Neuts (Manual) Lymphocytes # (Manual) Monocytes # (Manual) Toxic Granulation Platelet Estimate Plt Morphology Comment RBC Morphology Polychromasia Pappenheimer Bodies Mario Cells Schistocytes PT 22.2 H INR 1.8 H Fibrinogen 297 VBG pH VBG pCO2 VBG pO2 VBG HCO3 VBG O2 Saturation VBG Base Excess Sodium Potassium Chloride Carbon Dioxide Anion Gap BUN Creatinine Estim Creat Clear Calc Estimated GFR POC Glucose 120 H 309 H Random Glucose Uric Acid Calcium Phosphorus Magnesium Ammonia TSH 1.03 Blood Type Antibody Screen Crossmatch Microbiology Microbiology Results: Microbiology 09/30/23 Unknown Urine Catheterized - Straight Catheter Urine Culture - Final Klebsiella pneumoniae 09/28/23 23:08 Blood - Venous Blood Culture - Final Klebsiella pneumoniae 09/28/23 22:51 Blood - Venous Blood Culture - Final Klebsiella pneumoniae 09/29/23 Unknown Urine clean catch - Clean Catch Midstream Urine Culture - Final Enterobacter cloacae complex Procedures Date of Service Date of Service: 10/07/23 Assessment & Plan Assessment and plan (1) LATASHA (acute kidney injury): Status: Acute Plan LATASHA due to tubular injury Had life-threatening hyperkalemia with metabolic acidosis and worsening renal function Was Urgently dialyzed at that time. Urine output poor; metabolically acidotic Seen on dialysis this morning. Increased bicarbonate in the dialysate to 40 Shall provide hemodialysis again tomorrow (ordered) She will continue current supportive care for now; shall closely follow-up Progress Note: Quality Stroke Does the patient have a stroke diagnosis?: No
[2023-10-07 14:15] LABS: OBS Int Ctl Valid YES; OBS1 NEGATIVE (NEGATIVE)
[2023-10-07 15:32] LABS: Hematocrit 22.4 % (42.0-52.0); Hemoglobin 8.1 g/dl (14.0-18.0); Mean Corpuscular HGB Conc 36.2 g/dl (31.0-36.0); Mean Corpuscular Hemoglobin 31.8 pg (27.0-33.0); Mean Corpuscular Volume 87.8 fL (80.0-98.0); Red Blood Count 2.55 X10*6/uL (4.60-5.80); Red Cell Distribution Width 16.7 % (11.0-16.0); White Blood Count 23.7 X10*3/uL (4.8-10.8)
[2023-10-07 15:33] LABS: Platelet Count 65 X10*3/uL (160-400)
[2023-10-07 15:40] LABS: Anion Gap 21 (12-20); Blood Urea Nitrogen 86 mg/dL (9-16); Calcium 7.4 mg/dL (8.4-10.2); Carbon Dioxide 22 mmol/L (22-29); Chloride 96 mmol/L (96-108); Creatinine Clr Calc Pharmacy 22.5; Estimated Glomerular Filt Rate 14; Glucose Random 351 mg/dL (60-115); Sodium 135 mmol/L (135-145)
[2023-10-07 15:51] LABS: Atypical Lymph Absolute Manual 0.2 x10*3/uL; Atypical Lymphs Percent Manual 1 % (0-6); Band Neutrophils Percent 2 % (3-5); Lymphocytes Absolute Manual 1.4 X10*3/uL (1.2-4.9); Lymphocytes Percent Manual 6 % (20-40); Monocytes Absolute Manual 0.9 X10*3/uL (0.1-1.2); Monocytes Percent Manual 4 % (2-11); Neutrophils Absolute Manual 21.1 X10*3/uL (2.0-8.3); Neutrophils Percent Manual 87 % (45-73)
[2023-10-07 15:53] LABS: Burr Cells 1+ (0-2) /OIF
[2023-10-07 15:55] LABS: Toxic Granulation PRESENT
[2023-10-07 15:56] LABS: Platelet Estimate DECREASED (NORMAL); Platelet Morphology Comment NORMAL; RBC Morphology NOTED
[2023-10-07] MEDS: Insulin Lispro 100 UNIT/ML 3 ML VIAL 10 UNIT SUBCUT (15:58)
[2023-10-07] MEDS: Acetaminophen 325 MG TABLET 975 MG PO (16:13)
[2023-10-07 16:58] LABS: Glucose, Whole Blood 345 mg/dL (60-115)
[2023-10-07] MEDS: Norepinephrine Bitartrate/NS 32 MG/250 ML PLAST..BAG 4.39 MG IVCONT (17:35)
[2023-10-07] MEDS: Insulin Glargine,Hum.rec.anlog 100 UNIT/ML 10 ML VIAL 10 UNIT SUBCUT (21:38)
[2023-10-07 21:44] LABS: Glucose, Whole Blood 333 mg/dL (60-115)
[2023-10-08] VITALS (41 sets, daily range): BP systolic 92–129; BP diastolic 43–80; PULSE 60–131; RESP 10–22; TEMP 34.7–37.3; O2SAT 91–96; BMI 33.6
[2023-10-08 00:22] LABS: Glucose, Whole Blood 304 mg/dL (60-115)
[2023-10-08] MEDS: Insulin Lispro 100 UNIT/ML 3 ML VIAL SUBCUT ×5 (00:33→23:57)
[2023-10-08] MEDS: HYDROmorphone HCl 0.5 MG/0.5 ML SYRINGE IVPUSH ×3 (02:15→19:13)
[2023-10-08] MEDS: Piperacillin Sodium/Tazobactam 2.25 GM in 0.9 % Sodium Chloride 50 ML IV ×4 (02:19→20:06)
[2023-10-08 05:20] LABS: VBG Base Excess -4.2 mmol/L; VBG HCO3 20 mmol/L (22-26); VBG pCO2 35 mmHg; VBG pH 7.36 (7.32-7.43); VBG pO2 42 mmHg
[2023-10-08 05:21] LABS: Venous Blood Gas Refer to POC result
[2023-10-08 05:40] LABS: Glucose, Whole Blood 370 mg/dL (60-115)
[2023-10-08] MEDS: Pantoprazole Sodium 40 MG/10 ML VIAL IVPUSH (05:45)
[2023-10-08] MEDS: Sodium Bicarbonate 8.4% 50 MEQ/50 ML SYRINGE IVPUSH (05:47)
[2023-10-08] MEDS: Levothyroxine Sodium 100 MCG/5 ML VIAL 200 MCG IVPUSH (05:51)
[2023-10-08 05:58] LABS: Hemoglobin 8.2 g/dl (14.0-18.0); Mean Corpuscular HGB Conc 35.7 g/dl (31.0-36.0); Mean Corpuscular Hemoglobin 31.4 pg (27.0-33.0); Mean Corpuscular Volume 88.1 fL (80.0-98.0); NRBC Pct Auto 0.7 /100WBC (0.0-0.2); Red Blood Count 2.61 X10*6/uL (4.60-5.80); Red Cell Distribution Width 17.2 % (11.0-16.0); White Blood Count 20.8 X10*3/uL (4.8-10.8)
[2023-10-08 05:59] LABS: Platelet Count 66 X10*3/uL (160-400)
[2023-10-08 06:15] LABS: Anion Gap 24 (12-20); Blood Urea Nitrogen 112 mg/dL (9-16); Calcium 7.2 mg/dL (8.4-10.2); Carbon Dioxide 20 mmol/L (22-29); Chloride 96 mmol/L (96-108); Creatinine Clr Calc Pharmacy 18.2; Estimated Glomerular Filt Rate 11; Glucose Random 423 mg/dL (60-115); Magnesium 2.6 mg/dL (1.6-2.6); Phosphorus 7.9 mg/dL (2.7-4.5); Potassium 4.2 mmol/L (3.3-5.1); Sodium 136 mmol/L (135-145)
[2023-10-08 06:27] LABS: Band Neutrophils Percent 3 % (3-5); Eosinophils Absolute Manual 0.2 X10*3/uL (0.0-0.4); Eosinophils Percent Manual 1 % (0-4); Lymphocytes Absolute Manual 0.4 X10*3/uL (1.2-4.9); Lymphocytes Percent Manual 2 % (20-40); Monocytes Absolute Manual 0.6 X10*3/uL (0.1-1.2); Monocytes Percent Manual 3 % (2-11); Neutrophils Absolute Manual 19.6 X10*3/uL (2.0-8.3); Neutrophils Percent Manual 91 % (45-73); Nucleated Red Blood Cells 1 /100WBC (0-0)
[2023-10-08 06:28] LABS: Platelet Estimate DECREASED (NORMAL); Platelet Morphology Comment NORMAL; RBC Morphology NOTED
[2023-10-08 06:29] LABS: Hypochromasia 1+ (5-14) /OIF; Polychromasia 1+ (0-2) /OIF; Schistocytes 1+ (0-2) /OIF; Target Cells 1+ (5-14) /OIF
[2023-10-08 06:30] LABS: Pappenheimer Bodies PRESENT; Toxic Granulation PRESENT
[2023-10-08] MEDS: Vasopressin 20 UNIT/100 ML INFUS..BTL 12 UNIT IVCONT ×3 (06:35→23:17)
--- NOTE | 2023-10-08 07:41 | PM.CCPN ---
Subjective Subjective Date of Service: 10/08/23 Interval History: no significant overnight events Critical Care Time (minutes): 60 Physical Exam Vital Signs: Vital Signs: Last Vital Signs Temp 97.0 F 10/08/23 04:00 Pulse 66 10/08/23 06:57 Resp 19 10/08/23 06:57 BP 123/61 10/08/23 06:57 Pulse Ox 93 10/08/23 06:57 O2 Del Method Mechanical Ventil ation 10/08/23 06:57 O2 Flow Rate 35 10/06/23 23:00 FiO2 30 10/08/23 06:57 BMI result Body Mass Index 33.6 Const: Other: some spontaneous eye opening; no appreciable tracking; squeezes hands w/ significant verbal stimulus; otherwise, no additional purposeful movements General: comfortable and no acute distress HEENT: Head: Yes normal to inspection, Yes normocephalic and Yes atraumatic Eyes: General: appearance normal, both eyes and all related structures Neck: Neck: Yes normal visual inspection, Yes full ROM, Yes trachea midline and Yes supple Chest: Chest palpation & inspection: normal inspection of the chest Resp: Other: no appreciable rales, rhonchi, wheezing Effort & Inspection: normal respiratory effort Cardio: Rate: regular rate Rhythm: regular rhythm GI: Inspection: Yes normal to inspection, No Abdominal wall edema and No distended Palpation (GI): Soft to palpation, not firm, nontender, no guarding and not rigid Skin: General skin exam: no rashes or lesions noted Neuro: Other: as described above General: tone normal Extrem: Other: 1+ pitting edema to bilateral shins General: Yes normal to inspection, Yes full ROM and Yes capillary refill normal Psych: Other: unable to assess Objective Data Labs 10/08/23 05:04 10/08/23 05:04 Labs: Laboratory Results - last 24 hr 10/06/23 10/07/23 10/07/23 08:36 05:36 07:57 WBC RBC Hgb Hct MCV MCH MCHC RDW Plt Count MPV Immature Gran % (Auto) Neut % (Auto) Lymph % (Auto) [place] % (Auto) Eos % (Auto) Baso % (Auto) Lymph # (Auto) [place] # (Auto) Eos # (Auto) Baso # (Auto) Abs Immat Gran (auto) Absolute Neuts (auto) Absolute Nucleated RBC Nucleated RBC % (auto) Neutrophils % (Manual) Band Neutrophils % Lymphocytes % (Manual) Atypical Lymphs % (Man) Monocytes % (Manual) Eosinophils % (Manual) Abs Neuts (Manual) Lymphocytes # (Manual) Atyp Lymphs # (Manual) Monocytes # (Manual) Eosinophils # (Manual) Nucleated RBCs Toxic Granulation Platelet Estimate Plt Morphology Comment RBC Morphology Polychromasia Hypochromasia Pappenheimer Bodies Target Cells Mario Cells Schistocytes PT INR Fibrinogen VBG pH 7.39 VBG pCO2 32 VBG pO2 42 VBG HCO3 20 L VBG O2 Saturation 61.0 VBG Base Excess -4.2 Sodium Potassium Chloride Carbon Dioxide Anion Gap BUN Creatinine Estim Creat Clear Calc Estimated GFR POC Glucose Random Glucose 504 H* Calcium Phosphorus Magnesium TSH Stool Occult Blood Blood Type A Negative Antibody Screen NEGATIVE Crossmatch See Detail 10/07/23 10/07/23 10/07/23 08:01 09:16 11:54 WBC RBC Hgb Hct MCV MCH MCHC RDW Plt Count MPV Immature Gran % (Auto) Neut % (Auto) Lymph % (Auto) [place] % (Auto) Eos % (Auto) Baso % (Auto) Lymph # (Auto) [place] # (Auto) Eos # (Auto) Baso # (Auto) Abs Immat Gran (auto) Absolute Neuts (auto) Absolute Nucleated RBC Nucleated RBC % (auto) Neutrophils % (Manual) Band Neutrophils % Lymphocytes % (Manual) Atypical Lymphs % (Man) Monocytes % (Manual) Eosinophils % (Manual) Abs Neuts (Manual) Lymphocytes # (Manual) Atyp Lymphs # (Manual) Monocytes # (Manual) Eosinophils # (Manual) Nucleated RBCs Toxic Granulation Platelet Estimate Plt Morphology Comment RBC Morphology Polychromasia Hypochromasia Pappenheimer Bodies Target Cells [place] Cells Schistocytes PT 22.2 H INR 1.8 H Fibrinogen 297 VBG pH VBG pCO2 VBG pO2 VBG HCO3 VBG O2 Saturation VBG Base Excess Sodium Potassium Chloride Carbon Dioxide Anion Gap BUN Creatinine Estim Creat Clear Calc Estimated GFR POC Glucose 120 H 309 H Random Glucose Calcium Phosphorus Magnesium TSH 1.03 Stool Occult Blood Blood Type Antibody Screen Crossmatch 10/07/23 10/07/23 10/07/23 13:42 14:59 16:54 WBC 23.7 H RBC 2.55 L Hgb 8.1 L Hct 22.4 L MCV 87.8 MCH 31.8 MCHC 36.2 H RDW 16.7 H Plt Count 65 L MPV Not Reportable Immature Gran % (Auto) Cancelled Neut % (Auto) Cancelled Lymph % (Auto) Cancelled [place] % (Auto) Cancelled Eos % (Auto) Cancelled Baso % (Auto) Cancelled Lymph # (Auto) Cancelled [place] # (Auto) Cancelled Eos # (Auto) Cancelled Baso # (Auto) Cancelled Abs Immat Gran (auto) Cancelled Absolute Neuts (auto) Cancelled Absolute Nucleated RBC 0.230 H Nucleated RBC % (auto) 1.0 H Neutrophils % (Manual) 87 H Band Neutrophils % 2 L Lymphocytes % (Manual) 6 L Atypical Lymphs % (Man) 1 Monocytes % (Manual) 4 Eosinophils % (Manual) Abs Neuts (Manual) 21.1 H Lymphocytes # (Manual) 1.4 Atyp Lymphs # (Manual) 0.2 Monocytes # (Manual) 0.9 Eosinophils # (Manual) Nucleated RBCs Toxic Granulation PRESENT Platelet Estimate DECREASED Plt Morphology Comment NORMAL RBC Morphology NOTED Polychromasia Hypochromasia Pappenheimer Bodies Target Cells Mario Cells 1+ (0-2) Schistocytes PT INR Fibrinogen VBG pH VBG pCO2 VBG pO2 VBG HCO3 VBG O2 Saturation VBG Base Excess Sodium 135 Potassium 4.0 Chloride 96 Carbon Dioxide 22 Anion Gap 21 H BUN 86 H Creatinine 4.19 H* Estim Creat Clear Calc 22.5 Estimated GFR 14 POC Glucose 345 H Random Glucose 351 H* Calcium 7.4 L D Phosphorus Magnesium TSH Stool Occult Blood NEGATIVE Blood Type Antibody Screen Crossmatch 10/07/23 10/08/23 10/08/23 21:37 00:17 05:04 WBC 20.8 H RBC 2.61 L Hgb 8.2 L Hct 23.0 L MCV 88.1 MCH 31.4 MCHC 35.7 RDW 17.2 H Plt Count 66 L MPV Not Reportable Immature Gran % (Auto) Cancelled Neut % (Auto) Cancelled Lymph % (Auto) Cancelled [place] % (Auto) Cancelled Eos % (Auto) Cancelled Baso % (Auto) Cancelled Lymph # (Auto) Cancelled [place] # (Auto) Cancelled Eos # (Auto) Cancelled Baso # (Auto) Cancelled Abs Immat Gran (auto) Cancelled Absolute Neuts (auto) Cancelled Absolute Nucleated RBC 0.140 H Nucleated RBC % (auto) 0.7 H Neutrophils % (Manual) 91 H Band Neutrophils % 3 Lymphocytes % (Manual) 2 L Atypical Lymphs % (Man) Monocytes % (Manual) 3 Eosinophils % (Manual) 1 Abs Neuts (Manual) 19.6 H Lymphocytes # (Manual) 0.4 L Atyp Lymphs # (Manual) Monocytes # (Manual) 0.6 Eosinophils # (Manual) 0.2 Nucleated RBCs 1 H Toxic Granulation PRESENT Platelet Estimate DECREASED Plt Morphology Comment NORMAL RBC Morphology NOTED Polychromasia 1+ (0-2) Hypochromasia 1+ (5-14) Pappenheimer Bodies PRESENT Target Cells 1+ (5-14) Mario Cells Schistocytes 1+ (0-2) PT INR Fibrinogen VBG pH VBG pCO2 VBG pO2 VBG HCO3 VBG O2 Saturation VBG Base Excess Sodium 136 Potassium 4.2 Chloride 96 Carbon Dioxide 20 L Anion Gap 24 H BUN 112 H Creatinine 5.08 H* Estim Creat Clear Calc 18.2 Estimated GFR 11 POC Glucose 333 H 304 H Random Glucose 423 H* Calcium 7.2 L Phosphorus 7.9 H Magnesium 2.6 TSH Stool Occult Blood Blood Type Antibody Screen Crossmatch 10/08/23 10/08/23 05:10 05:37 WBC RBC Hgb Hct MCV MCH MCHC RDW Plt Count MPV Immature Gran % (Auto) Neut % (Auto) Lymph % (Auto) [place] % (Auto) Eos % (Auto) Baso % (Auto) Lymph # (Auto) [place] # (Auto) Eos # (Auto) Baso # (Auto) Abs Immat Gran (auto) Absolute Neuts (auto) Absolute Nucleated RBC Nucleated RBC % (auto) Neutrophils % (Manual) Band Neutrophils % Lymphocytes % (Manual) Atypical Lymphs % (Man) Monocytes % (Manual) Eosinophils % (Manual) Abs Neuts (Manual) Lymphocytes # (Manual) Atyp Lymphs # (Manual) Monocytes # (Manual) Eosinophils # (Manual) Nucleated RBCs Toxic Granulation Platelet Estimate Plt Morphology Comment RBC Morphology Polychromasia Hypochromasia Pappenheimer Bodies Target Cells [place] Cells Schistocytes PT INR Fibrinogen VBG pH 7.36 VBG pCO2 35 VBG pO2 42 VBG HCO3 20 L VBG O2 Saturation 62.0 VBG Base Excess -4.2 Sodium Potassium Chloride Carbon Dioxide Anion Gap BUN Creatinine Estim Creat Clear Calc Estimated GFR POC Glucose 370 H* Random Glucose Calcium Phosphorus Magnesium TSH Stool Occult Blood Blood Type Antibody Screen Crossmatch Microbiology Microbiology Results: Microbiology 09/30/23 Unknown Urine Catheterized - Straight Catheter Urine Culture - Final Klebsiella pneumoniae 09/28/23 23:08 Blood - Venous Blood Culture - Final Klebsiella pneumoniae 09/28/23 22:51 Blood - Venous Blood Culture - Final Klebsiella pneumoniae 09/29/23 Unknown Urine clean catch - Clean Catch Midstream Urine Culture - Final Enterobacter cloacae complex Progress Note: A&P Assessment and plan (1) Bacteremia due to Klebsiella pneumoniae: Status: Acute (2) Septic shock: Status: Acute (3) Acute respiratory failure with hypoxia: Status: Acute (4) Acute kidney failure: Status: Acute (5) Acute liver failure: Status: Acute (6) Disseminated intravascular coagulation: Status: Acute Plan Patient is a 68 Y M with diabetes mellitus, hypothyroidism, prior nephrolithiasis, and prostate cancer, presenting initially on 09/28 in septic shock, found to have gram negative bacteremia, thought to be d/t urinary source, c/b multi-system organ failure including renal and respiratory failure, initiated on hemodialysis on 09/30 and intubated on 09/29, and DIC; N: poor arousal despite sedation vacation; MRI brain unrevealing; to follow-up EEG CV: shock, likely septic; norepinephrine, vasopressin gtt; wean as tolerated R: acute hypoxic respiratory failure d/t pulmonary edema; wean as tolerated GI: shock liver; to monitor; tube feeds : acute renal failure, initiated on hemodialysis on 09/30, last hemodialysis session 10/07; appreciate nephrology recommendations; c/f prior R nephrolithiasis, s/p urethral stent H: c/f DIC; to monitor, transfuse as needed; to avoid chemical DVT prophylaxis until improvement ID: UCx and BCx w/ klebsiella; empiric zosyn E: diabetes mellitus; to monitor hypo-/hyper-glycemia; hypothyroidism, on home levothyroxine P: no acute issues Quality Stroke Does the patient have a stroke diagnosis?: No VTE Prior VTE?: No VTE Risk Level:: Medical - moderate - high VTE Device Contraindication: N/A - Device Ordered VTE Drug Contraindication: Treatment Not Tolerated
[2023-10-08 08:34] LABS: Glucose, Whole Blood 293 mg/dL (60-115)
[2023-10-08] MEDS: Chlorhexidine Gluc Oral Rinse 15 ML MOUTHWASH BUCCAL ×3 (10:35→20:08)
[2023-10-08] MEDS: 0.9 % Sodium Chloride Flush 3 ML SYRINGE IVFLUSH ×2 (10:35→15:03)
[2023-10-08] MEDS: Insulin Glargine,Hum.rec.anlog 100 UNIT/ML 10 ML VIAL 20 UNIT SUBCUT ×2 (10:36→21:16)
[2023-10-08 11:38] LABS: Glucose, Whole Blood 280 mg/dL (60-115)
--- NOTE | 2023-10-08 11:52 | MHC.CLN ---
F/U PT REMAINS INTUBATED PT RECEIVING NEPRO AT MAX GOAL RATE 45ML/HR PROVIDES 1944KCALS (23KCALS/KG), 87G PROTEIN (1.04G/KG), 785ML FREE WATER FROM FORMULA CONTINUE TO MONITOR TOLERANCE AND LYTES
--- NOTE | 2023-10-08 12:28 | PM.PNNEP ---
Subjective Subjective Date of Service: 10/08/23 Interval history: no significant overnight events. All recent data reviewed; Seen on HD. D/W HD RN Physical Exam Vital Signs: Vital Signs: Last Vital Signs Temp 98.2 F 10/08/23 12:00 Pulse 125 H 10/08/23 12:00 Resp 13 10/08/23 12:00 BP 117/72 10/08/23 12:00 Pulse Ox 93 10/08/23 12:00 O2 Del Method Mechanical Ventil ation 10/08/23 12:00 O2 Flow Rate 35 10/06/23 23:00 FiO2 30 10/08/23 12:00 BMI result Body Mass Index 33.6 Const: General: no acute distress Resp: Auscultation: diminished lung sounds Cardio: Rate: regular rate GI: Palpation (GI): Soft to palpation Neuro: Other: Intubated and Ventilated Extrem: General: Yes edema Objective Data Labs 10/08/23 05:04 10/08/23 05:04 Labs: Laboratory Results - last 24 hr 10/06/23 10/07/23 10/07/23 08:36 13:42 14:59 WBC 23.7 H RBC 2.55 L Hgb 8.1 L Hct 22.4 L MCV 87.8 MCH 31.8 MCHC 36.2 H RDW 16.7 H Plt Count 65 L MPV Not Reportable Immature Gran % (Auto) Cancelled Neut % (Auto) Cancelled Lymph % (Auto) Cancelled [place] % (Auto) Cancelled Eos % (Auto) Cancelled Baso % (Auto) Cancelled Lymph # (Auto) Cancelled [place] # (Auto) Cancelled Eos # (Auto) Cancelled Baso # (Auto) Cancelled Abs Immat Gran (auto) Cancelled Absolute Neuts (auto) Cancelled Absolute Nucleated RBC 0.230 H Nucleated RBC % (auto) 1.0 H Neutrophils % (Manual) 87 H Band Neutrophils % 2 L Lymphocytes % (Manual) 6 L Atypical Lymphs % (Man) 1 Monocytes % (Manual) 4 Eosinophils % (Manual) Abs Neuts (Manual) 21.1 H Lymphocytes # (Manual) 1.4 Atyp Lymphs # (Manual) 0.2 Monocytes # (Manual) 0.9 Eosinophils # (Manual) Nucleated RBCs Toxic Granulation PRESENT Platelet Estimate DECREASED Plt Morphology Comment NORMAL RBC Morphology NOTED Polychromasia Hypochromasia Pappenheimer Bodies Target Cells [place] Cells 1+ (0-2) Schistocytes VBG pH VBG pCO2 VBG pO2 VBG HCO3 VBG O2 Saturation VBG Base Excess Sodium 135 Potassium 4.0 Chloride 96 Carbon Dioxide 22 Anion Gap 21 H BUN 86 H Creatinine 4.19 H* Estim Creat Clear Calc 22.5 Estimated GFR 14 POC Glucose Random Glucose 351 H* Calcium 7.4 L D Phosphorus Magnesium Stool Occult Blood NEGATIVE Crossmatch See Detail 10/07/23 10/07/23 10/08/23 16:54 21:37 00:17 WBC RBC Hgb Hct MCV MCH MCHC RDW Plt Count MPV Immature Gran % (Auto) Neut % (Auto) Lymph % (Auto) [place] % (Auto) Eos % (Auto) Baso % (Auto) Lymph # (Auto) [place] # (Auto) Eos # (Auto) Baso # (Auto) Abs Immat Gran (auto) Absolute Neuts (auto) Absolute Nucleated RBC Nucleated RBC % (auto) Neutrophils % (Manual) Band Neutrophils % Lymphocytes % (Manual) Atypical Lymphs % (Man) Monocytes % (Manual) Eosinophils % (Manual) Abs Neuts (Manual) Lymphocytes # (Manual) Atyp Lymphs # (Manual) Monocytes # (Manual) Eosinophils # (Manual) Nucleated RBCs Toxic Granulation Platelet Estimate Plt Morphology Comment RBC Morphology Polychromasia Hypochromasia Pappenheimer Bodies Target Cells [place] Cells Schistocytes VBG pH VBG pCO2 VBG pO2 VBG HCO3 VBG O2 Saturation VBG Base Excess Sodium Potassium Chloride Carbon Dioxide Anion Gap BUN Creatinine Estim Creat Clear Calc Estimated GFR POC Glucose 345 H 333 H 304 H Random Glucose Calcium Phosphorus Magnesium Stool Occult Blood Crossmatch 10/08/23 10/08/23 10/08/23 05:04 05:10 05:37 WBC 20.8 H RBC 2.61 L Hgb 8.2 L Hct 23.0 L MCV 88.1 MCH 31.4 MCHC 35.7 RDW 17.2 H Plt Count 66 L MPV Not Reportable Immature Gran % (Auto) Cancelled Neut % (Auto) Cancelled Lymph % (Auto) Cancelled [place] % (Auto) Cancelled Eos % (Auto) Cancelled Baso % (Auto) Cancelled Lymph # (Auto) Cancelled [place] # (Auto) Cancelled Eos # (Auto) Cancelled Baso # (Auto) Cancelled Abs Immat Gran (auto) Cancelled Absolute Neuts (auto) Cancelled Absolute Nucleated RBC 0.140 H Nucleated RBC % (auto) 0.7 H Neutrophils % (Manual) 91 H Band Neutrophils % 3 Lymphocytes % (Manual) 2 L Atypical Lymphs % (Man) Monocytes % (Manual) 3 Eosinophils % (Manual) 1 Abs Neuts (Manual) 19.6 H Lymphocytes # (Manual) 0.4 L Atyp Lymphs # (Manual) Monocytes # (Manual) 0.6 Eosinophils # (Manual) 0.2 Nucleated RBCs 1 H Toxic Granulation PRESENT Platelet Estimate DECREASED Plt Morphology Comment NORMAL RBC Morphology NOTED Polychromasia 1+ (0-2) Hypochromasia 1+ (5-14) Pappenheimer Bodies PRESENT Target Cells 1+ (5-14) Mario Cells Schistocytes 1+ (0-2) VBG pH 7.36 VBG pCO2 35 VBG pO2 42 VBG HCO3 20 L VBG O2 Saturation 62.0 VBG Base Excess -4.2 Sodium 136 Potassium 4.2 Chloride 96 Carbon Dioxide 20 L Anion Gap 24 H BUN 112 H Creatinine 5.08 H* Estim Creat Clear Calc 18.2 Estimated GFR 11 POC Glucose 370 H* Random Glucose 423 H* Calcium 7.2 L Phosphorus 7.9 H Magnesium 2.6 Stool Occult Blood Crossmatch 10/08/23 10/08/23 08:31 11:34 WBC RBC Hgb Hct MCV MCH MCHC RDW Plt Count MPV Immature Gran % (Auto) Neut % (Auto) Lymph % (Auto) [place] % (Auto) Eos % (Auto) Baso % (Auto) Lymph # (Auto) [place] # (Auto) Eos # (Auto) Baso # (Auto) Abs Immat Gran (auto) Absolute Neuts (auto) Absolute Nucleated RBC Nucleated RBC % (auto) Neutrophils % (Manual) Band Neutrophils % Lymphocytes % (Manual) Atypical Lymphs % (Man) Monocytes % (Manual) Eosinophils % (Manual) Abs Neuts (Manual) Lymphocytes # (Manual) Atyp Lymphs # (Manual) Monocytes # (Manual) Eosinophils # (Manual) Nucleated RBCs Toxic Granulation Platelet Estimate Plt Morphology Comment RBC Morphology Polychromasia Hypochromasia Pappenheimer Bodies Target Cells [place] Cells Schistocytes VBG pH VBG pCO2 VBG pO2 VBG HCO3 VBG O2 Saturation VBG Base Excess Sodium Potassium Chloride Carbon Dioxide Anion Gap BUN Creatinine Estim Creat Clear Calc Estimated GFR POC Glucose 293 H 280 H Random Glucose Calcium Phosphorus Magnesium Stool Occult Blood Crossmatch Microbiology Microbiology Results: Microbiology 09/30/23 Unknown Urine Catheterized - Straight Catheter Urine Culture - Final Klebsiella pneumoniae 09/28/23 23:08 Blood - Venous Blood Culture - Final Klebsiella pneumoniae 09/28/23 22:51 Blood - Venous Blood Culture - Final Klebsiella pneumoniae 09/29/23 Unknown Urine clean catch - Clean Catch Midstream Urine Culture - Final Enterobacter cloacae complex Procedures Date of Service Date of Service: 10/08/23 Assessment & Plan Assessment and plan (1) Acute kidney failure: Status: Acute Plan LATASHA due to tubular injury; UO poor; Metabolic acidosis stable on HD Seen on dialysis this morning. Had increased bicarbonate in the dialysate to 40 Shall provide hemodialysis again tomorrow (ordered) She will continue current supportive care for now; shall closely follow-up Progress Note: Quality Stroke Does the patient have a stroke diagnosis?: No
[2023-10-08] MEDS: Lidocaine 4 % Patch ADH..PATCH 2 PATCH TRANSDERMA (13:14)
[2023-10-08 13:17] LABS: Glucose, Whole Blood 270 mg/dL (60-115)
--- NOTE | 2023-10-08 15:02 | MHC.CM.PN ---
PT REMAINS INTUBATED AND SEDATED IN ICU. PT ALSO REMAINS ON PRESSOR SUPPORT. PER MD ROUNDS, MD WILL HAVE A FAMILY MEETING TO ADDRESS GOC 10/08. CM WILL CONTINUE TO FOLLOW FOR PLAN.
[2023-10-08] MEDS: Norepinephrine Bitartrate/NS 32 MG/250 ML PLAST..BAG 3.29 MG IVCONT (17:45)
[2023-10-08 17:53] LABS: Glucose, Whole Blood 248 mg/dL (60-115)
[2023-10-08 21:12] LABS: Glucose, Whole Blood 137 mg/dL (60-115)
[2023-10-08 23:57] LABS: Glucose, Whole Blood 284 mg/dL (60-115)
[2023-10-09] VITALS (41 sets, daily range): BP systolic 84–134; BP diastolic 40–80; PULSE 13–131; RESP 11–21; TEMP 34.9–37.6; O2SAT 90–98; BMI 33.6
[2023-10-09] MEDS: HYDROmorphone HCl 0.5 MG/0.5 ML SYRINGE IVPUSH ×4 (02:16→13:14)
[2023-10-09] MEDS: Metoprolol Tartrate 5 MG/5 ML VIAL IVPUSH ×2 (02:24→06:20)
[2023-10-09] MEDS: Piperacillin Sodium/Tazobactam 2.25 GM in 0.9 % Sodium Chloride 50 ML IV ×4 (02:53→20:18)
[2023-10-09 04:43] LABS: Hematocrit 22.9 % (42.0-52.0); Hemoglobin 8.1 g/dl (14.0-18.0); Mean Corpuscular HGB Conc 35.4 g/dl (31.0-36.0); Mean Corpuscular Hemoglobin 31.2 pg (27.0-33.0); Mean Corpuscular Volume 88.1 fL (80.0-98.0); Mean Platelet Volume 12.2 fL (9.4-12.4); NRBC Pct Auto 0.2 /100WBC (0.0-0.2); Red Cell Distribution Width 18.8 % (11.0-16.0); White Blood Count 19.8 X10*3/uL (4.8-10.8)
[2023-10-09 04:45] LABS: Platelet Count 77 X10*3/uL (160-400)
[2023-10-09 04:46] LABS: Venous Blood Gas Refer to POC result
[2023-10-09 04:46] LABS: VBG Base Excess -1.3 mmol/L; VBG HCO3 23 mmol/L (22-26); VBG pCO2 37 mmHg; VBG pH 7.39 (7.32-7.43); VBG pO2 45 mmHg
[2023-10-09 05:00] LABS: Alanine Aminotransferase 183 U/L (0-40); Albumin Level 3.2 g/dL (3.5-5.0); Alkaline Phosphatase 254 U/L (39-117); Anion Gap 22 (12-20); Aspartate Amino Transferase 50 U/L (5-37); Bilirubin Total 2.3 mg/dL (0.0-1.0); Blood Urea Nitrogen 97 mg/dL (9-16); Calcium 7.2 mg/dL (8.4-10.2); Carbon Dioxide 21 mmol/L (22-29); Chloride 97 mmol/L (96-108); Creatinine Clr Calc Pharmacy 18.8; Estimated Glomerular Filt Rate 12; Glucose Random 290 mg/dL (60-115); Magnesium 2.4 mg/dL (1.6-2.6); Phosphorus 7.3 mg/dL (2.7-4.5); Potassium 3.6 mmol/L (3.3-5.1); Sodium 136 mmol/L (135-145); Total Protein 5.7 g/dL (6.5-8.0)
[2023-10-09 05:09] LABS: Hypochromasia 1+ (5-14) /OIF; Lymphocytes Absolute Manual 0.4 X10*3/uL (1.2-4.9); Lymphocytes Percent Manual 2 % (20-40); Monocytes Absolute Manual 0.6 X10*3/uL (0.1-1.2); Monocytes Percent Manual 3 % (2-11); Neutrophils Percent Manual 95 % (45-73); Pappenheimer Bodies PRESENT; Platelet Estimate DECREASED (NORMAL); Platelet Morphology Comment NORMAL; Polychromasia 1+ (0-2) /OIF; RBC Morphology NOTED; Schistocytes 1+ (0-2) /OIF; Target Cells 1+ (5-14) /OIF; Tear Drop Cells 1+ (0-2) /OIF; Toxic Granulation PRESENT
[2023-10-09] MEDS: Levothyroxine Sodium 100 MCG/5 ML VIAL 200 MCG IVPUSH (05:22)
[2023-10-09] MEDS: Insulin Lispro 100 UNIT/ML 3 ML VIAL SUBCUT ×4 (05:22→23:37)
[2023-10-09 05:24] LABS: Neutrophils Absolute Manual 18.8 X10*3/uL (2.0-8.3)
[2023-10-09] MEDS: Vasopressin 20 UNIT/100 ML INFUS..BTL 12 UNIT IVCONT ×3 (07:20→22:27)
[2023-10-09] MEDS: 0.9 % Sodium Chloride Flush 3 ML SYRINGE IVFLUSH ×3 (07:22→22:29)
[2023-10-09] MEDS: Insulin Glargine,Hum.rec.anlog 100 UNIT/ML 10 ML VIAL 20 UNIT SUBCUT ×2 (07:24→20:18)
--- NOTE | 2023-10-09 07:28 | P.PNCC_ITS ---
Subjective Subjective Date of Service: 10/09/23 Interval History: no significant overnight events; intermittent improvement of encephalopathy, though not following commands this AM Critical Care Time (minutes): 60 Physical Exam 2 Vital Signs: Vital Signs: Last Vital Signs Temp 99.5 F 10/09/23 07:00 Pulse 119 H 10/09/23 07:20 Resp 15 10/09/23 07:00 BP 106/64 10/09/23 07:20 Pulse Ox 95 10/09/23 07:00 O2 Del Method Mechanical Ventil ation 10/09/23 07:00 O2 Flow Rate 35 10/06/23 23:00 FiO2 30 10/09/23 07:00 BMI result Body Mass Index 33.6 Const: Other: intubated, opens eyes to verbal stimulus; no appreciable spontaneous movements; does not follow commands HEENT: Head: Yes normal to inspection, Yes normocephalic and Yes atraumatic Eyes: General: appearance normal, both eyes and all related structures Neck: Neck: Yes normal visual inspection, Yes full ROM and Yes supple Chest: Chest palpation & inspection: normal inspection of the chest Resp: Other: no appreciable rales, rhonchi, wheezing Effort & Inspection: normal respiratory effort Cardio: Rate: tachycardic Rhythm: regular rhythm GI: Inspection: Yes normal to inspection, No Abdominal wall edema and No distended Palpation (GI): Soft to palpation, not firm, nontender, no guarding and not rigid : Male General Exam: Yes normal external exam Skin: Other: appreciable bluish discoloration in all digits and phalanges Neuro: Other: as described above; opens eyes to verbal stimulus, though does not track; no appreciable spontaneous movements; unable to follow commands General: tone normal Extrem: Other: 1+ pitting edema throughout General: Yes normal to inspection and Yes full ROM Psych: Other: unable to assess Objective Data Labs 10/09/23 04:30 10/09/23 04:30 Labs: Laboratory Results - last 24 hr 10/08/23 10/08/23 10/08/23 08:31 11:34 13:10 WBC RBC Hgb Hct MCV MCH MCHC RDW Plt Count MPV Immature Gran % (Auto) Neut % (Auto) Lymph % (Auto) [place] % (Auto) Eos % (Auto) Baso % (Auto) Lymph # (Auto) [place] # (Auto) Eos # (Auto) Baso # (Auto) Abs Immat Gran (auto) Absolute Neuts (auto) Absolute Nucleated RBC Nucleated RBC % (auto) Neutrophils % (Manual) Lymphocytes % (Manual) Monocytes % (Manual) Abs Neuts (Manual) Lymphocytes # (Manual) Monocytes # (Manual) Toxic Granulation Platelet Estimate Plt Morphology Comment RBC Morphology Polychromasia Hypochromasia Pappenheimer Bodies Target Cells Tear Drop Cells Schistocytes VBG pH VBG pCO2 VBG pO2 VBG HCO3 VBG O2 Saturation VBG Base Excess Sodium Potassium Chloride Carbon Dioxide Anion Gap BUN Creatinine Estim Creat Clear Calc Estimated GFR POC Glucose 293 H 280 H 270 H Random Glucose Calcium Phosphorus Magnesium Total Bilirubin AST ALT Alkaline Phosphatase Total Protein Albumin 10/08/23 10/08/23 10/08/23 17:49 21:09 23:53 WBC RBC Hgb Hct MCV MCH MCHC RDW Plt Count MPV Immature Gran % (Auto) Neut % (Auto) Lymph % (Auto) [place] % (Auto) Eos % (Auto) Baso % (Auto) Lymph # (Auto) [place] # (Auto) Eos # (Auto) Baso # (Auto) Abs Immat Gran (auto) Absolute Neuts (auto) Absolute Nucleated RBC Nucleated RBC % (auto) Neutrophils % (Manual) Lymphocytes % (Manual) Monocytes % (Manual) Abs Neuts (Manual) Lymphocytes # (Manual) Monocytes # (Manual) Toxic Granulation Platelet Estimate Plt Morphology Comment RBC Morphology Polychromasia Hypochromasia Pappenheimer Bodies Target Cells Tear Drop Cells Schistocytes VBG pH VBG pCO2 VBG pO2 VBG HCO3 VBG O2 Saturation VBG Base Excess Sodium Potassium Chloride Carbon Dioxide Anion Gap BUN Creatinine Estim Creat Clear Calc Estimated GFR POC Glucose 248 H 137 H 284 H Random Glucose Calcium Phosphorus Magnesium Total Bilirubin AST ALT Alkaline Phosphatase Total Protein Albumin 10/09/23 10/09/23 04:30 04:39 WBC 19.8 H RBC 2.60 L Hgb 8.1 L Hct 22.9 L MCV 88.1 MCH 31.2 MCHC 35.4 RDW 18.8 H Plt Count 77 L MPV 12.2 Immature Gran % (Auto) Cancelled Neut % (Auto) Cancelled Lymph % (Auto) Cancelled [place] % (Auto) Cancelled Eos % (Auto) Cancelled Baso % (Auto) Cancelled Lymph # (Auto) Cancelled [place] # (Auto) Cancelled Eos # (Auto) Cancelled Baso # (Auto) Cancelled Abs Immat Gran (auto) Cancelled Absolute Neuts (auto) Cancelled Absolute Nucleated RBC 0.030 H Nucleated RBC % (auto) 0.2 Neutrophils % (Manual) 95 H Lymphocytes % (Manual) 2 L Monocytes % (Manual) 3 Abs Neuts (Manual) 18.8 H Lymphocytes # (Manual) 0.4 L Monocytes # (Manual) 0.6 Toxic Granulation PRESENT Platelet Estimate DECREASED Plt Morphology Comment NORMAL RBC Morphology NOTED Polychromasia 1+ (0-2) Hypochromasia 1+ (5-14) Pappenheimer Bodies PRESENT Target Cells 1+ (5-14) Tear Drop Cells 1+ (0-2) Schistocytes 1+ (0-2) VBG pH 7.39 VBG pCO2 37 VBG pO2 45 VBG HCO3 23 VBG O2 Saturation 72.0 VBG Base Excess -1.3 Sodium 136 Potassium 3.6 Chloride 97 Carbon Dioxide 21 L Anion Gap 22 H BUN 97 H Creatinine 4.92 H* Estim Creat Clear Calc 18.8 Estimated GFR 12 POC Glucose Random Glucose 290 H Calcium 7.2 L Phosphorus 7.3 H Magnesium 2.4 Total Bilirubin 2.3 H AST 50 H ALT 183 H Alkaline Phosphatase 254 H Total Protein 5.7 L Albumin 3.2 L Microbiology Microbiology Results: Microbiology 09/30/23 Unknown Urine Catheterized - Straight Catheter Urine Culture - Final Klebsiella pneumoniae 09/28/23 23:08 Blood - Venous Blood Culture - Final Klebsiella pneumoniae 09/28/23 22:51 Blood - Venous Blood Culture - Final Klebsiella pneumoniae 09/29/23 Unknown Urine clean catch - Clean Catch Midstream Urine Culture - Final Enterobacter cloacae complex Progress Note: A&P Assessment and plan (1) Septic shock: Status: Acute (2) Bacteremia due to Klebsiella pneumoniae: Status: Acute (3) Acute respiratory failure with hypoxia: Status: Acute (4) Acute liver failure: Status: Acute (5) Acute kidney failure: Status: Acute (6) Disseminated intravascular coagulation: Status: Acute (7) Hypothyroidism: Status: Acute Plan Patient is a 68 Y M with diabetes mellitus, hypothyroidism, prior nephrolithiasis, and prostate cancer, presenting initially on 09/28 in septic shock, found to have gram negative bacteremia, thought to be d/t urinary source, c/b multi-system organ failure including renal and respiratory failure, initiated on hemodialysis on 09/30 and intubated on 09/29, and DIC; N: poor arousal despite sedation vacation; MRI brain unrevealing; EEG not suggestive of seizure, demonstrating diffuse slowing CV: shock, likely septic; norepinephrine, vasopressin gtt; wean as tolerated R: acute hypoxic respiratory failure d/t pulmonary edema; wean as tolerated GI: shock liver; to monitor; tube feeds : acute renal failure, initiated on hemodialysis on 09/30, last hemodialysis session 10/08; appreciate nephrology recommendations; c/f prior R nephrolithiasis, s/p urethral stent H: c/f DIC; to monitor, transfuse as needed; to avoid chemical DVT prophylaxis until improvement ID: UCx and BCx w/ klebsiella; empiric zosyn E: diabetes mellitus; to monitor hypo-/hyper-glycemia; hypothyroidism, on home levothyroxine P: no acute issues Quality Stroke Does the patient have a stroke diagnosis?: No VTE Prior VTE?: No VTE Risk Level:: Medical - moderate - high VTE Device Contraindication: N/A - Device Ordered VTE Drug Contraindication: Treatment Not Tolerated
[2023-10-09] MEDS: Albumin Human 25 % 50 ML 100 ML IV (08:33)
[2023-10-09] MEDS: Chlorhexidine Gluc Oral Rinse 15 ML MOUTHWASH BUCCAL ×3 (08:40→20:18)
[2023-10-09] MEDS: Heparin Sodium,Porcine 5,000 UNIT/ML VIAL 5000 UNIT INTRACATH (08:40)
[2023-10-09 11:38] LABS: Glucose, Whole Blood 135 mg/dL (60-115)
--- NOTE | 2023-10-09 12:40 | MHC.CM.PN ---
Pt continues care in ICU: remains on ventilatory support and HD without evidence of recovery. MD to have GOC conversation w/pt's family: pt remains a full code and is approaching max intubation time. Will await determination for next level of care referrals.
[2023-10-09] MEDS: Lidocaine 4 % Patch ADH..PATCH 2 PATCH TRANSDERMA (13:15)
--- NOTE | 2023-10-09 13:48 | P.PNNP_ITS ---
Subjective Subjective Date of Service: 10/09/23 Interval history: no significant overnight events; intermittent improvement of encephalopathy, seen on dialysis this morning. Tolerating hemodialysis. Discussed with dialysis nurse. All recent data reviewed Physical Exam 2 Vital Signs: Vital Signs: Last Vital Signs Temp 99.1 F 10/09/23 13:00 Pulse 71 10/09/23 13:08 Resp 20 10/09/23 13:00 BP 132/62 10/09/23 13:08 Pulse Ox 96 10/09/23 13:00 O2 Del Method Mechanical Ventil ation 10/09/23 13:00 O2 Flow Rate 35 10/06/23 23:00 FiO2 30 10/09/23 13:00 BMI result Body Mass Index 33.6 Const: General: no acute distress Neck: Other: Dialysis catheter present Resp: Auscultation: diminished lung sounds Cardio: Rate: regular rate GI: Palpation (GI): Soft to palpation Neuro: Other: Intubated and ventilated Extrem: General: Yes edema Objective Data Labs 10/09/23 04:30 10/09/23 04:30 Labs: Laboratory Results - last 24 hr 10/08/23 10/08/23 10/08/23 17:49 21:09 23:53 WBC RBC Hgb Hct MCV MCH MCHC RDW Plt Count MPV Immature Gran % (Auto) Neut % (Auto) Lymph % (Auto) [place] % (Auto) Eos % (Auto) Baso % (Auto) Lymph # (Auto) [place] # (Auto) Eos # (Auto) Baso # (Auto) Abs Immat Gran (auto) Absolute Neuts (auto) Absolute Nucleated RBC Nucleated RBC % (auto) Neutrophils % (Manual) Lymphocytes % (Manual) Monocytes % (Manual) Abs Neuts (Manual) Lymphocytes # (Manual) Monocytes # (Manual) Toxic Granulation Platelet Estimate Plt Morphology Comment RBC Morphology Polychromasia Hypochromasia Pappenheimer Bodies Target Cells Tear Drop Cells Schistocytes VBG pH VBG pCO2 VBG pO2 VBG HCO3 VBG O2 Saturation VBG Base Excess Sodium Potassium Chloride Carbon Dioxide Anion Gap BUN Creatinine Estim Creat Clear Calc Estimated GFR POC Glucose 248 H 137 H 284 H Random Glucose Calcium Phosphorus Magnesium Total Bilirubin AST ALT Alkaline Phosphatase Total Protein Albumin 10/09/23 10/09/23 10/09/23 04:30 04:39 11:36 WBC 19.8 H RBC 2.60 L Hgb 8.1 L Hct 22.9 L MCV 88.1 MCH 31.2 MCHC 35.4 RDW 18.8 H Plt Count 77 L MPV 12.2 Immature Gran % (Auto) Cancelled Neut % (Auto) Cancelled Lymph % (Auto) Cancelled [place] % (Auto) Cancelled Eos % (Auto) Cancelled Baso % (Auto) Cancelled Lymph # (Auto) Cancelled [place] # (Auto) Cancelled Eos # (Auto) Cancelled Baso # (Auto) Cancelled Abs Immat Gran (auto) Cancelled Absolute Neuts (auto) Cancelled Absolute Nucleated RBC 0.030 H Nucleated RBC % (auto) 0.2 Neutrophils % (Manual) 95 H Lymphocytes % (Manual) 2 L Monocytes % (Manual) 3 Abs Neuts (Manual) 18.8 H Lymphocytes # (Manual) 0.4 L Monocytes # (Manual) 0.6 Toxic Granulation PRESENT Platelet Estimate DECREASED Plt Morphology Comment NORMAL RBC Morphology NOTED Polychromasia 1+ (0-2) Hypochromasia 1+ (5-14) Pappenheimer Bodies PRESENT Target Cells 1+ (5-14) Tear Drop Cells 1+ (0-2) Schistocytes 1+ (0-2) VBG pH 7.39 VBG pCO2 37 VBG pO2 45 VBG HCO3 23 VBG O2 Saturation 72.0 VBG Base Excess -1.3 Sodium 136 Potassium 3.6 Chloride 97 Carbon Dioxide 21 L Anion Gap 22 H BUN 97 H Creatinine 4.92 H* Estim Creat Clear Calc 18.8 Estimated GFR 12 POC Glucose 135 H Random Glucose 290 H Calcium 7.2 L Phosphorus 7.3 H Magnesium 2.4 Total Bilirubin 2.3 H AST 50 H ALT 183 H Alkaline Phosphatase 254 H Total Protein 5.7 L Albumin 3.2 L Microbiology Microbiology Results: Microbiology 09/30/23 Unknown Urine Catheterized - Straight Catheter Urine Culture - Final Klebsiella pneumoniae 09/28/23 23:08 Blood - Venous Blood Culture - Final Klebsiella pneumoniae 09/28/23 22:51 Blood - Venous Blood Culture - Final Klebsiella pneumoniae 09/29/23 Unknown Urine clean catch - Clean Catch Midstream Urine Culture - Final Enterobacter cloacae complex Procedures Date of Service Date of Service: 10/09/23 Assessment & Plan Assessment and plan (1) Acute kidney failure: Status: Acute Plan LATASHA due to tubular injury; UO poor; Metabolic acidosis stable on HD Seen on dialysis this morning. Tolerating hemodialysis well Shall provide hemodialysis again tomorrow (ordered) She will continue current supportive care for now; shall closely follow-up Progress Note: Quality Stroke Does the patient have a stroke diagnosis?: No
--- NOTE | 2023-10-09 15:52 | W.MHC.ACPN ---
Advanced Care Planning Note Advanced Care Planning Note Discussed with: family member(s) Time spent (in minutes): 60 Narrative: Mr. Lópezs was on video, along with a few other family members. Mr. Manning's three sisters were here in person. I introduced myself and offered a summary of Mr. Manning's ED and ICU stay and offered any clarifications. We discussed Mr. Lópezs continued guarded and critical clinical status, including his continued need for the ventilator, vasopressors, and hemodialysis. We discussed the pros and cons of additional interventions including tracheostomy, feeding tube, and long-term hemodialysis, if aggressive medical treatments were within Mr. Manning's philosophy of care. Mr. Manning's family expressed understanding of the pros and cons of these interventions. We discussed that if Mr. Manning survives his ICU stay, he would likely need significant rehabilitation, and that it would be unlikely that he could care for Mrs. Manning in the way that he did before. Further, Mr. Manning's sisters expressed that Mr. Manning has always been a high-functioning person, who loved cooking, sharing meals, and eating, and that a tracheostomy and feeding tube would unlikely be interventions that he would tolerate. We discussed code status, during which Mrs. Manning stated clearly that Mr. Manning would never want to be resuscitated. As such, Mr. Manning's code status was changed to DNR. Lastly, we discussed comfort-focused care. Mrs. Manning would like more time to discuss with family regarding the appropriate next steps. Mrs. Manning is currently admitted in another hospital and will be transferred to rehab in the near future. Mr. Manning's family is trying to find a way for her to visit Mr. Manning in the ICU if at all possible.
[2023-10-09 18:09] LABS: Glucose, Whole Blood 343 mg/dL (60-115)
[2023-10-09] MEDS: Norepinephrine Bitartrate/NS 32 MG/250 ML PLAST..BAG IVCONT (18:42)
[2023-10-09 23:34] LABS: Glucose, Whole Blood 289 mg/dL (60-115)
[2023-10-10] VITALS (41 sets, daily range): BP systolic 83–135; BP diastolic 35–60; PULSE 54–119; RESP 12–23; TEMP 34.9–37.7; O2SAT 90–99; BMI 34.0
[2023-10-10] MEDS: HYDROmorphone HCl 0.5 MG/0.5 ML SYRINGE IVPUSH (01:23)
[2023-10-10 04:53] LABS: Basophils Absolute Auto 0.1 X10*3/uL (0.0-0.2); Basophils Percent Auto 0.6 % (0-2); Eosinophils Absolute Auto 0.1 X10*3/uL (0.0-0.4); Eosinophils Percent Auto 0.4 % (0-4); Hemoglobin 7.9 g/dl (14.0-18.0); Imm Gran Abs Auto 0.28 X10*3/uL (0.00-0.03); Imm Gran Pct Auto 1.7 % (0.0-0.4); Lymphocytes Absolute Auto 0.5 X10*3/uL (1.2-4.9); Lymphocytes Percent Auto 2.8 % (20-40); Mean Corpuscular HGB Conc 35.9 g/dl (31.0-36.0); Mean Corpuscular Volume 89.1 fL (80.0-98.0); Mean Platelet Volume 13.9 fL (9.4-12.4); Monocytes Absolute Auto 0.9 X10*3/uL (0.1-1.2); Monocytes Percent Auto 5.7 % (2-11); NRBC Pct Auto 0.1 /100WBC (0.0-0.2); Neutrophils Absolute Auto 14.4 x10*3/uL (2.0-8.3); Neutrophils Percent Auto 88.8 % (45-73); PLT CLUMP 1; Red Blood Count 2.47 X10*6/uL (4.60-5.80); Red Cell Distribution Width 19.7 % (11.0-16.0); SCAN SMEAR FLAG 1
[2023-10-10 04:53] LABS: VBG Base Excess -1.1 mmol/L; VBG HCO3 22 mmol/L (22-26); VBG pCO2 35 mmHg; VBG pH 7.41 (7.32-7.43); VBG pO2 37 mmHg
[2023-10-10 04:54] LABS: MANUAL DIFF FLAG NO; White Blood Count 16.2 X10*3/uL (4.8-10.8)
[2023-10-10 04:55] LABS: Venous Blood Gas Refer to POC result
[2023-10-10 05:14] LABS: Platelet Count 102 X10*3/uL (160-400)
[2023-10-10 05:15] LABS: Anion Gap 21 (12-20); Blood Urea Nitrogen 80 mg/dL (9-16); Calcium 7.9 mg/dL (8.4-10.2); Carbon Dioxide 20 mmol/L (22-29); Chloride 98 mmol/L (96-108); Creatinine Clr Calc Pharmacy 21.1; Estimated Glomerular Filt Rate 13; Glucose Random 356 mg/dL (60-115); Magnesium 2.4 mg/dL (1.6-2.6); Phosphorus 6.2 mg/dL (2.7-4.5); Potassium 3.8 mmol/L (3.3-5.1); Sodium 135 mmol/L (135-145)
[2023-10-10] MEDS: Insulin Lispro 100 UNIT/ML 3 ML VIAL SUBCUT ×2 (05:50→17:37)
[2023-10-10] MEDS: Levothyroxine Sodium 100 MCG/5 ML VIAL 200 MCG IVPUSH (05:50)
[2023-10-10] MEDS: Vasopressin 20 UNIT/100 ML INFUS..BTL 12 UNIT IVCONT ×3 (05:55→20:47)
[2023-10-10] MEDS: 0.9 % Sodium Chloride Flush 3 ML SYRINGE IVFLUSH ×2 (07:24→15:24)
--- NOTE | 2023-10-10 07:58 | PM.CCPN ---
Subjective Subjective Date of Service: 10/10/23 Interval History: no significant overnight events Critical Care Time (minutes): 60 Physical Exam Vital Signs: Vital Signs: Last Vital Signs Temp 99.9 F 10/10/23 07:00 Pulse 70 10/10/23 07:00 Resp 20 10/10/23 07:00 BP 119/57 L 10/10/23 07:00 Pulse Ox 92 10/10/23 07:00 O2 Del Method Mechanical Ventil ation 10/10/23 07:00 O2 Flow Rate 35 10/06/23 23:00 FiO2 30 10/10/23 07:31 BMI result Body Mass Index 34.0 Const: Other: intubated; opens eyes to verbal stimulus; wiggles toes, though does not wiggle fingers, squeeze hands General: no acute distress HEENT: Head: Yes normal to inspection, Yes normocephalic and Yes atraumatic Eyes: General: appearance normal, both eyes and all related structures Neck: Neck: Yes normal visual inspection, Yes full ROM, Yes trachea midline and Yes supple Chest: Chest palpation & inspection: normal inspection of the chest Resp: Other: no appreciable rales, rhonchi, wheezing Effort & Inspection: normal respiratory effort Cardio: Rate: regular rate Rhythm: regular rhythm GI: Inspection: Yes normal to inspection, No Abdominal wall edema and No distended Palpation (GI): Soft to palpation, not firm, nontender, no guarding and not rigid Skin: General skin exam: no rashes or lesions noted Neuro: Other: as described above General: tone normal Extrem: Other: appreciable anasarca General: Yes normal to inspection and Yes capillary refill normal Psych: Other: unable to assess Objective Data Labs 10/10/23 04:38 10/10/23 04:38 Labs: Laboratory Results - last 24 hr 10/09/23 10/09/23 10/09/23 11:36 18:04 23:30 WBC RBC Hgb Hct MCV MCH MCHC RDW Plt Count MPV Immature Gran % (Auto) Neut % (Auto) Lymph % (Auto) [place] % (Auto) Eos % (Auto) Baso % (Auto) Lymph # (Auto) [place] # (Auto) Eos # (Auto) Baso # (Auto) Abs Immat Gran (auto) Absolute Neuts (auto) Absolute Nucleated RBC Nucleated RBC % (auto) VBG pH VBG pCO2 VBG pO2 VBG HCO3 VBG O2 Saturation VBG Base Excess Sodium Potassium Chloride Carbon Dioxide Anion Gap BUN Creatinine Estim Creat Clear Calc Estimated GFR POC Glucose 135 H 343 H 289 H Random Glucose Calcium Phosphorus Magnesium 10/10/23 10/10/23 04:38 04:43 WBC 16.2 H RBC 2.47 L Hgb 7.9 L Hct 22.0 L MCV 89.1 MCH 32.0 MCHC 35.9 RDW 19.7 H Plt Count 102 L D MPV 13.9 H Immature Gran % (Auto) 1.7 H Neut % (Auto) 88.8 H Lymph % (Auto) 2.8 L [place] % (Auto) 5.7 Eos % (Auto) 0.4 Baso % (Auto) 0.6 Lymph # (Auto) 0.5 L [place] # (Auto) 0.9 Eos # (Auto) 0.1 Baso # (Auto) 0.1 Abs Immat Gran (auto) 0.28 H Absolute Neuts (auto) 14.4 H Absolute Nucleated RBC 0.020 H Nucleated RBC % (auto) 0.1 VBG pH 7.41 VBG pCO2 35 VBG pO2 37 VBG HCO3 22 VBG O2 Saturation 59.0 VBG Base Excess -1.1 Sodium 135 Potassium 3.8 Chloride 98 Carbon Dioxide 20 L Anion Gap 21 H BUN 80 H Creatinine 4.40 H* Estim Creat Clear Calc 21.1 Estimated GFR 13 POC Glucose Random Glucose 356 H* Calcium 7.9 L D Phosphorus 6.2 H Magnesium 2.4 Microbiology Microbiology Results: Microbiology 09/30/23 Unknown Urine Catheterized - Straight Catheter Urine Culture - Final Klebsiella pneumoniae 09/28/23 23:08 Blood - Venous Blood Culture - Final Klebsiella pneumoniae 09/28/23 22:51 Blood - Venous Blood Culture - Final Klebsiella pneumoniae 09/29/23 Unknown Urine clean catch - Clean Catch Midstream Urine Culture - Final Enterobacter cloacae complex Progress Note: A&P Assessment and plan (1) Bacteremia due to Klebsiella pneumoniae: Status: Acute (2) Septic shock: Status: Acute (3) Acute respiratory failure with hypoxia: Status: Acute (4) Acute kidney failure: Status: Acute (5) Acute liver failure: Status: Acute (6) Disseminated intravascular coagulation: Status: Acute (7) Diabetes: Status: Acute Plan Patient is a 68 Y M with diabetes mellitus, hypothyroidism, prior nephrolithiasis, and prostate cancer, presenting initially on 09/28 in septic shock, found to have gram negative bacteremia, thought to be d/t urinary source, c/b multi-system organ failure including renal and respiratory failure, initiated on hemodialysis on 09/30 and intubated on 09/29, and DIC; N: poor arousal despite sedation vacation; MRI brain unrevealing; EEG not suggestive of seizure, demonstrating diffuse slowing CV: shock, likely septic; norepinephrine, vasopressin gtt; wean as tolerated R: acute hypoxic respiratory failure d/t pulmonary edema; wean as tolerated GI: shock liver; to monitor; tube feeds : acute renal failure, initiated on hemodialysis on 09/30, last hemodialysis session 10/09; appreciate nephrology recommendations; c/f prior R nephrolithiasis, s/p urethral stent H: c/f DIC; to monitor, transfuse as needed; to avoid chemical DVT prophylaxis until improvement ID: UCx and BCx w/ klebsiella; empiric zosyn E: diabetes mellitus; to monitor hypo-/hyper-glycemia; hypothyroidism, on home levothyroxine P: no acute issues Quality Stroke Does the patient have a stroke diagnosis?: No VTE Prior VTE?: No VTE Risk Level:: Medical - moderate - high VTE Device Contraindication: N/A - Device Ordered VTE Drug Contraindication: Treatment Not Tolerated
[2023-10-10] MEDS: Chlorhexidine Gluc Oral Rinse 15 ML MOUTHWASH BUCCAL ×3 (08:37→20:47)
[2023-10-10] MEDS: Insulin Glargine,Hum.rec.anlog 100 UNIT/ML 10 ML VIAL 30 UNIT SUBCUT ×2 (08:38→20:49)
--- NOTE | 2023-10-10 10:26 | MHC.CLN ---
F/U PT REMAINS INTUBATED REVIEWED LABS PT RECEIVING NEPRO AT MAX GOAL RATE 45ML/HR PROVIDES 1944KCALS (23KCALS/KG), 87G PROTEIN (1.04G/KG), 785ML FREE WATER FROM FORMULA CONTINUE TO MONITOR TOLERANCE AND LYTES
[2023-10-10 11:38] LABS: Glucose, Whole Blood 95 mg/dL (60-115)
--- NOTE | 2023-10-10 13:08 | P.PNNP_ITS ---
Subjective Subjective Date of Service: 10/10/23 Interval history: no significant overnight events, seen on hemodialysis this morning. Discussed with dialysis. Dialysis catheter flows only at 200 Physical Exam 2 Vital Signs: Vital Signs: Last Vital Signs Temp 98.4 F 10/10/23 13:00 Pulse 66 10/10/23 13:00 Resp 20 10/10/23 13:00 BP 96/47 L 10/10/23 13:00 Pulse Ox 97 10/10/23 12:00 O2 Del Method Mechanical Ventil ation 10/10/23 12:00 O2 Flow Rate 35 10/06/23 23:00 FiO2 30 10/10/23 12:00 BMI result Body Mass Index 34.0 Const: General: no acute distress Neck: Other: Left IJ dialysis catheter present Resp: Auscultation: diminished lung sounds Cardio: Rate: regular rate GI: Palpation (GI): Soft to palpation Neuro: Other: Intubated and ventilated Objective Data Labs 10/10/23 04:38 10/10/23 04:38 Labs: Laboratory Results - last 24 hr 10/09/23 10/09/23 10/10/23 18:04 23:30 04:38 WBC 16.2 H RBC 2.47 L Hgb 7.9 L Hct 22.0 L MCV 89.1 MCH 32.0 MCHC 35.9 RDW 19.7 H Plt Count 102 L D MPV 13.9 H Immature Gran % (Auto) 1.7 H Neut % (Auto) 88.8 H Lymph % (Auto) 2.8 L [place] % (Auto) 5.7 Eos % (Auto) 0.4 Baso % (Auto) 0.6 Lymph # (Auto) 0.5 L [place] # (Auto) 0.9 Eos # (Auto) 0.1 Baso # (Auto) 0.1 Abs Immat Gran (auto) 0.28 H Absolute Neuts (auto) 14.4 H Absolute Nucleated RBC 0.020 H Nucleated RBC % (auto) 0.1 VBG pH VBG pCO2 VBG pO2 VBG HCO3 VBG O2 Saturation VBG Base Excess Sodium 135 Potassium 3.8 Chloride 98 Carbon Dioxide 20 L Anion Gap 21 H BUN 80 H Creatinine 4.40 H* Estim Creat Clear Calc 21.1 Estimated GFR 13 POC Glucose 343 H 289 H Random Glucose 356 H* Calcium 7.9 L D Phosphorus 6.2 H Magnesium 2.4 08/09/24 08/09/24 04:43 11:35 WBC RBC Hgb Hct MCV MCH MCHC RDW Plt Count MPV Immature Gran % (Auto) Neut % (Auto) Lymph % (Auto) [place] % (Auto) Eos % (Auto) Baso % (Auto) Lymph # (Auto) [place] # (Auto) Eos # (Auto) Baso # (Auto) Abs Immat Gran (auto) Absolute Neuts (auto) Absolute Nucleated RBC Nucleated RBC % (auto) VBG pH 7.41 VBG pCO2 35 VBG pO2 37 VBG HCO3 22 VBG O2 Saturation 59.0 VBG Base Excess -1.1 Sodium Potassium Chloride Carbon Dioxide Anion Gap BUN Creatinine Estim Creat Clear Calc Estimated GFR POC Glucose 95 Random Glucose Calcium Phosphorus Magnesium Microbiology Microbiology Results: Microbiology 09/30/23 Unknown Urine Catheterized - Straight Catheter Urine Culture - Final Klebsiella pneumoniae 09/28/23 23:08 Blood - Venous Blood Culture - Final Klebsiella pneumoniae 09/28/23 22:51 Blood - Venous Blood Culture - Final Klebsiella pneumoniae 09/29/23 Unknown Urine clean catch - Clean Catch Midstream Urine Culture - Final Enterobacter cloacae complex Procedures Date of Service Date of Service: 10/10/23 Assessment & Plan Assessment and plan (1) LATASHA (acute kidney injury): Status: Acute Plan LATASHA due to tubular injury; UO poor; Metabolic acidosis stable on HD Seen on dialysis this morning. Tolerating hemodialysis well Shall provide hemodialysis again tomorrow (ordered); No HD on Friday She will continue current supportive care for now; shall closely follow-up Progress Note: Quality Stroke Does the patient have a stroke diagnosis?: No
[2023-10-10 17:37] LABS: Glucose, Whole Blood 350 mg/dL (60-115)
[2023-10-10 19:19] LABS: Glucose, Whole Blood 393 mg/dL (60-115)
[2023-10-10 20:47] LABS: Glucose, Whole Blood 405 mg/dL (60-115)
[2023-10-10] MEDS: Norepinephrine Bitartrate/NS 32 MG/250 ML PLAST..BAG IVCONT (22:19)
[2023-10-11] VITALS (38 sets, daily range): BP systolic 74–166; BP diastolic 36–88; PULSE 46–120; RESP 10–24; TEMP 34.8–37.3; O2SAT 84–97; BMI 32.8
[2023-10-11 00:13] LABS: Glucose, Whole Blood 440 mg/dL (60-115)
[2023-10-11] MEDS: Insulin Regular, Human 100 UNIT/ML 10 ML VIAL IVPUSH (00:26)
[2023-10-11] MEDS: Insulin Glargine,Hum.rec.anlog 100 UNIT/ML 10 ML VIAL 10 UNIT SUBCUT (00:26)
[2023-10-11] MEDS: Insulin Lispro 100 UNIT/ML 3 ML VIAL SUBCUT ×3 (00:27→12:38)
[2023-10-11] MEDS: 0.9 % Sodium Chloride Flush 3 ML SYRINGE IVFLUSH ×2 (00:46→08:44)
[2023-10-11] MEDS: Vasopressin 20 UNIT/100 ML INFUS..BTL 12 UNIT IVCONT ×2 (04:14→12:39)
[2023-10-11] MEDS: HYDROmorphone HCl 0.5 MG/0.5 ML SYRINGE IVPUSH (04:14)
[2023-10-11 04:39] LABS: VBG Base Excess -1.8 mmol/L; VBG HCO3 20 mmol/L (22-26); VBG pCO2 28 mmHg; VBG pH 7.47 (7.32-7.43); VBG pO2 38 mmHg
[2023-10-11 04:40] LABS: MANUAL DIFF FLAG NO
[2023-10-11 04:41] LABS: Venous Blood Gas Refer to POC result
[2023-10-11 04:45] LABS: Basophils Absolute Auto 0.1 X10*3/uL (0.0-0.2); Basophils Percent Auto 0.4 % (0-2); Eosinophils Absolute Auto 0.1 X10*3/uL (0.0-0.4); Eosinophils Percent Auto 0.6 % (0-4); Hemoglobin 7.4 g/dl (14.0-18.0); Imm Gran Abs Auto 0.16 X10*3/uL (0.00-0.03); Imm Gran Pct Auto 1.3 % (0.0-0.4); Lymphocytes Absolute Auto 0.4 X10*3/uL (1.2-4.9); Lymphocytes Percent Auto 3.3 % (20-40); Mean Corpuscular HGB Conc 35.7 g/dl (31.0-36.0); Mean Corpuscular Hemoglobin 31.8 pg (27.0-33.0); Mean Corpuscular Volume 88.8 fL (80.0-98.0); Mean Platelet Volume 12.1 fL (9.4-12.4); Monocytes Absolute Auto 0.6 X10*3/uL (0.1-1.2); Monocytes Percent Auto 4.7 % (2-11); Neutrophils Percent Auto 89.7 % (45-73); Platelet Count 122 X10*3/uL (160-400); Red Blood Count 2.33 X10*6/uL (4.60-5.80); Red Cell Distribution Width 20.1 % (11.0-16.0); White Blood Count 12.2 X10*3/uL (4.8-10.8)
[2023-10-11 04:48] LABS: Hematocrit 20.7 % (42.0-52.0)
[2023-10-11 05:15] LABS: Anion Gap 20 (12-20); Blood Urea Nitrogen 76 mg/dL (9-16); Calcium 8.2 mg/dL (8.4-10.2); Carbon Dioxide 19 mmol/L (22-29); Chloride 98 mmol/L (96-108); Creatinine Clr Calc Pharmacy 22.4; Estimated Glomerular Filt Rate 14; Glucose Random 374 mg/dL (60-115); Magnesium 2.3 mg/dL (1.6-2.6); Phosphorus 5.1 mg/dL (2.7-4.5); Sodium 133 mmol/L (135-145)
[2023-10-11] MEDS: Levothyroxine Sodium 100 MCG/5 ML VIAL 200 MCG IVPUSH (05:36)
--- NOTE | 2023-10-11 07:55 | P.PNCC_ITS ---
Subjective Subjective Date of Service: 10/11/23 Interval History: no significant overnight events; appeared tearful to overnight staff Critical Care Time (minutes): 60 Physical Exam 2 Vital Signs: Vital Signs: Last Vital Signs Temp 98.4 F 10/11/23 07:00 Pulse 71 10/11/23 07:00 Resp 13 10/11/23 07:00 BP 126/53 L 10/11/23 07:00 Pulse Ox 94 10/11/23 07:00 O2 Del Method Mechanical Ventil ation 10/11/23 07:00 O2 Flow Rate 30 10/10/23 15:00 FiO2 30 10/11/23 07:29 BMI result Body Mass Index 32.8 Const: Other: intubated, intermittently opens eyes to verbal stimulus HEENT: Head: Yes normal to inspection, Yes normocephalic and Yes atraumatic Eyes: General: appearance normal, both eyes and all related structures Neck: Neck: Yes normal visual inspection, Yes full ROM, Yes trachea midline and Yes supple Chest: Chest palpation & inspection: normal inspection of the chest Resp: Other: no appreciable rales, rhonchi, wheezing Cardio: Rate: regular rate Rhythm: regular rhythm Skin: Other: appreciable worsening of cyanotic digits and phalanges Neuro: Other: no appreciable spontaneous movements; intermittently opens eyes to verbal stimulus; does not answer yes/no questions at this point in time Extrem: Other: appreciable anasarca Psych: Other: unable to assess Objective Data Labs 10/11/23 04:26 10/11/23 04:26 Labs: Laboratory Results - last 24 hr 10/10/23 10/10/23 10/10/23 11:35 17:33 19:15 WBC RBC Hgb Hct MCV MCH MCHC RDW Plt Count MPV Immature Gran % (Auto) Neut % (Auto) Lymph % (Auto) [place] % (Auto) Eos % (Auto) Baso % (Auto) Lymph # (Auto) [place] # (Auto) Eos # (Auto) Baso # (Auto) Abs Immat Gran (auto) Absolute Neuts (auto) Absolute Nucleated RBC Nucleated RBC % (auto) VBG pH VBG pCO2 VBG pO2 VBG HCO3 VBG O2 Saturation VBG Base Excess Sodium Potassium Chloride Carbon Dioxide Anion Gap BUN Creatinine Estim Creat Clear Calc Estimated GFR POC Glucose 95 350 H* 393 H* Random Glucose Calcium Phosphorus Magnesium 10/10/23 10/11/23 10/11/23 20:42 00:09 04:26 WBC 12.2 H RBC 2.33 L Hgb 7.4 L Hct 20.7 L* MCV 88.8 MCH 31.8 MCHC 35.7 RDW 20.1 H Plt Count 122 L MPV 12.1 Immature Gran % (Auto) 1.3 H Neut % (Auto) 89.7 H Lymph % (Auto) 3.3 L [place] % (Auto) 4.7 Eos % (Auto) 0.6 Baso % (Auto) 0.4 Lymph # (Auto) 0.4 L [place] # (Auto) 0.6 Eos # (Auto) 0.1 Baso # (Auto) 0.1 Abs Immat Gran (auto) 0.16 H Absolute Neuts (auto) 11.0 H Absolute Nucleated RBC 0.000 Nucleated RBC % (auto) 0.0 VBG pH VBG pCO2 VBG pO2 VBG HCO3 VBG O2 Saturation VBG Base Excess Sodium 133 L Potassium 4.0 Chloride 98 Carbon Dioxide 19 L Anion Gap 20 BUN 76 H Creatinine 4.16 H* Estim Creat Clear Calc 22.4 Estimated GFR 14 POC Glucose 405 H* 440 H* Random Glucose 374 H* Calcium 8.2 L Phosphorus 5.1 H Magnesium 2.3 10/11/23 04:28 WBC RBC Hgb Hct MCV MCH MCHC RDW Plt Count MPV Immature Gran % (Auto) Neut % (Auto) Lymph % (Auto) [place] % (Auto) Eos % (Auto) Baso % (Auto) Lymph # (Auto) [place] # (Auto) Eos # (Auto) Baso # (Auto) Abs Immat Gran (auto) Absolute Neuts (auto) Absolute Nucleated RBC Nucleated RBC % (auto) VBG pH 7.47 H VBG pCO2 28 VBG pO2 38 VBG HCO3 20 L VBG O2 Saturation 63.0 VBG Base Excess -1.8 Sodium Potassium Chloride Carbon Dioxide Anion Gap BUN Creatinine Estim Creat Clear Calc Estimated GFR POC Glucose Random Glucose Calcium Phosphorus Magnesium Microbiology Microbiology Results: Microbiology 09/30/23 Unknown Urine Catheterized - Straight Catheter Urine Culture - Final Klebsiella pneumoniae 09/28/23 23:08 Blood - Venous Blood Culture - Final Klebsiella pneumoniae 09/28/23 22:51 Blood - Venous Blood Culture - Final Klebsiella pneumoniae 09/29/23 Unknown Urine clean catch - Clean Catch Midstream Urine Culture - Final Enterobacter cloacae complex Progress Note: A&P Assessment and plan (1) Bacteremia due to Klebsiella pneumoniae: Status: Acute (2) Septic shock: Status: Acute (3) Acute respiratory failure with hypoxia: Status: Acute (4) Acute kidney failure: Status: Acute (5) Acute liver failure: Status: Acute (6) Disseminated intravascular coagulation: Status: Acute Plan Patient is a 68 Y M with diabetes mellitus, hypothyroidism, prior nephrolithiasis, and prostate cancer, presenting initially on 09/28 in septic shock, found to have gram negative bacteremia, thought to be d/t urinary source, c/b multi-system organ failure including renal and respiratory failure, initiated on hemodialysis on 09/30 and intubated on 09/29, and DIC; N: intermittent improvement of wakefulness; MRI brain unrevealing; EEG not suggestive of seizure, demonstrating diffuse slowing CV: shock, likely septic; norepinephrine, vasopressin gtt; wean as tolerated R: acute hypoxic respiratory failure d/t pulmonary edema; wean as tolerated GI: shock liver; to monitor; tube feeds : acute renal failure, initiated on hemodialysis on 09/30, last hemodialysis session 10/09; appreciate nephrology recommendations; c/f prior R nephrolithiasis, s/p urethral stent H: c/f DIC; to monitor, transfuse as needed; to avoid chemical DVT prophylaxis until improvement ID: UCx and BCx w/ klebsiella; empiric zosyn E: diabetes mellitus; to monitor hypo-/hyper-glycemia; hypothyroidism, on home levothyroxine P: no acute issues S: ongoing goals of care discussion w/ family Quality Stroke Does the patient have a stroke diagnosis?: No VTE Prior VTE?: No VTE Risk Level:: Medical - moderate - high VTE Device Contraindication: N/A - Device Ordered VTE Drug Contraindication: Treatment Not Tolerated
[2023-10-11] MEDS: Lidocaine 4 % Patch ADH..PATCH 2 PATCH TRANSDERMA (08:45)
[2023-10-11] MEDS: Insulin Glargine,Hum.rec.anlog 100 UNIT/ML 10 ML VIAL 40 UNIT SUBCUT (08:45)
[2023-10-11] MEDS: Chlorhexidine Gluc Oral Rinse 15 ML MOUTHWASH BUCCAL (08:45)
[2023-10-11] MEDS: dexmedeTOMIDidine HCL/NS 400 MCG/100 ML INFUS..BTL 28.2 MCG IVCONT (11:21)
[2023-10-11 12:14] LABS: Glucose, Whole Blood 181 mg/dL (60-115)
--- NOTE | 2023-10-11 13:20 | W.MHC.ACPN ---
Advanced Care Planning Note Advanced Care Planning Note Discussed with: family member(s) Time spent (in minutes): 15 Narrative: Mrs. Manning called the ICU this AM along with Mr. Manning's sister, Lorene. We discussed comfort-focused care, after which, Mr. Manning's family felt that transitioning Mr. Lópezs philosophy of care to comfort-focused care is appropriate at this point in time. Mrs. Manning stated she would not want to be at bedside during this transition. However, Mr. Manning's sisters and other family will like to visit him today. We discussed that we will enact the comfort-focused process when they are ready. Problems Discussed (1) Bacteremia due to Klebsiella pneumoniae: (2) Septic shock: (3) Acute respiratory failure with hypoxia: (4) Acute kidney failure: (5) Acute liver failure: (6) Disseminated intravascular coagulation:
[2023-10-11] MEDS: Scopolamine 1.5 MG PATCH.TD.3 TRANSDERMA (14:45)
[2023-10-11] MEDS: Glycopyrrolate 0.2 MG/ML VIAL IVPUSH (17:30)
[2023-10-11] MEDS: fentaNYL citrate/NS 1,000 MCG/100 ML PLAST..BAG 2.5 MCG IVCONT (17:30)
[2023-10-11] MEDS: Morphine Sulfate 2 MG/ML CARTRIDGE IVPUSH (17:40)
--- NOTE | 2023-10-11 19:46 | P.DN_ITS ---
Discharge Sum: Prov Provider Primary care physician: Unknown Physician Pronouncing clinician: Tr Kinsey Discharge Sum: Diag Contributing Factors (1) Bacteremia due to Klebsiella pneumoniae: (2) Septic shock: (3) Acute respiratory failure with hypoxia: (4) Acute kidney failure: (5) Acute liver failure: (6) Disseminated intravascular coagulation: Discharge Sum: Summary Date and Time Date of admission: 09/29/23 02:35 Date of : 10/11/23 Time of : 19:38 Summary Details: ADMISSION/ DISCHARGE DIAGNOSIS: 1.MULTIORGAN FAILURE 2.SEPTIC SHOCK 3. ACUTE PYELONEPHRITIS 4.KLEBSIELLA UTI 5. LACTIC ACIDOSIS 6. LATASHA 7.HYDRONEPHROSIS 8. ACUTE RESPIRATORY FAILURE 9. ACUTE LIVER FAILURE 10. DIC 11. 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 DIABETES 7. HYPOTHYROID 8.UMBILICAL HERNIORRAPHY 9. PROSTACTECTOMY 10.SPINAL FUSION 11. NEPHROLITHIASIS CAUSE OF : SEPTIC SHOCK IN THE SETTING OF INFECTIVE NEPHROLITHIASIS HPI/HOSPITAL COURSE: Patient is a 68-year-old male who was admitted on 09/28/2023 to the ICU.? Patient has the above past medical history.? Had presented to the emergency room with complaints of generalized malaise and weakness for about 5 days accompanied by nausea, vomiting, confusion and he was noted to be febrile and hypotensive upon arrival with a blood pressure of 79/45, heart rate of 105, temperature of 101.7 degrees F. his workup was significant for a sodium of 133, anion gap of 22, creatinine of 3.61, lactic acid of 8.8, TSH greater than 100 with a T4 of less than 42. ?The patient was fluid resuscitated with almost 4 L of crystalloid, treated with Levaquin, hydrocortisone, IV levothyroxine and subsequently placed on Levophed which had improved his mental status somewhat at the time; however later on the patient developed worsened mental status changes and hypoxia requiring emergent intubation on 09/29/2023; patient's laboratories continued to deteriorate particularly his renal function which led to emergent requirement of dialysis for which a left internal jugular hemodialysis line had been placed on 10/01/2023. Since then the patient has required daily hemodialysis, multiple adjustments on medications including addition of vasopressors, sedative agents among others, his condition continued to deteriorate and the family was updated on a daily basis by Dr. Davis. Given the ongoing deterioration, and a noted suffering state as the patient was weaned off sedation and as of last night in my presence he appeared to be tearing, further discussion took place between Dr. 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 The patient was started on comfort measures this afternoon, he was given morphine on a p.r.n. basis, artificial tears, scopolamine for secretions among others. Upon my evaluation this evening at 19:00, the patient appeared to be comfortable, short discussion with family members about what they had to expect was held at bedside. At?736 asystole was noted on the monitor.? At this time, the patient has no heartbeat, no palpable pulses, pupils are fixed at 5 mm bilaterally, overall that anterior chamber and cornea of the eyes appear glossy, no spontaneous breathing.? There is no corneal reflexes bilaterally, capillary refill of the fingers and toes is significantly delayed.? Patient was pronounced at? ? ?1939 . Certificate Completed. Total time spent with the patient planning, coordinating, insuring a natural, non suffering and humane passing? as well as pronouncement evaluation, and this documentation was 45 minutes. Critical care time used for critical evaluation of this patient, diagnosis, treatment and coordination of care, review her records and documentation TOTAL CRITICAL CARE TIME? 60? MIN . discussion and coordination with consultants, completely separate from any procedures performed. . Patient's care was discussed in detail with Dr. Davis.? she is aware of all the above as well as the plan of care for this patient. Additional Data Confirmation of as documented by pronouncing clinician: no pulse, no respirations, no heart sounds and pupils fixed and dilated Family: at bedside Attending/PCP notified?: Yes Attending physician: Terrie Gómez MD Was code activated?: No Autopsy requested?: No passport application examiner notified?: No Organ bank notified?: No Advance directives: No Hospice patient?: No
--- NOTE | 2023-10-26 07:30 | PC.NURSE ---
Lorazepam 1mg administered approximately at 1810 after pt transition to [employer] SUPER[employer]OR.
[2023-11-04 07:29] LABS: Glucose, Whole Blood 356 mg/dL (60-115)
== END 2023-10-11 23:45 | disposition expired | DRG 853 ==
LOC: HO.ED 09-29 01:06 → HO.EDOVER 09-29 02:46 → HO.ICU 09-29 02:47
PROVIDERS: Internal Medicine Critical Care Medicine; Physician Assistant Medical; Registered Nurse Community Health; Urology; Admitting Provider Nurse Practitioner Family; Emergency Provider Emergency Medicine; Visit Provider Internal Medicine Pulmonary Disease
PROC: 0T768DZ Dilation of Right Ureter with Intraluminal Device, Via Natural or Artificial Opening Endoscopic (ICD-10-PCS; principal; 2023-09-30 14:50)
DX: A41.59 Other Gram-negative sepsis (principal); D65 Disseminated intravascular coagulation [defibrination syndrome]; J96.01 Acute respiratory failure with hypoxia; K72.00 Acute and subacute hepatic failure without coma; E03.5 Myxedema coma; G93.41 Metabolic encephalopathy; J81.0 Acute pulmonary edema; N17.0 Acute kidney failure with tubular necrosis; R65.21 Severe sepsis with septic shock; E87.21 Acute metabolic acidosis; N13.6 Pyonephrosis; E11.65 Type 2 diabetes mellitus with hyperglycemia; E87.5 Hyperkalemia; E03.9 Hypothyroidism, unspecified; E83.51 Hypocalcemia; Z66 Do not resuscitate; B96.1 Klebsiella pneumoniae [K. pneumoniae] as the cause of diseases classified elsewhere; E86.0 Dehydration; Z85.46 Personal history of malignant neoplasm of prostate; Z85.828 Personal history of other malignant neoplasm of skin; Z20.822 Contact with and (suspected) exposure to COVID-19; Z98.1 Arthrodesis status; Z79.4 Long term (current) use of insulin; Z79.85 Long-term (current) use of injectable non-insulin antidiabetic drugs; Z79.84 Long term (current) use of oral hypoglycemic drugs; Z79.890 Hormone replacement therapy; Z79.899 Other long term (current) drug therapy
CPT/HCPCS: 36415; 70450; 70551; 71045; 71250; 72125; 74176; 76705; 80048; 80053; 80076; 80143; 80179; 80307; 81001; 82010; 82040; 82140; 82272; 82533; 82803; 82947; 83605; 83690; 83735; 83880; 84100; 84436; 84439; 84443; 84484; 84550; 85007; 85025; 85027; 85379; 85384; 85610; 86850; 86900; 86901; 86923; 87040; 87077; 87086; 87088; 87186; 87205; 87502; 87635; 90999; 93005; 93306; 93308; 94002; 94003; 94799; 95816; 99285; C1758; C1769; C2617; J0131; J0171; J0613; J0651; J1170; J1596; J1644; J1720; J1940; J1956; J2270; J2405; J2470; J2543; J2598; J2704; J2765; J3010; J3370; J3475; J7120; P9016; P9047; P9073; Q9967

== ENCOUNTER → 2023-09-28 22:41 | Outpatient (BNV) | payer MEDICARE, OTHER, SELFPAY | PROVIDERS: Admitting Provider Nurse Practitioner Family; Emergency Provider Emergency Medicine; Visit Provider Internal Medicine Cardiovascular Disease | DX: A41.9 Sepsis, unspecified organism (principal) | CPT/HCPCS: 93010 ==

== ENCOUNTER 2023-09-29 02:35 | Outpatient (BNV) | payer MEDICARE, OTHER, SELFPAY | END 2023-09-30 05:55 | PROVIDERS: Admitting Provider Nurse Practitioner Family; Emergency Provider Emergency Medicine; Visit Provider Internal Medicine Cardiovascular Disease | DX: I36.1 Nonrheumatic tricuspid (valve) insufficiency (principal); I35.8 Other nonrheumatic aortic valve disorders; R93.1 Abnormal findings on diagnostic imaging of heart and coronary circulation; R00.0 Tachycardia, unspecified | CPT/HCPCS: 93010; 93306 ==

== ENCOUNTER 2023-09-29 02:35 | Outpatient (BNV) | payer MEDICARE, OTHER, SELFPAY | END 2023-10-06 08:11 | PROVIDERS: Admitting Provider Nurse Practitioner Family; Emergency Provider Emergency Medicine; Visit Provider Internal Medicine Cardiovascular Disease | DX: R78.81 Bacteremia (principal) | CPT/HCPCS: 93308; 93321; 93325 ==

== ENCOUNTER 2023-09-29 02:35 | Outpatient (BNV) | payer MEDICARE, OTHER, SELFPAY | END 2023-09-29 22:55 | PROVIDERS: Admitting Provider Nurse Practitioner Family; Emergency Provider Emergency Medicine; Visit Provider Internal Medicine Cardiovascular Disease | DX: R00.0 Tachycardia, unspecified (principal) | CPT/HCPCS: 93010 ==

== ENCOUNTER 2023-09-29 02:35 | Outpatient (BNV) | payer MEDICARE, OTHER, SELFPAY | END 2023-10-03 10:37 | PROVIDERS: Admitting Provider Nurse Practitioner Family; Emergency Provider Emergency Medicine; Visit Provider Internal Medicine Cardiovascular Disease | DX: R94.31 Abnormal electrocardiogram [ECG] [EKG] (principal) | CPT/HCPCS: 93010 ==

== ENCOUNTER 2023-09-29 02:35 | Outpatient (BNV) | payer MEDICARE, OTHER, SELFPAY | END 2023-10-04 03:54 | PROVIDERS: Admitting Provider Nurse Practitioner Family; Emergency Provider Emergency Medicine; Visit Provider Internal Medicine Cardiovascular Disease | DX: R94.31 Abnormal electrocardiogram [ECG] [EKG] (principal) | CPT/HCPCS: 93010 ==

== ENCOUNTER 2023-09-29 02:35 | Outpatient (BNV) | payer MEDICARE, OTHER, SELFPAY | END 2023-10-01 03:45 | PROVIDERS: Admitting Provider Nurse Practitioner Family; Emergency Provider Emergency Medicine; Visit Provider Internal Medicine Cardiovascular Disease | DX: R94.31 Abnormal electrocardiogram [ECG] [EKG] (principal) | CPT/HCPCS: 93010 ==

== ENCOUNTER → 2023-09-29 02:35 | Outpatient (BNV) | payer MEDICARE, OTHER, SELFPAY | PROVIDERS: Admitting Provider Nurse Practitioner Family; Emergency Provider Emergency Medicine; Visit Provider Nurse Practitioner Family | DX: N17.0 Acute kidney failure with tubular necrosis (principal) | CPT/HCPCS: 31500; 36556; 99239; 99291; 99292; 99499 ==

== ENCOUNTER → 2023-09-29 02:35 | Outpatient (BNV) | payer MEDICARE, OTHER, SELFPAY | PROVIDERS: Admitting Provider Nurse Practitioner Family; Emergency Provider Emergency Medicine; Visit Provider Urology | DX: N13.30 Unspecified hydronephrosis (principal); A41.9 Sepsis, unspecified organism; R65.21 Severe sepsis with septic shock; E86.0 Dehydration; N17.9 Acute kidney failure, unspecified | CPT/HCPCS: 52332; 74420; 99222 ==

== ENCOUNTER → 2023-09-29 02:35 | Outpatient (BNV) | payer MEDICARE, OTHER, SELFPAY | PROVIDERS: Admitting Provider Nurse Practitioner Family; Emergency Provider Emergency Medicine; Visit Provider Internal Medicine Hypertension Specialist | DX: D65 Disseminated intravascular coagulation [defibrination syndrome] (principal); N10 Acute pyelonephritis; N17.0 Acute kidney failure with tubular necrosis | CPT/HCPCS: 90935; 99499 ==

== ENCOUNTER → 2023-09-29 02:35 | Outpatient (BNV) | payer MEDICARE, OTHER, SELFPAY | PROVIDERS: Admitting Provider Nurse Practitioner Family; Emergency Provider Emergency Medicine; Visit Provider Internal Medicine Pulmonary Disease | DX: K72.00 Acute and subacute hepatic failure without coma (principal); D69.6 Thrombocytopenia, unspecified; N17.0 Acute kidney failure with tubular necrosis; R78.81 Bacteremia; B96.1 Klebsiella pneumoniae [K. pneumoniae] as the cause of diseases classified elsewhere; E11.9 Type 2 diabetes mellitus without complications; J96.01 Acute respiratory failure with hypoxia | CPT/HCPCS: 99291 ==